=== PATIENT | female | born 1960 | race Caucasian/White ===

== ENCOUNTER → 2020-11-25 12:04 | Outpatient (CLI) | payer MEDICARE, MEDICAID, SELFPAY ==
[2020-11-25 13:19] LABS: Coronavirus 19 IgG Antibody Negative (Negative); Coronavirus 19 IgM Antibody Negative (Negative)
== END ==
PROVIDERS: Visit Provider Urology
DX: R32 Unspecified urinary incontinence (principal); Z01.812 Encounter for preprocedural laboratory examination; Z20.822 Contact with and (suspected) exposure to COVID-19
CPT/HCPCS: 36415; 86328

== ENCOUNTER 2020-11-28 07:50 | Day surgery (SDC) | payer MEDICARE, MEDICAID, SELFPAY ==
[2020-11-28] VITALS (13 sets, daily range): BP systolic 87–131; BP diastolic 50–82; PULSE 60–73; RESP 16–20; TEMP 36.3–43; O2SAT 91–100; BMI 61.7
[2020-11-28 08:48] LABS: Basophils % 0.4 % (0.1-2.0); Eosinophils # 0.2 K/mm3 (0.0-0.4); Eosinophils % 3.2 % (0.1-12.0); Hematocrit 36.2 % (37.0-47.0); Hemoglobin 11.6 g/dL (12.2-16.2); Lymphocytes # 2.1 K/mm3 (0.7-4.5); Lymphocytes % 30.4 % (10-50); Mean Corpuscular HGB Conc 32.1 g/dL (31.8-35.4); Mean Corpuscular Hemoglobin 30.7 pg (27.0-31.2); Mean Corpuscular Volume 95.4 fl (81-99); Mean Platelet Volume 8.9 fl (7.4-10.4); Monocytes # 0.3 K/mm3 (0.1-1.0); Monocytes % 4.7 % (1.7-9.3); Neutrophils # 4.3 K/mm3 (1.8-7.8); Neutrophils % 61.3 % (37.0-80.0); Platelet Count 200 K/mm3 (142-424); Red Blood Count 3.79 M/mm3 (4.20-5.40); Red Cell Distribution Width 13.9 % (11.5-17.5)
[2020-11-28 08:53] LABS: Anion Gap 11.2 mEq/L (5-15); Blood Urea Nitrogen 36 mg/dl (7-17); Calcium 9.4 mg/dl (8.4-10.2); Carbon Dioxide 27 mmol/L (22.0-30.0); Chloride 106 mmol/L (98-107); Creatinine Clearance Estimated 26 mL/min (50-200); Estimated Glomerular Filt Rate 25 ml/min (>60); GFR (African American) 31 ML/MIN (>60); Glucose 106 mg/dl (74-100); Potassium 4.2 mmoL/L (3.5-5.1); Sodium 140 mmol/L (136-145)
--- NOTE | 2020-11-28 12:00 | P.PN_ITS ---
[facility] Anesthesia Checklist - Patient Identification Patient Identification: Arm Band - Structural Data Admitted From: Home Planned Operative Procedure/s: Transobturator Taping Consent for Planned Operative Procedure(s) Verified: Yes Verified Documents: Surgical Consent, History and Physical - NPO Status Verified Time NPO: 00:00 - Additional verifications Anesthesia Reactions: No Hx Blood Transfusions: No Blood Transfusion Reaction: No - Airway Assessment C-Spine Mobility Assessed: Yes (mp2) TMJ Mobility Assessed: Yes Dentition: Edentulous - Neurological Assessment Level of Consciousness: Awake, Alert - Anesthesia Plan Anesthesia Risk discussed: Yes Anesthesia Plan: Verified ASA Class: III Anesthesia Type: General [facility] History I have reviewed the patient's past medical history: Yes Medical History: Reports:: Gastroesophageal Reflux Disease(GERD), Hypertension, Osteoporosis, Renal Disease Denies:: Cancer, Diabetes Mellitus Type 1, Diabetes Mellitus Type 2, MRSA, Seizures *Have you ever received a pneumonia vaccine?: No *Have you received a flu vaccine this season?: No Other Medical History: Reports: Arthritis, Osteoporosis. Denies: Blood Transfusion Reaction Anesthesia experience/problems:: nac Other Surgeries: Yes: Bariatric Surgery, Cardiac Catheterization, Colonoscopy, , Dilation and Curettage Amputation: No Fractures: No - *Social History Last grade of school completed: High school graduate Smoking Status: Never smoker Alcohol Intake: never Substance Use Type: denies use *Occupational Status:: disabled Housing: apartment Household Members: none *Travel in the last 8 weeks: None Family Hx:: Cancer, Coronary Artery Disease, Hypertension, Stroke, Diabetes
--- NOTE | 2020-11-28 12:01 | HMH.ANESI ---
[facility] Anesthesia Record Part I Intake, IV Amount: 1,000 Estimated blood loss (mL): 10 Urine output (mL): 0 Blood Pressure: 124/51 SaO2: 91 Pulse Rate: 71 Respiratory Rate: 16 Temperature: 98.8 F Patient is:: Drowsy, Stable Stable to PACU at:: 12:00
--- NOTE | 2020-11-28 13:05 | PC.NURSE ---
300ml of sterile water instilled into bladder per MD willis
--- NOTE | 2020-11-28 14:22 | PC.NURSE ---
Pt voided >200ml of urine into bedpan
--- NOTE | 2020-11-28 14:59 | HMH.ANESII ---
[facility] Anesthesia Record Part II Discharge Time: 12:40 Destination: Surgical Day Care (OP Surgery) PACU nurse assessment reviewed?: Yes Patient Condition:: Good Anesthesia Complications:: None Swallowing reflex intact?: Yes Cyanosis?: No Blood Pressure: 95/68 Pulse Rate: 68 Temperature: 97.5 F Mental Status: Alert & Oriented Pain level:: 7 Nausea and/or vomitting:: None Intake, IV Amount: 0
--- NOTE | 2020-11-28 15:26 | HMH.OPNOTE ---
Date of procedure: 11/28/20 Pre-op Diagnosis:: Stress urinary incontinence Post-op Diagnosis:: Stress urinary incontinence Procedure performed:: Transobturator tape placement, cystoscopy Surgeon:: Florin Lim MD MET[employer] RIVETING MACHINE OPERATOR:: Mark Rodriguez Anesthesia: GETA Estimated blood loss (mL): 10 Clinical Note:: 60-year-old white female with stress urinary incontinence presents for urologic management. Operative findings:: Patient is morbidly obese and the procedure was more difficult due to her size but we were able to place the sling in its appropriate position without complication. Operative note:: Patient taken to the operating room after informed consent was obtained. She was placed on the operating room table in the supine position and general anesthesia administered. Sequential compression devices placed and preoperative antibiotics administered. She was then placed into the dorsal lithotomy position and her extremities padded appropriately. She was prepped and draped in the standard surgical fashion. Tape was used to retract the excessive fatty tissue on her thighs and over the mons pubis. Sterile prep and drape was then performed. A 16 English Delaney catheter passed into the bladder and the bladder drained. Delaney was clamped and placed onto the abdomen. The thigh incisions were marked and there appropriate position the inferior edge of the insertion of the adductor longus and on a plane equal to the clitoris. Weighted vaginal speculum was placed in a towel clip had to be used to keep it into its position. Lidocaine placed into each planned thigh incision as well as into the anterior vaginal wall. Stab incision was made in each inner thigh and the midline of the anterior vaginal wall was incised with the scalpel. The periurethral space was sharply and bluntly dissected laterally. Index finger was placed through the lateral periurethral space and the tissue was bluntly dissected from underneath the ischio pubic ramus bilaterally. Trocar was then placed into the right sided thigh incision and with some difficulty around the ischio pubic rami and guided through the vaginal incision by my finger which was underneath the ischio pubic ramus medially. There is no evidence of any fornix injury and one end of the sling was placed onto the trocar and it was pulled back out through the thigh. The identical procedure was performed on the patient's left side and the other end of the sling was placed on to that trocar and it was pulled out through the left thigh. Cystoscopy was then performed and it showed no evidence of any bladder or urethral injury. Visual inspection of the lateral fornices also detected no extrusion. The Delaney catheter was then replaced into the bladder and the bladder drained and the Delaney again clamped and placed onto the abdomen. A curved hemostat was placed just under the urethra and the sling was adjusted up to the hemostat to where the hemostat just barely tilted. The sleeves were then cut from the sling and removed. The inner tab was removed as well. There was no excess sling material at the thigh level as the patient thighs were so large that they just retracted inside the skin. A 2-0 chromic was used to close the vaginal incision. Dermabond was used on the thigh incisions. Premarin soaked gauze ribbon was then placed into the vagina and Delaney placed to drainage. There was 10 cc blood loss. Patient tolerated procedure well without complications. Condition: stable Disposition: PACU Specimens:: None Complications:: None
[2020-11-28 17:08] LABS: Microscopic,Cath URINE MICROSCOPIC (MICROSCOPIC)
[2020-11-28 17:17] LABS: Appearance,Urine/Cath CLEAR (Clear); Bilirubin,Cath Negative (Negative); Blood, Urine/Cath 3+ (Negative); Color,Urine/Cath YELLOW (Yellow); Glucose,Urine/Cath (UA) Negative (Negative); Ketones,Urine/Cath Negative (Negative); Leukocyte Esterase,Cath 1+ (Negative); Nitrate,Cath Negative (Negative); PH,Urine/Cath 5.5 (5.0-8.5); Protein,Urine/Cath TRACE (Negative); Specific Gravity, Urine/Cath 1.025 (1.005-1.030)
[2020-11-28 17:47] LABS: WBC,Urine/Cath 20-50 #/hpf (0-3)
[2020-11-28 17:48] LABS: Bacteria,Urine/Cath 4+ /lpf
== END 2020-11-28 14:23 | disposition home or self-care (01) ==
LOC: OR 07:52
PROVIDERS: PCP Family Medicine; Visit Provider Urology
DX: N39.3 Stress incontinence (female) (male) (principal); K21.9 Gastro-esophageal reflux disease without esophagitis; I10 Essential (primary) hypertension; M81.0 Age-related osteoporosis without current pathological fracture; N28.9 Disorder of kidney and ureter, unspecified; M19.90 Unspecified osteoarthritis, unspecified site; Z80.9 Family history of malignant neoplasm, unspecified; Z82.3 Family history of stroke; Z83.3 Family history of diabetes mellitus; Z82.49 Family history of ischemic heart disease and other diseases of the circulatory system
CPT/HCPCS: 57288; 80048; 81001; 85025; 87086; 87088; 87186; 96374; C1771; J2405

== ENCOUNTER → 2020-12-27 15:27 | Outpatient (CLI) | payer MEDICARE, MEDICAID, SELFPAY ==
[2020-12-27 16:12] LABS: Basophils # 0.1 K/mm3 (0-0.2); Basophils % 0.5 % (0.1-2.0); Eosinophils # 0.2 K/mm3 (0.0-0.4); Eosinophils % 1.8 % (0.1-12.0); Hematocrit 34.6 % (37.0-47.0); Hemoglobin 11.3 g/dL (12.2-16.2); Lymphocytes # 2.9 K/mm3 (0.7-4.5); Lymphocytes % 29.8 % (10-50); Mean Corpuscular HGB Conc 32.6 g/dL (31.8-35.4); Mean Corpuscular Hemoglobin 30.7 pg (27.0-31.2); Mean Corpuscular Volume 94.1 fl (81-99); Mean Platelet Volume 7.8 fl (7.4-10.4); Monocytes # 0.5 K/mm3 (0.1-1.0); Monocytes % 5.4 % (1.7-9.3); Neutrophils % 62.6 % (37.0-80.0); Platelet Count 366 K/mm3 (142-424); Red Blood Count 3.67 M/mm3 (4.20-5.40); Red Cell Distribution Width 14.1 % (11.5-17.5); White Blood Count 9.6 K/mm3 (4.8-10.8)
[2020-12-27 16:30] LABS: Chloride 107 mmol/L (98-107); Sodium 139 mmol/L (136-145)
[2020-12-27 16:33] LABS: Alanine Aminotransferase 15 U/L (12-78); Albumin Level 4.1 g/dl (3.5-5.0); Albumin/Globulin Ratio 1.5 (1.1-1.8); Alkaline Phosphatase 131 U/L (38-126); Aspartate Amino Transferase 22 U/L (14-36); Bilirubin,Total 0.5 mg/dl (0.2-1.3); Blood Urea Nitrogen 23 mg/dl (7-17); Calcium 9.4 mg/dl (8.4-10.2); Carbon Dioxide 23 mmol/L (22.0-30.0); Estimated Glomerular Filt Rate 50 ml/min (>60); GFR (African American) 61 ML/MIN (>60); Globulin 2.8 g/dL (1.3-3.2); Glucose 107 mg/dl (74-100); Total Protein,Serum 6.9 g/dl (6.3-8.2)
[2020-12-27 17:11] LABS: C-Reactive Protein 10.7 mg/L (0-4)
[2020-12-27 19:35] LABS: Erythrocyte Sedimentation Rate 50 mm/hr (0-30)
== END ==
PROVIDERS: Visit Provider Nurse Practitioner
DX: M79.673 Pain in unspecified foot (principal)
CPT/HCPCS: 36415; 80053; 84550; 85025; 85651; 86140

== ENCOUNTER → 2021-04-12 11:52 | Outpatient (CLI) | payer MEDICARE, MEDICAID, SELFPAY ==
--- NOTE | 2021-04-12 11:59 | XR_ITS ---
PROCEDURE: XR KNEE RT 4V CLINICAL INDICATION: BL knee pain COMPARISON: No exams were available for comparison FINDINGS: There is severe osteoarthritic changes at the medial compartment patellofemoral joint and lateral compartment. There are prominent osteophytes at the knee joint. There are small calcifications in the suprapatellar and infrapatellar region which could be due to small loose bodies within suprapatellar bursa. IMPRESSION: Severe osteoarthritic changes as described Dictated by: Asher Martinez MD 04/12/2021 17:30 Asher Martinez MD in [place] 04/12/2021 17:30
--- NOTE | 2021-04-12 11:59 | XR_ITS ---
PROCEDURE: XR HIP RT 2-3V W/PELVIS CLINICAL INDICATION: RT hip pain COMPARISON: No exams were available for comparison FINDINGS: The exam is limited secondary to patient's body habitus. There are severe osteoarthritic changes of the right hip with mild cortical irregularity of the femoral head. A subchondral lucency involves the superior aspect of the femoral head and could be due to a crescent sign from avascular necrosis versus an overlying osteophyte. Consider CT for further evaluation. No obvious acute fracture or dislocation. There are mild osteoarthritic changes of the left hip. IMPRESSION: Severe osteoarthritis of the right hip with possible crescent sign of the femoral head which may be seen with avascular necrosis versus prominent osteophyte. Consider CT for further evaluation. Dictated by: Asher Martinez MD 04/12/2021 12:58 Asher Martinez MD in [place] 04/12/2021 12:58
--- NOTE | 2021-04-12 14:12 | MM_ITS ---
PROCEDURE: MM DIG SCREENING MAMM BI W/CAD Digital Breast Tomosynthesis Included CLINICAL INDICATION: Breast Cancer Screening COMPARISON: DOC,MG MAMMO ADDITIONAL VIEWS RT from 01/31/2017 MG Screening-Bilateral Mammography from 01/22/2018 DOC,MG MAMMO ADDITIONAL VIEWS RT from 03/20/2018 TECHNIQUE: Standard CC and MLO images and 3D Tomosynthesis was obtained. R2 CAD reviewed. FINDINGS: The breasts are heterogeneously dense which may obscure small masses. No suspicious appearing mass, malignant-appearing microcalcification, architectural distortion, or skin thickening. There are numerous bilateral benign-appearing nodules overall not significantly changed. Bilateral benign-appearing calcifications are also noted. IMPRESSION: Benign findings. BI-RAD Category: 2 Benign Finding FOLLOW-UP: 1 YR 1 Year Follow-up (A letter has been sent to the patient regarding results of the study.) Dictated by: Asher Martinez MD 05/01/2021 08:52 Asher Martinez MD in [place] 05/01/2021 08:52
--- NOTE | 2021-04-12 14:13 | US_ITS ---
PROCEDURE: US KIDNEY CLINICAL INDICATION: CKD STAGE 3 COMPARISON: No exams were available for comparison FINDINGS: The right kidney is [id number]. No hydronephrosis. There is cortical thinning present. There is a benign-appearing 2 cm cyst along the lower pole of the right kidney. The left kidney is [id number]. Cortical thinning noted. No renal mass or hydronephrosis. Multiple gallstones are noted. IMPRESSION: Bilateral renal cortical thinning with small benign-appearing right renal cyst Cholelithiasis Dictated by: Asher Martinez MD 04/12/2021 17:40 Asher Martinez MD in [place] 04/12/2021 17:40
== END ==
PROVIDERS: PCP Emergency Medicine; Visit Provider Emergency Medicine
DX: M25.561 Pain in right knee (principal); M25.562 Pain in left knee; M25.551 Pain in right hip; Z12.31 Encounter for screening mammogram for malignant neoplasm of breast; N18.30 Chronic kidney disease, stage 3 unspecified
CPT/HCPCS: 73502; 73564; 76770; 77063; 77067

== ENCOUNTER → 2021-09-04 13:31 | Outpatient (POV) | payer MEDICARE, MEDICAID, SELFPAY | PROVIDERS: Visit Provider Internal Medicine Nephrology | DX: Z00.00 Encounter for general adult medical examination without abnormal findings (principal) ==

== ENCOUNTER → 2022-09-15 08:25 | Outpatient (CLI) | payer MEDICARE, MEDICAID, SELFPAY ==
[2022-09-15 08:32] LABS: Microscopic, Urine URINE MICROSCOPIC (MICROSCOPIC)
[2022-09-15 08:52] LABS: Appearance,Urine CLOUDY (Clear); Bilirubin,Urine Negative (Negative); Blood, Urine Negative (Negative); Color,Urine YELLOW (Yellow); Glucose,Urine (UA) Negative (Negative); Ketones,Urine Negative (Negative); Leukocyte Esterase,Urine TRACE (Negative); Nitrate,Urine POSITIVE (Negative); PH,Urine 6.5 (5.0-8.5); Protein,Urine TRACE (Negative)
[2022-09-15 08:54] LABS: Basophils # 0.1 K/mm3 (0-0.2); Basophils % 0.8 % (0.1-2.0); Eosinophils # 0.2 K/mm3 (0.0-0.4); Eosinophils % 2.2 % (0.1-12.0); Hemoglobin 13.5 g/dL (12.2-16.2); Lymphocytes # 2.6 K/mm3 (0.7-4.5); Mean Corpuscular HGB Conc 32.1 g/dL (31.8-35.4); Mean Corpuscular Hemoglobin 30.7 pg (27.0-31.2); Mean Corpuscular Volume 95.7 fl (81-99); Mean Platelet Volume 8.5 fl (7.4-10.4); Monocytes # 0.6 K/mm3 (0.1-1.0); Monocytes % 5.5 % (1.7-9.3); Neutrophils # 7.4 K/mm3 (1.8-7.8); Neutrophils % 67.5 % (37.0-80.0); Platelet Count 295 K/mm3 (142-424); Red Blood Count 4.39 M/mm3 (4.20-5.40); Red Cell Distribution Width 14.2 % (11.5-17.5); White Blood Count 10.9 K/mm3 (4.8-10.8)
[2022-09-15 08:57] LABS: Creatinine,Urine Random 109 mg/dL (Not Estab.)
[2022-09-15 09:04] LABS: RBC,Urine Occasional #/hpf (0-3)
[2022-09-15 09:26] LABS: Albumin Level 4.5 g/dl (3.5-5.0); Anion Gap 10.8 mEq/L (5-15); Blood Urea Nitrogen 18 mg/dl (7-17); Calcium 8.9 mg/dl (8.4-10.2); Carbon Dioxide 28 mmol/L (22.0-30.0); Chloride 105 mmol/L (98-107); Estimated Glomerular Filt Rate 63 ml/min (>60); GFR (African American) 77 ML/MIN (>60); Glucose 106 mg/dl (74-100); Phosphorous 3.7 mg/dl (2.5-4.5); Potassium 3.8 mmoL/L (3.5-5.1); Sodium 140 mmol/L (136-145)
[2022-09-15 09:38] LABS: Intact Parathyroid Hormone 204.7 pg/mL (7.5-53.5)
[2022-09-15 09:42] LABS: 25-OH Vitamin D, Total 70.9 ng/mL (30-100)
== END ==
PROVIDERS: PCP Emergency Medicine; Visit Provider Internal Medicine Nephrology
DX: N18.32 Chronic kidney disease, stage 3b (principal); E55.9 Vitamin D deficiency, unspecified
CPT/HCPCS: 36415; 80069; 81001; 82306; 82570; 83970; 84155; 85025

== ENCOUNTER → 2022-09-17 11:40 | Outpatient (POV) | payer MEDICARE, MEDICAID, SELFPAY | PROVIDERS: Visit Provider Internal Medicine Nephrology | DX: Z00.00 Encounter for general adult medical examination without abnormal findings (principal) ==

== ENCOUNTER → 2022-10-25 13:41 | Outpatient (CLI) | payer MEDICARE, MEDICAID, SELFPAY ==
--- NOTE | 2022-10-25 13:41 | CA_ITS ---
APPROVED REPORT EXAM: Comprehensive 2D, Doppler, and color-flow Echocardiogram Fare Collector: Shellie Bear RVT Ht: 5 ft 4 in Wt: 355lbs BSA: 2.50 BP: 139/91 mmHg Indications: ABN EKG,HX SVT,HTN,OBESITY,GERD,HX SVT TDS-PT BODY HABITUS AND PT SCANNED IN W/C 2D Dimensions LVOT 2.01 cm (M/F) 1.5-2.5 M-Mode Dimensions RVDd 3.37 cm (0.9-2.6) LA Diam 3.35 cm (1.9-4.0) LVDd 5.06 cm (3.5-5.7) Ao Diam 3.41 cm (2.0-3.7) LVDs 3.77 cm (3.5-5.7) IVSd 0.96 cm (0.6-1.1) PWd 0.84 cm (0.6-1.1) EF (Teich) 50.00% FS 25.50% EDV (Teich) 121.60 mL ESV (Teich) 60.80 mL LV Diastology E Decel Time 223.00 (160-240 msec) E/A Ratio 1.1 MED E' 6.20 (< 7 cm/sec) E'/MED E' Ratio 7.58 (>14) LAT E' 4.30 (<10 cm/sec) E/LAT E' Ratio 10.93 (>14) Aortic Valve AO Peak GR. 2.60 mmHg Mitral Valve MV E Max Giovanni. 47.00 (40-130 cm/s) MV A Velocity 44.00 (40-130 cm/s) E/A Ratio 1.07 MV Decel. Time 223.00 (160-240 ms) MV PHT 65.00 ms Pulmonary Valve PV Peak Velocity 89.00 (50-150 cm/s) Tricuspid Valve TR P. Velocity 301.00 cm/s RAP Estimate 10.00 mmHg RVSP 46.20 mmHg Left Ventricle Clinically difficult study because of the patient factors and poor acoustic windows. Left atrium is mildly enlarged, left ventricle is normal size mild concentric left ventricular hypertrophy, estimated ejection fraction 55% with no regional wall motion abnormality, diastolic parameters are inconclusive. Right Ventricle Right atrium and right ventricular mildly enlarged with normal contractility. Aortic Valve Aortic valve is minimally thickened and fibrosed there is no aortic stenosis or aortic insufficiency. Mitral Valve Mitral valve is grossly normal, there is trace mitral regurgitation. Tricuspid Valve Tricuspid valve is grossly normal, there is trace tricuspid regurgitation, tricuspid regurgitation jet velocity is inadequate for calculation of the right ventricular systolic pressure. Pulmonic Valve Pulmonic valve is poorly visualized. Great Vessels Aortic root normal size. Inferior vena cava is poorly visualized. Pericardium No significant pericardial effusion noted. Conclusion 1. Biatrial enlargement, normal left ventricular size, mild concentric left ventricular hypertrophy, estimated ejection fraction 55% with no regional wall motion abnormality. Diastolic parameters are inconclusive. 2. Mildly enlarged right ventricle with normal contractility. 3. Trace mitral and tricuspid regurgitation. 4. No significant pericardial effusion noted. 5. Inferior vena cava is poorly visualized. Electronically signed by : Juvenal Hanson MD 10/25/2022 17:12:52
== END ==
PROVIDERS: PCP Emergency Medicine; Visit Provider Physician Assistant
DX: E21.5 Disorder of parathyroid gland, unspecified (principal); E66.01 Morbid (severe) obesity due to excess calories; I10 Essential (primary) hypertension; R94.31 Abnormal electrocardiogram [ECG] [EKG]; Z68.44 Body mass index [BMI] 60.0-69.9, adult; Z82.49 Family history of ischemic heart disease and other diseases of the circulatory system; Z86.79 Personal history of other diseases of the circulatory system
CPT/HCPCS: 93306

== ENCOUNTER → 2022-11-15 11:12 | Outpatient (CLI) | payer MEDICARE, MEDICAID, SELFPAY | PROVIDERS: PCP Emergency Medicine; Visit Provider Nurse Practitioner Family | DX: E21.5 Disorder of parathyroid gland, unspecified (principal); E66.01 Morbid (severe) obesity due to excess calories; I10 Essential (primary) hypertension; R00.2 Palpitations; R94.31 Abnormal electrocardiogram [ECG] [EKG]; Z68.44 Body mass index [BMI] 60.0-69.9, adult; Z82.49 Family history of ischemic heart disease and other diseases of the circulatory system; Z86.79 Personal history of other diseases of the circulatory system | CPT/HCPCS: 93270 ==

== ENCOUNTER → 2022-11-19 23:09 | Outpatient (CLI) | payer MEDICARE, MEDICAID, SELFPAY ==
[2022-11-19 19:20] LABS: Alanine Aminotransferase 20 U/L (12-78); Albumin/Globulin Ratio 1.7 (1.1-1.8); Alkaline Phosphatase 112 U/L (38-126); Anion Gap 11.1 mEq/L (5-15); Aspartate Amino Transferase 27 U/L (14-36); Bilirubin,Total 0.4 mg/dl (0.2-1.3); Blood Urea Nitrogen 18 mg/dl (7-17); Calcium 8.6 mg/dl (8.4-10.2); Carbon Dioxide 29 mmol/L (22.0-30.0); Chloride 102 mmol/L (98-107); Estimated Glomerular Filt Rate 63 ml/min (>60); GFR (African American) 77 ML/MIN (>60); Globulin 2.4 g/dL (1.3-3.2); Glucose 89 mg/dl (74-100); Potassium 4.1 mmoL/L (3.5-5.1); Sodium 138 mmol/L (136-145); Total Protein,Serum 6.4 g/dl (6.3-8.2)
[2022-11-19 19:38] LABS: Free T4 (Free Thyroxine) 1.47 ng/dl (0.78-2.19)
[2022-11-19 19:42] LABS: 25-OH Vitamin D, Total 80.1 ng/mL (30-100)
[2022-11-19 19:53] LABS: Thyroid Stimulating Hormone 1.46 uIU/mL (0.465-4.68)
[2022-12-02 20:57] LABS: PTH Related Peptide < 2.0
== END ==
PROVIDERS: PCP Emergency Medicine; Visit Provider Emergency Medicine
DX: G47.33 Obstructive sleep apnea (adult) (pediatric) (principal); I10 Essential (primary) hypertension; E66.01 Morbid (severe) obesity due to excess calories; Z68.44 Body mass index [BMI] 60.0-69.9, adult; Z79.899 Other long term (current) drug therapy
CPT/HCPCS: 80053; 82306; 82397; 84439; 84443

== ENCOUNTER → 2022-11-26 12:19 | Outpatient (CLI) | payer MEDICARE, MEDICAID, SELFPAY ==
--- NOTE | 2022-11-26 12:23 | US_ITS ---
FINAL REPORT CLINICAL HISTORY: parathyroid abnormality FINDINGS: THYROID ULTRASOUND The right lobe of the thyroid measures 4.7 cm. The left lobe of the thyroid measures 4.9 cm. The parenchyma shows normal echogenicity. There are multiple bilateral subcentimeter anechoic and hypoechoic TI-RADS 3 and TI-RADS 4 nodules. IMPRESSION: Several subcentimeter TI-RADS 4 nodules. No further follow-up recommended for subcentimeter TI-RADS 4 nodules. Reviewed, Interpreted and Dictated by Tai Muniz MD Transcribed by aBr Boyd Authenticated and [facility]
== END ==
PROVIDERS: PCP Emergency Medicine; Visit Provider Emergency Medicine
DX: E21.5 Disorder of parathyroid gland, unspecified (principal)
CPT/HCPCS: 76536

== ENCOUNTER → 2022-12-17 10:09 | Outpatient (POV) | payer MEDICARE, MEDICAID, SELFPAY ==
[2022-12-17 10:52] VITALS: BP 128/85; PULSE 68; RESP 18; O2SAT 97; BMI 69.7
--- NOTE | 2022-12-17 11:13 | EXP.PAIN.OV ---
HPI Data of Consult Patient: new to practice Consult date: 12/17/22 Requesting Physician: Darcy Carrero APRN Consult Narrative Reason for consult: Right hip pain, bilateral knee pain History of present illness: Ms. Sebastian is a 62 year old female who presents today as a new patient. She is a referral from Dr. Vee's office. Today she rates her pain a 6 out of 10. She states her pain is all along her right hip and bilateral knees. She does state this is a aching sensation that is constant with occasional sharp shooting pains. She states this has been going on for years and progressively worsened over time. She does state that she has severe degenerative disease and that she needs these joints replaced however she has not had any luck finding an orthopedic doctor who is willing to take on the revisions due to her weight. Patient does use a motorized wheelchair and states she pretty much stays in this device except to go to the bathroom at home. She states she does have a walker at home however due to her significant pain with ambulation she does not use it that frequently. Patient states she has had gastric bypass surgery in the past and then was told not to put any extra weight on her joints. She does state that she is very frustrated because she cannot lose weight due to not being able to ambulate. She states she was seeing a pain clinic in [place] however they were wanting to charge her for every trip. She states that she cannot afford the continued cost. Patient has tried [id number]-hyjkeyu medications such as Tylenol and ibuprofen along with heat and ice and topicals with minimal relief. Patient has been to physical therapy however this made her pain symptoms worse. Patient is also had knee injections in the past that did provide significant relief however only lasted 3 days. She does believe this is related to it being a severe fypz-mi-bopd condition. She is currently managed with [place] 7.5 mg 4 times a day and tramadol 50 mg 4 times a day from this office along with Flexeril 10 mg 3 times daily. Patient denies any side effects however she states that she does not feel like she gets significant relief with this medication. Patient states that she has been on it for years and feels like her body has adjusted to them. Patient does also state that she has severe degenerative disc disease in her lumbar spine. Her Maxwell is [phone]. Its been reviewed and appropriate. CC: Darcy Carrero APRN [facility] Disclaimer: The information contained in this section may have been updated after the patient was seen, as this information can be updated by other users. Medical History (Updated 12/17/22 @ 11:26 by Darcy Carrero APRN) CAD (coronary artery disease) GERD (gastroesophageal reflux disease) Gout HTN (hypertension), benign Osteoporosis Social History (Updated 12/17/22 @ 10:24 by Latosha Montanez RN) Smoking Status: Never smoker alcohol intake: never substance use type: denies use current occupational status: disabled Travel in the last 8 weeks: None household members: none housing: apartment caffeine: Yes Review of Systems Review of Systems Review of systems:: pertinent systems reviewed and negative unless documented below Review of systems (narrative): Review of Systems: General: No recent weight changes, no fever, no sleep disturbances Respiratory: No cough, no shortness of air, no recurring pulmonary infections Cardiovascular/peripheral vascular: No chest pain, no palpitations, no edema, no shortness of breath Gastrointestinal: No new onset incontinence, normal bowel movements reported Genitourinary: No new onset incontinence Musculoskeletal: Right hip pain, bilateral knee pain Psychiatric: [Normal mood/affect] Neurological: [Denies weakness in extremities], [denies balance issues] Meds Home Medications and Allergies Home Medications Medication Instructions Recorded Confirmed Type thiamine HCl (vitami
== END | disposition home or self-care (01) ==
PROVIDERS: Visit Provider Nurse Practitioner Family
DX: M19.90 Unspecified osteoarthritis, unspecified site (principal); M25.561 Pain in right knee; M25.551 Pain in right hip; G89.4 Chronic pain syndrome; E66.01 Morbid (severe) obesity due to excess calories; Z68.44 Body mass index [BMI] 60.0-69.9, adult
CPT/HCPCS: 99202; G0463

== ENCOUNTER → 2023-01-31 14:55 | Outpatient (POV) | payer MEDICARE, MEDICAID, SELFPAY ==
--- NOTE | 2023-01-31 15:06 | EXP.PAIN.SOA ---
[facility] Pain Management SOAP Note Subjective:: Patient is a pleasant 62-year-old female who presents today for follow-up and medication refill. We are currently treating the patient for degenerative joint disease with bilateral knee pain and right hip pain. Today she rates her pain a 5 out of 10. Patient denies any new trauma or injury. Patient denies any change location or type of pain she experiences. She continues to have pain in her right hip and bilateral knees. It is a aching sensation that is constant with occasional sharp shooting pains. At our last visit we did send her for an orthopedic referral. She states she does have an appointment with his office next week. She is currently managed with [place] 10 mg 4 times a day from our office and Flexeril 10 mg at bedtime from an outside provider. Patient denies any side effects from this medication. Patient presents today in motorized wheelchair. She does have a history of gastric bypass. She does also mention that if the orthopedic doctor is not interested in proceeding forward with hip or knee replacement she is interested in looking into possible breast reduction or lipo suction to help lose weight. Her Maxwell is [phone]. Its been reviewed and appropriate. Review of Systems: General: No recent weight changes, no fever, no sleep disturbances Respiratory: No cough, no shortness of air, no recurring pulmonary infections Cardiovascular/peripheral vascular: No chest pain, no palpitations, no edema, no shortness of breath Gastrointestinal: No new onset incontinence, normal bowel movements reported Genitourinary: No new onset incontinence Musculoskeletal: Right hip, bilateral knee pain Psychiatric: [Normal mood/affect] Neurological: [Denies weakness in extremities], [denies balance issues] Objective:: Physical Exam: General: Alert and oriented x3, no acute distress, pleasant and cooperative Lungs: Respirations even and unlabored, symmetrical chest expansion Eyes: PERRL Musculoskeletal: Flexion and extension of bilateral knees somewhat guarded secondary to pain, [antalgic gait noted] Neurological: Speech clear, no gross sensory deficit Assessment:: Degenerative joint disease with bilateral knee pain and right hip pain Plan:: Patient continues to experience significant pain at multiple joints. We will refill her [place] 10 mg 4 times a day and provide a 1 month supply of this medication. Patient will return to clinic in 1 month for reevaluation of symptoms and medication refill. Patient has been advised of risks of oversedation with the prescribed medication. Narcan has been offered to the patient in the event of oversedation. Patient has been advised that a family member should also be educated regarding administration of Narcan. Patient has been instructed to contact the clinic with any concerns before the next appointment. Dr. Newton has reviewed this note and agrees with this plan of care. This note was dictated using voice recognition software and make contain errors or omissions. [facility] Disclaimer: The information contained in this section may have been updated after the patient was seen, as this information can be updated by other users. Medical History (Updated 12/17/22 @ 11:26 by Darcy Carrero APRN) CAD (coronary artery disease) GERD (gastroesophageal reflux disease) Gout HTN (hypertension), benign Osteoporosis Social History (Updated 12/17/22 @ 10:24 by Latosha Montanez, NAILA) Smoking Status: Never smoker alcohol intake: never substance use type: denies use current occupational status: disabled Travel in the last 8 weeks: None household members: none housing: apartment caffeine: Yes
[2023-01-31 16:04] VITALS: BP 111/71; PULSE 74; RESP 19; O2SAT 97; BMI 69.2
== END | disposition home or self-care (01) ==
PROVIDERS: PCP Emergency Medicine; Visit Provider Nurse Practitioner Family
DX: M19.90 Unspecified osteoarthritis, unspecified site (principal); M25.561 Pain in right knee; M25.562 Pain in left knee; M25.551 Pain in right hip
CPT/HCPCS: 99212; G0463

== ENCOUNTER → 2023-02-28 14:09 | Outpatient (POV) | payer MEDICARE, MEDICAID, SELFPAY ==
--- NOTE | 2023-02-28 14:51 | EXP.PAIN.SOA ---
[facility] Pain Management SOAP Note Subjective:: Patient is a pleasant 62-year-old female who presents today for follow-up and medication refill. We are currently treating the patient for degenerative joint disease with bilateral knee pain and right hip pain. Today she rates her pain an 8 out of 10. She states she continues to have worsening pain in her right hip and knees. From her last visit she does state that she went to her orthopedic appointment however she saw the PA who stated they could not do anything for her based off of her BMI and that they were sending her to Dr. Delaney at . Patient states she was then contacted by this office and given an appointment which turned out to be for [facility] for physical therapy. Patient states she did contact their office and discussed with them that she cannot tolerate physical therapy due to her BMI however they explained that Dr. Delaney would not consider her a surgical patient until she is lost some weight. Patient states she is beside herself because she cannot lose any weight due to not being able to move around. Patient has thought about looking into possible breast reduction or lipo suction to have additional help with weight loss. She does state that she is scheduled for an appointment with her primary care doctor coming up and is going to discuss with him additional possibilities. Patient is currently managed with Doyline 10 mg 4 times a day from our office and Flexeril 10 mg at bedtime from an outside provider. She denies any side effects from this medication. Her Maxwell is [id number]. Its been reviewed and appropriate. Review of Systems: General: No recent weight changes, no fever, no sleep disturbances Respiratory: No cough, no shortness of air, no recurring pulmonary infections Cardiovascular/peripheral vascular: No chest pain, no palpitations, no edema, no shortness of breath Gastrointestinal: No new onset incontinence, normal bowel movements reported Genitourinary: No new onset incontinence Musculoskeletal: Low back pain, bilateral knee pain Psychiatric: [Normal mood/affect] Neurological: [Denies weakness in extremities], [denies balance issues] Objective:: Physical Exam: General: Alert and oriented x3, no acute distress, pleasant and cooperative Lungs: Respirations even and unlabored, symmetrical chest expansion Eyes: PERRL Musculoskeletal: Flexion and extension of lumbar [spine] somewhat guarded secondary to pain, [antalgic gait noted] Neurological: Speech clear, no gross sensory deficit Assessment:: Degenerative joint disease with bilateral knee pain and right hip pain, chronic pain syndrome Plan:: I will refill the patient's Doyline 10 mg 4 times a day and provide a 1 month supply of this medication. I will also send a referral to for possible breast reduction evaluation. Patient will return to clinic in 1 month for reevaluation of symptoms, medication refill and follow-up. Patient has been advised of risks of oversedation with the prescribed medication. Narcan has been offered to the patient in the event of oversedation. Patient has been advised that a family member should also be educated regarding administration of Narcan. Patient has been instructed to contact the clinic with any concerns before the next appointment. Dr. Newton has reviewed this note and agrees with this plan of care. This note was dictated using voice recognition software and make contain errors or omissions. [facility] Disclaimer: The information contained in this section may have been updated after the patient was seen, as this information can be updated by other users. Medical History (Updated 12/17/22 @ 11:26 by Darcy Carrero APRN) CAD (coronary artery disease) GERD (gastroesophageal reflux disease) Gout HTN (hypertension), benign Osteoporosis Social History (Updated 12/17/22 @ 10:24 by Latosha Montanez RN) Smoking Status: Never smoker alcohol intake: never substance use type: denies use c
[2023-02-28 15:26] VITALS: BP 125/72; PULSE 62; RESP 18; O2SAT 98; BMI 69.7
== END | disposition home or self-care (01) ==
PROVIDERS: Visit Provider Nurse Practitioner Family
DX: M19.90 Unspecified osteoarthritis, unspecified site (principal); M25.561 Pain in right knee; M25.562 Pain in left knee; M25.551 Pain in right hip; G89.4 Chronic pain syndrome
CPT/HCPCS: 99212; G0463

== ENCOUNTER → 2023-03-28 13:19 | Outpatient (POV) | payer MEDICARE, MEDICAID, SELFPAY ==
--- NOTE | 2023-03-28 13:56 | EXP.PAIN.SOA ---
[facility] Pain Management SOAP Note Subjective:: Patient is a pleasant 62-year-old female who presents today for medication refill and follow-up. We are currently treating the patient for degenerative joint disease with bilateral knee pain and right hip pain. Today she rates her pain a 5 out of 10. Patient denies any new trauma or injury. Patient does state that she continues to have difficulty with ambulation due to her worsening pain in her hip and bilateral knees. At our last visit we had discussed possibly that she would benefit from a spinal cord stimulator trial. Patient does state today that she is interested in proceeding forward with this plan of care. At our last visit we did also try and send her for for possible breast reduction however we did not have any luck finding a provider who would accept her. Patient is currently managed with [place] 10 mg 4 times a day from our office and Flexeril 10 mg at bedtime from an outside provider. Patient denies any side effects from this medication. Her Maxwell is [id number]. Its been reviewed and appropriate. Review of Systems: General: No recent weight changes, no fever, no sleep disturbances Respiratory: No cough, no shortness of air, no recurring pulmonary infections Cardiovascular/peripheral vascular: No chest pain, no palpitations, no edema, no shortness of breath Gastrointestinal: No new onset incontinence, normal bowel movements reported Genitourinary: No new onset incontinence Musculoskeletal: Right hip pain, bilateral knee pain Psychiatric: [Normal mood/affect] Neurological: [Denies weakness in extremities], [denies balance issues] Objective:: Physical Exam: General: Alert and oriented x3, no acute distress, pleasant and cooperative Lungs: Respirations even and unlabored, symmetrical chest expansion Eyes: PERRL Musculoskeletal: Flexion and extension of lumbar [spine] somewhat guarded secondary to pain, [antalgic gait noted] Neurological: Speech clear, no gross sensory deficit Assessment:: Degenerative joint disease with bilateral knee pain and right knee pain Plan:: Patient continues to experience significant pain in her right hip and bilateral knees with limited range of motion. Patient has tried and failed conservative therapy such as oral medication, heat and ice, topicals, physical therapy, at home stretching and exercise. Patient has also tried orthopedic doctors for possible arthroplasty however has been denied by multiple providers due to her BMI. I have discussed with the patient that I will order a psychological evaluation if she is deemed an appropriate patient we will proceed forward with the spinal cord stimulator trial in the future. I will refill the patient's Fargo 10 mg 4 times a day and provide a 1 month supply of this medication. I have counseled the patient to talk to her primary care doctor regarding if they know of any surgeons for possible breast reduction. Patient will return to clinic in 1 month for reevaluation of symptoms and plan of care. Patient has been advised of risks of oversedation with the prescribed medication. Narcan has been offered to the patient in the event of oversedation. Patient has been advised that a family member should also be educated regarding administration of Narcan. Patient has been instructed to contact the clinic with any concerns before the next appointment. Dr. Newton has reviewed this note and agrees with this plan of care. This note was dictated using voice recognition software and make contain errors or omissions. [facility] Disclaimer: The information contained in this section may have been updated after the patient was seen, as this information can be updated by other users. Medical History (Updated 03/26/23 @ 17:09 by Melivn Martinez MD) CAD (coronary artery disease) GERD (gastroesophageal reflux disease) Gout HTN (hypertension), benign Osteoporosis Surgical History (Updated 03/26/23 @ 16:59 by LALO Mix) Hist
[2023-03-28 16:01] VITALS: BP 147/90; PULSE 63; RESP 18; O2SAT 97; BMI 69.7
== END | disposition home or self-care (01) ==
PROVIDERS: Visit Provider Nurse Practitioner Family
DX: M25.561 Pain in right knee (principal); M25.562 Pain in left knee; M25.551 Pain in right hip; M19.90 Unspecified osteoarthritis, unspecified site
CPT/HCPCS: 99212; G0463

== ENCOUNTER → 2023-04-25 12:48 | Outpatient (POV) | payer MEDICARE, MEDICAID, SELFPAY ==
--- NOTE | 2023-04-25 13:05 | EXP.PAIN.SOA ---
[facility] Pain Management SOAP Note Subjective:: Patient is a pleasant 62-year-old female who presents today for 1 month follow-up. We are currently treating the patient for degenerative joint disease with bilateral knee pain and right hip pain. Today she rates her pain a 6 out of 10. Patient denies any new trauma or injury. She does state that she has gotten a official appointment for [facility] for her psychological evaluation on May 10. She does also state that she has found a provider who could possibly do a breast reduction surgery. Patient is currently managed with Early 10 mg 4 times a day from our office and Flexeril 10 mg at bedtime from an outside provider. Patient denies any side effects from this medication. She states it does at least help take the edge off of her pain symptoms. Patient does have chronic back pain that affects her daily ability perform activities of daily living or even simple ambulation. Patient does use a motorized wheelchair including her Maxwell is [phone]. Its been reviewed and appropriate. Review of Systems: General: No recent weight changes, no fever, no sleep disturbances Respiratory: No cough, no shortness of air, no recurring pulmonary infections Cardiovascular/peripheral vascular: No chest pain, no palpitations, no edema, no shortness of breath Gastrointestinal: No new onset incontinence, normal bowel movements reported Genitourinary: No new onset incontinence Musculoskeletal: Back pain, knee pain, hip pain Psychiatric: [Normal mood/affect] Neurological: [Denies weakness in extremities], [denies balance issues] Objective:: Physical Exam: General: Alert and oriented x3, no acute distress, pleasant and cooperative Lungs: Respirations even and unlabored, symmetrical chest expansion Eyes: PERRL Musculoskeletal: Flexion and extension of lumbar [spine] somewhat guarded secondary to pain, [antalgic gait noted] Neurological: Speech clear, no gross sensory deficit Assessment:: Chronic back pain, bilateral knee pain, right hip pain, degenerative joint disease Plan:: Patient continues to experience significant pain at multiple joints on a daily basis. We have discussed in the past that due to her weight putting more pressure on her spine that weight reduction as well as possible breast reduction surgery may provide more beneficial relief for her overall back pain and joint pain. Patient is very limited in her ability to ambulate and exercise and has been trying to find any options possible to help her increase functionality and decrease her overall pain. We will continue to monitor her progress at upcoming visits. I will refill the patient's Early 10 mg 4 times a day and provide a 1 month supply of this medication. Patient will return to clinic in 1 month for reevaluation of symptoms and medication refill. Patient has been advised of risks of oversedation with the prescribed medication. Narcan has been offered to the patient in the event of oversedation. Patient has been advised that a family member should also be educated regarding administration of Narcan. Patient has been instructed to contact the clinic with any concerns before the next appointment. Dr. Newton has reviewed this note and agrees with this plan of care. This note was dictated using voice recognition software and make contain errors or omissions. [facility] Disclaimer: The information contained in this section may have been updated after the patient was seen, as this information can be updated by other users. Medical History CAD (coronary artery disease) GERD (gastroesophageal reflux disease) Gout HTN (hypertension), benign Osteoporosis Surgical History History of hysterectomy Social History Smoking Status: Never smoker alcohol intake: never substance use type: den
[2023-04-25 14:00] VITALS: BP 145/89; PULSE 79; RESP 18; O2SAT 99; BMI 69.2
== END | disposition home or self-care (01) ==
PROVIDERS: PCP Emergency Medicine; Visit Provider Nurse Practitioner Family
DX: M54.50 Low back pain, unspecified (principal); G89.29 Other chronic pain; M25.561 Pain in right knee; M25.562 Pain in left knee; M25.551 Pain in right hip; M19.90 Unspecified osteoarthritis, unspecified site
CPT/HCPCS: 99212; G0463

== ENCOUNTER → 2023-04-30 12:44 | Outpatient (CLI) | payer MEDICARE, MEDICAID, SELFPAY ==
--- NOTE | 2023-04-30 12:45 | MM_ITS ---
PROCEDURE INFORMATION: Exam: MG Bilateral Screening 3D Mammography Exam date and time: 04/30/2023 1:17 PM Age: 62 years old Clinical indication: Screening examination; No personal or family history of breast cancer TECHNIQUE: Imaging protocol: Bilateral Screening tomosynthesis and 2D mammography including computer-aided detection (CAD) when performed. COMPARISON: 1. MG MM DIG SCREENING MAMM BI W/CAD 04/12/2021 2:34 PM 2. MG MAMMO ADDITIONAL VIEWS RT 03/20/2018 8:46 AM FINDINGS: MAMMOGRAPHY: Breast composition: There are scattered areas of fibroglandular density. Mass: No new or suspicious masses Architectural distortion: None. Calcifications: No suspicious calcifications. Asymmetric density: None. Skin thickening: None. Axillary adenopathy: None. IMPRESSION: No mammographic evidence of malignancy. Annual screening is recommended unless otherwise clinically indicated. ASSESSMENT: BI-RADS Category 1: Negative
== END ==
PROVIDERS: PCP Emergency Medicine; Visit Provider Emergency Medicine
DX: Z12.31 Encounter for screening mammogram for malignant neoplasm of breast (principal)
CPT/HCPCS: 77063; 77067

== ENCOUNTER → 2023-05-10 12:57 | Outpatient (CLI) | payer MEDICARE, MEDICAID, SELFPAY ==
--- NOTE | 2023-05-10 12:57 | CT_ITS ---
FINAL REPORT TECHNIQUE: Thin section axial CT images with coronal and sagittal reformats were performed through the neck. This study was performed with techniques to keep radiation doses as low as reasonably achievable (ALARA). Individualized dose reduction techniques using automated exposure control or adjustment of mA and/or kV according to the patient's size were employed. CLINICAL HISTORY: 3+ tonsils cryptic bilaterally COMPARISON: None FINDINGS: No adenopathy or mass lesion is present . Salivary glands are normal. Larynx is unremarkable. Thyroid gland is unremarkable. There is mild prominence of the tonsillar pillars without evidence of any fluid collections or mass. IMPRESSION: Mild prominence of the tonsillar pillars without evidence of a fluid collection or mass. Reviewed, Interpreted and Dictated by Alban Whittaker III, MD Transcribed by Beatrice Morris Authenticated and [facility]
== END ==
PROVIDERS: PCP Emergency Medicine; Visit Provider Nurse Practitioner
DX: J35.1 Hypertrophy of tonsils (principal)
CPT/HCPCS: 70490

== ENCOUNTER → 2023-05-23 14:14 | Outpatient (POV) | payer MEDICARE, MEDICAID, SELFPAY ==
--- NOTE | 2023-05-23 14:47 | EXP.PAIN.SOA ---
[facility] Pain Management SOAP Note Subjective:: Patient is a pleasant 62-year-old female who presents today for medication refill and 1 month follow-up. We are currently treating the patient for degenerative joint disease with bilateral knee pain and right hip pain. Today she rates her pain a 5 out of 10. Patient denies any new trauma or injury. She does states she continues to have constant pain in her right hip and bilateral knees and is worse with increased activity. Patient does state since our last visit that she does have an upcoming appointment on May 31 for possible breast reduction surgery evaluation. She also has had her psychological evaluation done for possible spinal cord stimulator trial. Patient is currently managed with Arthur 10 mg 4 times a day and Flexeril 10 mg at bedtime from an outside provider. She denies any side effects from these medications. Her Maxwell has been reviewed and is appropriate. Review of Systems: General: No recent weight changes, no fever, no sleep disturbances Respiratory: No cough, no shortness of air, no recurring pulmonary infections Cardiovascular/peripheral vascular: No chest pain, no palpitations, no edema, no shortness of breath Gastrointestinal: No new onset incontinence, normal bowel movements reported Genitourinary: No new onset incontinence Musculoskeletal: Right hip pain, bilateral knee pain Psychiatric: [Normal mood/affect] Neurological: [Denies weakness in extremities], [denies balance issues] Objective:: Physical Exam: General: Alert and oriented x3, no acute distress, pleasant and cooperative Lungs: Respirations even and unlabored, symmetrical chest expansion Eyes: PERRL Musculoskeletal: Flexion and extension of lumbar [spine] somewhat guarded secondary to pain, [antalgic gait noted] Neurological: Speech clear, no gross sensory deficit Assessment:: Degenerative joint disease with right hip pain and bilateral knee pain Plan:: Patient did have an appropriate psychological evaluation and was deemed a good candidate for the spinal cord stimulator trial. I have reviewed over the risk and benefits of this procedure with the patient and she would like to proceed forward with this plan of care. Patient has tried and failed conservative therapy such as oral medications, heat and ice, topicals, at home exercising and stretching for longer than 12 weeks. Patient is unable to tolerate physical therapy due to her significant comorbidities and BMI. I will refill the patient's Arthur 10 mg 4 times a day and provide a 1 month supply of this medication. Patient will be scheduled for a spinal cord stimulator trial. We will contact the patient once we have official approval with specific time and date for this procedure. Patient has been advised of risks of oversedation with the prescribed medication. Narcan has been offered to the patient in the event of oversedation. Patient has been advised that a family member should also be educated regarding administration of Narcan. Patient has been instructed to contact the clinic with any concerns before the next appointment. Dr. Newton has reviewed this note and agrees with this plan of care. This note was dictated using voice recognition software and make contain errors or omissions. Addendum: Clinic pharmacy contacted our office stating that the hydrocodone 10 mg is on backorder. We have canceled the previous prescription and sent in a new prescription for Arthur 5 mg 2 tablets 4 times a day and provided a 1 month supply of this medication. [facility] Disclaimer: The information contained in this section may have been updated after the patient was seen, as this information can be updated by other users. Medical History Bilateral hearing loss CAD (coronary artery disease) Cryptic tonsil Enlarged tonsils GERD (gastroesophageal reflux disease) Gout HTN (hypertension), benign Osteoporosis Tinnitus
[2023-05-23 15:10] VITALS: BP 139/82; PULSE 64; RESP 18; O2SAT 97; BMI 69.6
== END | disposition home or self-care (01) ==
PROVIDERS: PCP Emergency Medicine; Visit Provider Nurse Practitioner Family
DX: M16.11 Unilateral primary osteoarthritis, right hip (principal); M17.0 Bilateral primary osteoarthritis of knee; M25.551 Pain in right hip; M25.561 Pain in right knee; M25.562 Pain in left knee
CPT/HCPCS: 99212; G0463

== ENCOUNTER → 2023-05-23 15:08 | Outpatient (CLI) | payer MEDICARE, MEDICAID, SELFPAY ==
[2023-05-29 11:04] LABS: Acetone <0.010 g/dL (0.000-0.010); Butalbital <1 ug/mL (1-10); Chlordiazepoxide <0.1 ug/mL (0.1-0.9); Diazepam <0.1 ug/mL (0.1-0.9); Ethanol <0.010 g/dL (0.000-0.010); Isopropanol <0.010 g/dL (0.000-0.010); Pentobarbital <1 ug/mL (1-5)
[2023-06-06 10:55] LABS: Opiate Cofirmation WB POSITIVE
[2023-06-06 11:12] LABS: Oxycodone Cofirmation WB Negative (.); Oxymorphone GS/MS Negative (.)
== END ==
LOC: LAB 15:10
PROVIDERS: PCP Emergency Medicine; Visit Provider Nurse Practitioner Family
DX: Z79.891 Long term (current) use of opiate analgesic (principal)
CPT/HCPCS: 80306; 80307; 99212; G0463

== ENCOUNTER → 2023-06-19 13:57 | Outpatient (POV) | payer MEDICARE, MEDICAID, SELFPAY ==
--- NOTE | 2023-06-19 14:20 | EXP.PAIN.SOA ---
[facility] Pain Management SOAP Note Subjective:: Patient is a pleasant 62-year-old female who presents today for medication refill. We are currently treating the patient for degenerative joint disease with bilateral knee pain and right hip pain, chronic pain syndrome. Today she rates her pain a 6 out of 10. Patient denies any new trauma or injury from her last visit. Patient does state that she did go see the breast reduction DrConstantine Who stated that she needed to lose 100 pounds before he would do surgery on her. Patient was very pleased with his overall behavior. At her last visit we did discuss about scheduling the patient for a spinal cord stimulator trial. Patient did have an appropriate psychological evaluation. Patient is severely limited in mobility due to her current weight. Patient would like to increase activity to help lose weight however due to her significant pain in her knee and hip she has had a lot of difficulty in achieving this goal. Patient has seen orthopedic physicians however has been told she is not a surgical candidate due to her bmi. Patient is currently managed with [place] 10 mg 4 times a day and Flexeril 10 mg at bedtime from an outside provider. Patient denies any side effects from this medication. Her Maxwell has been reviewed and is appropriate. Review of Systems: General: No recent weight changes, no fever, no sleep disturbances Respiratory: No cough, no shortness of air, no recurring pulmonary infections Cardiovascular/peripheral vascular: No chest pain, no palpitations, no edema, no shortness of breath Gastrointestinal: No new onset incontinence, normal bowel movements reported Genitourinary: No new onset incontinence Musculoskeletal: Hip pain, bilateral knee pain Psychiatric: [Normal mood/affect] Neurological: [Denies weakness in extremities], [denies balance issues] Objective:: Physical Exam: General: Alert and oriented x3, no acute distress, pleasant and cooperative Lungs: Respirations even and unlabored, symmetrical chest expansion Eyes: PERRL Musculoskeletal: Flexion and extension of lumbar [spine] somewhat guarded secondary to pain, [antalgic gait noted] Neurological: Speech clear, no gross sensory deficit Assessment:: Chronic pain syndrome, degenerative joint disease with bilateral knee pain, right hip pain Plan:: Patient continues to experience significant pain in her right hip and bilateral knees that limit her ability to ambulate. I have discussed with the patient that unfortunately we may have to do additional testing to evaluate blood flow to her lower extremities in order to see if she would qualify for the spinal cord stimulator. I will discuss this with Dr. Newton regarding the Plan of care. I will refill the [place] 10 mg 4 times a day provide 1 month supply of this medication. Patient will return to clinic in 1 month for reevaluation of symptoms and plan of care. Patient has been advised of risks of oversedation with the prescribed medication. Narcan has been offered to the patient in the event of oversedation. Patient has been advised that a family member should also be educated regarding administration of Narcan. Patient has been instructed to contact the clinic with any concerns before the next appointment. Dr. Newton has reviewed this note and agrees with this plan of care. This note was dictated using voice recognition software and make contain errors or omissions. [facility] Disclaimer: The information contained in this section may have been updated after the patient was seen, as this information can be updated by other users. Medical History Bilateral hearing loss CAD (coronary artery disease) Cryptic tonsil Enlarged tonsils GERD (gastroesophageal reflux disease) Gout HTN (hypertension), benign Osteoporosis Tinnitus Surgical History History of hysterectomy Social History ([place]
[2023-06-19 14:49] VITALS: BP 139/85; PULSE 63; RESP 20; O2SAT 99; BMI 69.2
== END | disposition home or self-care (01) ==
PROVIDERS: PCP Emergency Medicine; Visit Provider Nurse Practitioner Family
DX: M17.0 Bilateral primary osteoarthritis of knee (principal); M25.561 Pain in right knee; M25.562 Pain in left knee; M25.551 Pain in right hip; G89.4 Chronic pain syndrome
CPT/HCPCS: 99212; G0463

== ENCOUNTER → 2023-07-17 12:46 | Outpatient (POV) | payer MEDICARE, MEDICAID, SELFPAY ==
--- NOTE | 2023-07-17 13:13 | EXP.PAIN.SOA ---
[facility] Pain Management SOAP Note Subjective:: Patient is a pleasant 62-year-old female who presents today for medication refill and follow-up. We are currently treating the patient for bilateral knee pain, right hip pain, chronic pain syndrome. Today she rates her pain a 7 out of 10. Patient denies any new trauma or injury. She states she continues to have the same aches and pains. She does feel like she has increased weakness in her legs due to immobility. She states she frequently experiences significant popping in her joints in her knees. Patient is currently managed with [place] 10 mg 4 times a day and Flexeril 10 mg at bedtime from an outside provider. She denies any side effects from this medication. Her Maxwell has been reviewed and is appropriate. Review of Systems: General: No recent weight changes, no fever, no sleep disturbances Respiratory: No cough, no shortness of air, no recurring pulmonary infections Cardiovascular/peripheral vascular: No chest pain, no palpitations, no edema, no shortness of breath Gastrointestinal: No new onset incontinence, normal bowel movements reported Genitourinary: No new onset incontinence Musculoskeletal: Hip pain, knee pain, bilateral lower extremity weakness Psychiatric: [Normal mood/affect] Neurological: [Denies weakness in extremities], [denies balance issues] Objective:: Physical Exam: General: Alert and oriented x3, no acute distress, pleasant and cooperative Lungs: Respirations even and unlabored, symmetrical chest expansion Eyes: PERRL Musculoskeletal: Flexion and extension of lumbar [spine] somewhat guarded secondary to pain, [antalgic gait noted] Neurological: Speech clear, no gross sensory deficit Assessment:: Bilateral knee pain, right hip pain, chronic pain syndrome, bilateral lower extremity weakness Plan:: Patient continues to experience daily aches and pains. I will refill her [place] 10 mg 4 times a day and provide a 1 month supply of this medication. Patient was previously sent for a psychological evaluation and was deemed an appropriate candidate for the spinal cord stimulator however patient does not have insurance requirements for this device. We will continue to evaluate for the possibility of proceeding forward with a trial at a later date. I will send the patient for physical therapy evaluation and treatment for her lower extremity weakness. Patient will return to clinic in 1 month for reevaluation of symptoms and plan of care. Patient has been advised of risks of oversedation with the prescribed medication. Narcan has been offered to the patient in the event of oversedation. Patient has been advised that a family member should also be educated regarding administration of Narcan. Patient has been instructed to contact the clinic with any concerns before the next appointment. Dr. Newton has reviewed this note and agrees with this plan of care. This note was dictated using voice recognition software and make contain errors or omissions. [facility] Disclaimer: The information contained in this section may have been updated after the patient was seen, as this information can be updated by other users. Medical History Bilateral hearing loss CAD (coronary artery disease) Cryptic tonsil Enlarged tonsils GERD (gastroesophageal reflux disease) Gout HTN (hypertension), benign Osteoporosis Tinnitus Surgical History History of hysterectomy Social History Smoking Status: Never smoker alcohol intake: never substance use type: denies use current occupational status: disabled Travel in the last 8 weeks: None household members: none housing: apartment caffeine: Yes
[2023-07-17 13:42] VITALS: BP 152/86; PULSE 67; RESP 18; O2SAT 98; BMI 69.2
== END ==
PROVIDERS: PCP Emergency Medicine; Visit Provider Nurse Practitioner Family
DX: M25.561 Pain in right knee (principal); M25.562 Pain in left knee; M25.551 Pain in right hip; G89.4 Chronic pain syndrome; R53.1 Weakness
CPT/HCPCS: 99212; G0463

== ENCOUNTER → 2023-07-17 15:19 | Outpatient (POV) | payer MEDICARE, MEDICAID, SELFPAY | PROVIDERS: Visit Provider Specialist/Technologist | DX: Z00.00 Encounter for general adult medical examination without abnormal findings (principal) ==

== ENCOUNTER → 2023-08-23 11:17 | Outpatient (POV) | payer MEDICARE, MEDICAID, SELFPAY ==
--- NOTE | 2023-08-23 11:36 | EXP.PAIN.SOA ---
[facility] Pain Management SOAP Note Subjective:: Patient is a pleasant 62-year-old female who presents today for 1 month follow-up and medication refill. We are currently treating the patient for bilateral knee pain, right hip pain, chronic pain syndrome. Today she rates her pain a 6 out of 10. Patient denies any new trauma or injury. She denies any change to location or type of pain she experiences. Patient does state that she has not yet started physical therapy due to the recent weather however she is planning on starting soon. Patient did previously have an appropriate psychological evaluation for possible spinal cord stimulator trial however this was not approved. Patient is currently managed with [place] 10 mg 4 times a day and Flexeril 10 mg at bedtime from an outside provider. She denies any side effects from this medication. She does also state that she has been using some herbal medications that are saline to help with some of the pain. her Maxwell has been reviewed and is appropriate. Review of Systems: General: No recent weight changes, no fever, no sleep disturbances Respiratory: No cough, no shortness of air, no recurring pulmonary infections Cardiovascular/peripheral vascular: No chest pain, no palpitations, no edema, no shortness of breath Gastrointestinal: No new onset incontinence, normal bowel movements reported Genitourinary: No new onset incontinence Musculoskeletal: Hip pain, knee pain, bilateral lower extremity weakness Psychiatric: [Normal mood/affect] Neurological: [Denies weakness in extremities], [denies balance issues] Objective:: Physical Exam: General: Alert and oriented x3, no acute distress, pleasant and cooperative Lungs: Respirations even and unlabored, symmetrical chest expansion Eyes: PERRL Musculoskeletal: Flexion and extension of lumbar [spine] somewhat guarded secondary to pain, [antalgic gait noted] Neurological: Speech clear, no gross sensory deficit Assessment:: bilateral knee pain, right hip pain, chronic pain syndrome Plan:: I will refill the patient's [place] 10 mg 4 times a day and provide a 1 month supply of this medication. I have discussed with the patient due to her not having the right medical diagnosis for qualifying for the spinal cord stimulator trial that she may be a candidate for the intrathecal pain pump trial. I have discussed with her that I will speak to Dr. Newton regarding this and follow-up with her at her next visit for the possibility of proceeding forward with this option. Patient will return to clinic in 1 month for reevaluation of symptoms and plan of care. Risks and benefits of the medication have been explained in detail to the patient. The patient does understand the risk of dependence on the medication when given over a prolonged period. Patient has been advised of risks of oversedation with the prescribed medication. Narcan has been offered to the paitent in the event of oversedation. Patient has been advised that a family member should also be educated regarding administration of Narcan. The patient has been advised to consult with his/her primary care provider and pharmacist regarding drug-drug interaction of medications currently prescribed. Patient has been prescribed a controlled substance after being counseled on the medication, medication safety, and possible side effects. Opioid contract was reviewed and signed by the patient, and that they have agreed to all of the terms set forth by our compliance program. Patient has been instructed to contact the clinic with any concerns before the next appointment. Dr. Newton has reviewed this note and agrees with this plan of care. This note was dictated using voice recognition software and make contain errors or omissions. [facility] Disclaimer: The information contained in this section may have been updated after the patient was seen, as this information can be updated by other users. Medical History Bilateral hearing loss CAD (coronary artery disease) Cryptic tonsil Enlarged tonsils GERD (gastroesophageal reflux disease) Gout HTN (hypertension), benign Osteoporosis Tinnitus Surgical History History of hysterectomy Social History Smoking Status: Never smoker alcohol intake: never substance use type: denies use current occupational status: disabled Travel in the last 8 weeks: None household members: none housing: apartment caffeine: Yes
[2023-08-23 13:04] VITALS: BP 143/91; PULSE 66; RESP 18; O2SAT 98; BMI 69.2
== END | disposition home or self-care (01) ==
PROVIDERS: PCP Family Medicine; Visit Provider Nurse Practitioner Family
DX: M25.561 Pain in right knee (principal); M25.562 Pain in left knee; M25.551 Pain in right hip; G89.4 Chronic pain syndrome
CPT/HCPCS: 99212; G0463

== ENCOUNTER 2023-08-23 11:46 | Outpatient (CLI) | payer MEDICARE, MEDICAID, SELFPAY ==
[2023-08-23 12:31] LABS: Basophils % 0.5 % (0.1-2.0); Eosinophils # 0.2 K/mm3 (0.0-0.4); Eosinophils % 2.2 % (0.1-12.0); Hematocrit 42.2 % (37.0-47.0); Hemoglobin 13.7 g/dL (12.2-16.2); Lymphocytes # 1.6 K/mm3 (0.7-4.5); Lymphocytes % 19.6 % (10-50); Mean Corpuscular HGB Conc 32.4 g/dL (31.8-35.4); Mean Corpuscular Hemoglobin 30.7 pg (27.0-31.2); Mean Corpuscular Volume 94.9 fl (81-99); Mean Platelet Volume 8.5 fl (7.4-10.4); Monocytes # 0.5 K/mm3 (0.1-1.0); Monocytes % 5.8 % (1.7-9.3); Neutrophils # 5.9 K/mm3 (1.8-7.8); Neutrophils % 71.8 % (37.0-80.0); Platelet Count 202 K/mm3 (142-424); Red Blood Count 4.44 M/mm3 (4.20-5.40); Red Cell Distribution Width 14.4 % (11.5-17.5); White Blood Count 8.2 K/mm3 (4.8-10.8)
[2023-08-23 13:13] LABS: Alanine Aminotransferase 24 U/L (12-78); Albumin Level 4.1 g/dl (3.5-5.0); Albumin/Globulin Ratio 1.6 (1.1-1.8); Alkaline Phosphatase 99 U/L (38-126); Anion Gap 9.8 mEq/L (5-15); Aspartate Amino Transferase 43 U/L (14-36); Bilirubin,Total 0.7 mg/dl (0.2-1.3); Blood Urea Nitrogen 19 mg/dl (7-17); Calcium 9.5 mg/dl (8.4-10.2); Carbon Dioxide 28 mmol/L (22.0-30.0); Chloride 105 mmol/L (98-107); Chol/HDL Ratio 2.8 (1-3.5); Cholesterol 148 mg/dl (140-200); Estimated Glomerular Filt Rate 84 ml/min (>60); GFR (African American) 102 ML/MIN (>60); Globulin 2.5 g/dL (1.3-3.2); Glucose 104 mg/dl (74-100); HDL Cholesterol 52 mg/dl (40-60); Potassium 4.8 mmoL/L (3.5-5.1); Sodium 138 mmol/L (136-145); Total Protein,Serum 6.6 g/dl (6.3-8.2); Triglycerides 150 mg/dl (30-150); VLDL Cholesterol 30 mg/dL (0-40)
[2023-08-23 13:24] LABS: Direct LDL Cholesterol 63.75 mg/dL (100-129)
[2023-08-23 13:50] LABS: 25-OH Vitamin D, Total 67.6 ng/mL (30-100)
[2023-08-23 15:58] LABS: Hemoglobin A1C 5.7 % (4.0-6.0)
[2023-08-23 17:30] LABS: Intact Parathyroid Hormone 89.7 pg/mL (7.5-53.5)
== END 2023-08-23 23:59 ==
LOC: LAB 11:47
PROVIDERS: PCP Family Medicine; Visit Provider Family Medicine
DX: E78.5 Hyperlipidemia, unspecified; R53.83 Other fatigue; E21.5 Disorder of parathyroid gland, unspecified; R73.9 Hyperglycemia, unspecified; R00.2 Palpitations; E55.9 Vitamin D deficiency, unspecified
CPT/HCPCS: 36415; 80053; 80061; 82306; 83036; 83970; 84443; 85025; 99212; G0463

== ENCOUNTER → 2023-09-02 09:00 | Outpatient (CLI) | payer MEDICARE, MEDICAID, SELFPAY | PROVIDERS: PCP Family Medicine; Visit Provider Family Medicine | DX: G47.33 Obstructive sleep apnea (adult) (pediatric) (principal); G47.36 Sleep related hypoventilation in conditions classified elsewhere; R06.83 Snoring | CPT/HCPCS: G0399 ==

== ENCOUNTER → 2023-09-23 13:17 | Outpatient (POV) | payer MEDICARE, MEDICAID, SELFPAY ==
--- NOTE | 2023-09-23 13:41 | A.OFFVIS_ITS ---
[facility] Pain Management SOAP Note Subjective:: Patient is a pleasant 63-year-old female who presents today for medication refill and follow-up. We are currently treating the patient for bilateral knee pain, hip pain, chronic pain syndrome. Today she rates her pain a 6 out of 10. Patient denies any new trauma or injury. She does states from our last visit that she does believe that her bladder has dropped again and that she is scheduled to see Dr. Charles on 06 October. Patient does state that this has happened in the past and she ended up having to have surgery in 2020. Patient does also state she did have updated lab work that have some abnormal thyroid function. Patient states that her primary care provider has made an appointment with an consulting services associate for her and that is on October 14. Patient is currently managed with [place] 10 mg 4 times a day and Flexeril 10 mg at bedtime from an outside provider. She denies any side effects from these medications. Her Maxwell has been reviewed and is appropriate. Review of Systems: General: No recent weight changes, no fever, no sleep disturbances Respiratory: No cough, no shortness of air, no recurring pulmonary infections Cardiovascular/peripheral vascular: No chest pain, no palpitations, no edema, no shortness of breath Gastrointestinal: No new onset incontinence, normal bowel movements reported Genitourinary: No new onset incontinence Musculoskeletal: Bilateral knee pain, hip pain Psychiatric: [Normal mood/affect] Neurological: [Denies weakness in extremities], [denies balance issues] Objective:: Physical Exam: General: Alert and oriented x3, no acute distress, pleasant and cooperative Lungs: Respirations even and unlabored, symmetrical chest expansion Eyes: PERRL Musculoskeletal: Flexion and extension of lumbar [spine] somewhat guarded secondary to pain, [antalgic gait noted] Neurological: Speech clear, no gross sensory deficit Assessment:: Bilateral knee pain, bilateral hip pain, chronic pain syndrome Plan:: Refill the patient's [place] 10 mg 4 times a day and provide a 1 month supply of this medication. Patient will return to clinic in 1 month for reevaluation of symptoms and plan of care. Risks and benefits of the medication have been explained in detail to the patient. The patient does understand the risk of dependence on the medication when given over a prolonged period. Patient has been advised of risks of oversedation with the prescribed medication. Narcan has been offered to the paitent in the event of oversedation. Patient has been advised that a family member should also be educated regarding administration of Narcan. The patient has been advised to consult with his/her primary care provider and pharmacist regarding drug-drug interaction of medications currently prescribed. Patient has been prescribed a controlled substance after being counseled on the medication, medication safety, and possible side effects. Opioid contract was reviewed and signed by the patient, and that they have agreed to all of the terms set forth by our compliance program. Patient has been instructed to contact the clinic with any concerns before the next appointment. Dr. Newton has reviewed this note and agrees with this plan of care. This note was dictated using voice recognition software and make contain errors or omissions. [facility] Disclaimer: The information contained in this section may have been updated after the patient was seen, as this information can be updated by other users. Medical History Bilateral hearing loss CAD (coronary artery disease) Cryptic tonsil Enlarged tonsils GERD (gastroesophageal reflux disease) Gout HTN (hypertension), benign Osteoporosis Tinnitus Surgical History History of hysterectomy Social History Smoking Status: Never smoker alcohol intake: never substance use type: denies use current occupational status: unemployed Travel in the last 8 weeks: None household members: none housing: apartment caffeine: Yes
[2023-09-23 13:54] VITALS: BP 135/79; PULSE 75; RESP 18; O2SAT 99; BMI 68.8
[2023-09-30 15:26] LABS: Acetone <.010 g/dL (0.000-0.010); Butalbital <1 ug/mL (1-10); Chlordiazepoxide <0.1 ug/mL (0.1-0.9); Diazepam <0.1 ug/mL (0.1-0.9); Ethanol <.010 g/dL (0.000-0.010); Isopropanol <.010 g/dL (0.000-0.010); Pentobarbital <1 ug/mL (1-5)
[2023-10-03 14:32] LABS: Oxycodone Cofirmation WB Negative (.); Oxymorphone GS/MS Negative (.)
== END | disposition home or self-care (01) ==
PROVIDERS: PCP Family Medicine; Visit Provider Nurse Practitioner Family
DX: Z79.891 Long term (current) use of opiate analgesic (principal); M25.561 Pain in right knee; M25.562 Pain in left knee; M25.551 Pain in right hip; M25.552 Pain in left hip; G89.4 Chronic pain syndrome
CPT/HCPCS: 36415; 80306; 80307; 99212; G0463

== ENCOUNTER 2023-10-07 15:30 | Outpatient (CLI) | payer MEDICARE, MEDICAID, SELFPAY | END 2023-10-07 23:59 | PROVIDERS: PCP Urology; Visit Provider Urology | DX: N39.0 Urinary tract infection, site not specified (principal); B96.29 Other Escherichia coli [E. coli] as the cause of diseases classified elsewhere | CPT/HCPCS: 87086 ==

== ENCOUNTER 2023-10-21 13:00 | Outpatient (POV) | payer MEDICARE, MEDICAID, SELFPAY ==
--- NOTE | 2023-10-21 13:04 | A.OFFVIS_ITS ---
[facility] Pain Management SOAP Note Subjective:: Patient is a pleasant 63-year-old female who presents today for medication refill and follow-up. We are currently treating the patient for bilateral knee pain, hip pain, chronic pain syndrome. Today she rates her pain a out of 10. Patient denies any new trauma or injury. Patient does state from our last visit she has had her visit with Dr. Charles's office regarding her prolapsed bladder. She states that he is recommending she go to a woman specialist on November 20 that is up at [facility] for possible surgical intervention for her bladder drop.She did also go to the consulting sales manager appointment from her last visit. She states that her thyroid ended up being fine however her parathyroid was acting at. She states that the specialist did have her stop the vitamin D 50,000 units but had her increase the overall daily vitamin D and recommended she start a calcium supplement. She does state that they are planning on continuing to follow-up with her at future visits with additional lab work. Patient is currently managed with [place] 10 mg 4 times a day from our office and Flexeril 10 mg at bedtime from an outside provider. She denies any side effects from these medications. Her Maxwell has been reviewed and is appropriate. Review of Systems: General: No recent weight changes, no fever, no sleep disturbances Respiratory: No cough, no shortness of air, no recurring pulmonary infections Cardiovascular/peripheral vascular: No chest pain, no palpitations, no edema, no shortness of breath Gastrointestinal: No new onset incontinence, normal bowel movements reported Genitourinary: No new onset incontinence Musculoskeletal: Bilateral knee pain, hip pain Psychiatric: [Normal mood/affect] Neurological: [Denies weakness in extremities], [denies balance issues] Objective:: Physical Exam: General: Alert and oriented x3, no acute distress, pleasant and cooperative Lungs: Respirations even and unlabored, symmetrical chest expansion Eyes: PERRL Musculoskeletal: Flexion and extension of lumbar [spine] somewhat guarded secondary to pain, [antalgic gait noted] Neurological: Speech clear, no gross sensory deficit Assessment:: Bilateral knee pain, hip pain, chronic pain syndrome Plan:: Will refill the patient's [place] 10 mg 4 times a day provide 1 month supply of this medication. Patient will return to clinic in 1 month for reevaluation of symptoms and plan of care. Risks and benefits of the medication have been explained in detail to the patient. The patient does understand the risk of dependence on the medication when given over a prolonged period. Patient has been advised of risks of oversedation with the prescribed medication. Narcan has been offered to the paitent in the event of oversedation. Patient has been advised that a family member should also be educated regarding administration of Narcan. The patient has been advised to consult with his/her primary care provider and pharmacist regarding drug-drug interaction of medications currently prescribed. Patient has been prescribed a controlled substance after being counseled on the medication, medication safety, and possible side effects. Opioid contract was reviewed and signed by the patient, and that they have agreed to all of the terms set forth by our compliance program. Patient has been instructed to contact the clinic with any concerns before the next appointment. Dr. Newton has reviewed this note and agrees with this plan of care. This note was dictated using voice recognition software and make contain errors or omissions. [facility] Disclaimer: The information contained in this section may have been updated after the p atient was seen, as this information can be updated by other users. Medical History Cryptic tonsil Enlarged tonsils Tinnitus Bilateral hearing loss Gout CAD (coronary artery disease) Osteoporosis HTN (hypertension), benign GERD (gastroesophageal reflux disease) Surgical History History of hysterectomy Social History Smoking Status: Never smoker alcohol intake: never substance use type: denies use current occupational status: other Travel in the last 8 weeks: None household members: none housing: apartment caffeine: Yes
[2023-10-21 13:10] VITALS: BP 141/77; PULSE 88; RESP 18; O2SAT 99; BMI 69.7
== END 2023-10-21 23:59 | disposition home or self-care (01) ==
PROVIDERS: PCP Family Medicine; Visit Provider Nurse Practitioner Family
DX: M25.561 Pain in right knee (principal); M25.562 Pain in left knee; M25.559 Pain in unspecified hip; G89.4 Chronic pain syndrome
CPT/HCPCS: 99212; G0463

== ENCOUNTER 2023-11-20 13:03 | Outpatient (POV) | payer MEDICARE, MEDICAID, SELFPAY ==
[2023-11-20 13:13] VITALS: BP 135/81; PULSE 79; RESP 18; O2SAT 98; BMI 69.5
--- NOTE | 2023-11-20 13:36 | EXP.PAIN.SOA ---
[facility] Pain Management SOAP Note Subjective:: Patient is a pleasant 63-year-old female who presents today for medication refill and 1 month follow-up. Today she rates her pain a 8 out of 10. Patient denies any new trauma or injury. She does state that she feels like hearing the last week her ankles have been hurting more. Patient states that she has not had any falls. Patient does also state that she feels like that overall pain medication just does not seem to be working as well. Patient is asking if we can increase any of this. Patient is currently managed with [place] 10 mg 4 times a day from our office and Flexeril from an outside provider. Her Maxwell has been reviewed and is appropriate. Review of Systems: General: No recent weight changes, no fever, no sleep disturbances Respiratory: No cough, no shortness of air, no recurring pulmonary infections Cardiovascular/peripheral vascular: No chest pain, no palpitations, no edema, no shortness of breath Gastrointestinal: No new onset incontinence, normal bowel movements reported Genitourinary: No new onset incontinence Musculoskeletal: Bilateral ankle pain, hip pain Psychiatric: [Normal mood/affect] Neurological: [Denies weakness in extremities], [denies balance issues] Objective:: Physical Exam: General: Alert and oriented x3, no acute distress, pleasant and cooperative Lungs: Respirations even and unlabored, symmetrical chest expansion Eyes: PERRL Musculoskeletal: Flexion and extension of lumbar [spine] somewhat guarded secondary to pain, [antalgic gait noted] Neurological: Speech clear, no gross sensory deficit Assessment:: Bilateral ankle pain, bilateral hip pain, bilateral knee pain, chronic pain syndrome Plan:: I discussed with the patient that I will review with Dr. Newton regarding any changes possible to her medication. I have also discussed with her that she may benefit from injection therapy and that we can discuss this in future if her pains continue to bother her on a regular basis and interfere with activity. We will follow-up with this at her next visit. Patient agrees with this plan of care. Patient will return to clinic in 1 month for reevaluation of symptoms and plan of care. We will leave her current prescription of [place] 10 mg 4 times a day and provide a 1 month supply of this medication. Patient has been instructed to contact the clinic with any concerns before the next appointment. Dr. Newton has reviewed this note and agrees with this plan of care. This note was dictated using voice recognition software and make contain errors or omissions. [facility] Disclaimer: The information contained in this section may have been updated after the patient was seen, as this information can be updated by other users. Medical History Cryptic tonsil Enlarged tonsils Tinnitus Bilateral hearing loss Gout CAD (coronary artery disease) Osteoporosis HTN (hypertension), benign GERD (gastroesophageal reflux disease) Surgical History History of gastric bypass History of History of hysterectomy Family History (Updated 11/05/23 @ 12:44 by Wilma Cullen) Other Coronary artery disease Depression Diabetes YUMIKO (obstructive sleep apnea) Obesity (BMI 30.0-34.9) Social History Smoking Status: Never smoker alcohol intake: never substance use type: denies use current occupational status: other Travel in the last 8 weeks: None household members: none housing: apartment caffeine: Yes
== END 2023-11-20 23:59 | disposition home or self-care (01) ==
PROVIDERS: PCP Family Medicine; Visit Provider Nurse Practitioner Family
DX: M25.571 Pain in right ankle and joints of right foot (principal); M25.572 Pain in left ankle and joints of left foot; M25.551 Pain in right hip; M25.552 Pain in left hip; M25.561 Pain in right knee; M25.562 Pain in left knee; G89.4 Chronic pain syndrome
CPT/HCPCS: 99212; G0463

== ENCOUNTER 2023-12-19 12:55 | Outpatient (POV) | payer MEDICARE, MEDICAID, SELFPAY ==
[2023-12-19 13:09] VITALS: BP 136/83; PULSE 67; RESP 16; O2SAT 98; BMI 69.0
--- NOTE | 2023-12-19 13:16 | EXP.PAIN.SOA ---
[facility] Pain Management SOAP Note Subjective:: Patient is a pleasant 63-year-old female who presents today for medication refill and follow-up. Patient denies any new trauma or injury. She does state that her primary care is having her start physical therapy and that she is scheduled for her initial evaluation coming up. She states also that she is planning on sending her to orthopedics there at [facility]. She does state that she has been to them before and they did not want to do surgery on her but she is willing to give it another shot. Patient states that her PCP is trying to get her on Ajovy medication however her insurance keeps denying it. Patient is currently managed with [place] 10 mg 4 times a day from our office and Flexeril from an outside provider. She denies any side effects from this medication. Her Maxwell has been reviewed and is appropriate. Review of Systems: General: No recent weight changes, no fever, no sleep disturbances Respiratory: No cough, no shortness of air, no recurring pulmonary infections Cardiovascular/peripheral vascular: No chest pain, no palpitations, no edema, no shortness of breath Gastrointestinal: No new onset incontinence, normal bowel movements reported Genitourinary: No new onset incontinence Musculoskeletal: Bilateral hip pain, knee pain, ankle pain Psychiatric: [Normal mood/affect] Neurological: [Denies weakness in extremities], [denies balance issues] Objective:: Physical Exam: General: Alert and oriented x3, no acute distress, pleasant and cooperative Lungs: Respirations even and unlabored, symmetrical chest expansion Eyes: PERRL Musculoskeletal: Flexion and extension of lumbar [spine] somewhat guarded secondary to pain, [antalgic gait noted] Neurological: Speech clear, no gross sensory deficit Assessment:: Bilateral hip pain, bilateral ankle pain, bilateral knee pain, chronic pain syndrome Plan:: We will refill the patient's [place] and provide a 1 month supply of this medication. Patient will return to clinic in 1 month for reevaluation of symptoms and plan of care. Risks and benefits of the medication have been explained in detail to the patient. The patient does understand the risk of dependence on the medication when given over a prolonged period. Patient has been advised of risks of oversedation with the prescribed medication. Narcan has been offered to the paitent in the event of oversedation. Patient has been advised that a family member should also be educated regarding administration of Narcan. The patient has been advised to consult with his/her primary care provider and pharmacist regarding drug-drug interaction of medications currently prescribed. Patient has been prescribed a controlled substance after being counseled on the medication, medication safety, and possible side effects. Opioid contract was reviewed and signed by the patient, and that they have agreed to all of the terms set forth by our compliance program. Patient has been instructed to contact the clinic with any concerns before the next appointment. Dr. Newton has reviewed this note and agrees with this plan of care. This note was dictated using voice recognition software and make contain errors or omissions. [facility] Disclaimer: The information contained in this section may have been updated after the patient was seen, as this information can be updated by other users. Medical History Cryptic tonsil Enlarged tonsils Tinnitus Bilateral hearing loss Gout CAD (coronary artery disease) Osteoporosis HTN (hypertension), benign GERD (gastroesophageal reflux disease) Surgical History History of gastric bypass History of History of hysterectomy Family History Other Coronary artery disease Depression Diabetes YUMIKO (obstructive sleep apnea) Obesity (BMI 30.0-34.9) Social History Smoking Status: Never smoker alcohol intake: never substance use type: denies use current occupational status: other Travel in the last 8 weeks: None household members: none housing: apartment caffeine: Yes
== END 2023-12-19 23:59 | disposition home or self-care (01) ==
PROVIDERS: Visit Provider Nurse Practitioner Family
DX: M25.551 Pain in right hip (principal); M25.552 Pain in left hip; M25.561 Pain in right knee; M25.562 Pain in left knee; M25.571 Pain in right ankle and joints of right foot; M25.572 Pain in left ankle and joints of left foot; G89.4 Chronic pain syndrome
CPT/HCPCS: 99212; G0463

== ENCOUNTER 2024-01-07 16:00 | Outpatient (RCR) | payer MEDICARE, MEDICAID, SELFPAY | END 2024-01-07 16:05 | disposition home or self-care (01) | LOC: PT 16:00 | PROVIDERS: Visit Provider Family Medicine | DX: M25.551 Pain in right hip (principal); Y93.14 Activity, water aerobics and water exercise | CPT/HCPCS: 97110; 97163; 97530 ==

== ENCOUNTER 2024-01-20 13:14 | Outpatient (POV) | payer MEDICARE, MEDICAID, SELFPAY ==
[2024-01-20 13:32] VITALS: BP 138/81; PULSE 70; RESP 18; O2SAT 100; BMI 68.5
--- NOTE | 2024-01-20 13:55 | EXP.PAIN.SOA ---
[facility] Pain Management SOAP Note Subjective:: Patient is a pleasant 63-year-old female who presents today for medication refill and follow-up. Today she rates her pain a 5 out of 10. She denies any new trauma or injury. Patient states from her last visit she did end up starting physical therapy however it worsened her hip pain. Patient states that she ended up basically been almost bedbound for 4 days due to the worsening pain. Patient also states that she is still scheduled for an orthopedic appointment [facility] and that they did contact her and state that if the PT was causing worsening pain to put that on hold until they saw her in office for detailed imaging. Patient also states that she was sent for referral to a [facility] physician who is a orthopedic pain consult doctor. Patient states that this is a provider that may be able to offer other interventions alongside with her current medication use. Patient does state that she has lost a little weight since her last visit and is down to 399 pounds. She states that she bought a keto diet pill and feels like she has a little bit more energy with this. She is prescribed [place] 10 mg 4 times a day from our office and Flexeril from an outside provider. She denies any side effects from this medication. Her Maxwell has been reviewed and is appropriate. Review of Systems: General: No recent weight changes, no fever, no sleep disturbances Respiratory: No cough, no shortness of air, no recurring pulmonary infections Cardiovascular/peripheral vascular: No chest pain, no palpitations, no edema, no shortness of breath Gastrointestinal: No new onset incontinence, normal bowel movements reported Genitourinary: No new onset incontinence Musculoskeletal: Bilateral hip pain, bilateral knee pain Psychiatric: [Normal mood/affect] Neurological: [Denies weakness in extremities], [denies balance issues] Objective:: Physical Exam: General: Alert and oriented x3, no acute distress, pleasant and cooperative Lungs: Respirations even and unlabored, symmetrical chest expansion Eyes: PERRL Musculoskeletal: Flexion and extension of lumbar [spine] somewhat guarded secondary to pain, [antalgic gait noted] Neurological: Speech clear, no gross sensory deficit Assessment:: Bilateral hip pain, bilateral knee pain, chronic pain syndrome, bilateral ankle pain Plan:: I will refill the patient's [place] and provide a 1 month supply of this medication. Patient will return to clinic in 1 month for reevaluation of symptoms and plan of care. Risks and benefits of the medication have been explained in detail to the patient. The patient does understand the risk of dependence on the medication when given over a prolonged period. Patient has been advised of risks of oversedation with the prescribed medication. Narcan has been offered to the paitent in the event of oversedation. Patient has been advised that a family member should also be educated regarding administration of Narcan. The patient has been advised to consult with his/her primary care provider and pharmacist regarding drug-drug interaction of medications currently prescribed. Patient has been prescribed a controlled substance after being counseled on the medication, medication safety, and possible side effects. Opioid contract was reviewed and signed by the patient, and that they have agreed to all of the terms set forth by our compliance program. Patient has been instructed to contact the clinic with any concerns before the next appointment. Dr. Newton has reviewed this note and agrees with this plan of care. This note was dictated using voice recognition software and make contain errors or omissions. [facility] Disclaimer: The information contained in this section may have been updated after the patient was seen, as this information can be updated by other users. Medical History Cryptic tonsil Enlarged tonsils Tinnitus Bilateral hearing loss Gout CAD (coronary artery disease) Osteoporosis HTN (hypertension), benign GERD (gastroesophageal reflux disease) Surgical History History of gastric bypass History of History of hysterectomy Family History Other Coronary artery disease Depression Diabetes YUMIKO (obstructive sleep apnea) Obesity (BMI 30.0-34.9) Social History Smoking Status: Never smoker alcohol intake: never substance use type: denies use current occupational status: other Travel in the last 8 weeks: None household members: none housing: apartment caffeine: Yes
[2024-02-04 10:46] LABS: Miscellaneous Test SCANNED IMAGE
== END 2024-01-20 23:59 | disposition home or self-care (01) ==
PROVIDERS: Anesthesiology; Visit Provider Nurse Practitioner Family
DX: G89.4 Chronic pain syndrome (principal); M25.561 Pain in right knee; M25.562 Pain in left knee; M25.551 Pain in right hip; M25.552 Pain in left hip; M25.571 Pain in right ankle and joints of right foot; M25.572 Pain in left ankle and joints of left foot
CPT/HCPCS: 36415; 99212; G0463

== ENCOUNTER 2024-02-20 12:53 | Outpatient (POV) | payer MEDICARE, MEDICAID, SELFPAY ==
[2024-02-20 13:11] VITALS: BP 125/74; PULSE 76; RESP 18; O2SAT 98; BMI 68.5
--- NOTE | 2024-02-20 13:11 | EXP.PAIN.SOA ---
[facility] Disclaimer: The information contained in this section may have been updated after the patient was seen, as this information can be updated by other users. Medical History Cryptic tonsil Enlarged tonsils Tinnitus Bilateral hearing loss Gout CAD (coronary artery disease) Osteoporosis HTN (hypertension), benign GERD (gastroesophageal reflux disease) Surgical History History of gastric bypass History of History of hysterectomy Family History Other Coronary artery disease Depression Diabetes YUMIKO (obstructive sleep apnea) Obesity (BMI 30.0-34.9) Social History Smoking Status: Never smoker alcohol intake: never substance use type: denies use current occupational status: other Travel in the last 8 weeks: None household members: none housing: apartment caffeine: Yes PM Subjective & Objective Subjective Subjective:: Patient is a pleasant 63-year-old female who presents today for medication refill. Today she rates her pain a 5 out of 10. She denies any new trauma or injury. She does state from her last visit her insurance did end up denying the Wegovy however she did crab picker a supplement of berberine and that feels like this is helping. Patient states she has lost 5 pounds. She also states that she did end up seeing the orthopedic doctor at and that they are talking about doing a new procedure for her knee where they freeze the nerves and that she is scheduled to go back to his office on the . Patient does also have an appointment with the audograph operator on the . Patient is currently managed with [place] 10 mg 4 times a day from our office and Flexeril from an outside provider. Her Maxwell has been reviewed and is appropriate. Review of Systems: General: No recent weight changes, no fever, no sleep disturbances Respiratory: No cough, no shortness of air, no recurring pulmonary infections Cardiovascular/peripheral vascular: No chest pain, no palpitations, no edema, no shortness of breath Gastrointestinal: No new onset incontinence, normal bowel movements reported Genitourinary: No new onset incontinence Musculoskeletal: Bilateral hip and knee pain Psychiatric: [Normal mood/affect] Neurological: [Denies weakness in extremities], [denies balance issues] Pain at rest (0-10 scale): 5 Objective Objective:: Physical Exam: General: Alert and oriented x3, no acute distress, pleasant and cooperative Lungs: Respirations even and unlabored, symmetrical chest expansion Eyes: PERRL Musculoskeletal: Flexion and extension of lumbar [spine] somewhat guarded secondary to pain, [antalgic gait noted] Neurological: Speech clear, no gross sensory deficit Has patient had previous pain injection?: No Conservative treatment options previously tried: Prescription medications Length of treatment: Longer than 6 weeks Meds Home Medications and Allergies Home Medications ?Medication ?Instructions ?Recorded ?Confirmed ?Type thiamine HCl (vitamin B1) 250 mg 250 mg PO BID SUPPLEMEMT 01/23/18 02/19/24 History tablet lactulose 10 gram/15 mL oral 10 g PO DAILY PRN Constipation 11/24/20 02/19/24 History solution lidocaine 5 % topical ointment 35 g topical TIDP PRN JOINT PAIN 11/24/20 02/19/24 History mecobalamin (vitamin B12) 1,000 1,000 mcg PO DAILY Supplement 11/24/20 02/19/24 History mcg chewable tablet multivitamin 1 each PO DAILY Supplement 11/24/20 02/19/24 History colchicine 0.6 mg tablet See Rx Instructions .Route 03/28/23 02/19/24 History .COMPLEX GOUT potassium chloride 20 mEq 40 meq (2 x 20 mEq) PO BID 08/08/23 02/19/24 Rx tablet,extended release(part/cryst) SUPPLIMENT #120 tabs spironolactone 25 mg tablet 25 mg PO ONCE Fluid #30 tabs 08/08/23 02/19/24 Rx mirabegron 50 mg tablet,extended 50 mg PO DAILY #30 tabs 10/07/23 02/19/24 Rx release 24 hr metoprolol succinate 100 mg 150 mg (1.5 x 100 mg) PO DAILY 11/22/23 02/19/24 Rx tablet,extended release 24 hr BLOOD PRESSURE 90 days #135 tabs cholecalciferol (vitamin D3) 50 2,000 unit PO DAILY 12/16/23 02/19/24 History mcg (2,000 unit) capsule furosemide 20 mg tablet (Lasix) 20 mg PO DAILY #100 tabs 12/16/23 02/19/24 Rx oxybutynin chloride 15 mg 15 mg PO DAILY 12/16/23 02/19/24 History tablet,extended release 24 hr ropinirole 1 mg tablet See Rx Instructions .Route 12/16/23 02/19/24 Rx .COMPLEX LEGS #90 tabs hydrocodone 10 mg-acetaminophen 1 tab PO QID #120 tabs 01/20/24 02/19/24 Rx 325 mg tablet cyclobenzaprine 10 mg tablet See Rx Instructions .Route 02/12/24 02/19/24 Rx .COMPLEX #60 tabs New Prescriptions to Start Prescriptions: Allergies Allergy/AdvReac Type Severity Reaction Status Date / Time sulfamethoxazole Allergy Intermediate kidney Verified 02/19/24 11:43 [From Bactrim] failure trimethoprim [From Bactrim] Allergy Intermediate kidney Verified 02/19/24 11:43 failure ciprofloxacin [From CIPRO] Allergy Unknown HEART RACES Verified 02/19/24 11:43 Penicillins [PENICILLINS] Allergy Unknown YEAST Verified 02/19/24 11:43 INFECTION Assessment and Plan *Assessment and plan (1) Hip pain: Status: Acute Qualifiers: Laterality: bilateral Qualified Code(s): M25.551 - Pain in right hip; M25.552 - Pain in left hip Category: Medical Code(s): M25.559 - Pain in unspecified hip (2) Bilateral chronic knee pain: Status: Acute Category: Medical Code(s): M25.561 - Pain in right knee; M25.562 - Pain in left knee; G89.29 - Other chronic pain Plan I will refill the patient's [place] supply of this medication. Patient will return to clinic in 1 month for reevaluation of symptoms and plan of care. I have counseled the patient we will continue to monitor her progress as she sees orthopedics and still trying to lose weight. Risks and benefits of the medication have been explained in detail to the patient. The patient does understand the risk of dependence on the medication when given over a prolonged period. Patient has been advised of risks of oversedation with the prescribed medication. Narcan has been offered to the paitent in the event of oversedation. Patient has been advised that a family member should also be educated regarding administration of Narcan. The patient has been advised to consult with his/her primary care provider and pharmacist regarding drug-drug interaction of medications currently prescribed. Patient has been prescribed a controlled substance after being counseled on the medication, medication safety, and possible side effects. Opioid contract was reviewed and signed by the patient, and that they have agreed to all of the terms set forth by our compliance program. Patient has been instructed to contact the clinic with any concerns before the next appointment. Dr. Newton has reviewed this note and agrees with this plan of care. This note was dictated using voice recognition software and make contain errors or omissions.
== END 2024-02-20 23:59 | disposition home or self-care (01) ==
PROVIDERS: PCP Family Medicine; Visit Provider Nurse Practitioner Family
DX: M25.551 Pain in right hip (principal); M25.552 Pain in left hip; M25.561 Pain in right knee; M25.562 Pain in left knee; G89.29 Other chronic pain
CPT/HCPCS: 99212; G0463

== ENCOUNTER 2024-03-19 12:24 | Outpatient (POV) | payer MEDICARE, MEDICAID, SELFPAY ==
[2024-03-19 14:10] VITALS: BP 133/82; PULSE 72; RESP 18; O2SAT 98; BMI 68.5
--- NOTE | 2024-03-19 14:25 | EXP.PAIN.SOA ---
[facility] Disclaimer: The information contained in this section may have been updated after the patient was seen, as this information can be updated by other users. Medical History Cryptic tonsil Enlarged tonsils Tinnitus Bilateral hearing loss Gout CAD (coronary artery disease) Osteoporosis HTN (hypertension), benign GERD (gastroesophageal reflux disease) Surgical History History of gastric bypass History of History of hysterectomy Family History Other Coronary artery disease Depression Diabetes YUMIKO (obstructive sleep apnea) Obesity (BMI 30.0-34.9) Social History Smoking Status: Never smoker alcohol intake: never substance use type: denies use current occupational status: unemployed Travel in the last 8 weeks: None household members: none housing: apartment caffeine: Yes PM Subjective & Objective Subjective Subjective:: Patient is a pleasant 63-year-old female who presents today for 1 month follow-up and medication refill. Today she does rate her pain a 7 out of 10. Patient does state it is a little worse today due to having x-ray imaging on Saturday. She states that they did extensive movement and that the following day she could barely walk. Patient does state from her last visit she did switch primary care providers and they did end up getting the Wegovy approved so she started that last Saturday. Patient is still taking her berberine and is scheduled for her follow-up with the orthopedics office on next . Patient is prescribed [place] 10 mg 4 times a day from our office and Flexeril from her PCP. She does state this medication helps. Her Maxwell has been reviewed and is appropriate. Review of Systems: General: No recent weight changes, no fever, no sleep disturbances Respiratory: No cough, no shortness of air, no recurring pulmonary infections Cardiovascular/peripheral vascular: No chest pain, no palpitations, no edema, no shortness of breath Gastrointestinal: No new onset incontinence, normal bowel movements reported Genitourinary: No new onset incontinence Musculoskeletal: Low back pain Psychiatric: [Normal mood/affect] Neurological: [Denies weakness in extremities], [denies balance issues] Pain at rest (0-10 scale): 7 Objective Objective:: Physical Exam: General: Alert and oriented x3, no acute distress, pleasant and cooperative Lungs: Respirations even and unlabored, symmetrical chest expansion Eyes: PERRL Musculoskeletal: Flexion and extension of lumbar [spine] somewhat guarded secondary to pain, [antalgic gait noted] Neurological: Speech clear, no gross sensory deficit Imaging: Right hip: Severe right hip joint space narrowing, osteophytosis, subchondral cystic change and sclerosis with flattening of the femoral head. Greater trochanteric encephalopathy with heterotopic ossification. No acute fracture or dislocation Right knee: No acute fracture or dislocation. Severe tricompartmental osteophytosis. Severe medial compartment joint space narrowing. Moderate patellofemoral joint space narrowing. Possible large calcified loose bodies of the anterior and medial aspects of the knee joint. No significant suprapatellar effusion. Left knee: Mild varus angulation. No acute fracture or dislocation. Lateral patellar subluxation. Severe tricompartmental osteophytosis. Severe medial patellofemoral compartment joint space narrowing. Large calcified loose bodies in the anterior superior and posterior aspects of the knee joint. No significant suprapatellar effusion Has patient had previous pain injection?: No Conservative treatment options previously tried: Home exercise plan Length of treatment: Longer than 6 weeks Meds Home Medications and Allergies Home Medications ?Medication ?Instructions ?Recorded ?Confirmed ?Type lactulose 10 gram/15 mL oral 10 g PO DAILY PRN Constipation 11/24/20 03/19/24 History solution lidocaine 5 % topical ointment 35 g topical TIDP PRN JOINT PAIN 11/24/20 03/19/24 History mecobalamin (vitamin B12) 1,000 1,000 mcg PO DAILY Supplement 11/24/20 03/19/24 History mcg chewable tablet multivitamin 1 each PO DAILY Supplement 11/24/20 03/19/24 History colchicine 0.6 mg tablet See Rx Instructions .Route 03/28/23 03/19/24 History .COMPLEX GOUT potassium chloride 20 mEq 40 meq (2 x 20 mEq) PO BID 08/08/23 03/19/24 Rx tablet,extended release(part/cryst) SUPPLIMENT #120 tabs spironolactone 25 mg tablet 25 mg PO ONCE Fluid #30 tabs 08/08/23 03/19/24 Rx mirabegron 50 mg tablet,extended 50 mg PO DAILY #30 tabs 10/07/23 03/19/24 Rx release 24 hr cholecalciferol (vitamin D3) 50 2,000 unit PO DAILY 12/16/23 03/19/24 History mcg (2,000 unit) capsule furosemide 20 mg tablet (Lasix) 20 mg PO DAILY #100 tabs 12/16/23 03/19/24 Rx oxybutynin chloride 15 mg 15 mg PO DAILY 12/16/23 03/19/24 History tablet,extended release 24 hr ropinirole 1 mg tablet See Rx Instructions .Route 12/16/23 03/19/24 Rx .COMPLEX LEGS #90 tabs cyclobenzaprine 10 mg tablet See Rx Instructions .Route 02/12/24 03/19/24 Rx .COMPLEX #60 tabs hydrocodone 10 mg-acetaminophen 1 tab PO QID #120 tabs 02/20/24 03/19/24 Rx 325 mg tablet diclofenac sodium 1 % topical gel 1 ea topical DIRECTED 02/27/24 03/19/24 History esomeprazole magnesium 40 mg 40 mg PO DAILY 02/27/24 03/19/24 History capsule,delayed release metoprolol succinate 100 mg 150 mg (1.5 x 100 mg) PO DAILY 02/27/24 03/19/24 Rx tablet,extended release 24 hr BLOOD PRESSURE 90 days #135 tabs semaglutide (weight loss) 0.25 0.25 mg (0.5 mL) SQ WEEKLY #2.5 mL 02/27/24 03/19/24 Rx mg/0.5 mL subcutaneous pen injector thiamine HCl (vitamin B1) 250 mg 250 mg PO DAILY SUPPLEMEMT 02/27/24 03/19/24 History tablet New Prescriptions to Start Prescriptions: Allergies Allergy/AdvReac Type Severity Reaction Status Date / Time sulfamethoxazole Allergy Intermediate kidney Verified 02/27/24 13:19 [From Bactrim] failure trimethoprim [From Bactrim] Allergy Intermediate kidney Verified 02/27/24 13:19 failure ciprofloxacin [From CIPRO] Allergy Unknown HEART RACES Verified 02/27/24 13:19 Penicillins [PENICILLINS] Allergy Unknown YEAST Verified 02/27/24 13:19 INFECTION Assessment and Plan *Assessment and plan (1) Degenerative joint disease of right hip: Status: Acute Category: Medical Code(s): M16.11 - Unilateral primary osteoarthritis, right hip (2) Right knee DJD: Status: Acute Category: Medical Code(s): M17.11 - Unilateral primary osteoarthritis, right knee Plan Patient will be refilled on her [place] with a 1 month supply. Patient has counseled to continue to let us know how things are progressing on her possible joint replacements. Patient will return to clinic in 1 month for reevaluation of symptoms and plan of care. Risks and benefits of the medication have been explained in detail to the patient. The patient does understand the risk of dependence on the medication when given over a prolonged period. Patient has been advised of risks of oversedation with the prescribed medication. Narcan has been offered to the paitent in the event of oversedation. Patient has been advised that a family member should also be educated regarding administration of Narcan. The patient has been advised to consult with his/her primary care provider and pharmacist regarding drug-drug interaction of medications currently prescribed. Patient has been prescribed a controlled substance after being counseled on the medication, medication safety, and possible side effects. Opioid contract was reviewed and signed by the patient, and that they have agreed to all of the terms set forth by our compliance program. Patient has been instructed to contact the clinic with any concerns before the next appointment. Dr. Newton has reviewed this note and agrees with this plan of care. This note was dictated using voice recognition software and make contain errors or omissions.
== END 2024-03-19 23:59 | disposition home or self-care (01) ==
PROVIDERS: PCP Internal Medicine; Visit Provider Nurse Practitioner Family
DX: M16.11 Unilateral primary osteoarthritis, right hip (principal); M17.11 Unilateral primary osteoarthritis, right knee; Z79.899 Other long term (current) drug therapy
CPT/HCPCS: 99212; G0463

== ENCOUNTER 2024-04-16 12:11 | Outpatient (POV) | payer MEDICARE, MEDICAID, SELFPAY ==
--- NOTE | 2024-04-16 13:16 | EXP.PAIN.SOA ---
[facility] Disclaimer: The information contained in this section may have been updated after the patient was seen, as this information can be updated by other users. Medical History History of orthopnea Paroxysmal A-fib Abnormal electrocardiogram [ECG] [EKG] Cryptic tonsil Enlarged tonsils Tinnitus Bilateral hearing loss Gout CAD (coronary artery disease) Osteoporosis HTN (hypertension), benign GERD (gastroesophageal reflux disease) Surgical History History of gastric bypass History of History of hysterectomy Family History Other Coronary artery disease Depression Diabetes YUMIKO (obstructive sleep apnea) Obesity (BMI 30.0-34.9) Social History Smoking Status: Never smoker alcohol intake: never substance use type: denies use current occupational status: other Travel in the last 8 weeks: None household members: none housing: apartment caffeine: Yes PM Subjective & Objective Subjective Subjective:: Patient is a pleasant 63-year-old female who presents today for medication refill. Today she does rate her pain a 6 out of 10. She does state from her last visit she did end up having to knee injections under ultrasound and feels like this has helped somewhat. Patient does also state that she was started on Eliquis by Dr. Paige's office and she is scheduled for a CTA on Saturday. Patient does state that she is officially down 16 pounds with her Wegovy and her dosage is now 0.5 mg/inj. Patient is prescribed [place] 10 mg 4 times a day from our office and Flexeril from her PCP. She denies any side effects from these medications. Her Maxwell has been reviewed and is appropriate. Review of Systems: General: No recent weight changes, no fever, no sleep disturbances Respiratory: No cough, no shortness of air, no recurring pulmonary infections Cardiovascular/peripheral vascular: No chest pain, no palpitations, no edema, no shortness of breath Gastrointestinal: No new onset incontinence, normal bowel movements reported Genitourinary: No new onset incontinence Musculoskeletal: Low back pain Psychiatric: [Normal mood/affect] Neurological: [Denies weakness in extremities], [denies balance issues] Pain at rest (0-10 scale): 6 Objective Objective:: Physical Exam: General: Alert and oriented x3, no acute distress, pleasant and cooperative Lungs: Respirations even and unlabored, symmetrical chest expansion Eyes: PERRL Musculoskeletal: Flexion and extension of lumbar [spine] somewhat guarded secondary to pain, [antalgic gait noted] Neurological: Speech clear, no gross sensory deficit Has patient had previous pain injection?: No Conservative treatment options previously tried: Prescription medications Length of treatment: Longer than 12 weeks Meds Home Medications and Allergies Home Medications ?Medication ?Instructions ?Recorded ?Confirmed ?Type lactulose 10 gram/15 mL oral 10 g PO DAILY PRN Constipation 11/24/20 04/16/24 History solution lidocaine 5 % topical ointment 35 g topical TIDP PRN JOINT PAIN 11/24/20 04/16/24 History mecobalamin (vitamin B12) 1,000 1,000 mcg PO DAILY Supplement 11/24/20 04/16/24 History mcg chewable tablet multivitamin 1 each PO DAILY Supplement 11/24/20 04/16/24 History colchicine 0.6 mg tablet See Rx Instructions .Route 03/28/23 04/16/24 History .COMPLEX GOUT potassium chloride 20 mEq 40 meq (2 x 20 mEq) PO BID 08/08/23 04/16/24 Rx tablet,extended release(part/cryst) SUPPLIMENT #120 tabs mirabegron 50 mg tablet,extended 50 mg PO DAILY #30 tabs 10/07/23 04/16/24 Rx release 24 hr cholecalciferol (vitamin D3) 50 2,000 unit PO DAILY 12/16/23 04/16/24 History mcg (2,000 unit) capsule furosemide 20 mg tablet (Lasix) 20 mg PO DAILY #100 tabs 12/16/23 04/16/24 Rx oxybutynin chloride 15 mg 15 mg PO DAILY 12/16/23 04/16/24 History tablet,extended release 24 hr cyclobenzaprine 10 mg tablet See Rx Instructions .Route 02/12/24 04/16/24 Rx .COMPLEX #60 tabs diclofenac sodium 1 % topical gel 1 ea topical DIRECTED 02/27/24 04/16/24 History metoprolol succinate 100 mg 150 mg (1.5 x 100 mg) PO DAILY 02/27/24 04/16/24 Rx tablet,extended release 24 hr BLOOD PRESSURE 90 days #135 tabs semaglutide (weight loss) 0.25 0.25 mg (0.5 mL) SQ WEEKLY #2.5 mL 02/27/24 04/16/24 Rx mg/0.5 mL subcutaneous pen injector thiamine HCl (vitamin B1) 250 mg 250 mg PO DAILY SUPPLEMEMT 02/27/24 04/16/24 History tablet hydrocodone 10 mg-acetaminophen 1 tab PO QID #120 tabs 03/19/24 04/16/24 Rx 325 mg tablet apixaban 5 mg tablet (Eliquis) 5 mg PO BID #60 tabs 04/01/24 04/16/24 Rx ropinirole 1 mg tablet See Rx Instructions .Route 04/01/24 04/16/24 Rx .COMPLEX #90 tabs spironolactone 25 mg tablet See Rx Instructions .Route 04/01/24 04/16/24 Rx .COMPLEX #90 tabs esomeprazole magnesium 40 mg See Rx Instructions .Route 04/15/24 04/16/24 Rx capsule,delayed release .COMPLEX #90 caps New Prescriptions to Start Prescriptions: Allergies Allergy/AdvReac Type Severity Reaction Status Date / Time sulfamethoxazole Allergy Intermediate kidney Verified 04/16/24 13:32 [From Bactrim] failure trimethoprim [From Bactrim] Allergy Intermediate kidney Verified 04/16/24 13:32 failure ciprofloxacin [From CIPRO] Allergy Unknown HEART RACES Verified 04/16/24 13:32 Penicillins [PENICILLINS] Allergy Unknown YEAST Verified 04/16/24 13:32 INFECTION Assessment and Plan *Assessment and plan (1) Degenerative joint disease of right hip: Status: Acute Category: Medical Code(s): M16.11 - Unilateral primary osteoarthritis, right hip (2) Right knee DJD: Status: Acute Category: Medical Code(s): M17.11 - Unilateral primary osteoarthritis, right knee (3) Left knee DJD: Status: Acute Category: Medical Code(s): M17.12 - Unilateral primary osteoarthritis, left knee Plan We will refill the patient's [place] and provide a 1 month supply of this medication. Patient will return to clinic in 1 month for reevaluation of symptoms and plan of care. Risks and benefits of the medication have been explained in detail to the patient. The patient does understand the risk of dependence on the medication when given over a prolonged period. Patient has been advised of risks of oversedation with the prescribed medication. Narcan has been offered to the paitent in the event of oversedation. Patient has been advised that a family member should also be educated regarding administration of Narcan. The patient has been advised to consult with his/her primary care provider and pharmacist regarding drug-drug interaction of medications currently prescribed. Patient has been prescribed a controlled substance after being counseled on the medication, medication safety, and possible side effects. Opioid contract was reviewed and signed by the patient, and that they have agreed to all of the terms set forth by our compliance program. Patient has been instructed to contact the clinic with any concerns before the next appointment. Dr. Newton has reviewed this note and agrees with this plan of care. This note was dictated using voice recognition software and make contain errors or omissions.
[2024-04-16 13:31] VITALS: BP 113/64; PULSE 78; RESP 16; O2SAT 98; BMI 66.9
== END 2024-04-16 23:59 | disposition home or self-care (01) ==
PROVIDERS: PCP Internal Medicine; Visit Provider Nurse Practitioner Family
DX: M16.11 Unilateral primary osteoarthritis, right hip (principal); M17.0 Bilateral primary osteoarthritis of knee; Z79.899 Other long term (current) drug therapy
CPT/HCPCS: 99212; G0463

== ENCOUNTER 2024-05-14 12:52 | Outpatient (POV) | payer MEDICARE, MEDICAID, SELFPAY ==
--- NOTE | 2024-05-14 13:18 | A.OFFVIS_ITS ---
[facility] Disclaimer: The information contained in this section may have been updated after the patient was seen, as this information can be updated by other users. Medical History History of orthopnea Paroxysmal A-fib Abnormal electrocardiogram [ECG] [EKG] Cryptic tonsil Enlarged tonsils Tinnitus Bilateral hearing loss Gout CAD (coronary artery disease) Osteoporosis HTN (hypertension), benign GERD (gastroesophageal reflux disease) Surgical History History of gastric bypass History of History of hysterectomy Family History Other Coronary artery disease Depression Diabetes YUMIKO (obstructive sleep apnea) Obesity (BMI 30.0-34.9) Social History Smoking Status: Never smoker alcohol intake: never substance use type: denies use current occupational status: other Travel in the last 8 weeks: None household members: none housing: apartment caffeine: Yes PM Subjective & Objective Subjective Subjective:: Patient is a pleasant 53-year-old female who presents today for medication refill and follow-up. She rates her pain today as 6 out of 10. She denies any new trauma or injury. She states overall everything is maintaining from her last visit. She does state that they are getting go up on her Wegovy dosage on May 29. Patient states they are still seeing how everything goes with this related to the orthopedic provider. Patient is currently managed with [place] 10 mg 4 times a day from our office and Flexeril from her PCP. She denies any side effects from this medication. Her Maxwell has been reviewed and is appropriate. Review of Systems: General: No recent weight changes, no fever, no sleep disturbances Respiratory: No cough, no shortness of air, no recurring pulmonary infections Cardiovascular/peripheral vascular: No chest pain, no palpitations, no edema, no shortness of breath Gastrointestinal: No new onset incontinence, normal bowel movements reported Genitourinary: No new onset incontinence Musculoskeletal: Bilateral hip pain, knee pain Psychiatric: [Normal mood/affect] Neurological: [Denies weakness in extremities], [denies balance issues] Pain at rest (0-10 scale): 6 Objective Objective:: Physical Exam: General: Alert and oriented x3, no acute distress, pleasant and cooperative Lungs: Respirations even and unlabored, symmetrical chest expansion Eyes: PERRL Musculoskeletal: Flexion and extension of lumbar [spine] somewhat guarded secondary to pain, [antalgic gait noted] Neurological: Speech clear, no gross sensory deficit Has patient had previous pain injection?: No Conservative treatment options previously tried: Prescription medications Length of treatment: Longer than 12 weeks Meds Home Medications and Allergies Home Medications ?Medication ?Instructions ?Recorded ?Confirmed ?Type lactulose 10 gram/15 mL oral 10 g PO DAILY PRN Constipation 11/24/20 04/16/24 History solution lidocaine 5 % topical ointment 35 g topical TIDP PRN JOINT PAIN 11/24/20 04/16/24 History mecobalamin (vitamin B12) 1,000 1,000 mcg PO DAILY Supplement 11/24/20 04/16/24 History mcg chewable tablet multivitamin 1 each PO DAILY Supplement 11/24/20 04/16/24 History colchicine 0.6 mg tablet See Rx Instructions .Route 03/28/23 04/16/24 History .COMPLEX GOUT mirabegron 50 mg tablet,extended 50 mg PO DAILY #30 tabs 10/07/23 04/16/24 Rx release 24 hr cholecalciferol (vitamin D3) 50 2,000 unit PO DAILY 12/16/23 04/16/24 History mcg (2,000 unit) capsule furosemide 20 mg tablet (Lasix) 20 mg PO DAILY #100 tabs 12/16/23 04/16/24 Rx oxybutynin chloride 15 mg 15 mg PO DAILY 12/16/23 04/16/24 History tablet,extended release 24 hr cyclobenzaprine 10 mg tablet See Rx Instructions .Route 02/12/24 04/16/24 Rx .COMPLEX #60 tabs diclofenac sodium 1 % topical gel 1 ea topical DIRECTED 02/27/24 04/16/24 History metoprolol succinate 100 mg 150 mg (1.5 x 100 mg) PO DAILY 02/27/24 04/16/24 Rx tablet,extended release 24 hr BLOOD PRESSURE 90 days #135 tabs semaglutide (weight loss) 0.25 0.25 mg (0.5 mL) SQ WEEKLY #2.5 mL 02/27/24 04/16/24 Rx mg/0.5 mL subcutaneous pen injector thiamine HCl (vitamin B1) 250 mg 250 mg PO DAILY SUPPLEMEMT 02/27/24 04/16/24 History tablet apixaban 5 mg tablet (Eliquis) 5 mg PO BID #60 tabs 04/01/24 04/16/24 Rx ropinirole 1 mg tablet See Rx Instructions .Route 04/01/24 04/16/24 Rx .COMPLEX #90 tabs spironolactone 25 mg tablet See Rx Instructions .Route 04/01/24 04/16/24 Rx .COMPLEX #90 tabs esomeprazole magnesium 40 mg See Rx Instructions .Route 04/15/24 04/16/24 Rx capsule,delayed release .COMPLEX #90 caps hydrocodone 10 mg-acetaminophen 1 tab PO QID #120 tabs 04/16/24 Rx 325 mg tablet potassium chloride 20 mEq See Rx Instructions .Route 05/14/24 Rx tablet,extended release(part/cryst) .COMPLEX #120 tabs New Prescriptions to Start Prescriptions: Allergies Allergy/AdvReac Type Severity Reaction Status Date / Time sulfamethoxazole Allergy Intermediate kidney Verified 04/16/24 13:32 [From Bactrim] failure trimethoprim [From Bactrim] Allergy Intermediate kidney Verified 04/16/24 13:32 failure ciprofloxacin [From CIPRO] Allergy Unknown HEART RACES Verified 04/16/24 13:32 Penicillins [PENICILLINS] Allergy Unknown YEAST Verified 04/16/24 13:32 INFECTION Assessment and Plan *Assessment and plan (1) Right knee DJD: Status: Acute Category: Medical Code(s): M17.11 - Unilateral primary osteoarthritis, right knee (2) Left knee DJD: Status: Acute Category: Medical Code(s): M17.12 - Unilateral primary osteoarthritis, left knee (3) Degenerative joint disease of right hip: Status: Acute Category: Medical Code(s): M16.11 - Unilateral primary osteoarthritis, right hip Plan I will refill the patient's [place] and provide a 1 month supply of this medication. Patient will return to clinic in 1 month for reevaluation of symptoms and plan of care. Risks and benefits of the medication have been explained in detail to the patient. The patient does understand the risk of dependence on the medication when given over a prolonged period. Patient has been advised of risks of oversedation with the prescribed medication. Narcan has been offered to the paitent in the event of oversedation. Patient has been advised that a family member should also be educated regarding administration of Narcan. The patient has been advised to consult with his/her primary care provider and pharmacist regarding drug-drug interaction of medications currently prescribed. Patient has been prescribed a controlled substance after being counseled on the medication, medication safety, and possible side effects. Opioid contract was reviewed and signed by the patient, and that they have agreed to all of the terms set forth by our compliance program. Patient has been instructed to contact the clinic with any concerns before the next appointment. Dr. Newton has reviewed this note and agrees with this plan of care. This note was dictated using voice recognition software and make contain errors or omissions.
[2024-05-14 13:45] VITALS: BP 124/76; PULSE 68; RESP 16; O2SAT 98; BMI 31.4
== END 2024-05-14 23:59 | disposition home or self-care (01) ==
PROVIDERS: PCP Internal Medicine; Visit Provider Nurse Practitioner Family
DX: M16.11 Unilateral primary osteoarthritis, right hip; M17.0 Bilateral primary osteoarthritis of knee; Z79.899 Other long term (current) drug therapy; Z79.01 Long term (current) use of anticoagulants
CPT/HCPCS: 99212; G0463

== ENCOUNTER 2024-06-22 12:31 | Outpatient (POV) | payer MEDICARE, MEDICAID, SELFPAY ==
--- OUTSIDE RECORDS SUMMARY | 2024-06-22 12:33 | XMS_ITS | Encounter Summary ---
Author Organization [facility] Address [address] [place] [address] Care Team Providers Care Project Development Leader Name Role Phone Camille Mcdaniel MD Unavailable [phone] Vadim Gee MD Primary Care Provider [phone] Encounter Details Date Type Department Care Team (Latest Contact Info) Description 05/10/2024 Travel Social History Tobacco Use Types Packs/Day Years Used Date Smoking Tobacco: Never Passive Smoke Exposure: Never Smokeless Tobacco: Never Alcohol Use Standard Drinks/Week Comments Never 0 (1 standard drink = 0.6 oz pur e alcohol) PHQ-2 Answer Date Recorded Patient Health Questionnaire-2 Score 0 03/26/2024 Comments Unknown Sex and Gender Information Value Date Recorded Sex Assigned at Not on file Legal Sex Female 7:51 PM EDT Gender Identity Not on file Sexual Orientation Not on file documented as of this encounter Plan of Treatment Upcoming Encounters Date Type Department Care Team (Late st Contact Info) Description 07/10/2024 2:20 PM EST Office Visit [facility] [address] [place] [address] Lesley Salazar PA [address] [place] [address] 09/03/2024 9:00 AM EST Office Visit [facility] [address], [address] [place] [address] 10/09/2024 10:40 AM EDT Office Visit [facility] [address] [place] [address] Allegra Bryant, [employer] [address] [place] [address] 11/23/2024 1:40 PM EDT Office Visit [facility] [address] [place] [address] Paula Rosa, [employer], DNP [address] [place] [address] documented as of this encounter Visit Diagnoses Not on filedocumented in this encounter Additional Health Concerns Assessment Noted Time A fall risk assessment has been complete d for the patient 03/26/2024 9:57 AM EDT A Body Mass Index follow-up plan has been documented for the patient 05/01/2024 2:25 PM EDT documented as of this encounter Care Teams Project Development Leader Relationship Specialty Start Date End Date Vadim Gee MD [address] [place] [address] PCP - General 03/17/24 Camille Mcdaniel MD [address] [place] [address] [place] [address] Referring Physician 11/15/21 documented as of this encounter
--- OUTSIDE RECORDS SUMMARY | 2024-06-22 12:33 | XMS_ITS | Encounter Summary ---
Author Organization [facility] Address [address] [place] [address] Care Team Providers Care Thermospray Operator Name Role Phone Camille Mcdaniel MD Unavailable [phone] Vadim Gee MD Primary Care Provider [phone] Reason for Visit * Reason Comments Follow-up Encounter Details Date Type Department Care Team (Late st Contact Info) Description 05/25/2024 3:00 PM EDT Office Visit [facility] [address], [address] [place] [address] Paula Rosa, LATA, DNP [address] [place] [address] Urge incontinence of urine (Primary Dx); Urgency incontinence Social History Tobacco Use Types Packs/Day Years Used Date Smoking Tobacco: Never Passive Smoke Exposure: Never Smokeless Tobacco: Never Tobacco Cessation:Counseling Given: Not Answered Alcohol Use Standard Drinks/Week Comments Never 0 (1 standard drink = 0.6 oz pur e alcohol) PHQ-2 Answer Date Recorded Patient Health Questionnaire-2 Score 0 03/26/2024 Comments Unknown Sex and Gender Information Value Date Recorded Sex Assigned at Not on file Legal Sex Female 7:51 PM EDT Gender Identity Not on file Sexual Orientation Not on file documented as of this encounter Last Filed Vital Signs Vital Sign Reading Time Taken Comments Blood Pressure 124/83 05/25/2024 2:56 PM EDT Pulse 84 05/25/2024 2:56 PM EDT Temperature - - Respiratory Rate - - Oxygen Saturation - - Inhaled Oxygen Concentration - - Weight - - Height - - Body Mass Index - - documented in this encounter Miscellaneous Notes * Progress Notes - RosaPaula kline, SMOKING PIPE LINER, DNP - 05/25/2024 3:00 PM EDT [facility] Clinic Note Consulting provider: No ref. provider found CC: Follow-up HPI: Eloisa Sebastian is a 63 y.o. F initially seen October 2023 for UI. Continued oxybutynin ER 10 mg and Myrbetriq [address] Charles with 40-50% improvement in her LUTS. Voiding frequency of 3-4x/day, post-voiding dribbling, urgency had significantly improved with combination therapy. No nocturia. Rare enuresis. Some double voiding, denied feelings of incomplete bladder emptying. Rare KELVIN with coughing, laughing, sneezing which was manageable. Denied vaginal bulge sensation. Most botheredby her post-void dribbling and some urgency. Denied history of frequent UTIs or kidney stones. She returns today for follow-up. She reports UI is improved but not resolved. Continues oxybutynin and Myrbetriq. Reports urgency and UUI worse in AM upon awakening and it is 50/50 if she will make it in time. Since last seen, she started semaglutide with 18-20 lb weight loss, some improvement in post-void dribbling. UTI free since stopping daily Macrobid. Overall, reports 50% improve improvement. PMHx: Patient Active Problem List Diagnosis CKD (chronic kidney disease) stage 3, GFR 30-59 ml/min ([facility]) Anxiety Depression GERD (gastroesophageal reflux disease) SVT (supraventricular tachycardia) (CMS/HCC) Hyperlipidemia YUMIKO (obstructive sleep apnea) Restless leg Arthritis Morbid obesity with BMI of 60.0-69.9, adult (CMS/HCC) Urgency incontinence Post-void dribbling Primary osteoarthritis of right hip Primary osteoarthritis of both knees Morbid (severe) obesity due to excess calories (CMS/HCC) Class 3 severe obesity due to excess calories with serious comorbidity and body mass index (BMI) of60.0 to 69.9 in adult ([facility]) Past Medical History: Diagnosis Date Chronic kidney disease Gout December 2020 Hypertension Obesity Personal history of other diseases of the musculoskeletal system and connective tissue History of osteoarthritis Urinary incontinence Urinary tract infection PSHx: Past Surgical History: Procedure Laterality Date BLADDER SURGERY November 28, 2020 CARDIAC CATHETERIZATION N/A 10/2007 patient reports normal SECTION, CLASSIC SECTION, LOW TRANSVERSE N/A COLONOSCOPY N/A DILATION AND CURETTAGE OF UTERUS N/A GASTRIC BYPASS N/A 2010 HYSTERECTOMY N/A OTHER SURGICAL HISTORY REPAIR PELVIC FLOOR DEFECT VAGINAL APPROACH W/ MESH FHx: Family History Problem Relation Name Age of Onset Asthma Father Nani Posada Sr. Coronary artery disease Father Nani Posada Sr. Diabetes Father Nani Posada Sr. Hypertension Father Nani Posada Sr. Sleep apnea Father Nani Posada Sr. Heart disease Father Nani Posada Sr. Obesity Father Nani Posada Sr. Coronary artery disease Mother Geni Posada Diabetes Mother Geni Posada Hypertension Mother Geni Posada Obesity Mother Geni Posada Cancer Maternal Grandmother Priscilla Pablo Cancer Paternal Grandmother Eloisa Posada Cancer Brother Nani Posada Jr. Denies family history of kidney cancer or bladder cancer SHx: Social History Tobacco Use Smoking status: Never Passive exposure: Never Smokeless tobacco: Never Substance Use Topics Alcohol use: Never Drug use: Never Denies history of high risk exposures OBHx: OB History No obstetric history on file. G 3 P 3, 2 vaginal 1 Ovaries: absent bilateral Uterus: absent Vaginal estrogen: No Systemic estrogen: No Review of Systems: See HPI Physical Exam: Vitals: 05/25/24 1456 BP: 124/83 Pulse: 84 General: Pleasant, alert, in no acute distress, well appearing Pulmonary: no increased work of breathing or signs of respiratory distress. Musculoskeletal: ambulates in motorized wheelchair Psychiatric: oriented to person, place, and time. Mood and affect appeared normal. Results/Data: Recent Results (from the past 168 hour(s)) POC US Bladder Volume Collection Time: 05/25/24 2:58 PM Result Value Ref Range Urine, Volume 4 mL POCT URINALYSIS DIPSTICK Collection Time: 05/25/24 3:00 PM Result Value Ref Range POCT Urine Color Dark Yellow POCT Urine Clarity Clear POCT Urine Glucose Negative Negative mg/dL POCT Urine Bilirubin Negative Negative mg/dL POCT Urine Ketones Negative Negative mg/dL POCT Urine Specific Mccarley 1.015 1.005 - 1.030 POCT Urine Blood Negative Negative POCT pH, Urine 5.5 4.5 to 8.0 POCT Protein, Urine Negative Negative mg/dL POCT Urobilinogen, Urine 1.0 0.2, 1.0 EU/dL POCT Nitrite, Urine Positive (A) Negative POCT Urine Leukocyte Esterase Negative Negative Urine, Volume Date Value Ref Range Status 05/25/2024 4 mL Final Labs: No results found for: HGBA1C Lab Results Component Value Date GLUCOSE 96 10/15/2023 CALCIUM 9.4 10/15/2023 NA 143 10/15/2023 K 4.1 10/15/2023 CO2 27 10/15/2023 CL 105 10/15/2023 BUN 24 (H) 10/15/2023 CREATININE 0.92 10/15/2023 EGFR 69.7 10/15/2023 Cultures: No results found for: URINECX Imaging: Procedure: Assessment: Eloisa Sebastian is a 63 y.o. F with Follow-up for frequency, urgency, and UUI. We discussed continued behavioral modifications for post-void dribbling including blotting inside the vagina after voiding and weight loss. For urgency, will continue Myrbetriq 50 mg 1 tablet daily. Will stop oxybutynin and begin trospium ER 60 mg 1 tablet daily. Denies bothersome KELVIN. Previously deniedfrequent UTIs, UTI free since stopping daily Macrobid. Should she have frequent UTIs in the future,will consider alternative prophylactic strategies including Hiprex 1 gram BID, vaginal estrogen cream, and/or D-mannose 2 grams daily. Ms. Sebastian is to return in 6 months or sooner as needed. Ms. Sebastian stated understanding and was amenable to this plan. Plan: Behavioral modifications for post-void dribbling Continue Myrbetriq 50 mg 1 tablet daily, refills provided Stop oxybutynin ER 15 mg 1 tablet daily, begin trospium ER 60 mg 1 tablet daily Return in 6 months or sooner as needed Paula Rosa, SMOKING PIPE LINER, DNP Note to patient: The Century Cures Act makes medical notes like these available to patients inthe interest of transparency. However, be advised this is a medical document. It is intended as peer to peer communication. It is written in medical language and may contain abbreviations or verbiagethat are unfamiliar. It may appear blunt or direct. Medical documents are intended to carry relevant information, facts as evident, and the clinical opinion of the practitioner. documented in this encounter Plan of Treatment Upcoming Encounters Date Type Department Care Team (Late st Contact Info) Description 07/10/2024 2:20 PM EST Office Visit [facility] Endocrinology [address] [facility] [facility], [address] [place] [address] Lesley Salazar PA [address] [address] [place] [address] 09/03/2024 9:00 AM EST Office Visit [facility] Endocrinology [address], [address] [place] [address] 10/09/2024 10:40 AM EDT Office Visit [facility] [address] [place] [address] Allegra Bryant APRN [address] [place] [address] 11/23/2024 1:40 PM EDT Office Visit [facility] Urology [address] [place] [address] Paula Rosa APRN, DNP [address] [place] [address] documented as of this encounter Procedures Procedure Name Priority Date/Time Associated Diagnosis Comments POCT URINALYSIS DIPSTICK Routine 05/25/2024 3:00 PM EDT POC US BLADDER SCAN FOR VOLUME Routine 05/25/2024 2:58 PM EDT Urge incontinence of urine documented in this encounter Results * (ABNORMAL) POCT URINALYSIS DIPSTICK (05/25/2024 3:00 PM EDT) POCT Urine Color Dark Yellow 05/25/2024 3:[address] [facility] POCT Urine Clarity Clear 05/25/2024 3:[address] [facility] POCT Urine Glucose Negative Negative mg/dL 05/25/2024 3:[address] [facility] POCT Urine Bilirubin Negative Negative mg/dL 05/25/2024 3:[address] [facility] POCT Urine Ketones Negative Negative mg/dL 05/25/2024 3:[address] [facility] POCT Urine Specific Mccarley 1.015 1.005 - 1.030 05/25/2024 3:[address] [facility] POCT Urine Blood Negative Negative 05/25/2024 3:[address] [facility] POCT pH, Urine 5.5 4.5 to 8.0 05/25/2024 3:[address] [facility] POCT Protein, Urine Negative Negative mg/dL 05/25/2024 3:[address] [facility] POCT Urobilinogen, Urine 1.0 0.2, 1.0 EU/dL 05/25/2024 3:[address] [facility] POCT Nitrite, Urine Positive(A) Negative 05/25/2024 3:[address] [facility] POCT Urine Leukocyte Esterase Negative Negative 05/25/2024 3:[address] [facility] Urine 05/25/2024 3:00 PM EDT 05/25/2024 3:02 PM EDT us Paula Rosa SMOKING PIPE LINER, DNP LAB POINT OF C ARE TEST DOCKED DEVICE UNSOLICITED RESULTS Final Result [facility] [address] [place], [place] * POC US Bladder Volume (05/25/2024 2:58 PM EDT) Urine, Volume 4 mL IMAGING Anatomical Region Laterality Modality Other Paula Rosa SMOKING PIPE LINER, DNP IMG POINT OF CARE ULTR ASOUND Final Result documented in this encounter Visit Diagnoses Diagnosis Urge incontinence of urine- Primary Urge incontinence Urgency incontinence Urge incontinence documented in this encounter Additional Health Concerns Assessment Noted Time A fall risk assessment has been complete d for the patient 03/26/2024 9:57 AM EDT A Body Mass Index follow-up plan has been documented for the patient 05/25/2024 3:27 PM EDT documented as of this encounter Care Teams Thermospray Operator Relationship Specialty Start Date End Date Vadim Gee MD [address] [place] [address] PCP - General 03/17/24 Camille Mcdaniel MD [address] [place] [address] [place] [address] [place] [address] Referring Physician 11/15/21 documented as of this encounter
--- OUTSIDE RECORDS SUMMARY | 2024-06-22 12:33 | XMS_ITS ---
Laboratory report Created on: June 08, 2024 KRYSTYNA RUEDA : 1960 Sex: Female Author Organization Unknown PROBLEMS Problems List Code Description RESULTS Laboratory Orders Date Order Code Test 2023-09-23 [id number] OPIATE/OXY, SCR W/CONF, WB 2023-09-23 [id number] OPIATES,MS,WB/SP RFX 2023-09-23 [id number] OXYCODONES,MS,WB /SP RFX Laboratory Results Date LOINC Test Value Unit Reference Range Interpre tation 2023-09-23 [id number] OPIATES, IA MX++PA NG/ML CUTOFF:5 A 2023-09-23 [id number] OXYCODONES, IA N NG/ML CUTOFF:5 2023-09-23 57700-8 OPIATE CONFIRMATION +P 2023-09-23 36569-2 CODEINE N NG/ML 2023-09-23 53185-7 MORPHINE N NG/ML 2023-09-23 37007-4 6-ACETYLMORPHINE N 2023-09-23 52459-6 HYDROCODONE 25.3 NG/ML 2023-09-23 29953-5 HYDROMORPHONE N NG/ML 2023-09-23 24688-3 DIHYDROCODEINE 3.4 NG/ML 2023-09-23 68411-3 OXYCODONES CONFIRMATION N 2023-09-23 [id number] OXYCODONE N NG/ML 2023-09-23 18978-9 OXYMORPHONE N NG/ML
--- OUTSIDE RECORDS SUMMARY | 2024-06-22 12:33 | XMS_ITS | Encounter Summary ---
Author Organization [facility] Address [address] [place] [address] Care Team Providers Care Director Of Safety And Security Name Role Phone Camille Mcdaniel MD Unavailable [phone] Vadim Gee MD Primary Care Provider [phone] Encounter Details Date Type Department Care Team (Latest Contact Info) Description 05/25/2024 Travel Social History Tobacco Use Types Packs/Day [...] [facility] [address] [place] [address] Lesley Salazar PA [address] [place] [address] 09/03/2024 9:00 AM EST Office Visit [facility] Endocrinology [address] [place] [address] 10/09/2024 10:40 AM EDT Office Visit [facility] [address] [place] [address] Allegra Bryant, HYDROELECTRIC MECHANIC [address] [place] [address] 11/23/2024 1:40 PM EDT [facility] [address], [address] [place] [address] Paula Rosa, HYDROELECTRIC MECHANIC, DNP [address] [place] [address] documented as of this encounter Visit Diagnoses Not on filedocumented in this encounter Additional Health Concerns Assessment Noted Time A fall risk assessment has been complete d for the patient 03/26/2024 9:57 AM EDT A Body Mass Index follow-up plan has been documented for the patient 05/25/2024 3:27 PM EDT documented as of this encounter Care Teams Director Of Safety And Security Relationship Specialty Start Date End Date Vadim Gee MD [address] [place] [address] PCP - General 03/17/24 Camille Mcdaniel MD [address] [place] [address] Referring Physician 11/15/21 documented as of this encounter
--- OUTSIDE RECORDS SUMMARY | 2024-06-22 12:33 | XMS_ITS ---
Author Organization Unknown ALLERGIES AND ADVERSE REACTIONS No information ASSESSMENT No information CHIEF COMPLAINT No information MEDICATIONS No information OBJECTIVE DATA No information PHYSICAL EXAMINATION No information TREATMENT PLAN Planned Care Start Date Provider Encounter for Check-up [id number] [facility] PROBLEMS No information RESULTS No information REVIEW OF SYSTEMS No information SUBJECTIVE DATA No information VITAL SIGNS No information
--- OUTSIDE RECORDS SUMMARY | 2024-06-22 12:33 | XMS_ITS | Encounter Summary ---
Author Organization [facility] Address [address] [place] [address] Care Team Providers Care Bible Teacher Name Role Phone Camille Mcdaniel MD Unavailable [phone] Vadim Gee MD Primary Care Provider [phone] Reason for Visit * Reason Onset Date Comments PA authorization 05/29/2024 Encounter Details Date Type Department Care Team (Late st Contact Info) Description 05/29/2024 Telephone [facility] [address] [place] [address] Yolanda Parkinson, RN [facility] PA authorization Social History Tobacco Use Types Packs/Day Years [...] on file documented as of this encounter Miscellaneous Notes * Telephone Encounter - Yolanda Parkinson LPN - 05/29/2024 3:59 PM EDT I called and spoke with the patient and relayed the message. She will call her pharmacy to see whenit is ready and if it to expensive she will call the clinic back. * Telephone Encounter - Yolanda Parkinson LPN - 05/29/2024 2:19 PM EDT Needing PA for Trospium 60 mg Take 1 capsule by mouth 1 time a day Urge incontinence. Tried and failed Oxybutynin Mybetriq 25 mg documented in this encounter Plan of Treatment Upcoming Encounters Date Type Department Care Team (Late st Contact Info) Description 07/10/2024 2:20 PM EST Office Visit [facility] Endocrinology [address] [facility] [facility] [place] [address] Lesley Salazar, PA [address] [facility] [facility] [address] [place] [address] 09/03/2024 9:00 AM EST Office [facility] Endocrinology [address] [facility] [place] [address] 10/09/2024 10:40 AM EDT Office Visit [facility] [address] [place] [address] Allegra Bryant, VAMP STRAP IRONER [address] [facility] [address] [place] [address] 11/23/2024 1:40 PM EDT [facility] [address] [place] [address] Paula Rosa, LATA, DNP [address] [place] [address] documented as of this encounter Visit Diagnoses Not on filedocumented in this encounter Additional Health Concerns Assessment Noted Time A fall risk assessment has been complete d for the patient 03/26/2024 9:57 AM EDT A Body Mass Index follow-up plan has been documented for the patient 05/25/2024 3:27 PM EDT documented as of this encounter Care Teams Bible Teacher Relationship Specialty Start Date End Date Vadim Gee MD [address] [place] [address] PCP - General 03/17/24 Camille Mcdaniel MD [address] [facility] [place] [address] Referring Physician 11/15/21 documented as of this encounter
--- OUTSIDE RECORDS SUMMARY | 2024-06-22 12:33 | XMS_ITS | Encounter Summary ---
Author Organization [facility] Address [address] [place] [address] Care Team Providers Care Dancing Master Name Role Phone Camille Mcdaniel MD Unavailable [phone] Vadim Gee MD Primary Care Provider Encounter Details Date Type Department Care Team (Late st Contact Info) Description 05/28/2024 Telephone [facility] [address] [place] [address] Paula Rosa APRN, DNP [address] [place] [address] Social History Tobacco Use Types Packs/Day Years [...] Description 07/10/2024 2:20 PM EST Office Visit [facility] Endocrinology [address] [facility] [place] [address] Lesley Salazar PA [address] [facility] [address] [place] [address] 09/03/2024 9:00 AM EST Office Visit [facility] Endocrinology [address] [facility] [place] [address] 10/09/2024 10:40 AM EDT Office Visit [facility] [address] [place] [address] Allegra Bryant, AIR EXPORT OPERATIONS AGENT [address] [facility] [address] [place] [address] 11/23/2024 1:40 PM EDT Office Visit [facility] Urology [address] [place] [address] Paula Rosa, AIR EXPORT OPERATIONS AGENT, DNP [address] [place] [address] documented as of this encounter Visit Diagnoses Not on filedocumented in this encounter Additional Health Concerns Assessment Noted Time A fall risk assessment has been complete d for the patient 03/26/2024 9:57 AM EDT A Body Mass Index follow-up plan has been documented for the patient 05/25/2024 3:27 PM EDT documented as of this encounter Care Teams Dancing Master Relationship Specialty Start Date End Date Vadim Gee MD [address] [place] [address] PCP - General 03/17/24 Camille Mcdaniel MD [address] [place] [address] [place] [address] Referring Physician 11/15/21 documented as of this encounter
--- OUTSIDE RECORDS SUMMARY | 2024-06-22 12:33 | XMS_ITS ---
Laboratory report Created on: June 08, 2024 KRYSTYNA RUEDA : 1960 Sex: Female Author Organization Unknown PROBLEMS Problems List Code Description RESULTS Laboratory Orders Date Order Code Test 2023-09-23 [id number] DRUG SCREEN (BLO OD AND SERUM) Laboratory Results Date LOINC Test Value Unit Reference Range Interpre tation 2023-09-23 5568-1 ACETONE <.010 G/DL 0.000-0.010 2023-09-23 80954-3 ETHANOL <.010 G/DL 0.000-0.010 2023-09-23 5669-7 ISOPROPANOL <.010 G/DL 0.000-0.010 2023-09-23 5693-7 METHANOL <.010 G/DL 0.000-0.010 2023-09-23 3924-8 PENTOBARBITAL <1 UG/ML 1-5 L 2023-09-23 3948-7 PHENOBARBITAL <1 UG/ML 15-40 L 2023-09-23 [id number] BUTALBITAL <1 UG/ML 1-10 L 2023-09-23 3457-9 CHLORDIAZEPOXIDE <0.1 UG/ML 0.1-0.9 L 2023-09-23 [id number] NORCHLORDIAZEPOXIDE <0.1 UG/ML 0.1-0.6 L 2023-09-23 3537-8 NORDIAZEPAM <0.1 UG/ML 0.1-1.4 L 2023-09-23 3548-5 DIAZEPAM <0.1 UG/ML 0.1-0.9 L 2023-09-23 4024-6 SALICYLATES BD UG/ML 30-250
--- OUTSIDE RECORDS SUMMARY | 2024-06-22 12:33 | XMS_ITS ---
Laboratory report Created on: June 02, 2024 MARYBETH KRYSTYNA : 1960 Sex: Female Author Organization Unknown PROBLEMS Problems List Code Description RESULTS Laboratory Orders Date Order Code Test 2022-11-19 [id number] PTHRP (PTH-RELAT ED PEPTIDE) Laboratory Results Date LOINC Test Value Unit Reference Range Interpre tation 2022-11-19 33318-7 PTHRP (PTH-RELAT ED PEPTIDE) <2.0 PMOL/L
--- OUTSIDE RECORDS SUMMARY | 2024-06-22 12:33 | XMS_ITS | Clinical Summary ---
Author Organization [facility] Address [address] [place] [address] Care Team Providers Care Parking Technician Name Role Phone Camille Mcdaniel MD Unavailable [phone] Vadim Gee MD Primary Care Provider [phone] Allergies Active Allergy Reactions Criticality Noted Date Comments Ciprofloxacin Palpitations Low 11/29/2020 Penicillins Unknown - Patient st ates they do not know rxn details Low 11/29/2020 Prednisone Other - please docum ent in the comment field Low 11/06/2021 Steroids Sulfamethoxazole Other - please docum ent in the comment field High 06/04/2023 Trimethoprim Other - please docum ent in the comment field High 06/04/2023 Medications Multiple Vitamin (MULTI-VITAMIN DAILY PO) Active cyanocobalamin (Vitamin B-12) 1000 MCG tablet Active esomeprazole (NexIUM) [address] capsule TAKE 1 CAPSULE ONCE DAILY. Active furosemide (Lasix) 40 MG tablet TAKE 1-2 TABLETS DAILY DIRECTED. Active HYDROcodone-aceta minophen ([place]) 7.5-325 MG tablet Take 10 mg of hydrocodone by mouth. Active lactulose (Chronulac) 10 GM/15ML solution Active Lidocaine (Anorectal) 5 % cream cream Active potassium chloride CR (Klor-Con M20) 20 MEQ ER tablet TAKE 2 TABLETS TWICE DAILY Active rOPINIRole (Requip) 1 MG tablet Active spironolactone (Aldactone) 25 MG tablet TAKE 1 TABLET DAILY. Active thiamine (Vitamin B-1) 500 MG tablet TAKE 1 TABLET DAILY. Active cyclobenzaprine (Flexeril) 10 MG tablet Active colchicine 0.6 MG tablet TAKE 1 TABLET TWICE DAILY DIRECTED. Active metoprolol succinate XL (Toprol-XL) 100 MG 24 hr tablet Take 1.5 tablets (150 mg) by mouth 1 (one) time each day. Active ergocalciferol (Vitamin D-2) 50 MCG (2000 UT) capsule Take 1 capsule (2,000 Units) by mouth 1 (one) time each day. 90 capsule 3 024 2024 Active mirabegron ER (Myrbetriq) 50 MG tabletIndications :Incontinence,Urg ency incontinence Take 1 tablet (50 mg) by mouth 1 (one) time each day. 90 tablet 3 024 2024 Active diclofenac (Voltaren) 1 % topical gelIndications:Pr imary osteoarthritis of both knees Place on the skin 4 (four) times a day if needed (knee pain). Apply as directed to anterior knee 150 g 3 Active Eliquis 5 MG tablet Active cholecalciferol (Vitamin D-3) 50 MCG (2000 UT) capsule Take 1 capsule (2,000 Units) by mouth 1 (one) time each day. Active Semaglutide-Weigh t Management 1 MG/0.5ML solution auto-injector Inject 1 mg under the skin 1 (one) time per week. 2 mL 2 Active Trospium Chloride ER 60 MG capsule sustained-release 24 hrIndications:Urg e incontinence of urine Take 1 capsule (60 mg) by mouth 1 (one) time each day. 30 capsule 11 024 2024 Active oxybutynin XL (Ditropan-XL) 15 MG 24 hr tabletIndications :Incontinence,Urg ency incontinence Take 1 tablet (15 mg) by mouth 1 (one) time each day. Do not crush, chew, or split. 90 tablet 3 024 2023 Discontinued Hospital, Clinic, or Other Facility Administered Medication Ordered Dose Route Frequency Start Date End Date Status triamcinolone acetonide (Kenalog-40) injection 80 mgIndications:Primary osteoarthritis of both knees 80 mg IX Once 03/26/2024 Active lidocaine (Xylocaine) 1 % injection 4 mLIndications:Primary osteoarthritis of both knees 4 mL IJ Once 03/26/2024 Active bupivacaine PF (Marcaine) 0.25 % injection 10 mgIndications:Primary osteoarthritis of both knees 10 mg IJ Once 03/26/2024 Active Active Problems Problem Noted Date Diagnosed Date Class 3 severe obesity due t o excess calories with serious comorbidity and body mass index (BMI) of 60.0 to 69.9 in adult 05/01/2024 Primary osteoarthritis of right hip 02/06/2024 Primary osteoarthritis of both knees 02/06/2024 Morbid (severe) obesity due to excess calories 0 02/06/2024 Urge incontinence of urine 11/18/2023 Post-void dribbling 11/18/2023 Morbid obesity with BMI of 60.0-69.9, adult 10/28 Restless leg 11/06/2021 Arthritis 11/06/2021 Anxiety 11/01/2021 Depression 11/01/2021 GERD (gastroesophageal reflux disease) Hyperlipidemia 11/01/2021 YUMIKO (obstructive sleep apnea) 11/01/2021 CKD (chronic kidney disease) stage 3, GFR 30-59 ml/min 11/29/2020 SVT (supraventricular tachycardia) 10/31/2014 Resolved Problems Problem Noted Date Diagnosed Date Resolved Date Type 2 diabetes mellitus 11/06/2021 Hypertension 11/29/2020 11/06/2021 Encounters Date Type Department Care Team Description 05/29/2024 Telephone [facility] [address], [address] [place] [address] Yolanda Parkinson, RN PA authorization 05/28/2024 Telephone [facility] Urology [address], [address] [place] [address] Paula Rosa APRN, DNP 05/25/2024 3:00 PM EDT Office Visit [facility]rology [address], [address] [place] [address] Paula Rosa APRN, DNP Urge incontinence of urine (Primary Dx); Urgency incontinence 05/25/2024 Travel 05/10/2024 Travel 05/06/2024 Telephone [facility] Urology [address], [address] [place] [address] Paula Rosa APRN, DNP HCN - Patient Message (Reschedule ) 05/01/2024 1:20 PM EDT Office Visit [facility] Endocrinology [facility] [facility], [address] [place] [address] Lesley Salazar PA Class 3 severe obesity due to excess calories with serious comorbidity and body mass index (BMI) of 60.0 to 69.9 in adult (CMS/HCC) (Primary Dx); Dietary counseling 05/01/2024 Travel 04/30/2024 Travel 04/15/2024 Travel 03/26/2024 10:10 AM EDT Procedure Visit [facility] [address] [place] [address] Melvin Delatorre, DO Primary osteoarthritis of both knees (Primary Dx) 03/26/2024 Orders Only External Location [address] [place] [address] Provider, External 03/26/2024 Travel 03/24/2024 Travel from Last 3 Months Immunizations Name Administration Dates Next Due Influenza, seasonal, injectable 06/13/2010 Family History Medical History Relation Name Comments Cancer Brother Nani Swetha Spears. Asthma Father Nani Posada Sr. Coronary artery disease Father Nani Posada Sr. Diabetes Father Nani Posada Sr. Heart disease Father Nani Posada Sr. Hypertension Father Nani Posada Sr. Obesity Father Nani Posada Sr. Sleep apnea Father Nani Posada Sr. Cancer Maternal Grandmother Priscilla Pablo Coronary artery disease Mother Geni Posada Diabetes Mother Geni Posada Hypertension Mother Geni Posada Obesity Mother Geni Posada Cancer Paternal Grandmother Eloisa Posada Relation Name Status Comments Brother Nani Posada Jr. Father Nani Posada Sr. Maternal Grandmother Priscilla Pablo Mother Geni Posada Paternal Grandmother Eloisa Posada Social History Tobacco Use Types Packs/Day Years [...] on file Sexual Orientation Not on file Last Filed Vital Signs Vital Sign Reading Time Taken Comments Blood Pressure 124/83 05/25/2024 2:56 PM EDT Pulse 84 05/25/2024 2:56 PM EDT Temperature 36.6 ??C (97.9 ??F) 05/31/2023 8:35 AM ED T Respiratory Rate 18 09/30/2023 12:28 PM EST Oxygen Saturation 96% 03/26/2024 9:51 AM EDT Inhaled Oxygen Concentration - - Weight 176 kg (388 lb 0.2 oz) 05/01/2024 1:23 PM EDT Height 162.6 cm (5' 4 ) 05/01/2024 1:23 PM EDT Body Mass Index 66.6 05/01/2024 1:23 PM EDT Plan of Treatment Upcoming Encounters Date Type Department Care Team (Late st Contact Info) Description 07/10/2024 2:20 PM EST Office Visit [facility] [address], [address] [place] [address] Lesley Salazar PA [address] [place] [address] 09/03/2024 9:00 AM EST Office Visit [facility] Endocrinology [address], [address] [place] [address] 10/09/2024 10:40 AM EDT Office Visit [facility] [address] [place] [address] Allegra Bryant, HISTORY TUTOR [address] [place] [address] 11/23/2024 1:40 PM EDT Office Visit [facility] [address], [address] [place] [address] Paual Rosa, HISTORY TUTOR, DNP [address] [place] [address] Health Maintenance Due Date Last Done Comments [facility]-HIV Screening 1959 [facility]-Hepatitis C Screening 1959 [facility]-Medicare Annual Wellness (AWV) 1959 [facility]-/Child/Adol SDOH Screenings 1959 [facility]- SDOH Screenings 1977 [facility]-Adult SDOH Screenings 1977 [facility]-DTaP,Tdap,and Td Vaccines (1 - Tdap) 1978 CT Colonography 2004 Colonoscopy 2004 FIT-DNA 2004 FIT 2004 FOBT 2004 Sigmoidoscopy 2004 [facility]-Colorectal Cancer Screening 2004 [facility]-Breast Cancer Screening 2009 [facility]-Zoster Vaccines (1 of 2) 2009 [facility]-RSV Vaccine: 60+ Years or (1 - Risk 60-74 years 1-dose series) 2019 [id number] Vaccine (1 - 2023- season) 2024 [facility]-Influenza Vaccine (#1) 2024 06/13/2010 [facility]-Depression Screening 03/26/2025 03/26/2024 [facility]-Obesity Intervention Completed 024, 05/01/2024, 03/26/2024, Additional history exists [facility]-HIB Vaccines Aged Out No longer e ligible based on patient's age to complete this topic [facility]-HPV Vaccines Aged Out No longer e ligible based on patient's age to complete this topic [facility]-Hepatitis A Vaccines Aged Out No longer eligible based on patient's age to complete this topic [facility]-IPV Vaccines Aged Out No longer e ligible based on patient's age to complete this topic [facility]-Pneumococcal Vaccine: Pediatrics (0 to 5 Years) and At-Risk Patients (6 to 64 Years) Aged Out No longer eligible based on patient's age to complete this topic [facility]-Rotavirus Vaccines Aged Out No lo nger eligible based on patient's age to complete this topic Procedures Procedure Name Priority Date/Time Associated Diagnosis Comments POCT URINALYSIS DIPSTICK Routine 05/25/2024 3:00 PM EDT POC US BLADDER SCAN FOR VOLUME Routine 05/25/2024 2:58 PM EDT Urge incontinence of urine POC ULTRASOUND 03/26/2024 from Last 3 Months Results * (ABNORMAL) POCT URINALYSIS DIPSTICK (05/25/2024 3:00 PM EDT) POCT Urine Color Dark Yellow 05/25/2024 3:02 PM EDT [facility] POCT Urine Clarity Clear 05/25/2024 3:02 PM EDT [facility] POCT Urine Glucose Negative Negative mg/dL 05/25/2024 3:02 PM EDT [facility] POCT Urine Bilirubin Negative Negative mg/dL 05/25/2024 3:02 PM EDT [facility] POCT Urine Ketones Negative Negative mg/dL 05/25/2024 3:02 PM EDT [facility] POCT Urine Specific [place] 1.015 1.005 - 1.030 05/25/2024 3:02 PM EDT [facility] POCT Urine Blood Negative Negative 05/25/2024 3:02 PM EDT [facility] POCT pH, Urine 5.5 4.5 to 8.0 05/25/2024 3:02 PM EDT [facility] POCT Protein, Urine Negative Negative mg/dL 05/25/2024 3:02 PM EDT [facility] POCT Urobilinogen, Urine 1.0 0.2, 1.0 EU/dL 05/25/2024 3:02 PM EDT [facility] POCT Nitrite, Urine Positive(A) Negative 05/25/2024 3:02 PM EDT [facility] POCT Urine Leukocyte Esterase Negative Negative 05/25/2024 3:02 PM EDT [facility] Urine 05/25/2024 3:00 PM EDT 05/25/2024 3:02 PM EDT Paula Rosa APRN, [facility] POINT OF C ARE TEST DOCKED DEVICE UNSOLICITED RESULTS Final Result Performing Organization Address City/State/[facility] Co de Phone Number [facility] [address], [place] * POC US Bladder Volume (05/25/2024 2:58 PM EDT) Urine, Volume 4 mL IMAGING Anatomical Region Laterality Modality Other Paula Rosa APRN, DNP IMG POINT OF CARE ULTR ASOUND Final Result * POC Imaging (03/26/2024) Anatomical Region Laterality Modality Pelvis Other 03/26/2024 us External Provider IMG POINT OF CARE ULTRASOUND F inal Result from Last 3 Months Insurance MEDICAID [employer] MEDICARE Care Teams Parking Technician Relationship Specialty Start Date End Date Vadim Gee MD [facility] [address] [place] [address] PCP - General 03/17/24 Camille Mcdaniel MD [address] [place] [address] [place] [address] Referring Physician 11/15/21
--- OUTSIDE RECORDS SUMMARY | 2024-06-22 12:34 | XMS_ITS | Encounter Summary ---
Author Organization [facility] Address [address] [place] [address] Care Team Providers Care Hematologist Oncologist Name Role Phone Dejan Vee MD Primary Care Provider + [phone] Camille Mcdaniel MD Unavailable [phone] Encounter Details Date Type Department Care Team (Latest Contact Info) Description 11/17/2023 Travel Social History Tobacco Use Types Packs/Day Years Used Date Smoking Tobacco: Never Passive Smoke Exposure: Never Smokeless Tobacco: Never Alcohol Use Standard Drinks/Week Comments Never 0 (1 standard drink = 0.6 oz pur e alcohol) PHQ-2 Answer Date Recorded Patient Health Questionnaire-2 Score 0 11/18/2023 Comments Unknown Sex and Gender Information Value [...] [facility] [address] , [address] [place] [address] Lesley Salazar PA [address] [place] [address] 09/03/2024 9:00 AM EST Office Visit [facility] Endocrinology [address], [address] [place] [address] 10/09/2024 10:40 AM EDT Office Visit [facility] [address] [place] [address] Allegra Bryant, SENIOR SITE MANAGER [address] [place] [address] 11/23/2024 1:40 PM EDT Office Visit [facility] Urology [address], [address] [place] [address] Paula Rosa, SENIOR SITE MANAGER, DNP [address] [place] [address] documented as of this encounter Visit Diagnoses Not on filedocumented in this encounter Additional Health Concerns Assessment Noted Time A fall risk assessment has been complete d for the patient 09/30/2023 12:39 PM EST A Body Mass Index follow-up plan has been documented for the patient 10/15/2023 9:41 AM EDT documented as of this encounter Care Teams Hematologist Oncologist Relationship Specialty Start Date End Date Dejan Vee MD [address] [place] [address] PCP - General 11/15/21 03/16/24 Camille Mcdaniel MD [address] [place] [address] Referring Physician 11/15/21 documented as of this encounter
--- OUTSIDE RECORDS SUMMARY | 2024-06-22 12:34 | XMS_ITS | Encounter Summary ---
Author Organization [facility] Address [address] [place] [address] Care Team Providers Care Host Hostess Name Role Phone Dejan Vee MD Primary Care Provider + [phone] Camille Mcdaniel MD Unavailable [phone] Encounter Details Date Type Department Care Team (Latest Contact Info) Description 02/06/2024 Travel Social History Tobacco Use Types Packs/Day Years Used Date Smoking Tobacco: Never Passive Smoke Exposure: Never Smokeless Tobacco: Never Alcohol Use Standard Drinks/Week Comments Never 0 (1 standard drink = 0.6 oz pur e alcohol) PHQ-2 Answer Date Recorded Patient Health Questionnaire-2 Score 1 02/06/2024 Comments Unknown Sex and Gender Information Value [...] [facility] [address] , [address] [place] [address] Lesley Salazar PA [address] [place] [address] 09/03/2024 9:00 AM EST Office Visit [facility] Endocrinology [address], [address] [place] [address] 10/09/2024 10:40 AM EDT Office Visit [facility] [address] [place] [address] Allegra Bryant, DIPLOMATIC INTERPRETER/TRANSLATOR [address] [place] [address] 11/23/2024 1:40 PM EDT Office Visit [facility] [address], [address] [place] [address] Paula Rosa, DIPLOMATIC INTERPRETER/TRANSLATOR, DNP [address] [place] [address] documented as of this encounter Visit Diagnoses Not on filedocumented in this encounter Additional Health Concerns Assessment Noted Time A fall risk assessment has been complete d for the patient 02/06/2024 2:12 PM EDT A Body Mass Index follow-up plan has been documented for the patient 02/06/2024 3:15 PM EDT documented as of this encounter Care Teams Host Hostess Relationship Specialty Start Date End Date Dejan Vee MD [address] [place] [address] PCP - General 11/15/21 03/16/24 Camille Mcdaniel MD [address] [place] [address] Referring Physician 11/15/21 documented as of this encounter
--- OUTSIDE RECORDS SUMMARY | 2024-06-22 12:34 | XMS_ITS | Encounter Summary ---
Author Organization [facility] Address [address] [place] [address] Care Team Providers Care Application Integration Specialist Name Role Phone Camille Mcdaniel MD Unavailable [phone] Vadim Gee MD Primary Care Provider [phone] Encounter Details Date Type Department Care Team (Latest Contact Info) Description 03/17/2024 Travel Social History Tobacco Use Types Packs/Day [...] [facility] [address] , [address] [place] [address] Lesley Salazar PA [address] [place] [address] 09/03/2024 9:00 AM EST Office Visit [facility] Endocrinology [address], [address] [place] [address] 10/09/2024 10:40 AM EDT Office Visit [facility] [address] [place] [address] Allegra Bryant, CORE CHECKER [address] [place] [address] 11/23/2024 1:40 PM EDT Office Visit [facility] [address], [address] [place] [address] Paula Rosa, CORE CHECKER, DNP [address] [place] [address] documented as of this encounter Visit Diagnoses Not on filedocumented in this encounter Additional Health Concerns Assessment Noted Time A fall risk assessment has been complete d for the patient 02/06/2024 2:12 PM EDT A Body Mass Index follow-up plan has been documented for the patient 03/17/2024 11:12 AM EDT documented as of this encounter Care Teams Application Integration Specialist Relationship Specialty Start Date End Date Vadim Gee MD [address] [place] [address] PCP - General 03/17/24 Camille Mcdaniel MD [address] [place] [address] Referring Physician 11/15/21 documented as of this encounter
--- OUTSIDE RECORDS SUMMARY | 2024-06-22 12:34 | XMS_ITS | Encounter Summary ---
Author Organization [facility] Address [address] [place] [address] Care Team Providers Care Production Superintendent Hydro Name Role Phone Dejan Vee MD Primary Care Provider + [phone] Camille Mcdaniel MD Unavailable [phone] Encounter Details Date Type Department Care Team (Latest Contact Info) Description 11/18/2023 Travel Social History Tobacco Use Types Packs/Day [...] [facility] [address] , [address] [place] [address] Lesley Salazar PA [address] [place] [address] 09/03/2024 9:00 AM EST Office Visit [facility] Endocrinology [address], [address] [place] [address] 10/09/2024 10:40 AM EDT Office Visit [facility] [address] [place] [address] Allegra Bryant, WALL TAPER HELPER [address] [place] [address] 11/23/2024 1:40 PM EDT Office Visit [facility] [address] [place] [address] Paula Rosa, WALL TAPER HELPER, DNP [address] [place] [address] documented as of this encounter Visit Diagnoses Not on filedocumented in this encounter Additional Health Concerns Assessment Noted Time A fall risk assessment has been complete d for the patient 11/18/2023 8:10 AM EDT A Body Mass Index follow-up plan has been documented for the patient 11/18/2023 8:53 AM EDT documented as of this encounter Care Teams Production Superintendent Hydro Relationship Specialty Start Date End Date Dejan Vee MD [address] [place] [address] PCP - General 11/15/21 03/16/24 Camille Mcdaniel MD [address] [place] [address] Referring Physician 11/15/21 documented as of this encounter
--- OUTSIDE RECORDS SUMMARY | 2024-06-22 12:34 | XMS_ITS | Encounter Summary ---
Author Organization [facility] Address [address] [place] [address] Care Team Providers Care Integration Lead Name Role Phone Dejan Vee MD Primary Care Provider + [phone] Camille Mcdaniel MD Unavailable [phone] Encounter Details Date Type Department Care Team (Late st Contact Info) Description 10/17/2023 Telephone [facility] Endocrinology [address] [facility], [address] [place] [address] Thong Luke, DO [address] [place], [place] [id number] Social History Tobacco Use Types Packs/Day Years Used Date Smoking Tobacco: Never Passive Smoke Exposure: Never Smokeless Tobacco: Never Alcohol Use Standard Drinks/Week Comments Never 0 (1 standard drink = 0.6 oz pur e alcohol) Comments Unknown Sex and Gender Information Value Date Recorded Sex Assigned at Not on file Legal Sex Female 7:51 PM EDT Gender Identity Not on file Sexual Orientation Not on file documented as of this encounter Plan of Treatment Upcoming Encounters Date Type Department Care Team (Late st Contact Info) Description 07/10/2024 2:20 PM EST Office Visit [facility] Endocrinology [address] [facility], [address] [place] [address] Lesley Salazar PA [address] [place] [address] 09/03/2024 9:00 AM EST Office Visit [facility] Endocrinology [address] [facility], [address] [place] [address] 10/09/2024 10:40 AM EDT Office Visit [facility] [address] [place] [address] Allegra Bryant, PROPERTY ACCOUNTANT [address] [facility] [address] [place] [address] 11/23/2024 1:40 PM EDT Office Visit [facility] [address], [address] [place] [address] Paula Rosa, LATA, DNP [address] [place] [address] documented as of this encounter Visit Diagnoses Not on filedocumented in this encounter Additional Health Concerns Assessment Noted Time A fall risk assessment has been complete d for the patient 09/30/2023 12:39 PM EST A Body Mass Index follow-up plan has been documented for the patient 10/15/2023 9:41 AM EDT documented as of this encounter Care Teams Integration Lead Relationship Specialty Start Date End Date Dejan Vee MD [address] [place] [address] PCP - General 11/15/21 03/16/24 Camille Mcdaniel MD [address] [facility] [address] Referring Physician 11/15/21 documented as of this encounter
--- OUTSIDE RECORDS SUMMARY | 2024-06-22 12:34 | XMS_ITS | Encounter Summary ---
Author Organization [facility] Address [address] [place] [address] Care Team Providers Care Bell Spinner Sousaphones Name Role Phone Dejan Vee MD Primary Care Provider + [phone] Camille Mcdaniel MD Unavailable [phone] Encounter Details Date Type Department Care Team (Late st Contact Info) Description 05/31/2023 9:[address] [facility] [address] [place] [address] Leonard Vidal MD [address] [phone] Macromastia (Primary Dx) Social History Tobacco Use Types Packs/Day Years Used Date Smoking Tobacco: Never Passive Smoke Exposure: Never Smokeless Tobacco: Never Tobacco Cessation:Counseling Given: Not Answered Comments Unknown Sex and Gender Information Value Date Recorded Sex Assigned at Not on file Legal Sex Female 7:51 PM EDT Gender Identity Not on file Sexual Orientation Not on file documented as of this encounter Last Filed Vital Signs Vital Sign Reading Time Taken Comments Blood Pressure 113/79 05/31/2023 8:35 AM EDT Pulse 64 05/31/2023 8:35 AM EDT Temperature 36.6 ??C (97.9 ??F) 05/31/2023 8:35 AM ED T Respiratory Rate - - Oxygen Saturation 97% 05/31/2023 8:35 AM EDT Inhaled Oxygen Concentration - - Weight 181 kg (400 lb) 05/31/2023 8:35 AM EDT Height 162.6 cm (5' 4 ) 05/31/2023 8:35 AM EDT Body Mass Index 68.66 05/31/2023 8:35 AM EDT documented in this encounter Miscellaneous Notes * Progress Notes - Mikaela King MD - 05/31/2023 9:15 AM EDT Plastic Surgery Clinic Note CC: breast hypertrophy HISTORY OF PRESENT ILLNESS: Eloisa Sebastian is a 62 y.o. female presenting for consultation regarding bilateral breast hypertrophy. Patient states that she has had discomfort and difficulties associated with her breasts for approximately 25 years. Currently, she wears a size 52 G cup. She wouldprefer to be a small as possible as she does not care about having breast in the future.. The patient's weight has been stable for several years however she states she is trying to lose weight but has not been successful. She previously had gastric bypass surgery in 2010 however she states she initially lost weight but has not been able to since that time. She is in need of bilateral knee replacements and a hip replacement however due to her weight the orthopedic surgeon will not perform this until she loses 50-75 lb. She states she is been trying to see her prior gastric bypass surgeon to see if any further interventions can be done. She endorses neck pain, shoulder pain, shoulder indentations and back pain. She has had associated headaches with her pain. The patient has had multiple rashes in the past, requiring OTC antifungal creams and powders she is previously used wash rags in herinframammary folds to prevent excess moisture. She has not been seen by a physical therapist she has been seen by a chiropractor several years ago with no specific breasts intervention. Patient does not have a family history of breast cancer. She has undergone a mammogram, per the patient several months ago with benign findings. She does not have a history of bleeding or clotting disorders and has not had a miscarriage. Patient does have children and does. She has never breast fed. She does not have diabetes and does not have any nicotine history use. She denies illicit drug use or alcohol use. PAST MEDICAL HISTORY: Past Medical History: Diagnosis Date Personal history of other diseases of the musculoskeletal system and connective tissue History of osteoarthritis PAST SURGICAL HISTORY: Past Surgical History: Procedure Laterality Date CARDIAC CATHETERIZATION N/A 10/2007 patient reports normal SECTION, LOW TRANSVERSE N/A COLONOSCOPY N/A DILATION AND CURETTAGE OF UTERUS N/A GASTRIC BYPASS N/A 2010 HYSTERECTOMY N/A REPAIR PELVIC FLOOR DEFECT VAGINAL APPROACH W/ MESH MEDICATIONS: Current Outpatient Medications on File Prior to Visit Medication Sig Dispense Refill aspirin 81 MG chewable tablet Chew 81 mg 1 (one) time each day. (Patient not taking: Reported on 09/17/2022) cholecalciferol (Vitamin D-3) 125 MCG (5000 UT) capsule TAKE 1 CAPSULE Daily colchicine 0.6 MG tablet TAKE 1 TABLET TWICE DAILY DIRECTED. cyanocobalamin (Vitamin B-12) 1000 MCG tablet cyclobenzaprine (Flexeril) 10 MG tablet esomeprazole (NexIUM) [address] capsule TAKE 1 CAPSULE ONCE DAILY. furosemide (Lasix) 40 MG tablet TAKE 1-2 TABLETS DAILY DIRECTED. hydroCHLOROthiazide (Microzide) 12.5 MG capsule TAKE 1 CAPSULE ONCE DAILY. HYDROcodone-acetaminophen (Adams) 7.5-325 MG tablet lactulose (Chronulac) 10 GM/15ML solution Lidocaine (Anorectal) 5 % cream cream metoprolol tartrate (Lopressor) 100 MG tablet TAKE 1 TABLET TWICE DAILY. Multiple Vitamin (MULTI-VITAMIN DAILY PO) oxybutynin (Ditropan) 5 MG tablet Take 1 tablet twice daily potassium chloride CR (Klor-Con M20) 20 MEQ ER tablet TAKE 2 TABLETS TWICE DAILY rOPINIRole (Requip) 1 MG tablet spironolactone (Aldactone) 25 MG tablet TAKE 1 TABLET DAILY. thiamine (Vitamin B-1) 500 MG tablet TAKE 1 TABLET DAILY. traMADol (Ultram) 50 MG tablet TAKE 1 TABLET 3 TIMES DAILY NEEDED. No current facility-administered medications on file prior to visit. ALLERGIES: Allergy to Cipro Floxin, penicillins, prednisone SOCIAL HISTORY: Social Connections: Not on file Denies alcohol, nicotine, illicit substance use. REVIEW OF SYSTEMS Fourteen point review of systems conducted and negative except for above findings. PHYSICAL EXAM: Gen: Obese, no acute distress. Head: Normocephalic, atraumatic. Eyes: PERRL, EOMI, no conjuctival injection. Nose: No edema, no rhinorrhea. Cardiac: Well perfused extremities. RRR Pulmonary: Unlabored respirations. Abdomen: Soft, nontender to palpation. Obese Neurologic: Aox3, moving all extremities spontaneously. Extremities: Significant edema bilateral lower extremities, no gross deformities. Skin: No rashes or lesions. Breast: bilateral grade III ptosis, evidence of former rashes, bilateral shoulder indentations Left Right SN-N 49 46 IMF-N 21 21 Base Width 33 33 IMAGING: No images are attached to the encounter. ASSESSMENT/PLAN: Eloisa Sebastian is a 62 y.o. female presenting for consultation regarding macromastia. The patient states that she has been symptomatic for approximately 25 years and notes that her most bothersome symptoms are pain in her back. The patient desires a breast reduction to address her symptoms. Weestimate taking 3061 from each side in an amputation style reduction. Patient states she wants the largest volume off possible. Treatment options including non-operative intervention were discussed. Risks, benefits and alternatives to proceeding with bilateral reduction mammaplasty were discussed with the patient and/or family. Risks include but are not limited to: infection, bleeding, hematoma, wound breakdown, delayed healing, asymmetry, the need for reoperation, total loss of nipple sensation, nipple necrosis, skin contour irregularities, scarring, the potential for blood transfusion, lymphedema, blood clots, postoperative drainage, revision surgery and the patient may not be able to nurse a child as well as general surgical risks such as blood clot, heart attack, stroke and among others. Preoperative photog raphs were obtained. A letter of medical necessity will be sent to her insurance company. Once authorization is obtained, a date for surgery will be scheduled. The patient had ample opportunity to ask questions and verbalized understanding of the surgical treatment plan Expected postoperative recovery and restrictions were also discussed. No guarantees or warranties were offered or implied. Preoperative photos taken today and the patient has met with our plastic surgery manager. We will plan tosee the patient back in our clinic once insurance approval has been obtained. Additionally we counseled the patient that she should seek further medical care with her bariatric surgeon as we do believe that she may benefit from further evaluation. She states her primary care physician has began the referral process and she will follow up on this. Mikaela King [id number] Cosigned by Leonard Vidal MD at 05/31/2023 4:26 PM EDT Associated attestation - Leonard Vidal MD - 05/31/2023 4:26 PM EDT I saw and evaluated the patient with the resident/fellow. I discussed the case with the resident/fellow and agree with the findings and plan as documented. documented in this encounter Plan of Treatment Upcoming Encounters Date Type Department Care Team (Late st Contact Info) Description 07/10/2024 2:20 PM EST Office Visit [facility] Endocrinology [address] [facility], [address] [place] [address] Lesley Salazar, PA [address] [facility] [address] [place] [phone] 09/03/2024 9:00 AM EST Office Visit [facility] End[facility]ology [address] [facility] [address] [facility], [address] [place] [address] 10/09/2024 10:40 AM EDT Office Visit [facility] [address] [place] [address] Allegra Bryant, EDUCATION MANAGER [address] [facility] [address] [place] [address] 11/23/2024 1:40 PM EDT Office Visit [facility] [address] [place] [address] Paula Rosa, LATA, DNP [address] [place] [address] documented as of this encounter Visit Diagnoses Diagnosis Macromastia- Primary Hypertrophy of breast documented in this encounter Additional Health Concerns Assessment Noted Time A Body Mass Index follow-up plan has been documented for the patient 05/31/2023 4:29 PM EDT documented as of this encounter Care Teams Bell Spinner Sousaphones Relationship Specialty Start Date End Date Dejan Vee MD [address] [place] [address] PCP - General 11/15/21 03/16/24 Camille Mcdaniel MD [address] [place] [address] Referring Physician 11/15/21 documented as of this encounter
--- OUTSIDE RECORDS SUMMARY | 2024-06-22 12:34 | XMS_ITS | Encounter Summary ---
Author Organization [facility] Address [address] [place] [address] Care Team Providers Care Truck Repair Service Estimator Name Role Phone Dejan Vee MD Primary Care Provider + [phone] Camille Mcdaniel MD Unavailable [phone] Encounter Details Date Type Department Care Team (Latest Contact Info) Description 05/31/2023 Travel Social History Tobacco Use Types Packs/Day Years Used Date Smoking Tobacco: Never Passive Smoke Exposure: Never Smokeless Tobacco: Never Comments Unknown Sex and Gender Information Value Date Recorded Sex Assigned at Not on file Legal Sex Female 7:51 PM EDT Gender Identity Not on file Sexual Orientation Not on file documented as of this encounter Plan of Treatment Upcoming Encounters Date Type Department Care Team (Late st Contact Info) Description 07/10/2024 2:20 PM EST Office Visit [facility] Endocr[facility] [address], [address] [place] [address] Lesley Salazar PA [address] [place] [address] 09/03/2024 9:00 AM EST Office Visit [facility] Endocrinology [address] [place] [address] 10/09/2024 10:40 AM EDT Office Visit [facility] [address] [place] [address] Allegra Bryant, SOCIAL WORKER CLINICAL [address] [facility] [address] [place] [address] 11/23/2024 1:40 PM EDT Office Visit [facility] [address] [place] [address] Paula Rosa, SOCIAL WORKER CLINICAL, DNP [address] [place] [address] documented as of this encounter Visit Diagnoses Not on filedocumented in this encounter Additional Health Concerns Assessment Noted Time A Body Mass Index follow-up plan has been documented for the patient 05/31/2023 4:29 PM EDT documented as of this encounter Care Teams Truck Repair Service Estimator Relationship Specialty Start Date End Date Dejan eVe MD [address] [place] [address] PCP - General 11/15/21 03/16/24 Camille Mcdaniel MD [address] [facility] [place] [address] [place] [address] Referring Physician 11/15/21 documented as of this encounter
--- OUTSIDE RECORDS SUMMARY | 2024-06-22 12:34 | XMS_ITS | Encounter Summary ---
Author Organization [facility] Address [address] [id number] Care Team Providers Care Cream Beater Name Role Phone Dejan Vee MD Primary Care Provider + [phone] Camille Mcdaniel MD Unavailable [phone] Reason for Visit * Reason Comments Female Incontinence * Consultation (Routine) - Closed Specialty Diagnoses / Procedures Referred By Contdg ballesteros Referred To Contact Urology Diagnoses Incontinence Fabien Charles MD [address] [facility] [address] [place] [address] Phone: tel: fax: [facility] [address] [place] [address] Phone: tel: fax: Referral ID Status Reason Start Date Expiration Date V isits Requested Visits Authorized [id number] Closed Specialty Services Required 10/08/2023 04/08/2025 1 1 Encounter Details Date Type Department Care Team (Late st Contact Info) Description 11/18/2023 8:40 AM EDT Consult [facility] [address] [place] [address] Paula Rosa, SOLDERING MACHINE SETTER, DNP [address] [place] [address] Urgency incontinence (Primary Dx); Incontinence; Post-void dribbling Social History Tobacco Use Types Packs/Day Years [...] Sign Reading Time Taken Comments Blood Pressure 113/80 11/18/2023 8:02 AM EDT Pulse 69 11/18/2023 8:02 AM EDT Temperature - - Respiratory Rate - - Oxygen Saturation - - Inhaled Oxygen Concentration - - Weight 184 kg (405 lb 10.3 oz) 11/18/2023 8:02 A M EDT Height 162.6 cm (5' 4 ) 11/18/2023 8:02 AM EDT Body Mass Index 69.63 11/18/2023 8:02 AM EDT documented in this encounter Miscellaneous Notes * Progress Notes - Paula Rosa APRN, DNP - 11/18/2023 8:40 AM EDT [facility] Note Consulting provider: Fabien Charles MD CC: Female Incontinence HPI: Eloisa Sebastian is a 63 y.o. F who presents in consultation of urinary incontinence. She continues oxybutynin ER 10 mg and Myrbetriq [address] Charles with 40-50% improvement in her LUTS.Today, reports voiding frequency of 3-4x/day, post-voiding dribbling, urgency has significantly improved with combination therapy. No nocturia. Rare enuresis. Some double voiding, denies feelings of incomplete bladder emptying. Rare KELVIN with coughing, laughing, sneezing which is manageable. Denies vaginal bulge sensation. Most bothered by her post-void dribbling and some urgency. Denies history of frequent UTIs or kidney stones. I personally reviewed outside records from Dr. Charles today which indicate: 10/07/2023: Presented for mixed UI. Has severe leakage with cough, lifting, and moving around. Has short warning time to get to the bathroom. Underwent sling procedure in 2020, helped for a while but them seemed to break down. H/o gastric bypass in 2000, at first lost 100 lbs then gained most of it back. Previously placed on ditropan and Myrbetriq, will trial combination therapy. Wore 8-10 adult diapers/day. Not a local surgical candidate and opposed to partial work- up, referred to ruology. PMHx: Patient Active Problem List Diagnosis CKD (chronic kidney disease) stage 3, GFR 30-59 ml/min ([facility]) Anxiety Depression GERD (gastroesophageal reflux disease) SVT (supraventricular tachycardia) ([facility]) Hyperlipidemia YUMIKO (obstructive sleep apnea) Restless leg Arthritis Morbid obesity with BMI of 60.0-69.9, adult ([facility]) Past Medical History: Diagnosis Date Chronic kidney disease Gout December 2020 Hypertension Personal history of other diseases of the [...] Sr. Heart disease Father Nani Posada Sr. Coronary artery disease Mother Geni Posada Diabetes Mother Geni Posada Hypertension Mother Geni Posada Cancer Maternal Grandmother rPiscilla Pablo Cancer Paternal Grandmother Eloisa Posada Denies family history of kidney cancer or [...] of Systems: See HPI Physical Exam: Vitals: 11/18/23 0802 BP: 113/80 Pulse: 69 General: Pleasant, alert, in no acute distress, well appearing Pulmonary: no increased work of breathing or signs of respiratory distress. Abdomen: obese Musculoskeletal: ambulates in motorized wheelchair Skin: Warm, dry, and intact Neurologic: perineal sensation to light touch intact and symmetric Psychiatric: oriented to person, place, and time. Mood and affect appeared normal. : Deferred Results/Data: Recent Results (from the past 168 hour(s)) UA Dipstick Collection Time: 11/18/23 8:19 AM Result Value Ref Range POCT Urine Color Dark Yellow POCT Urine Clarity Clear POCT Glucose Urine Negative Negative mg/dL POCT Bilirubin, Urine Negative Negative POCT Ketones, Urine Negative Negative mg/dL POCT Specific Rumsey, Urine 1.025 POCT Blood, Urine Negative Negative POCT pH, Urine 6.5 5.0 to 8.0 POCT Protein, Urine Negative Negative mg/dL POCT Urobilinogen, Urine 4.0 (A) 0.2, 1 E.U./dL POCT Nitrite, Urine Positive (A) Negative POCT Leukocyte Esterase, Urine Negative Negative Test Strip Lot Number [id number] Test Strip Lot Expiration 05/2024 No results found for: URVOL Labs: No results found for: HGBA1C Lab Results Component Value Date GLUCOSE 96 10/15/2023 CALCIUM 9.4 10/15/2023 NA 143 10/15/2023 K 4.1 10/15/2023 CO2 27 10/15/2023 CL 105 10/15/2023 BUN 24 (H) 10/15/2023 CREATININE 0.92 10/15/2023 EGFR 69.7 10/15/2023 Cultures: No results found for: URINECX Imaging: Procedure: Assessment: Eloisa Sebastian is a 63 y.o. F with Female Incontinence. We discussed behavioral modifications for post-void dribbling including blotting inside the vagina after voiding and weight loss. For urgency, refills Myrbetriq 50 mg 1 tablet daily provided and will trial increased dose of oxybutynin ER 15 mg 1 tablet daily. Denies bothersome KELVIN. Denies frequent UTIs, discussed stopping daily Macrobid. Should she have frequent UTIs in the future, will consider alternative prophylactic strategies including Hiprex 1 gram BID, vaginal estrogen cream, and/or D-mannose 2 grams daily. Ms. Sebastian is to return in 3 months or sooner as needed. Ms. Sebastian stated understanding and was amenable to this plan. Plan: Behavioral modifications for post-void dribbling Continue Myrbetriq 50 mg 1 tablet daily, refills provided Increase oxybutynin ER 15 mg 1 tablet daily Stop daily Macrobid Return in 3 months or sooner as needed Paula Rosa APRN, LUCRECIA Note to patient: The Century Cures Act [...] 07/10/2024 2:20 PM EST Office Visit [facility] Endocrinology [address] [facility], [address] [place] [address] Lesley Salazar, RUBY [address] [facility] [address] [place] [address] 09/03/2024 9:00 AM EST Office Visit [facility] Endocrinology [address] [facility], [address] [place] [address] 10/09/2024 10:40 AM EDT Office Visit [facility] [address] [place] [address] Allegra Bryant APRN [address] [facility] [address] [place] [address] 11/23/2024 1:40 PM EDT Office Visit [facility] Urology [address] [place] [address] Paula Rosa, LATA, DNP [address] [place] [address] documented as of this encounter Procedures Procedure Name Priority Date/Time Associated Diagnosis Comments POCT URINALYSIS DIPSTICK Routine 11/18/2023 8:19 AM EDT Incontinence documented in this encounter Results * (ABNORMAL) UA Dipstick (11/18/2023 8:19 AM EDT) POCT Urine Color Dark Yellow POCT Urine Clarity Clear POCT Glucose Urine Negative Negative mg/dL POCT Bilirubin, Urine Negative Negative POCT Ketones, Urine Negative Negative mg/dL POCT Specific Rumsey, Urine 1.025 POCT Blood, Urine Negative Negative POCT pH, Urine 6.5 5.0 to 8.0 POCT Protein, Urine Negative Negative mg/dL POCT Urobilinogen, Urine 4.0(A) 0.2, 1 E.U./dL POCT Nitrite, Urine Positive(A) Negative POCT Leukocyte Esterase, Urine Negative Negative Test Strip Lot Number [id number] Test Strip Lot Expiration 05/2024 Urine Urine specimen obtained by clean catch procedure / Unknown 11/18/2023 8:19 AM EDT us Paula Rosa SOLDERING MACHINE SETTER, DNP POINT OF CARE TEST ENT ER/EDIT ORDERABLES Final Result documented in this encounter Visit Diagnoses Diagnosis Urgency incontinence- Primary Urge incontinence Incontinence Unspecified urinary incontinence Post-void dribbling documented in this encounter Additional Health Concerns Assessment Noted Time A fall risk assessment has been complete d for the patient 11/18/2023 8:10 AM EDT A Body Mass Index follow-up plan has been documented for the patient 11/18/2023 8:53 AM EDT documented as of this encounter Care Teams Cream Beater Relationship Specialty Start Date End Date Dejan Vee MD [address] [place] [address] PCP - General 11/15/21 03/16/24 Camille Mcdaniel MD [address] [place] [address] Referring Physician 11/15/21 documented as of this encounter
--- OUTSIDE RECORDS SUMMARY | 2024-06-22 12:34 | XMS_ITS | Encounter Summary ---
Author Organization [facility] Address [address] [id number] Care Team Providers Care Director Of Software Development Name Role Phone Camille Mcdaniel MD Unavailable [phone] Vadim Gee MD Primary Care Provider [phone] Encounter Details Date Type Department Care Team (Latest Contact Info) Description 03/17/2024 11:17 AM EDT - 03/17/2024 11:59 PM EDT Hospital Encounter [facility] [address], [address] [place] [address] Morbid (severe) obesity due to excess calories (CMS/HCC); Primary osteoarthritis of both knees; Primary osteoarthritis of right hip Discharge Disposition: Home or Self Care Social History Tobacco Use Types Packs/Day Years [...] on file documented as of this encounter Medications at Time of Discharge colchicine 0.6 MG tablet TAKE 1 TABLET TWICE DAILY DIRECTED. 11/29/2020 cyanocobalamin (Vitamin B-12) 1000 MCG tablet 11/29/2020 cyclobenzaprine (Flexeril) 10 MG tablet 11/29/2020 diclofenac (Voltaren) 1 % topical gelIndications:Prim ravi osteoarthritis of both knees Place on the skin 4 (four) times a day if needed (knee pain). Apply as directed to anterior knee 150 g 3 02/06/2024 ergocalciferol (Vitamin D-2) 50 MCG (2000 UT) capsule Take 1 capsule (2,000 Units) by mouth 1 (one) time each day. 90 capsule 3 10/15/2023 10/15/19 25 esomeprazole (NexIUM) [address] capsule TAKE 1 CAPSULE ONCE DAILY. 11/29/2020 furosemide (Lasix) 40 MG tablet TAKE 1-2 TABLETS DAILY DIRECTED. 11/29/2020 HYDROcodone-acetami nophen ([place]) 7.5-325 MG tablet Take 10 mg of hydrocodone by mouth. 11/29/2020 lactulose (Chronulac) 10 GM/15ML solution 11/29/2020 Lidocaine (Anorectal) 5 % cream cream 11/29/2020 metoprolol succinate XL (Toprol-XL) 100 MG 24 hr tablet Take 1.5 tablets (150 mg) by mouth 1 (one) time each day. 08/26/2023 mirabegron ER (Myrbetriq) 50 MG tabletIndications:I ncontinence,Urgency incontinence Take 1 tablet (50 mg) by mouth 1 (one) time each day. 90 tablet 3 11/18/2023 11/18/19 25 Multiple Vitamin (MULTI-VITAMIN DAILY PO) 11/29/2020 potassium chloride CR (Klor-Con M20) 20 MEQ ER tablet TAKE 2 TABLETS TWICE DAILY 11/29/2020 rOPINIRole (Requip) 1 MG tablet 11/29/2020 spironolactone (Aldactone) 25 MG tablet TAKE 1 TABLET DAILY. 11/29/2020 thiamine (Vitamin B-1) 500 MG tablet TAKE 1 TABLET DAILY. 11/29/2020 nitrofurantoin (Macrodantin) 100 MG capsule TAKE ONE CAPSULE BY MOUTH EVERY DAY --TAKE WITH FOOD-- 10/21/2023 03/27/20 24 oxybutynin XL (Ditropan-XL) 15 MG 24 hr tabletIndications:I ncontinence,Urgency incontinence Take 1 tablet (15 mg) by mouth 1 (one) time each day. Do not crush, chew, or split. 90 tablet 3 11/18/2023 05/25/20 Semaglutide-Weight Management (Wegovy) 0.25 MG/0.5ML solution auto-injector Inject under the skin. 05/01/20 Semaglutide-Weight Management (Wegovy) 0.5 MG/0.5ML solution auto-injectorIndica tions:Class 3 severe obesity with serious comorbidity and body mass index (BMI) greater than or equal to 70 in adult, unspecified obesity type (CMS/HCC) Inject 0.5 mg under the skin 1 (one) time per week. 2 mL 1 03/17/2024 05/01/20 documented as of this encounter Plan of Treatment Upcoming Encounters Date Type Department Care Team (Late st Contact Info) Description 07/10/2024 2:20 PM EST Office Visit [facility] [address], [address] [place] [address] Lesley Salazar, PA [address] [facility] [address] [place] [address] 09/03/2024 9:00 AM EST Office Visit [facility] [address], [address] [place] [address] 10/09/2024 10:40 AM EDT Office Visit [facility] [address] [place] [address] Allegra Bryant, ACETYLENE BURNER [address] [place] [address] 11/23/2024 1:40 PM EDT Office Visit [facility] [address] [place] [address] Paula Rosa ACETYLENE BURNER, DNP [address] [place] [id number] documented as of this encounter Procedures Procedure Name Priority Date/Time Associated Diagnosis Comments XR KNEE RIGHT 4+ VIEWS Routine 03/17/2024 11:49 AM EDT Morbid (severe) obesity due to excess calories (CMS/HCC) Primary osteoarthritis of both knees XR KNEE LEFT 4+ VIEWS Routine 03/17/2024 11:49 AM EDT Morbid (severe) obesity due to excess calories (CMS/HCC) Primary osteoarthritis of both knees XR HIP RIGHT 2 OR 3 VIEWS Routine 03/17/2024 11:49 AM EDT Morbid (severe) obesity due to excess calories (CMS/HCC) Primary osteoarthritis of right hip documented in this encounter Results * XR Hip Right 2 or 3 Views (03/17/2024 11:49 AM EDT) Anatomical Region Laterality Modality Lower Extremities, Hip Right Digital R adiography Impressions 03/17/2024 12:47 PM EDT No acute osseous finding of the right hip, right knee or left knee. Severe degenerative changes of the right hip and bilateral knees as described above. CRITICAL RESULT: ?? No. COMMUNICATION: Per this written report. Drafted by Luaren Blount MD on 03/17/2024 12:44 PM Final report signed by Lauren Blount MD on 03/17/2024 12:47 PM Narrative 03/17/2024 12:47 PM EDT CLINICAL INDICATION: hip OA evaluation TECHNIQUE: XR HIP RIGHT 2 OR 3 VIEWS, XR KNEE RIGHT 4+ VIEWS, XR KNEE LEFT 4+ VIEWS COMPARISON: None. FINDINGS: Right hip: Severe right hip joint space narrowing, osteophytosis, subchondral cystic change and sclerosis with flattening of the femoral head. Greater trochanter enthesopathy with heterotopic ossification. No acute fracture or dislocation. Right knee: No acute fracture or dislocation. Severe tricompartmental osteophytosis. Severe medial compartment joint space narrowing. Moderate patellofemoral joint space narrowing. Possible large calcified loose bodies in the anterior and posterior aspects of the knee joint. No significant suprapatellar effusion. Left knee: Mild varus angulation. No acute fracture or dislocation. Lateral patellar subluxation. Severe tricompartmental osteophytosis. Severe medial patellofemoral compartment joint space narrowing. Large calcified loose bodies in the anterior superior and posterior aspects of the knee joint. No significant suprapatellar effusion. Procedure Note Lauren Blount MD - 03/17/2024 CLINICAL INDICATION: hip OA evaluation TECHNIQUE: XR HIP RIGHT 2 OR 3 VIEWS, XR KNEE RIGHT 4+ VIEWS, XR KNEE LEFT 4+ VIEWS COMPARISON: None. FINDINGS: Right hip: Severe right hip joint space narrowing, osteophytosis,subchondral cystic change and sclerosis with flattening of the femoralhead. Greater trochanter enthesopathy with heterotopic ossification. Noacute fracture or dislocation. Right knee: No acute fracture or dislocation. Severe tricompartmentalosteophytosis. Severe medial compartment joint space narrowing. Moderatepatellofemoral joint space narrowing. Possible large calcified loosebodies in the anterior and posterior aspects of the knee joint. Nosignificant suprapatellar effusion. Left knee: Mild varus angulation. No acute fracture or dislocation.Lateral patellar subluxation. Severe tricompartmental osteophytosis.Severe medial patellofemoral compartment joint space narrowing. Largecalcified loose bodies in the anterior superior and posterior aspects ofthe knee joint. No significant suprapatellar effusion. IMPRESSION: No acute osseous finding of the right hip, right knee or left knee. Severe degenerative changes of the right hip and bilateral knees asdescribed above. CRITICAL RESULT: No. COMMUNICATION: Per this written report. Drafted by Lauren Blount MD on 03/17/2024 12:44 PM Final report signed by Lauren Blount MD on 03/17/2024 12:47 PM Melvin Delatorre DO IMG XR PROCEDURES Final Result * XR Knee Left 4+ Views (03/17/2024 11:49 AM EDT) Anatomical Region Laterality Modality Lower Extremities, Knee Left Digital Radiography Impressions 03/17/2024 12:47 PM EDT No acute osseous finding of the right hip, right knee or left knee. Severe degenerative changes of the right hip and bilateral knees as described above. CRITICAL RESULT: ?? No. COMMUNICATION: Per this written report. Drafted by Lauren Blount MD on 03/17/2024 12:44 PM Final report signed by Lauren Blount MD on 03/17/2024 12:47 PM Narrative 03/17/2024 12:47 PM EDT CLINICAL INDICATION: hip OA evaluation TECHNIQUE: XR HIP RIGHT 2 OR 3 VIEWS, XR KNEE RIGHT 4+ VIEWS, XR KNEE LEFT 4+ VIEWS COMPARISON: None. FINDINGS: Right hip: Severe right hip joint space narrowing, osteophytosis, subchondral cystic change and sclerosis with flattening of the femoral head. Greater trochanter enthesopathy with heterotopic ossification. No acute fracture or dislocation. Right knee: No acute fracture or dislocation. Severe tricompartmental osteophytosis. Severe medial compartment joint space narrowing. Moderate patellofemoral joint space narrowing. Possible large calcified loose bodies in the anterior and posterior aspects of the knee joint. No significant suprapatellar effusion. Left knee: Mild varus angulation. No acute fracture or dislocation. Lateral patellar subluxation. Severe tricompartmental osteophytosis. Severe medial patellofemoral compartment joint space narrowing. Large calcified loose bodies in the anterior superior and posterior aspects of the knee joint. No significant suprapatellar effusion. Procedure Note Lauren Blount MD - 03/17/2024 CLINICAL INDICATION: hip OA evaluation TECHNIQUE: XR HIP RIGHT 2 OR 3 VIEWS, XR KNEE RIGHT 4+ VIEWS, XR KNEE LEFT 4+ VIEWS COMPARISON: None. FINDINGS: Right hip: Severe right hip joint space narrowing, osteophytosis,subchondral cystic change and sclerosis with flattening of the femoralhead. Greater trochanter enthesopathy with heterotopic ossification. Noacute fracture or dislocation. Right knee: No acute fracture or dislocation. Severe tricompartmentalosteophytosis. Severe medial compartment joint space narrowing. Moderatepatellofemoral joint space narrowing. Possible large calcified loosebodies in the anterior and posterior aspects of the knee joint. Nosignificant suprapatellar effusion. Left knee: Mild varus angulation. No acute fracture or dislocation.Lateral patellar subluxation. Severe tricompartmental osteophytosis.Severe medial patellofemoral compartment joint space narrowing. Largecalcified loose bodies in the anterior superior and posterior aspects ofthe knee joint. No significant suprapatellar effusion. IMPRESSION: No acute osseous finding of the right hip, right knee or left knee. Severe degenerative changes of the right hip and bilateral knees asdescribed above. CRITICAL RESULT: No. COMMUNICATION: Per this written report. Drafted by Lauren Blount MD on 03/17/2024 12:44 PM Final report signed by Lauren Blount MD on 03/17/2024 12:47 PM us Melvindeana Delatorre DO IMG XR PROCEDURES Final Result * XR Knee Right 4+ Views (03/17/2024 11:49 AM EDT) Anatomical Region Laterality Modality Lower Extremities, Knee Right Digital Radiography Impressions 03/17/2024 12:47 PM EDT No acute osseous finding of the right hip, right knee or left knee. Severe degenerative changes of the right hip and bilateral knees as described above. CRITICAL RESULT: ?? No. COMMUNICATION: Per this written report. Drafted by Lauren Blount MD on 03/17/2024 12:44 PM Final report signed by Lauren Blount MD on 03/17/2024 12:47 PM Narrative 03/17/2024 12:47 PM EDT CLINICAL INDICATION: hip OA evaluation TECHNIQUE: XR HIP RIGHT 2 OR 3 VIEWS, XR KNEE RIGHT 4+ VIEWS, XR KNEE LEFT 4+ VIEWS COMPARISON: None. FINDINGS: Right hip: Severe right hip joint space narrowing, osteophytosis, subchondral cystic change and sclerosis with flattening of the femoral head. Greater trochanter enthesopathy with heterotopic ossification. No acute fracture or dislocation. Right knee: No acute fracture or dislocation. Severe tricompartmental osteophytosis. Severe medial compartment joint space narrowing. Moderate patellofemoral joint space narrowing. Possible large calcified loose bodies in the anterior and posterior aspects of the knee joint. No significant suprapatellar effusion. Left knee: Mild varus angulation. No acute fracture or dislocation. Lateral patellar subluxation. Severe tricompartmental osteophytosis. Severe medial patellofemoral compartment joint space narrowing. Large calcified loose bodies in the anterior superior and posterior aspects of the knee joint. No significant suprapatellar effusion. Procedure Note Lauren Blount MD - 03/17/2024 CLINICAL INDICATION: hip OA evaluation TECHNIQUE: XR HIP RIGHT 2 OR 3 VIEWS, XR KNEE RIGHT 4+ VIEWS, XR KNEE LEFT 4+ VIEWS COMPARISON: None. FINDINGS: Right hip: Severe right hip joint space narrowing, osteophytosis,subchondral cystic change and sclerosis with flattening of the femoralhead. Greater trochanter enthesopathy with heterotopic ossification. Noacute fracture or dislocation. Right knee: No acute fracture or dislocation. Severe tricompartmentalosteophytosis. Severe medial compartment joint space narrowing. Moderatepatellofemoral joint space narrowing. Possible large calcified loosebodies in the anterior and posterior aspects of the knee joint. Nosignificant suprapatellar effusion. Left knee: Mild varus angulation. No acute fracture or dislocation.Lateral patellar subluxation. Severe tricompartmental osteophytosis.Severe medial patellofemoral compartment joint space narrowing. Largecalcified loose bodies in the anterior superior and posterior aspects ofthe knee joint. No significant suprapatellar effusion. IMPRESSION: No acute osseous finding of the right hip, right knee or left knee. Severe degenerative changes of the right hip and bilateral knees asdescribed above. CRITICAL RESULT: No. COMMUNICATION: Per this written report. Drafted by Lauren Blount MD on 03/17/2024 12:44 PM Final report signed by Lauren Blount MD on 03/17/2024 12:47 PM us Melvin Delatorre DO IMG XR PROCEDURES Final Result documented in this encounter Visit Diagnoses Diagnosis Morbid (severe) obesity due to excess calories (CMS/HCC) Primary osteoarthritis of both knees Primary osteoarthritis of right hip documented in this encounter Additional Health Concerns Assessment Noted Time A fall risk assessment has been complete d for the patient 02/06/2024 2:12 PM EDT A Body Mass Index follow-up plan has been documented for the patient 03/17/2024 11:12 AM EDT documented as of this encounter Care Teams Director Of Software Development Relationship Specialty Start Date End Date Vadim Gee MD [address] [place] [address] PCP - General 03/17/24 Camille Mcdaniel MD [address] [place] [address] [place] [address] Referring Physician 11/15/21 documented as of this encounter
--- OUTSIDE RECORDS SUMMARY | 2024-06-22 12:34 | XMS_ITS | Encounter Summary ---
Author Organization [facility] Address [address] [place] [address] Care Team Providers Care Marketing Trainee Name Role Phone Camille Mcdaniel MD Unavailable [phone] Vadim Gee MD Primary Care Provider [phone] Encounter Details Date Type Department Care Team (Latest Contact Info) Description 05/01/2024 Travel Social History Tobacco Use Types Packs/Day [...] [facility] [address] [place] [address] Lesley Salazar PA [address] [place] [address] 09/03/2024 9:00 AM EST Office Visit [facility] [address], [address] [place] [address] 10/09/2024 10:40 AM EDT Office Visit [facility] [address] [place] [address] Allegra Bryant, DELIVERER MERCHANDISE [address] [place] [address] 11/23/2024 1:40 PM EDT Office Visit [facility] [address] [place] [address] Paula Rosa, DELIVERER MERCHANDISE, DNP [address] [place] [address] documented as of this encounter Visit Diagnoses Not on filedocumented in this encounter Additional Health Concerns Assessment Noted Time A fall risk assessment has been complete d for the patient 03/26/2024 9:57 AM EDT A Body Mass Index follow-up plan has been documented for the patient 05/01/2024 2:25 PM EDT documented as of this encounter Care Teams Marketing Trainee Relationship Specialty Start Date End Date Vadim Gee MD [address] [place] [address] PCP - General 03/17/24 Camille Mcdaniel MD [address] [place] [address] [place] [address] Referring Physician 11/15/21 documented as of this encounter
--- OUTSIDE RECORDS SUMMARY | 2024-06-22 12:34 | XMS_ITS | Encounter Summary ---
Author Organization [facility] Address [address] [place] [address] Care Team Providers Care Black Jack Dealer Name Role Phone Dejan Vee MD Primary Care Provider + [phone] Camille Mcdaniel MD Unavailable [phone] Reason for Referral * Other Medical (Routine) - Closed Specialty Diagnoses / Procedures Referred By Elmer ballesteros Referred To Contact Physical Medicine and Rehabilitation Diagnoses Primary osteoarthritis of both knees Procedures Injection - Large Joint Melvin Delatorre DO [address] [place] [address] Phone: tel: fax: Referral ID Status Reason Start Date Expiration Date Visits Re quested Visits Authorized [id number] Closed 02/06/2024 08/07/2025 1 1 * Consultation (Routine) - Authorized Specialty Diagnoses / Procedures Referred By Elmer ballesteros Referred To Contact Pain Medicine Diagnoses Morbid (severe) obesity due to excess calories (CMS/HCC) Primary osteoarthritis of right hip Melvin Delatorre DO [address] [place] [address] Phone: tel: fax: [facility] Interventional Pain Medicine [address] [place] [address] Phone: tel: fax: Referral ID Status Reason Start Date Expiration Date Visits Requested Visits Authorized [id number] Authorized Specialty Services Required 02/06/2024 08/07/2025 1 1 Scheduling Instructions Severe morbid obesity, w/ R hip OA, consideration of XR guided right hip CSI Reason for Visit * Reason Comments Consult * Consultation (Routine) - Closed Specialty Diagnoses / Procedures Referred By Contac t Referred To Contact Orthopaedic Surgery Diagnoses Morbid (severe) obesity due to excess calories (CMS/HCC) Pain in unspecified hip Hayley Pablo, FOREIGN STUDENT ADVISER TEACHER [address] [place] [address] Phone: tel: fax: [facility] [address], [address] [place] [address] Phone: tel: fax: Referral ID Status Reason Start Date Expiration Date V isits Requested Visits Authorized [id number] Closed Specialty Services Required 01/08/2024 07/09/2025 1 1 Encounter Details Date Type Department Care Team (Late st Contact Info) Description 02/06/2024 2:30 PM EDT Office Visit [facility] [address] [place] [address] Melvin Delatorre DO [address] [place] [address] Primary osteoarthritis of both knees (Primary Dx); Morbid (severe) obesity due to excess calories (CMS/HCC); Pain in unspecified hip; Primary osteoarthritis of right hip Social History Tobacco Use Types Packs/Day Years [...] Sign Reading Time Taken Comments Blood Pressure 117/64 02/06/2024 2:07 PM EDT Pulse 73 02/06/2024 2:07 PM EDT Temperature - - Respiratory Rate - - Oxygen Saturation 98% 02/06/2024 2:07 PM EDT Inhaled Oxygen Concentration - - Weight 182 kg (402 lb) 02/06/2024 2:07 PM EDT Height 162.6 cm (5' 4 ) 02/06/2024 2:07 PM EDT Body Mass Index 69 02/06/2024 2:07 PM EDT documented in this encounter Miscellaneous Notes * Progress Notes - Melvin Delatorre, - 02/06/2024 2:30 PM EDT Dear Hayley Pablo Thank you for you request for consultation. The reason(s) for this visit is/are hip and knee pain Chief Complaint: Bilateral knee and right hip pain Is this visit related to: Worker's Compensation Case No Motor Vehicle Accident No If yes are you currently undergoing litigation? No HPI Eloisa Sebastian is a 63-year-old female w/ PMHx of BLE edema, gout, super morbid obesity (BMI 70) s/p gastric bypass (2010) who presents for evaluation of right hip and bilateral knee pain. She reports that she has been seen by several Orthopedic Surgeons in the past and been told she has severe osteoarthritis and that she needs joint replacement surgery, but she is too high risk at this point for surgery. She notes that she has tried and failed PT in the past as well. She has been [facility] bound for about a year now. She has tried and failed recent weight loss measures. She has been trying to start Mounjaro for weight loss, but has not been able to get insurance approval for this. She notes the worst pain is in the anterior groin of the right hip. Notes this pain has been chronic and does not allow her to stand. She notes the pain here and in the knees will reach a 10/10 at worst. She has limited mobility with internal and external rotation of the right hip. Pain is sharp often but with a constant ache. Similar achy pains in the bilateral knees. She notes the left knee pain is slightly worse. She previously has had CSI for the knees, which was last performed maybe 3 years ago now. She notes getting great relief from the injections but this only lasted for about a week at that time. She has not prev iously undergone injections for the right hip. Her goal is to be able to lose some weight in order to become a surgical candidate for joint replacement. Likely will start with the hip replacement prior to the knees given this is the more severe of the pains she is experiencing. The last imaging of the knees or hips she had has been over a year ago now. Previously treated in [place]. She continues to follow with a Pain Clinic in [place] where she is Rx Orchard. She is unable to NSAIDs given her prior history of gastric bypass surgery. Reviewed approx 24 pages of referral paperwork. Review of Systems 14 point ROS negative other than mentioned above and HPI. Medical Histories Past Medical: Past Medical History: Diagnosis Date Chronic kidney disease Gout December 2020 Hypertension Personal history of other diseases of the musculoskeletal system and connective tissue History of osteoarthritis Urinary incontinence Urinary tract infection Past Surgical: Past Surgical History: Procedure Laterality Date BLADDER SURGERY November 28, 2020 CARDIAC CATHETERIZATION N/A 10/2007 patient reports normal SECTION, CLASSIC SECTION, LOW TRANSVERSE N/A COLONOSCOPY N/A DILATION AND CURETTAGE OF UTERUS N/A GASTRIC BYPASS N/A 2010 HYSTERECTOMY N/A REPAIR PELVIC FLOOR DEFECT VAGINAL APPROACH W/ MESH Allergies: Allergies Allergen Reactions Sulfamethoxazole Other - please document in the comment field Trimethoprim Other - please document in the comment field Ciprofloxacin Palpitations Penicillins Unknown - Patient states they do not know rxn details Prednisone Other - please document in the comment field Steroids Family History: Family History Problem Relation Name Age of Onset Asthma Father Nani Posada Sr. Coronary artery disease Father Nani Posada Sr. Diabetes Father Nani Posada Sr. Hypertension Father Nani Posada Sr. Sleep apnea Father Nani Posada Sr. Heart disease Father Nani Posada Sr. Coronary artery disease Mother Geni Posada Diabetes Mother eGni Posada Hypertension Mother Geni Posada Cancer Maternal Grandmother Priscilla Pablo Cancer Paternal Grandmother Eloisa Posada Social History: Patient lives in [place], [place]. She is [facility] bound. Home is handicapped accessible Current/Past work history: Unemployed Tobacco: Denies use Alcohol: Denies use Recreational drug use: Denies use Home Exercise Program: None, unable to perform currently Medications: Current Outpatient Medications: colchicine 0.6 MG tablet, TAKE 1 TABLET TWICE DAILY DIRECTED., Disp: , Rfl: cyanocobalamin (Vitamin B-12) 1000 MCG tablet, , Disp: , Rfl: cyclobenzaprine (Flexeril) 10 MG tablet, , Disp: , Rfl: ergocalciferol (Vitamin D-2) 50 MCG (2000 UT) capsule, Take 1 capsule (2,000 Units) by mouth 1 (one) time each day., Disp: 90 capsule, Rfl: 3 esomeprazole (NexIUM) [address] capsule, TAKE 1 CAPSULE ONCE DAILY., Disp: , Rfl: furosemide (Lasix) 40 MG tablet, TAKE 1-2 TABLETS DAILY DIRECTED., Disp: , Rfl: HYDROcodone-acetaminophen (Orchard) 7.5-325 MG tablet, Take 10 mg of hydrocodone by mouth., Disp: , Rfl: lactulose (Chronulac) 10 GM/15ML solution, , Disp: , Rfl: Lidocaine (Anorectal) 5 % cream cream, , Disp: , Rfl: metoprolol succinate XL (Toprol-XL) 100 MG 24 hr tablet, Take 1.5 tablets (150 mg) by mouth 1 (one)time each day., Disp: , Rfl: mirabegron ER (Myrbetriq) 50 MG tablet, Take 1 tablet (50 mg) by mouth 1 (one) time each day., Disp: 90 tablet, Rfl: 3 Multiple Vitamin (MULTI-VITAMIN DAILY PO), , Disp: , Rfl: nitrofurantoin (Macrodantin) 100 MG capsule, TAKE ONE CAPSULE BY MOUTH EVERY DAY --TAKE WITH FOOD--, Disp: , Rfl: oxybutynin XL (Ditropan-XL) 15 MG 24 hr tablet, Take 1 tablet (15 mg) by mouth 1 (one) time each day. Do not crush, chew, or split., Disp: 90 tablet, Rfl: 3 potassium chloride CR (Klor-Con M20) 20 MEQ ER tablet, TAKE 2 TABLETS TWICE DAILY, Disp: , Rfl: rOPINIRole (Requip) 1 MG tablet, , Disp: , Rfl: spironolactone (Aldactone) 25 MG tablet, TAKE 1 TABLET DAILY., Disp: , Rfl: thiamine (Vitamin B-1) 500 MG tablet, TAKE 1 TABLET DAILY., Disp: , Rfl: diclofenac (Voltaren) 1 % topical gel, Place on the skin 4 (four) times a day if needed (knee pain). Apply as directed to anterior knee, Disp: 150 g, Rfl: 3 Physical Exam: Visit Vitals BP 117/64 Pulse 73 Ht 1.626 m (5' 4 ) Wt 182 kg (402 lb) SpO2 98% BMI 69.00 kg/m?? General: Morbidly obese, pleasant and in no acute distress. Sitting up in [facility] Psych: Alert and oriented. Mood and affect normal. Respiratory: nonlabored breathing and normal rate Cardiovascular: BLE 1+ edema and no clubbing Skin: warm, dry and intact. No rashes on exposed skin. Neuro: Speech fluent. Follows commands. Normal muscle tone. MSK: Unable to stand or ambulate Motor Exam: Lower Extremity Motor Strength Right Left L2: Hip flexion (Iliopsoas) 4/5 4/5 L3: Knee extension (Quads) 4/5 4/5 L4: Ankle DF (TA) 4/5 4/5 L5: Great Toe DF (EHL) 4/5 4/5 S1: Ankle PF (Gastroc and Soleus) Foot Eversion (Peroneal longus/brevis) 4/5 4/5 S2: Great Toe flexion (FHL) Knee flexion 4/5 4/5 Neuro Exam: Sensation Right Left L2: Proximal anterior thigh Normal Normal L3: Mid anterior thigh Normal Normal L4: Medial leg/foot, great toe (Saphenous n.) Normal Normal L5: Dorsum of mid foot Normal Normal S1: Lateral leg/foot, little toe, Back of leg (Sural n.) Normal Normal Special Tests: Knee Inspection/Palpation Right Left Comments Erythema Negative Negative Edema Positive Positive Rashes Negative Negative Surgical incisions Negative Negative Joint line tenderness Positive Positive Pes Anserine tenderness Positive Positive SPECIAL TESTS RIGHT LEFT EXAM COMMENTS Malachi Unable to perform adequately Anterior Drawer Negative Negative Posterior Drawer Negative Negative Varus test @ 0 & 30 degrees Negative Negative Guarding and likely unreliable testing Valgus test @ 0 & 30 degrees Negative Negative Guarding and likely unreliable testing Fransisco Positive Positive Thessaly Unable to perform Results/Data: No results found for this or any previous visit. Assessment: Eloisa Sebastian is a 63-year-old female w/ PMHx of BLE edema, gout, super-super morbidobesity (BMI 70) s/p gastric bypass (2010) who presents for evaluation of right hip and bilateral knee pain. This is a/an Chronic Progressing problem Diagnoses and all orders for this visit: Primary osteoarthritis of both knees - XR Knee Right 4+ Views; Future - XR Knee Left 4+ Views; Future - diclofenac (Voltaren) 1 % topical gel; Place on the skin 4 (four) times a day if needed (knee pain). Apply as directed to anterior knee - Injection - Large Joint; Future Morbid (severe) obesity due to excess calories (CMS/[facility]) - Ambulatory referral to Orthopaedic Surgery - XR Knee Right 4+ Views; Future - XR Knee Left 4+ Views; Future - XR Hip Right 2 or 3 Views; Future - Ambulatory referral to Interventional Pain; Future Pain in unspecified hip - Ambulatory referral to Orthopaedic Surgery Primary osteoarthritis of right hip - XR Hip Right 2 or 3 Views; Future - Ambulatory referral to Interventional Pain; Future Plan: Agree with the need for weight loss measures. Establishing with [facility] next month on 03/17 Ordered XR films to update bilateral knees and right hip for assess grade of OA Rx for Topical Voltaren gel to use 4x daily PRN over the knees Will plan for an attempt at USG CSI of the bilateral knees Referral to IVP for consideration of XR guided R hip CSI if possible May be a candidate for Cryoneurolysis of the bilateral knees for pain control if failing CSI or unable to complete If able to reach acceptable weight may be a surgical candidate in the future for joint replacement,currently will need to lose close to 150 lbs. Follow up in about 1 month (around 03/08/2024) for B/L Knee USG CSI . Thank you very much for allowing me to participate in the care of this patient. If you have any questions, please do not hesitate to contact me. Time spent caring for the patient on today's visit including review of patient chart prior to entering the patient care room, [id number] time with the patient for complaints, history and examination, discussing care options, discussing discharge planning, preparing medication prescriptions and planning next follow-up was 55 minutes total by me. documented in this encounter Plan of Treatment Upcoming Encounters Date Type Department Care Team (Late st Contact Info) Description 07/10/2024 2:20 PM EST Office Visit [facility] Endocrinology [address], [address] [place] [address] Lesley Salazar, PA [address] [place] [address] 09/03/2024 9:00 AM EST Office Visit [facility] Endocrinology [address], [address] [place] [address] 10/09/2024 10:40 AM EDT Office Visit [facility] [address] [place] [address] Allegra Bryant, LATA [address] [address] [place] [address] 11/23/2024 1:40 PM EDT Office Visit [facility] [address], [address] [place] [address] Paula Rosa, LATA, DNP [address] [place] [address] Scheduled Orders Name Type Priority Associated Diagnoses Orde r Schedule Injection - Large Joint Procedures Routine Primary osteoarthritis of both knees Expected: 03/08/2024 (Approximate), Expires: 02/05/2025 Scheduled Referrals Name Type Priority Associated Diagnoses Orde r Schedule Ambulatory referral to Interventional Pain Outpatient Referral Routine Morbid (severe) obesity due to excess calories (CMS/HCC) Primary osteoarthritis of right hip Expected: 02/06/2024 (Approximate), Expires: 08/08/2025 documented as of this encounter Results * XR Hip Right [...] Blount MD on 03/17/2024 12:47 PM Melvin S Juan Ramon TAO IMG XR PROCEDURES Final Result documented in this encounter Visit Diagnoses Diagnosis Primary osteoarthritis of both knees- Primary Morbid (severe) obesity due to excess calories (CMS/HCC) Pain in unspecified hip Primary osteoarthritis of right hip Morbid (severe) obesity due to excess calories [...] documented as of this encounter Care Teams Black Jack Dealer Relationship Specialty Start Date End Date Dejan Vee MD [address] [place] [address] PCP - General 11/15/21 03/16/24 Camille Mcdaniel MD [address] [place] [address] Referring Physician 11/15/21 documented as of this encounter
--- OUTSIDE RECORDS SUMMARY | 2024-06-22 12:34 | XMS_ITS | Encounter Summary ---
Author Organization [facility] Address [address] [place] [address] Care Team Providers Care Manager Management Name Role Phone Camille Mcdaniel MD Unavailable [phone] Vadim Gee MD Primary Care Provider [phone] Encounter Details Date Type Department Care Team (Late st Contact Info) Description 03/17/2024 Telephone [facility] Endocrinology [address], [address] [place] [address] Lesley Salazar PA [address] [place] [address] Social History Tobacco Use Types Packs/Day Years [...] encounter Miscellaneous Notes * Telephone Encounter - BHUMI HERNÁNDEZ - 03/17/2024 3:39 PM EDT Pt has questions regarding her Wegovy dosage. documented in this encounter Plan of Treatment Upcoming Encounters Date Type Department Care Team (Late st Contact Info) Description 07/10/2024 2:20 PM EST Office Visit [facility] Endocrinology [address], [address] [place] [address] Lesley Salazar PA [address] [place] [address] 09/03/2024 9:00 AM EST Office Visit [facility] Endocrinology [address] [place] [address] 10/09/2024 10:40 AM EDT Office Visit [facility] [address] [place] [address] Allegra Bryant, LATA [address] [address] [place] [address] 11/23/2024 1:40 PM EDT Office Visit [facility] [address], [address] [place] [address] Paula Rosa, LATA, DNP [address] [place] [address] documented as of this encounter Visit Diagnoses Not on filedocumented in this encounter Additional Health Concerns Assessment Noted Time A fall risk assessment has been complete d for the patient 02/06/2024 2:12 PM EDT A Body Mass Index follow-up plan has been documented for the patient 03/17/2024 11:12 AM EDT documented as of this encounter Care Teams Manager Management Relationship Specialty Start Date End Date Vadim Gee MD [address] [place] [id number] PCP - General 03/17/24 Camille Mcdaniel MD [address] [place] [address] [place] [address] Referring Physician 11/15/21 documented as of this encounter
--- OUTSIDE RECORDS SUMMARY | 2024-06-22 12:34 | XMS_ITS | Encounter Summary ---
Author Organization [facility] Address [address] [place] [address] Care Team Providers Care Spray Drier Operator Helper Name Role Phone Dejan eVe MD Primary Care Provider + [phone] Camille Mcdaniel MD Unavailable [phone] Encounter Details Date Type Department Care Team (Latest Contact Info) Description 03/11/2024 Travel Social History Tobacco Use Types Packs/Day [...] [facility] [address] , [address] [place] [address] Lesley Salazar PA [address] [place] [address] 09/03/2024 9:00 AM EST Office Visit [facility] Endocrinology [address] [place] [address] 10/09/2024 10:40 AM EDT Office Visit [facility] [address] [place] [address] Allegra Bryant, MARKET GARDENER [address] [place] [address] 11/23/2024 1:40 PM EDT Office Visit [facility] [address] [place] [address] Paula Rosa, MARKET GARDENER, DNP [address] [place] [address] documented as of this encounter Visit Diagnoses Not on filedocumented in this encounter Additional Health Concerns Assessment Noted Time A fall risk assessment has been complete d for the patient 02/06/2024 2:12 PM EDT A Body Mass Index follow-up plan has been documented for the patient 02/06/2024 3:15 PM EDT documented as of this encounter Care Teams Spray Drier Operator Helper Relationship Specialty Start Date End Date Dejan Vee MD [address] [place] [address] PCP - General 11/15/21 03/16/24 Camille Mcdaniel MD [address] [place] [address] [place] [address] Referring Physician 11/15/21 documented as of this encounter
--- OUTSIDE RECORDS SUMMARY | 2024-06-22 12:34 | XMS_ITS | Encounter Summary ---
Author Organization [facility] Address [address] [place] [address] Care Team Providers Care Laborer/Grade Check Name Role Phone Dejan Vee MD Primary Care Provider + [phone] Camille Mcdanile MD Unavailable [phone] Encounter Details Date Type Department Care Team (Latest Contact Info) Description 09/23/2023 Travel Social History Tobacco Use Types Packs/Day [...] Description 07/10/2024 2:20 PM EST Office Visit [facility] Endocrinology [address] [place] [address] Lesley Salazar PA [address] [place] [address] 09/03/2024 9:00 AM EST Office Visit [facility] Endocrinology [address] [place] [address] 10/09/2024 10:40 AM EDT Office Visit [facility] [address] [place] [address] Allegra Bryant, BISQUE WARE DIPPER [address] [facility] [address] [place] [address] 11/23/2024 1:40 PM EDT Office Visit [facility] [address] [place] [address] Paula Rosa, BISQUE WARE DIPPER, DNP [address] [place] [address] documented as of this encounter Visit Diagnoses Not on filedocumented in this encounter Additional Health Concerns Assessment Noted Time A Body Mass Index follow-up plan has been documented for the patient 05/31/2023 4:29 PM EDT documented as of this encounter Care Teams Laborer/Grade Check Relationship Specialty Start Date End Date Dejan Vee MD [address] [place] [address] PCP - General 11/15/21 03/16/24 Camille Mcdaniel MD [address] [facility] [place] [address] Referring Physician 11/15/21 documented as of this encounter
--- OUTSIDE RECORDS SUMMARY | 2024-06-22 12:34 | XMS_ITS | Encounter Summary ---
Author Organization [facility] Address [address] [place] [address] Care Team Providers Care Flight Control Manager Name Role Phone Camille Mcdaniel MD Unavailable [phone] Vadim Gee MD Primary Care Provider [phone] Encounter Details Date Type Department Care Team (Latest Contact Info) Description 04/15/2024 Travel Social History Tobacco Use Types Packs/Day [...] [facility] [address] [place] [address] Lesley Salazar PA [address] [place] [address] 09/03/2024 9:00 AM EST Office Visit [facility] Endocrinology [address] [place] [address] 10/09/2024 10:40 AM EDT Office Visit [facility] [address] [place] [address] Allegra Bryant, RESEARCH CLERK [address] [place] [address] 11/23/2024 1:40 PM EDT Office Visit [facility] [address], [address] [place] [address] Paula Rosa, RESEARCH CLERK, DNP [address] [place] [address] documented as of this encounter Visit Diagnoses Not on filedocumented in this encounter Additional Health Concerns Assessment Noted Time A fall risk assessment has been complete d for the patient 03/26/2024 9:57 AM EDT A Body Mass Index follow-up plan has been documented for the patient 03/27/2024 8:59 AM EDT documented as of this encounter Care Teams Flight Control Manager Relationship Specialty Start Date End Date Vadim Gee MD [address] [place] [address] PCP - General 03/17/24 Camille Mcdaniel MD [address] [place] [address] [place] [address] Referring Physician 11/15/21 documented as of this encounter
--- OUTSIDE RECORDS SUMMARY | 2024-06-22 12:34 | XMS_ITS | Encounter Summary ---
Author Organization [facility] Address [address] [place] [address] Care Team Providers Care Tin Can Laborer Name Role Phone Camille Mcdaniel MD Unavailable [phone] Vadim Gee MD Primary Care Provider [phone] Encounter Details Date Type Department Care Team (Late st Contact Info) Description 03/26/2024 Orders Only External Location [address] [place] [id number] Provider, External Social History Tobacco Use Types Packs/Day Years [...] Description 07/10/2024 2:20 PM EST [facility] [address], [address] [place] [address] Lesley Salazar PA [address] [place] [address] 09/03/2024 9:00 AM EST Office Visit [facility] End[facility]ology [address], [address] [place] [address] 10/09/2024 10:40 AM EDT Office Visit [facility] [address] [place] [address] Allegra Bryant, DIRECTOR NURSING SERVICE [address] [place] [address] 11/23/2024 1:40 PM EDT Office Visit [facility] [address], [address] [place] [address] Paula Rosa, DIRECTOR NURSING SERVICE, DNP [address] [place] [address] documented as of this encounter Procedures Procedure Name Priority Date/Time Associated Diagnosis Comments POC ULTRASOUND 03/26/2024 documented in this encounter Results * POC Imaging (03/26/2024) Anatomical Region Laterality Modality Pelvis Other 03/26/2024 us External Provider IMG POINT OF CARE ULTRASOUND F inal Result documented in this encounter Visit Diagnoses Not on filedocumented in this encounter Additional Health Concerns Assessment Noted Time A fall risk assessment has been complete d for the patient 03/26/2024 9:57 AM EDT A Body Mass Index follow-up plan has been documented for the patient 03/27/2024 8:59 AM EDT documented as of this encounter Care Teams Tin Can Laborer Relationship Specialty Start Date End Date Vadim Gee MD [address] [place] [address] PCP - General 03/17/24 Camille Mcdaniel MD [address] [place] [address] [place] [address] Referring Physician 11/15/21 documented as of this encounter
--- OUTSIDE RECORDS SUMMARY | 2024-06-22 12:34 | XMS_ITS | Encounter Summary ---
Author Organization [facility] Address [address] [place] [address] Care Team Providers Care Hot Metal Charger Name Role Phone Dejan Vee MD Primary Care Provider + [phone] Camille Mcdaniel MD Unavailable [phone] Encounter Details Date Type Department Care Team (Latest Contact Info) Description 09/30/2023 Travel Social History Tobacco Use Types Packs/Day [...] EST Office Visit [facility] [address], [address] [place] [address] Lesley Salazar, PA [address] [place] [address] 09/03/2024 9:00 AM EST Office Visit [facility] [address] [place] [address] 10/09/2024 10:40 AM EDT Office Visit [facility] [address] [place] [address] Allegra Bryant, OPHTHALMIC TECHNOLOGIST [address] [facility] [address] [place] [address] 11/23/2024 1:40 PM EDT Office Visit [facility] Urology [address], [address] [place] [address] Paula Rosa, OPHTHALMIC TECHNOLOGIST, DNP [address] [place] [address] documented as of this encounter Visit Diagnoses Not on filedocumented in this encounter Additional Health Concerns Assessment Noted Time A fall risk assessment has been complete d for the patient 09/30/2023 12:39 PM EST A Body Mass Index follow-up plan has been documented for the patient 09/30/2023 12:50 PM EST documented as of this encounter Care Teams Hot Metal Charger Relationship Specialty Start Date End Date Dejan Vee MD [address] [place] [address] PCP - General 11/15/21 03/16/24 Camille Mcdaniel MD [address] [place] [address] [place] [address] Referring Physician 11/15/21 documented as of this encounter
--- OUTSIDE RECORDS SUMMARY | 2024-06-22 12:34 | XMS_ITS | Encounter Summary ---
Author Organization [facility] Address [address] [place] [address] Care Team Providers Care Glass Loading Equipment Tender Name Role Phone Dejan Vee MD Primary Care Provider + [phone] Camille Mcdaniel MD Unavailable [phone] Encounter Details Date Type Department Care Team (Latest Contact Info) Description 09/17/2022 Travel Social History Tobacco Use Types Packs/Day Years Used Date Smoking Tobacco: Never Passive Smoke Exposure: Never Smokeless Tobacco: Never Comments Unknown Sex and Gender Information Value Date Recorded Sex Assigned at Not on file Legal Sex Female 7:51 PM EDT Gender Identity Not on file Sexual Orientation Not on file COVID-19 Exposure Response Date Recorded In the last 10 days, have yo u been in contact with someone who was confirmed or suspected to have Coronavirus/COVID-19? No / Unsure 09/17/2022 9:52 AM EST documented as of this encounter Plan of Treatment Upcoming Encounters Date Type Department Care Team (Late st Contact Info) Description 07/10/2024 2:20 PM EST Office Visit [facility] Endocrinology [address], [address] [place] [address] Lesley Salazar PA [address] [place] [address] 09/03/2024 9:00 AM EST Office Visit [facility] Endocrinology [address] [facility], [address] [place] [address] 10/09/2024 10:40 AM EDT Office Visit [facility] [address] [place] [address] Allegra Bryant, LINE INSTALLER TROLLEY [address] [facility] [address] [place] [address] 11/23/2024 1:40 PM EDT Office Visit [facility] Urology [address], [address] [place] [address] Paula Rosa, LINE INSTALLER TROLLEY, DNP [address] [place] [address] documented as of this encounter Visit Diagnoses Not on filedocumented in this encounter Additional Health Concerns Assessment Noted Time A Body Mass Index follow-up plan has been documented for the patient 09/17/2022 12:08 PM EST documented as of this encounter Care Teams Glass Loading Equipment Tender Relationship Specialty Start Date End Date Dejan Vee MD [address] [place] [address] PCP - General 11/15/21 03/16/24 Camille Mcdaniel MD [address] [place] [address] Referring Physician 11/15/21 documented as of this encounter
--- OUTSIDE RECORDS SUMMARY | 2024-06-22 12:34 | XMS_ITS | Encounter Summary ---
Author Organization [facility] Address [address] [place] [address] Care Team Providers Care Milk House Worker Name Role Phone Dejan Vee MD Primary Care Provider + [phone] Camille Mcdaniel MD Unavailable [phone] Encounter Details Date Type Department Care Team (Latest Contact Info) Description 02/05/2024 Travel Social History Tobacco Use Types Packs/Day [...] [facility] [address] [place] [address] Lesley Salazar PA [address] [place] [address] 09/03/2024 9:00 AM EST Office Visit [facility] Endocrinology [address] [place] [address] 10/09/2024 10:40 AM EDT Office Visit [facility] [address] [place] [address] Allegra Bryant, SCOW CAPTAIN [address] [place] [address] 11/23/2024 1:40 PM EDT Office Visit [facility] [address] [place] [address] Paula Rosa, SCOW CAPTAIN, DNP [address] [place] [address] documented as of this encounter Visit Diagnoses Not on filedocumented in this encounter Additional Health Concerns Assessment Noted Time A fall risk assessment has been complete d for the patient 11/18/2023 8:10 AM EDT A Body Mass Index follow-up plan has been documented for the patient 11/18/2023 8:53 AM EDT documented as of this encounter Care Teams Milk House Worker Relationship Specialty Start Date End Date Dejan Vee MD [address] [place] [address] PCP - General 11/15/21 03/16/24 Camille Mcdaniel MD [address] [place] [address] Referring Physician 11/15/21 documented as of this encounter
--- OUTSIDE RECORDS SUMMARY | 2024-06-22 12:34 | XMS_ITS | Encounter Summary ---
Author Organization [facility] Address [address] [place] [address] Care Team Providers Care Yarder Boss Name Role Phone Camille Mcdaniel MD Unavailable [phone] Vadim Gee MD Primary Care Provider [phone] Reason for Visit * Reason Comments Weight Management Encounter Details Date Type Department Care Team (Late st Contact Info) Description 05/01/2024 1:20 PM EDT Office Visit [facility] [address] [facility], [address] [place] [address] Lesley Salazar, PA [address] [facility] [address] [place] [address] Class 3 severe obesity due to excess calories with serious comorbidity and body mass index (BMI) of 60.0 to 69.9 in adult (CMS/HCC) (Primary Dx); Dietary counseling Social History Tobacco Use Types Packs/Day Years [...] Sign Reading Time Taken Comments Blood Pressure 122/80 05/01/2024 1:23 PM EDT Pulse 73 05/01/2024 1:23 PM EDT Temperature - - Respiratory Rate - - Oxygen Saturation - - Inhaled Oxygen Concentration - - Weight 176 kg (388 lb 0.2 oz) 05/01/2024 1:23 PM EDT Height 162.6 cm (5' 4 ) 05/01/2024 1:23 PM EDT Body Mass Index 66.6 05/01/2024 1:23 PM EDT documented in this encounter Miscellaneous Notes * Patient Instructions - Lesley Salazar PA - 05/01/2024 1:20 PM EDT 1754 kcal/day, Protein 146 grams/day, CHO 150-180 grams/day, Fat 40 grams/day, and Other fiber 30g;sugar <45g - Will log foods - Will increase water intake to 80 oz a day - Will aim for 5 cups of fruits and vegetables a day - Will concentrate on increasing protein intake (minimum of 120) * Progress Notes - Lesley Salazar PA - 05/01/2024 1:20 PM EDT Images from the original note were not included. HPI Eloisa Sebastian presents [facility] for follow up for weight loss. At last visit we started semaglutide. She is currently on 0.5mg weekly dose and denies any AE. She believes it is helping with her appetite. She has consistently logged her foods most days. She is averaging < 68g of protein a day. She has attempted to increase her water intake. PMH: SVT, obesity, CKD, RLS, OA, S/P Gastric bypass, YUMIKO WEIGHT HISTORY - lowest weight as an adult- 190 in Heaviest weight- Weight 446 lbs before bypass, lost 146lbs Rate of weight gain/any inciting factors- Started gaining weight after mother with stress eating Tried any Weight loss programs- bariatric surgery, Weight watchers, Maryann Rivero, samina What worked best in your opinion in your prior weight loss journey? Weight watchers- lost 60 or more pounds Any Stressors- Has 17 year old grandson living with her Sleep- 6-9 hours CPAP complaint FAMILY WEIGHT HISTORY Sister Both parents NUTRITIONAL HISTORY Do you record your food-no Do you skip meals- yes- breakfast How often do you eat the following foods- -Whole grains: 2-3 times a week -Fruits: daily -Vegetables: daily -Meat: daily -dairy: daily -Fried food/snacks (chips crackers pop corn): daily -Sweets: 2-3 times a week -sugar sweetened beverages: none -High sodium processed foods (canned soup pasta, frozen/packaged meal, chips) : 2-3 times a week -Alcohol: none -How often do you Eat out- 1-2 times a month How much Water do you drink per day - 32-48oz Do you Prepare own meals - yes or fiance Who does Grocery shopping for home - fiance and grandson 24 hour dietary recall BK- turkey ance cheese roll up Lunch- Broiled chicken, diced potatoes, butternut squash Dinner- [place] and cheese sandwich Snacks- Cheese and crackers Nighttime eating PHYSICAL ACTIVITY Current level of physical activity- minimal- in wheelchair- has been doing some chair exercises 1-2times a day Any medical problems that limit physical activity- OA in hip No of flight of stairs/daily walking steps- unsure Types of physical activities that you enjoy ( walking, running, swimming, hitting the gym, dancing)- walking SURGICAL- Gastric bypass; see history SOCIAL HISTORY - h/o substance/alcohol abuse: none ? Eating disorders -none The following portions of the chart were reviewed this encounter and updated as appropriate: Tobacco Allergies Meds Problems Med Hx Surg Hx Fam Hx Review of Systems Constitutional: negative Respiratory: Negative. Cardiovascular: Negative. Gastrointestinal: Negative. Musculoskeletal: chronic pain Neurological: Negative. Psychiatric/Behavioral: Negative. Objective []Expand by Default Physical Exam Vitals reviewed. Constitutional: Appearance: obese. In motorized wheelchair. Cardiovascular: Rate and Rhythm: Normal rate Pulmonary: Effort: Pulmonary effort is normal. Neurological: Mental Status: She is alert and oriented to person, place, and time. Psychiatric: Mood and Affect: Mood normal. Behavior: Behavior normal. Assessment/Plan #Obesity A reduction of 5%-10% or more of current body weight will improve health parameters. Weight today- 399 BMI- 68.65 Goal- Get down to 199 Weight change since last visit- Down 10lbs ACTION PLAN: Nutrition: 1754 kcal/day, Protein 146 grams/day, CHO 150-180 grams/day, Fat 40 grams/day, and Other fiber 30g;sugar <45g based off of [employer] BMR calculation - Will log foods - Will increase water intake to 80 oz a day - Will aim for 5 cups of fruits and vegetables a day - Will concentrate on increasing protein intake (minimum of 120) Physical Activity: - Will increase activity as tolerated Medical therapy: Currently on Wegovy 0.5mg weekly She will complete current prescription she has then will start new dose: Increase Wegovy 1mg IM weekly 2mL/2 refill Discussed medication use and potential side effects. Patient will reach out if any issues prior to follow up appointment. Patient denies known hx of pancreatitis, MEN 2, or medullary thyroid carcinoma. Follow up- 8 weeks I personally spent a total of 31 minutes on this encounter. This time includes face to face with patient, counseling and discussion and/or coordination of care. Note to patient: The Century Cures Act [...] and the clinical opinion of the practitioner. CORNELIUS Abdi, PAAntonC, [facility] documented in this encounter Plan of Treatment Upcoming Encounters Date Type Department Care Team (Late st Contact Info) Description 07/10/2024 2:20 PM EST Office Visit [facility] Endocrinology [facility] [facility], [address] [place] [address] Lesley Salazar PA [address] [facility] [address] [place] [address] 09/03/2024 9:00 AM EST Office Visit [facility] Endocrinology [address] [facility], [address] [place] [address] 10/09/2024 10:40 AM EDT Office Visit [facility] [address] [place] [address] Allegra Bryant, LEAF TIER [address] [facility] [address] [place] [address] 11/23/2024 1:40 PM EDT Office Visit [facility] [address] [place] [address] Paula Rosa, LEAF TIER, DNP [address] [place] [address] documented as of this encounter Visit Diagnoses Diagnosis Class 3 severe obesity due to excess calories with serious comorbidity and body mass index (BMI) of 60.0 to 69.9 in adult ([facility])- Primary Dietary counseling Dietary surveillance and counseling documented in this encounter Additional Health Concerns Assessment Noted Time A fall risk assessment has been complete d for the patient 03/26/2024 9:57 AM EDT A Body Mass Index follow-up plan has been documented for the patient 05/01/2024 2:25 PM EDT documented as of this encounter Care Teams Yarder Boss Relationship Specialty Start Date End Date Vadim Gee MD [address] [place] [address] PCP - General 03/17/24 Camille Mcdaniel MD [address] [place] [address] Referring Physician 11/15/21 documented as of this encounter
--- OUTSIDE RECORDS SUMMARY | 2024-06-22 12:34 | XMS_ITS | Encounter Summary ---
Author Organization [facility] Address [address] [place] [address] Care Team Providers Care Engineering Vice President Name Role Phone Dejan Vee MD Primary Care Provider + [phone] Camille Mcadniel MD Unavailable [phone] Encounter Details Date Type Department Care Team (Latest Contact Info) Description 10/15/2023 Travel Social History Tobacco Use Types Packs/Day [...] EST Office Visit [facility] [address] [place] [address] Lesley Saalzar, PA [address] [place] [address] 09/03/2024 9:00 AM EST Office Visit [facility] [address] [place] [address] 10/09/2024 10:40 AM EDT Office Visit [facility] [address] [place] [address] Allegra Bryant, PROCESS CONTROL OPERATOR [address] [facility] [address] [place] [address] 11/23/2024 1:40 PM EDT Office Visit [facility] [address], [address] [place] [address] Paula Rosa, PROCESS CONTROL OPERATOR, DNP [address] [place] [address] documented as of this encounter Visit Diagnoses Not on filedocumented in this encounter Additional Health Concerns Assessment Noted Time A fall risk assessment has been complete d for the patient 09/30/2023 12:39 PM EST A Body Mass Index follow-up plan has been documented for the patient 10/15/2023 9:41 AM EDT documented as of this encounter Care Teams Engineering Vice President Relationship Specialty Start Date End Date Dejan Vee MD [address] [place] [address] PCP - General 11/15/21 03/16/24 Camille Mcdaniel MD [address] [place] [address] [place] [address] Referring Physician 11/15/21 documented as of this encounter
--- OUTSIDE RECORDS SUMMARY | 2024-06-22 12:34 | XMS_ITS | Encounter Summary ---
Author Organization [facility] Address [address] [place] [address] Care Team Providers Care Permastone Mechanic Name Role Phone Camille Mcdaniel MD Unavailable Vadim Gee MD Primary Care Provider [phone] Reason for Visit * Reason Onset Date Comments HCN - Patient Message 05/06/2024 Reschedule Encounter Details Date Type Department Care Team (Late st Contact Info) Description 05/06/2024 Telephone [facility] [address], [address] [place] [address] Paula Rosa APRN, DNP [address] [place] [address] HCN - Patient Message (Reschedule ) Social History Tobacco Use Types Packs/Day Years [...] encounter Miscellaneous Notes * Telephone Encounter - Julieth Delaney - 05/06/2024 1:48 PM EDT Patient Phone Message Reason for Call: Pt requesting a return call to reschedule today's missed appt for the afternoon, nothing available until July Best contact number and optimal time of day to reach caller: [phone] Note: Please do not reply to this message. Follow-up communication and further actions as a result of this message need to be communicated with the patient directly, if the patient is not active onMyChart. If the patient is active on MyChart, they will receive notification of the communication/outcome via [employer]. documented in this encounter Plan of Treatment Upcoming Encounters Date Type Department Care Team (Late st Contact Info) Description 07/10/2024 2:20 PM EST Office Visit [facility] Endocrinology [address] [facility], [address] [place] [address] Lesley Salazar, PA [address] [facility] [address] [place] [address] 09/03/2024 9:00 AM EST Office Visit [facility] Endocrinology [address] [facility], [address] [place] [address] 10/09/2024 10:40 AM EDT Office Visit [facility] [address] [place] [address] Allegra Bryant, MODEL TECHNICIAN [address] [facility] [address] [place] [address] 11/23/2024 1:40 PM EDT Office Visit [facility] [address] [place] [address] Paula Rosa, LATA, DNP [address] [place] [address] documented as of this encounter Visit Diagnoses Not on filedocumented in this encounter Additional Health Concerns Assessment Noted Time A fall risk assessment has been complete d for the patient 03/26/2024 9:57 AM EDT A Body Mass Index follow-up plan has been documented for the patient 05/01/2024 2:25 PM EDT documented as of this encounter Care Teams Permastone Mechanic Relationship Specialty Start Date End Date Vadim Gee MD [address] [place] [address] PCP - General 03/17/24 Camille Mcdaniel MD [address] [place] [address] Referring Physician 11/15/21 documented as of this encounter
--- OUTSIDE RECORDS SUMMARY | 2024-06-22 12:34 | XMS_ITS | Encounter Summary ---
Author Organization [facility] Address [address] [place] [address] Care Team Providers Care Market Research Associate Name Role Phone Camille Mcdaniel MD Unavailable [phone] Vadim Gee MD Primary Care Provider [phone] Encounter Details Date Type Department Care Team (Latest Contact Info) Description 03/26/2024 Travel Social History Tobacco Use Types Packs/Day [...] [facility] [address] [place] [address] Lesley Salazar PA [address] [place] [address] 09/03/2024 9:00 AM EST Office [facility] Endocrinology [address] [place] [address] 10/09/2024 10:40 AM EDT Office Visit [facility] [address] [place] [address] Allegra Bryant, BLOCK CUBER [address] [place] [address] 11/23/2024 1:40 PM EDT Office Visit [facility] [address], [address] [place] [address] Paula Rosa, BLOCK CUBER, DNP [address] [place] [address] documented as of this encounter Visit Diagnoses Not on filedocumented in this encounter Additional Health Concerns Assessment Noted Time A fall risk assessment has been complete d for the patient 03/26/2024 9:57 AM EDT A Body Mass Index follow-up plan has been documented for the patient 03/27/2024 8:59 AM EDT documented as of this encounter Care Teams Market Research Associate Relationship Specialty Start Date End Date Vadim Gee MD [address] [place] [address] PCP - General 03/17/24 Camille Mcdaniel MD [address] [place] [address] [place] [address] Referring Physician 11/15/21 documented as of this encounter
--- OUTSIDE RECORDS SUMMARY | 2024-06-22 12:34 | XMS_ITS | Encounter Summary ---
Author Organization [facility] Address [address] [place] [address] Care Team Providers Care Continuous Pickling Line Pickler Name Role Phone Dejan Vee MD Primary Care Provider + [phone] Camille Mcdaniel MD Unavailable [phone] Vadim Gee MD Primary Care Provider [phone] Reason for Referral * Consultation (Routine) - Authorized Specialty Diagnoses / Procedures Referred By Elmer ballesteros Referred To Contact Orthopaedic Surgery Diagnoses Unilateral primary osteoarthritis, right hip Joe Guerra PA [address] [place] [address] Phone: tel: fax: Lazaro Delaney MD [address] [address] Phone: tel: fax: Referral ID Status Reason Start Date Expiration Date Visits Requested Visits Authorized [id number] Authorized Specialty Services Required 02/09/2023 2024 1 1 Encounter Details Date Type Department Care Team (Late st Contact Info) Description 02/09/2023 Community [facility] [address] [place] [address] Joe Guerra PA [address] [place] [address] Unilateral primary osteoarthritis, right hip (Primary Dx) Social History Tobacco Use Types [...] Description 07/10/2024 2:20 PM EST Office Visit [facility] Endocrinology [address] [facility], [address] [place] [address] Lesley Salazar, PA [address] [facility] [address] [place] [address] 09/03/2024 9:00 AM EST Office Visit [facility] Endocrinology [address] [facility], [address] [place] [address] 10/09/2024 10:40 AM EDT Office Visit [facility] [address] [facility] [address] [place] [address] Allegra Braynt, SPAR MACHINE OPERATOR [address] [facility] [address] [place] [address] 11/23/2024 1:40 PM EDT Office [facility] [address] [place] [address] Paula Rosa, LATA, DNP [address] [place] [address] Scheduled Referrals Name Type Priority Associated Diagnoses Order Schedule Ambulatory referral to General Orthopaedics Outpatient Referral Routine Unilateral primary osteoarthritis, right hip Expected: 02/09/2023 (Approximate), Expires: 08/12/2024 documented as of this encounter Visit Diagnoses Diagnosis Unilateral primary osteoarthritis, right hip- Primary documented in this encounter Additional Health Concerns Assessment Noted Time A Body Mass Index follow-up plan has been documented for the patient 09/17/2022 12:08 PM EST documented as of this encounter Care Teams Continuous Pickling Line Pickler Relationship Specialty Start Date End Date Dejan Vee MD [address] [place] [address] [id number] PCP - General 11/15/21 03/16/24 Vadim Gee MD [facility] [address] [place] [address] PCP - General 03/17/24 Camille Mcdaniel MD [address] [place] [address] [place] [address] Referring Physician 11/15/21 documented as of this encounter
--- OUTSIDE RECORDS SUMMARY | 2024-06-22 12:34 | XMS_ITS | Encounter Summary ---
Author Organization [facility] Address [address] [place] [place] [id number] Care Team Providers Care Tissue Inserter Name Role Phone Dejan Vee MD Primary Care Provider + [phone] Camille Mcdaniel MD Unavailable [phone] Encounter Details Date Type Department Care Team (Late st Contact Info) Description 02/17/2024 [facility]phone [facility] [address] [place] [address] Paula Rosa APRN, DNP [address] [place] [address] Social History Tobacco Use Types [...] encounter Miscellaneous Notes * Telephone Encounter - Dejan Zimmer - 02/17/2024 3:43 PM EDT Called and gave pharm verbal orders * Telephone Encounter - Paula Rosa APRN, DNP - 02/17/2024 2:50 PM EDT Please give verbal order to continue both oxybutynin and Myrbetriq at this time. TY. documented in this encounter Plan of Treatment Upcoming Encounters Date Type Department Care Team (Late st Contact Info) Description 07/10/2024 2:20 PM EST Office Visit [facility] Endocrinology [address] [facility], [address] [place] [address] Lesley Salazar PA [address] [facility] [address] [place] [address] 09/03/2024 9:00 AM EST Office Visit [facility] Endocrinology [address] [facility], [address] [place] [address] 10/09/2024 10:40 AM EDT Office Visit [facility] [address] [place] [address] Allegra Bryant APRN [address] [facility] [address] [place] [address] 11/23/2024 1:40 PM EDT [facility] [address] [place] [address] Paula Rosa APRN, DNP [address] [place] [address] documented as of this encounter Visit Diagnoses Not on filedocumented in this encounter Additional Health Concerns Assessment Noted Time A fall risk assessment has been complete d for the patient 02/06/2024 2:12 PM EDT A Body Mass Index follow-up plan has been documented for the patient 02/06/2024 3:15 PM EDT documented as of this encounter Care Teams Tissue Inserter Relationship Specialty Start Date End Date Dejan Vee MD [address] [place] [address] PCP - General 11/15/21 03/16/24 Camille Mcdaniel MD [address] [place] [address] Referring Physician 11/15/21 documented as of this encounter
--- OUTSIDE RECORDS SUMMARY | 2024-06-22 12:34 | XMS_ITS | Encounter Summary ---
Author Organization [facility] Address [address] [place] [address] Care Team Providers Care Dynamics Ax Consultant Name Role Phone Camille Mcdaniel MD Unavailable [phone] Vadim Gee MD Primary Care Provider [phone] Encounter Details Date Type Department Care Team (Latest Contact Info) Description 04/30/2024 Travel Social History Tobacco Use Types Packs/Day [...] [facility] [address] , [address] [place] [address] Lesley Salazar PA [address] [place] [address] 09/03/2024 9:00 AM EST Office Visit [facility] Endocrinology [address] [place] [address] 10/09/2024 10:40 AM EDT Office Visit [facility] [address] [place] [address] Allegra Bryant, VOLUNTEER SERVICES COORDINATOR [address] [place] [address] 11/23/2024 1:40 PM EDT Office [facility] [address] [place] [address] Paula Rosa, VOLUNTEER SERVICES COORDINATOR, DNP [address] [place] [address] documented as of this encounter Visit Diagnoses Not on filedocumented in this encounter Additional Health Concerns Assessment Noted Time A fall risk assessment has been complete d for the patient 03/26/2024 9:57 AM EDT A Body Mass Index follow-up plan has been documented for the patient 03/27/2024 8:59 AM EDT documented as of this encounter Care Teams Dynamics Ax Consultant Relationship Specialty Start Date End Date Vadim Gee MD [address] [place] [address] PCP - General 03/17/24 Camille Mcdaniel MD [address] [place] [address] Referring Physician 11/15/21 documented as of this encounter
--- OUTSIDE RECORDS SUMMARY | 2024-06-22 12:34 | XMS_ITS | Encounter Summary ---
Author Organization [facility] Address [address] [place] [address] Care Team Providers Care Fare Enforcement Officer Name Role Phone Camille Mcdaniel MD Unavailable [phone] Vadim Gee MD Primary Care Provider [phone] Reason for Visit * Reason Comments Weight Management * Consultation (Routine) - Closed Specialty Diagnoses / Procedures Referred By Contac t Referred To Contact Endocrinology Diagnoses Class 3 severe obesity with serious comorbidity and body mass index (BMI) greater than or equal to 70 in adult, unspecified obesity type (CMS/HCC) Kala Richter MD [address] [place] [address] Phone: tel: fax: [facility] [address] [facility], [address] [place] [address] Phone: tel: fax: Referral ID Status Reason Start Date Expiration Date Visits Re quested Visits Authorized [id number] Closed 10/15/2023 04/15/2025 1 1 Encounter Details Date Type Department Care Team (Late st Contact Info) Description 03/17/2024 10:20 AM EDT Consult [facility] [address] [place] [address] Lesley Salazar PA [address] [address] Class 3 severe obesity with serious comorbidity and body mass index (BMI) greater than or equal to 70 in adult, unspecified obesity type (CMS/HCC) (Primary Dx); Dietary counseling; Primary osteoarthritis of both knees Social History Tobacco Use Types Packs/Day Years [...] Sign Reading Time Taken Comments Blood Pressure 124/84 03/17/2024 10:08 AM EDT Pulse 70 03/17/2024 10:08 AM EDT Temperature - - Respiratory Rate - - Oxygen Saturation - - Inhaled Oxygen Concentration - - Weight 181 kg (399 lb 14.6 oz) 03/17/2024 10:08 AM EDT Height 162.6 cm (5' 4 ) 03/17/2024 10:08 AM EDT Body Mass Index 68.65 03/17/2024 10:08 AM EDT documented in this encounter Miscellaneous Notes * Patient Instructions - Lesley Salazar PA - 03/17/2024 10:20 AM EDT 1814 kcal/day, Protein 150 grams/day, Carbs 150 grams/day, Fat 41 grams/day, and Other fiber 30-35g; sugar <48g - Will log foods - Will increase water intake to 100 oz a day - Will aim for 5 cups of fruits and vegetables a day - Will concentrate on increasing protein intake (minimum 120) - Will increase activity as tolerated * Progress Notes - Lesley Salazar PA - 03/17/2024 10:20 AM EDT Images from the original note were not included. HPI Eloisa DentConstantine BrarJaz presents to the [facility] for initial consult for weight loss at the request of Dr. Ludy Richter. Just started Wegovy on Saturday. Denies any side effects PMH: SVT, obesity, CKD, RLS, OA, S/P Gastric bypass, YUMIKO WEIGHT HISTORY - lowest weight as an adult- 190 in Heaviest weight- Weight 446 lbs before bypass, lost 146lbs Rate of weight gain/any inciting factors- Started gaining weight after mother with stress eating Tried any Weight loss programs- bariatric surgery, Weight watchers, Maryann Rivero, keto What worked best in your opinion in [...] -Fruits: daily -Vegetables: daily -Meat: daily -dairy: 2-3 times a week -Fried food/snacks (chips crackers pop corn): daily [...] Who does Grocery shopping for home - fijo ann and grandson 24 hour dietary recall BK- Protein bar and protein shake Lunch- Cheese, 3 slices turkey lunch meat, 3 slices ham, 12 ritz crackers Dinner- 4 chicken nuggets Snacks- 1 bananas, 2 julieta crackers 8:30PM Nighttime eating PHYSICAL ACTIVITY Current level of physical activity- minimal- in wheelchair Any medical problems that limit physical activity- [...] BMI- 68.65 Goal- Get down to 199 ACTION PLAN: Nutrition: 1814 kcal/day, Protein 150 grams/day, CHO 150 grams/day, Fat 41 grams/day, and Other fiber 30-35g; sugar <48g based off of [address]. Jefl BMR calculation - Will log foods - Will increase water intake to 100 oz a day - Will aim for 5 cups of fruits and vegetables a day - Will concentrate on increasing protein intake (minimum of 120) Physical Activity: - Will increase activity as tolerated Medical therapy: Recently started Wegovy per PCP and is on 0.25mg dose. She will complete course of full 4 weeks then will have next dose filled. Wegovy 0.5mg IM weekly 2mL/1 refill Discussed medication use and potential side effects. Patient will reach out if any issues prior to follow up appointment. Patient denies known hx of pancreatitis, MEN 2, or medullary thyroid carcinoma. #Severe Osteoarthritis - Will concentrate on weight loss. - Once she loses weight she will be candidate for replacement as planned,. Follow up- 6 weeks I personally spent a total of 40 minutes on this encounter. This time includes [...] clinical opinion of the practitioner. CORNELIUS Abdi, PA-C, [facility] documented in this encounter Plan of Treatment Upcoming Encounters Date Type Department Care Team (Late st Contact Info) Description 07/10/2024 2:20 PM EST Office Visit [facility] Endocrinology [address] [facility], [address] [place] [address] Lesley Salazar PA [address] [facility] [address] [place] [address] 09/03/2024 9:00 AM EST Office Visit [facility] Endocrinology [address] [facility], [address] [place] [address] 10/09/2024 10:40 AM EDT Office Visit [facility] [address] [facility] [address] [place] [address] Allegra Bryant, GAS COLLECTION SYSTEM OPERATOR [address] [facility] [address] [place] [address] 11/23/2024 1:40 PM EDT Office Visit [facility] Urology [address] [place] [address] Paula Rosa, LATA, DNP [address] [email or web address] [address] [place] [address] documented as of this encounter Visit Diagnoses Diagnosis Class 3 severe obesity with serious comorbidity and body mass index (BMI) greater than or equal to 70 in adult, unspecified obesity type (CMS/HCC)- Primary Dietary counseling Dietary surveillance and counseling Primary osteoarthritis of both knees documented in this encounter Additional Health Concerns Assessment Noted Time A fall risk assessment has been complete d for the patient 02/06/2024 2:12 PM EDT A Body Mass Index follow-up plan has been documented for the patient 03/17/2024 11:12 AM EDT documented as of this encounter Care Teams Fare Enforcement Officer Relationship Specialty Start Date End Date Vadim Gee MD [address] [place] [address] PCP - General 03/17/24 Camille Mcdaniel MD [address] [place] [address] [place] [address] [place] [address] Referring Physician 11/15/21 documented as of this encounter
--- OUTSIDE RECORDS SUMMARY | 2024-06-22 12:34 | XMS_ITS | Encounter Summary ---
Author Organization [facility] Address [address] [place] [address] Care Team Providers Care Squad Boss Name Role Phone Camille Mcdaniel MD Unavailable Vadim Gee MD Primary Care Provider [phone] Encounter Details Date Type Department Care Team (Latest Contact Info) Description 03/24/2024 Travel Social History Tobacco Use Types Packs/Day [...] [facility] [address] [place] [address] Lesley Salazar PA [address] [place] [address] 09/03/2024 9:00 AM EST Office Visit [facility] Endocrinology [address] [place] [address] 10/09/2024 10:40 AM EDT Office Visit [facility] [address] [place] [address] Allegra Bryant, ENVELOPE FOLD OPERATOR [address] [place] [address] 11/23/2024 1:40 PM EDT [facility] [address] [place] [address] Paula Rosa, ENVELOPE FOLD OPERATOR, DNP [address] [place] [address] documented as of this encounter Visit Diagnoses Not on filedocumented in this encounter Additional Health Concerns Assessment Noted Time A fall risk assessment has been complete d for the patient 02/06/2024 2:12 PM EDT A Body Mass Index follow-up plan has been documented for the patient 03/17/2024 11:12 AM EDT documented as of this encounter Care Teams Squad Boss Relationship Specialty Start Date End Date Vadim Gee MD [address] [place] [address] PCP - General 03/17/24 Camille Mcdaniel MD [address] [place] [address] [place] [address] Referring Physician 11/15/21 documented as of this encounter
--- OUTSIDE RECORDS SUMMARY | 2024-06-22 12:34 | XMS_ITS | Encounter Summary ---
Author Organization [facility] Address [address] [place] [address] Care Team Providers Care Judge Clerk Name Role Phone Camille Mcdaniel MD Unavailable [phone] Vadim Gee MD Primary Care Provider [phone] Reason for Visit * Reason Comments Procedure * Other Medical (Routine) - Closed Specialty Diagnoses / Procedures Referred By Contac t Referred To Contact Physical Medicine and Rehabilitation Diagnoses Primary osteoarthritis of both knees Procedures Injection - Large Joint Melvin Delatorre DO [address] [place] [address] Phone: tel: fax: Referral ID Status Reason Start Date Expiration Date Visits Re quested Visits Authorized [id number] Closed 02/06/2024 08/07/2025 1 1 Encounter Details Date Type Department Care Team (Late st Contact Info) Description 03/26/2024 10:10 AM EDT Procedure Visit Physical Medicine & Rehabilitation [facility] at [facility] [address] [facility] [place] [address] Melvin Delatorre DO [address] [place] [address] Primary osteoarthritis of both knees (Primary Dx) Social History Tobacco Use Types [...] Sign Reading Time Taken Comments Blood Pressure 126/69 03/26/2024 9:51 AM EDT Pulse 71 03/26/2024 9:51 AM EDT Temperature - - Respiratory Rate - - Oxygen Saturation 96% 03/26/2024 9:51 AM EDT Inhaled Oxygen Concentration - - Weight 181 kg (399 lb) 03/26/2024 9:51 AM EDT Height 162.6 cm (5' 4 ) 03/26/2024 9:51 AM EDT Body Mass Index 68.49 03/26/2024 9:51 AM EDT documented in this encounter Miscellaneous Notes * Progress Notes - Leonard Mckeon, - 03/26/2024 10:10 AM EDT Physical Medicine and Rehabilitation Outpatient Follow Up Visit Chief Complaint: Bilateral knee and right hip pain Background History: Eloisa Sebastian is a 63-year-old female w/ PMHx of BLE edema, gout, super morbid obesity (BMI 70) s/p gastric bypass (2010) who presented for right hip and bilateral knee pain. She has been seen by several Orthopedic Surgeons in the past and been told she has severe osteoarthritis and that she needs joint replacement surgery, but she is too high risk at this point for surgery. She notes that shehas tried and failed PT in the past as well. She has been [facility] since Summer 2022. She has tried and failed recent weight loss measures. Pain is most severe in the anterior groin of the right hip. Notes this pain has been chronic and does not allow her to stand. She notes the pain here and in the knees will reach a 10/10 at worst. Shehas limited mobility with internal and external rotation [...] severe of the pains she is experiencing. Previously treated in [place]. She continues to follow with a Pain Clinic in [place] where she is Rx [place]. She is unable to NSAIDs given her prior history of gastric bypass surgery. Last seen in [facility] 02/06/24. Interval History: Today, she presents for b/l US guided CSI of knees. She states that pain has persisted as above, desires to proceed with attempting b/l knee CSI. Details of past medical history, surgical history, family history, and social history reviewed in the medical record. Allergies: Allergies Allergen Reactions Sulfamethoxazole Other - please document in the comment field Trimethoprim Other - please document in the comment field Ciprofloxacin Palpitations Penicillins Unknown - Patient states they do not know rxn details Prednisone Other - please document in the comment field Steroids Medications: Current Outpatient Medications: colchicine 0.6 MG tablet, TAKE 1 TABLET TWICE DAILY DIRECTED., Disp: , Rfl: cyanocobalamin (Vitamin B-12) 1000 MCG tablet, , Disp: , Rfl: cyclobenzaprine (Flexeril) 10 MG tablet, , Disp: , Rfl: diclofenac (Voltaren) 1 % topical gel, Place on the skin 4 (four) times a day if needed (knee pain). Apply as directed to anterior knee, Disp: 150 g, Rfl: 3 ergocalciferol (Vitamin D-2) 50 MCG (2000 UT) capsule, Take 1 capsule (2,000 Units) by mouth 1 (one) time each day., Disp: 90 capsule, Rfl: 3 esomeprazole (NexIUM) [address] capsule, TAKE 1 CAPSULE ONCE DAILY., Disp: , Rfl: furosemide (Lasix) 40 MG tablet, TAKE 1-2 TABLETS DAILY DIRECTED., Disp: , Rfl: HYDROcodone-acetaminophen ([place]) 7.5-325 MG tablet, Take 10 mg of [...] (MULTI-VITAMIN DAILY PO), , Disp: , Rfl: oxybutynin XL (Ditropan-XL) 15 MG 24 hr tablet, Take 1 tablet (15 mg) by mouth 1 (one) time each day. Do not crush, chew, or split., Disp: 90 tablet, Rfl: 3 potassium chloride CR (Klor-Con M20) 20 MEQ ER tablet, TAKE 2 TABLETS TWICE DAILY, Disp: , Rfl: rOPINIRole (Requip) 1 MG tablet, , Disp: , Rfl: Semaglutide-Weight Management (Wegovy) 0.25 MG/0.5ML solution auto-injector, Inject under the skin., Disp: , Rfl: Semaglutide-Weight Management (Wegovy) 0.5 MG/0.5ML solution auto-injector, Inject 0.5 mg under theskin 1 (one) time per week., Disp: 2 mL, Rfl: 1 spironolactone (Aldactone) 25 MG tablet, TAKE 1 TABLET DAILY., Disp: , Rfl: thiamine (Vitamin B-1) 500 MG tablet, TAKE 1 TABLET DAILY., Disp: , Rfl: nitrofurantoin (Macrodantin) 100 MG capsule, TAKE ONE CAPSULE BY MOUTH EVERY DAY --TAKE WITH FOOD--, Disp: , Rfl: The following portions of the chart were reviewed this encounter and updated as appropriate: Tobacco Allergies Meds Problems Med Hx Surg Hx Fam Hx ROS: 14 point ROS negative except for above. Physical Examination: Visit Vitals BP 126/69 Pulse 71 Ht 1.626 m (5' 4 ) Wt 181 kg (399 lb) SpO2 96% BMI 68.49 kg/m?? General: Morbidly obese, pleasant and in no acute distress. [facility]itting up in [facility] Psych: Alert and oriented. Mood and affect normal. Respiratory: nonlabored breathing and normal rate Cardiovascular: BLE 1+ edema and no clubbing Skin: warm, dry and intact. No rashes on exposed skin. Neuro: Speech fluent. Follows commands. Normal muscle tone. MSK: Unable to stand or ambulate Motor Exam: Lower Extremity Motor Strength Right Left L2: Hip flexion (Iliopsoas) 10/31 10/31 L3: Knee extension (Quads) 10/31 10/31 L4: Ankle DF (TA) 10/31 10/31 L5: Great Toe DF (EHL) 10/31 10/31 S1: Ankle PF (Gastroc and Soleus) Foot Eversion (Peroneal longus/brevis) 10/31 10/31 S2: Great Toe flexion (FHL) Knee flexion 10/31 10/31 Neuro Exam: Sensation Right Left L2: Proximal [...] Fransisco Positive Positive Thessaly Unable to perform DATA: XRAY === 03/17/24 === XR HIP RIGHT 2 OR 3 VIEWS - Narrative - CLINICAL INDICATION: hip OA evaluation TECHNIQUE: XR [...] aspects of the knee joint. No significant suprapate llar effusion. Left knee: Mild varus angulation. No acute fracture or dislocation. Lateral patellar subluxation. Severe tricompartmental osteophytosis. Severe medial patellofemoral compartment joint space narrowing. Large calcified loose bodies in the anterior superior and posterior aspects of the knee joint. No significant suprapatellar effusion. - Impression - No acute osseous finding of the right hip, right knee or left knee. Severe degenerative changes of the right hip and bilateral knees as described above. CRITICAL RESULT: No. COMMUNICATION: Per this written report. Drafted by Lauren Blount MD on 03/17/2024 12:44 PM Final report signed by Lauren Blount MD on 03/17/2024 12:47 PM Procedure(s) performed today: Name of Procedure: Bilateral Knee joint CSI Pre-Procedure Diagnosis: No primary diagnosis found. Post-Procedure Diagnosis: same as pre-procedure diagnosis Procedure Performed by: Leonard Mckeon DO (right), Melvin Delatorre DO (left) Supervised by: Melvin Delatorre DO The patient was examined and informed of the risks, benefits, and alternative options. The patient signed the informed consent form. A time out was performed to verify the correct patient identity, site, and procedure. In seated position, the bilateral Knee was exposed, the patella and knee joint space was palpated, marked, and prepped with chloraprep. Under aseptic conditions, a 22 gauge 3.5 inch needle was advanced into the knee joint with ultrasound guidance, followed by an injection of 40mg Triamcinolone, 2mL0.25% Bupivicaine, and 2mL 1% Lidocaine after negative aspiration. The needle removed from the injection site thereafter. A bandage was applied. The patient tolerated the procedure well with no complications. Pre-procedure pain level: 6/10 on Visual Analog Scale Post-procedure pain level: 1/10 on Visual Analog Scale Patient recommended to: 1. Keep the injection site clean and dry. 2. Continue medications as currently prescribed. 3. Avoid submerging injection site, eg. Hot tub, pool, baths, for at least 24 hours Assessment: Eloisa Sebastian is a 63 y.o. female with severe R hip and b/l knee OA. This is a/an Chronic Worsening problem Diagnoses and all orders for this visit: Primary osteoarthritis of both knees - Injection - Large Joint Plan: Agree with the need for continued weight loss measures. [facility] Rx for Topical Voltaren gel to use 4x daily PRN over the knees Referred to IVP for consideration of XR guided R hip CSI if possible May be a candidate for Cryoneurolysis of the bilateral knees for pain control if failing CSI If able to reach acceptable weight may be a surgical candidate in the future for joint replacement,currently will need to lose close to 150 lbs. Recently started Wegovy. Follow up in about 6 weeks (around 05/07/2024) for f/u after b/l knee CSI. Leonard Mckeon D.O. Resident Physician, PGY-2 Physical Medicine and Rehabilitation Cosigned by Melvin Delatorre DO at 03/27/2024 8:59 AM EDT Associated attestation - Melvin Delatorre DO - 03/27/2024 8:59 AM EDT I saw and evaluated the patient with the resident/fellow. I discussed the case with the resident/fellow and agree with the findings and plan as documented. I was present for the entirety of the procedure. documented in this encounter Plan of Treatment Upcoming Encounters Date Type Department Care Team (Late st Contact Info) Description 07/10/2024 2:20 PM EST Office Visit [facility] [address] [place] [address], [address] [place] [address] Lesley Salazar, PA [address] [place] [address] 09/03/2024 9:00 AM EST [facility] [address] [facility], [address] [place] [address] 10/09/2024 10:40 AM EDT Office Visit [facility] [address] [place] [address] Allegra Bryant, [employer] [address] [facility] [address] [place] [address] 11/23/2024 1:40 PM EDT Office Visit [facility] [address] [place] [address] Paula Rosa, [employer] SU[employer], DNP [address] [place] [address] documented as of this encounter Visit Diagnoses Diagnosis Primary osteoarthritis of both knees- Primary documented in this encounter Additional Health Concerns Assessment Noted Time A fall risk assessment has been complete d for the patient 03/26/2024 9:57 AM EDT A Body Mass Index follow-up plan has been documented for the patient 03/27/2024 8:59 AM EDT documented as of this encounter Care Teams Judge Clerk Relationship Specialty Start Date End Date Vadim Gee MD [address] [place] [address] PCP - General 03/17/24 Camille Mcdaniel MD [address] [place] [address] [place] [address] Referring Physician 11/15/21 documented as of this encounter
--- OUTSIDE RECORDS SUMMARY | 2024-06-22 12:34 | XMS_ITS | Encounter Summary ---
Author Organization [facility] Address [address] [place] [address] Care Team Providers Care Roll Reclaimer Name Role Phone Dejan Vee MD Primary Care Provider + [phone] Camille Mcdaniel MD Unavailable [phone] Reason for Referral * Consultation (Routine) - Closed Specialty Diagnoses / Procedures Referred By Contac t Referred To Contact Endocrinology Diagnoses Class 3 severe obesity with serious comorbidity and body mass index (BMI) greater than or equal to 70 in adult, unspecified obesity type (CMS/HCC) [place] [address] [place] [address] [address] [place] [address] Phone: tel: fax: [facility] Endocrinology [address] [place] [address], [address] [place] [address] Phone: tel: fax: Referral ID Status Reason Start Date Expiration Date Visits Re quested Visits Authorized [id number] Closed 10/15/2023 04/15/2025 1 1 Reason for Visit * Consultation (Routine) - Closed Specialty Diagnoses / Procedures Referred By Contac t Referred To Contact Endocrinology Diagnoses Other fatigue Elevated parathyroid hormone Hayley Pablo, CMM PROGRAMMER [address] [place] [address] Phone: tel: fax: Referral ID Status Reason Start Date Expiration Date V isits Requested Visits Authorized [id number] Closed Specialty Services Required 09/05/2023 03/06/2025 1 1 Encounter Details Date Type Department Care Team (Late st Contact Info) Description 10/15/2023 9:00 AM EDT Consult [facility] Endocrinology [address], [address] [place] [address] Kala Richter MD [address] [place] [address] Vitamin D insufficiency (Primary Dx); Other fatigue; Elevated parathyroid hormone; Class 3 severe obesity with serious comorbidity and body mass index (BMI) greater than or equal to 70 in adult, unspecified obesity type (CMS/HCC) Social History Tobacco Use Types Packs/Day Years [...] Sign Reading Time Taken Comments Blood Pressure 115/77 10/15/2023 8:58 AM EDT Pulse 64 10/15/2023 8:58 AM EDT Temperature - - Respiratory Rate - - Oxygen Saturation - - Inhaled Oxygen Concentration - - Weight - - Height - - Body Mass Index - - documented in this encounter Miscellaneous Notes * Progress Notes - Thong Luke DO - 10/15/2023 9:00 AM EDT Images from the original note were not included. Subjective: Chief Complaint: Abnormal PTH HPI Eloisa Sebastian 63 y.o. presents for Consultation. Consult ordered by Hayley Pablo Fatigue - She noticed development of fatigue 9-12 months ago, progressive worsening. - Other symptoms: she is concerned for weight gain, reduced appetite, weakness - Denies history of diabetes or thyroid disease. - History of sleep apnea, previously used machine. Has been off CPAP therapy for 4-5 years because her device got recalled. Recently had home sleep study, awaiting results - PMH: SVT, GERD, HTN, obesity (s/p gastric bypass), OA of hip and knee Elevated PTH -Discovered on routine lab work by PCP 1 year ago -No history of hypercalcemia -07/2023: Vitamin D level 67, PTH 89, calcium 9.5 -Denies kidney stones or GI symptoms -Medications: vitamin D 52475UY once weekly plus once daily 1000IU Obesity - History of gastric bypass in 2010 ([facility]) - Weight 456 lbs before bypass, lost 146lbs (lowest weight 310lbs, ~[phone]). Has gradually been gaining weight since then, with dramatic weight gain since needing wheelchair for ambulation a year ago (due to hip and knee OA) - Not currently a surgical candidate, per osteoarthritis Allergies Allergies Allergen Reactions Ciprofloxacin Palpitations Penicillins Unknown - Patient states they do not know rxn details Prednisone Other - please document in the comment field Steroids Current Medications Current Outpatient Medications Medication Instructions colchicine 0.6 MG tablet TAKE 1 TABLET TWICE DAILY DIRECTED. cyanocobalamin (Vitamin B-12) 1000 MCG tablet No dose, route, or frequency recorded. cyclobenzaprine (Flexeril) 10 MG tablet No dose, route, or frequency recorded. esomeprazole (NexIUM) [address] capsule TAKE 1 CAPSULE ONCE DAILY. furosemide (Lasix) 40 MG tablet TAKE 1-2 TABLETS DAILY DIRECTED. GNP D 1000 1,000 Units, Oral, Daily HYDROcodone-acetaminophen (Spooner) 7.5-325 MG tablet No dose, route, or frequency recorded. lactulose (Chronulac) 10 GM/15ML solution No dose, route, or frequency recorded. Lidocaine (Anorectal) 5 % cream cream No dose, route, or frequency recorded. metoprolol succinate XL (TOPROL-XL) 150 mg, Oral, Daily metoprolol tartrate (Lopressor) 100 MG tablet TAKE 1 TABLET TWICE DAILY. Multiple Vitamin (MULTI-VITAMIN DAILY PO) No dose, route, or frequency recorded. Myrbetriq 25 MG tablet TAKE ONE TABLET BY MOUTH EVERY DAY FOR BLADDER leakage potassium chloride CR (Klor-Con M20) 20 MEQ ER tablet TAKE 2 TABLETS TWICE DAILY rOPINIRole (Requip) 1 MG tablet No dose, route, or frequency recorded. spironolactone (Aldactone) 25 MG tablet TAKE 1 TABLET DAILY. thiamine (Vitamin B-1) 500 MG tablet TAKE 1 TABLET DAILY. Vitamin D3 1.25 MG (73735 UT) capsule TAKE ONE CAPSULE BY MOUTH ONCE A WEEK FOR SUPPLEMENT Immunizations: Immunization History Administered Date(s) Administered Influenza, seasonal, injectable 06/13/2010 Medical/Surgical History Past Medical History: Diagnosis Date Gout December 2020 Hypertension Personal history of other diseases of the musculoskeletal system and connective tissue History of osteoarthritis Past Surgical History: Procedure Laterality Date BLADDER SURGERY November 28, 2020 CARDIAC CATHETERIZATION N/A 10/2007 patient reports normal SECTION, LOW TRANSVERSE N/A COLONOSCOPY N/A DILATION AND CURETTAGE OF UTERUS N/A GASTRIC BYPASS N/A 2010 HYSTERECTOMY N/A REPAIR PELVIC FLOOR DEFECT VAGINAL APPROACH W/ MESH Family History Family History Problem Relation Name Age of Onset Asthma Father Nani Posada Sr. Coronary artery disease Father Nani Posada Sr. Diabetes Father Nani Posada Sr. Hypertension Father Nani Posada Sr. Sleep apnea Father Nani Posada Sr. Coronary artery disease Mother Geni Posada Diabetes Mother Geni Posada Hypertension Mother Geni Posada Cancer Maternal Grandmother Priscilla Pablo Cancer Paternal Grandmother Eloisa Posada Social history Social History Tobacco Use Smoking status: Never Passive exposure: Never Smokeless tobacco: Never Substance Use Topics Alcohol use: Never Drug use: Never ROS Review of Systems Constitutional: Positive for activity change, appetite change, fatigue and unexpected weight change. Eyes: Negative. Respiratory: Negative. Cardiovascular: Negative. Gastrointestinal: Negative for constipation and diarrhea. Endocrine: Negative. Musculoskeletal: Positive for arthralgias (hip and knee OA) and gait problem (uses wheelchair). Neurological: Positive for weakness. Negative for speech difficulty. Psychiatric/Behavioral: Negative for agitation and behavioral problems. Objective: Vitals Visit Vitals BP 115/77 Pulse 64 Physical Exam Constitutional: Appearance: Normal appearance. She is obese. HENT: Head: Normocephalic and atraumatic. Right Ear: External ear normal. Left Ear: External ear normal. Cardiovascular: Rate and Rhythm: Normal rate. Pulmonary: Effort: Pulmonary effort is normal. No respiratory distress. Musculoskeletal: Cervical back: Normal range of motion. Comments: Uses wheelchair for ambulation Skin: General: Skin is warm. Findings: No bruising. Neurological: Mental Status: She is alert. Motor: Weakness present. Gait: Gait abnormal. Psychiatric: Mood and Affect: Mood normal. Behavior: Behavior normal. Most Recent Labs -07/2023: Vitamin D level 67, PTH 89, calcium 9.5 Assessment and Plan Fatigue - She noticed development of fatigue 9-12 months ago, progressive worsening. - Other symptoms: she is concerned for weight gain, reduced appetite, weakness - Denies history of diabetes or thyroid disease. - TSH normal 07/2023 - History of sleep apnea, previously used machine. Has been off CPAP therapy for 4-5 years because her device got recalled. Recently had home sleep study, awaiting results - PMH: SVT, GERD, HTN, obesity (s/p gastric bypass), OA of hip and knee Plan: - Recommend follow-up on YUMIKO evaluation and treatment based on history. Elevated PTH -Discovered on routine lab work by PCP 1 year ago. Follows with nephrology -No history of hypercalcemia -07/2023: Vitamin D level 67, PTH 89, calcium 9.5 -Denies kidney stones or GI symptoms -Medications: vitamin D 25105MP once weekly plus once daily 1000IU Plan: - Likely secondary hyperparathyroidism in setting of CKD and history of gastric bypass - Will repeat RFP, vitamin D, and PTH today - Recommend daily calcium supplementation. Will reduce vitamin D supplement to 2000IU daily - Continue follow-up with nephrology Obesity - History of gastric bypass in 2010 ([facility]) - Weight 456 lbs before bypass, lost 146lbs (lowest weight 310lbs, ~[phone]). Has gradually been gaining weight since then, with dramatic weight gain since needing wheelchair for ambulation a year ago (due to hip and knee OA) - Not currently a surgical candidate, per osteoarthritis Plan: - Likely exacerbated by immobility from significant OA - Consider evaluation for GLP-1 RA therapy to assist with weight management in setting of multiple co-morbidities - Referral placed for [facility] weight loss clinic Addendum Latest Reference Range & Units 10/15/23 10:12 Glucose 74 - 99 mg/dL 96 Sodium 136 - 145 mmol/L 143 Potassium 3.7 - 4.8 mmol/L 4.1 Chloride 97 - 107 mmol/L 105 CO2 22 - 29 mmol/L 27 Creatinine 0.60 - 1.10 mg/dL 0.92 Anion Gap 6 - 16 mmol/L 11 BUN 8 - 23 mg/dL 24 (H) BUN/Creatinine Ratio 26 EGFR mL/min/1.73m*2 69.7 Calcium 8.9 - 10.2 mg/dL 9.4 Albumin 3.5 - 5.2 g/dL 4.3 Phosphorus 2.5 - 4.5 mg/dL 3.4 Vit D, 25-Hydroxy 20.0 - 80.0 ng/mL 69.9 PTH Intact Total 9 - 77 pg/mL 108 (H) Thong Luke DO Endocrinology Fellow PGY-5 [facility] [address] [facility], [address] [facility] [address] Cosigned by Kala Richter MD at 10/17/2023 3:17 PM EDT Associated attestation - Kala Richter MD - 10/17/2023 3:17 PM EDT Pt previously accessed as having secondary hyperparathyroidism due to her CKD and prior gastric bypass however kidney function is normal on testing now. She may have early/mild primary hyperparathyroidism and warrants snf follow up. I saw and evaluated the patient with the resident/fellow. I discussed the case with the resident/fellow and agree with the findings and plan as documented. documented in this encounter Plan of Treatment Upcoming Encounters Date Type Department Care Team (Late st Contact Info) Description 07/10/2024 2:20 PM EST Office Visit [facility] Endocrinology [address] [facility], [address] [place] [address] Lesley Salazar PA [address] [facility] [address] [place] [address] 09/03/2024 9:00 AM EST Office Visit [facility] Endocrinology [address], [address] [place] [address] 10/09/2024 10:40 AM EDT [facility] [address] [place] [address] Allegra Bryant, CMM PROGRAMMER [address] [place] [address] 11/23/2024 1:40 PM EDT Office Visit [facility] [address] [place] [address] Paula Rosa, CMM PROGRAMMER, DNP [address] [place] [address] Scheduled Referrals Name Type Priority Associated Diagnoses Order Schedule Ambulatory referral to [facility] Weight Management Outpatient Referral Routine Class 3 severe obesity with serious comorbidity and body mass index (BMI) greater than or equal to 70 in adult, unspecified obesity type (CMS/HCC) 1 Occurrences starting 10/15/2023 until 04/16/2025 documented as of this encounter Results * Vitamin D 25 Hydroxy (10/15/2023 10:12 AM EDT) Vitamin D 25 Hydroxy 69.9 20.0 - 80.0 ng/mL 10/15/2023 1:10 PM EDT [facility] Blood Venous blood specimen / Unknown Venipuncture / Unknown 10/15/2023 10:12 AM EDT 10/15/2023 10:12 AM EDT Narrative [facility] - 10/15/2023 1:10 PM EDT Testing performed on [employer], standardized against NIST SRM 2972. When testing samples from patients whose predominant form of vitamin D is vitamin D2, such as patients receiving vitamin D2 supplementation, results that are subtherapeutic should be confirmed with another method, such as LC-MS/MS, before being used for patient management. Vitamin D, 25-Hydroxy reference range, age 18 years and up: Deficiency: ? <12 ng/mL Insufficiency: ? 12 to 19 ng/mL Sufficiency: ?20 to 80 ng/mL Possible toxicity: ?? >100 ng/mL us Kala Richter MD LAB BLOOD ORDERABLES Final Re sult [facility] [address] [place] [address] * (ABNORMAL) Renal function panel (10/15/2023 10:12 AM EDT) Glucose, Plasma 96 74 - 99 mg/dL 10/15/2023 12:50 PM EDT [facility] BUN, Plasma 24(H) 8 - 23 mg/dL 10/15/2023 12:50 PM EDT [facility] Creatinine, Plasma 0.92 0.60 - 1.10 mg/dL 10/15/2023 12:50 PM EDT [facility] BUN/Creatinine Ratio 26 10/15/2023 12:50 PM EDT [facility] Sodium, Plasma 143 136 - 145 mmol/L 10/15/2023 12:50 PM EDT [facility] Potassium, Plasma 4.1 3.7 - 4.8 mmol/L 10/15/2023 12:50 PM EDT [facility] Chloride, Plasma 105 97 - 107 mmol/L 10/15/2023 12:50 PM EDT [facility] CO2, Plasma 27 22 - 29 mmol/L 10/15/2023 12:50 PM EDT [facility] Anion Gap 11 6 - 16 mmol/L 10/15/2023 12:50 PM EDT [facility] Total Calcium, Plasma 9.4 8.9 - 10.2 mg/dL 10/15/2023 12:50 PM EDT [facility] Phosphorus, Plasma 3.4 2.5 - 4.5 mg/dL 10/15/2023 12:50 PM EDT [facility] Albumin, Plasma 4.3 3.5 - 5.2 g/dL 10/15/2023 12:50 PM EDT [facility] eGFRcr 69.7 mL/min/1.7 3m*2 10/15/2023 12:50 PM EDT [facility] Comment:Reported eGFRcr in m L/min/1.73m2 is based the CKD-EPI 2020 equation that does not use a race coefficient. Blood Venous blood specimen / Unknown Venipuncture / Unknown 10/15/2023 10:12 AM EDT 10/15/2023 10:12 AM EDT Kala Richter MD LAB BLOOD ORDERABLES Final Re sult Performing Organization Address [facility] de Phone Number [facility] [address] [place] [address] * (ABNORMAL) PTH, intact (10/15/2023 10:12 AM EDT) PTH Intact Total 108(H) 9 - 77 pg/mL 10/15/2023 2:15 PM EDT [facility] Blood Venous blood specimen / Unknown Venipuncture / Unknown 10/15/2023 10:12 AM EDT 10/15/2023 10:12 AM EDT Narrative [facility] - 10/15/2023 2:15 PM EDT Assay performed by immunoassay at the [facility]. Performed on [employer] Agent chemiluminescent immunoassay, tractable to the World Health Organization's first international standard for PTH from the NIBS, Code 79/500. Results obtained from different test methods or kits cannot be used interchangeably. us Kala Richter MD LAB BLOOD ORDERABLES Final Re sult Performing Organization Address City/[facility] Co de Phone Number [facility] [address] [place] [address] documented in this encounter Visit Diagnoses Diagnosis Vitamin D insufficiency- Primary Other fatigue Elevated parathyroid hormone Class 3 severe obesity with serious comorbidity and body mass index (BMI) greater than or equal to 70 in adult, unspecified obesity type (CMS/HCC) documented in this encounter Additional Health Concerns Assessment Noted Time A fall risk assessment has been complete d for the patient 09/30/2023 12:39 PM EST A Body Mass Index follow-up plan has been documented for the patient 10/15/2023 9:41 AM EDT documented as of this encounter Care Teams Roll Reclaimer Relationship Specialty Start Date End Date Dejan Vee MD [address] [place] [address] PCP - General 11/15/21 03/16/24 Camille Mcdaniel MD [address] [place] [address] Referring Physician 11/15/21 documented as of this encounter
--- OUTSIDE RECORDS SUMMARY | 2024-06-22 12:34 | XMS_ITS | Encounter Summary ---
Author Organization [facility] Address [address] [place] [address] Care Team Providers Care Roofing Superintendent Name Role Phone Dejan Vee MD Primary Care Provider [phone] Camille Mcdaniel MD Unavailable [phone] Encounter Details Date Type Department Care Team (Late st Contact Info) Description 09/30/2023 12:20 PM EST Office Visit [facility] [address] [place] [address] Allegra Bryant, ROLLWAY MAN [address] [address] CKD (chronic kidney disease) stage 2, GFR 60-89 ml/min (Primary Dx); Essential hypertension; Proteinuria, unspecified type; Hyperparathyroidism (CMS/HCC) Social History Tobacco Use Types Packs/Day [...] Sign Reading Time Taken Comments Blood Pressure 144/91 09/30/2023 12:28 PM EST Pulse 69 09/30/2023 12:28 PM EST Temperature - - Respiratory Rate 18 09/30/2023 12:28 PM EST Oxygen Saturation 99% 09/30/2023 12:28 PM EST Inhaled Oxygen Concentration - - Weight 186 kg (410 lb 3.2 oz) 09/30/2023 12:28 P M EST Height - - Body Mass Index 70.41 05/31/2023 8:35 AM EDT documented in this encounter Miscellaneous Notes * Progress Notes - Allegra Bryant APRN - 09/30/2023 12:20 PM EST SUBJECTIVE Eloisa Sebastian is a 63 y.o. female who presents for follow-up. h/o HTN and obesity (s/p gastric bypass 2010) evaluated for consultation of chronic kidney disease.H/o elevated blood pressure for several years, well controlled on current regimen, no changes in significant time. BP has been on lower end recently, rarely >140sbp. H/o cardiac stress tests, h/o SVT controlled with metop, no CAD, no CHF, no CVA. No critical illnesses, no MALAIKA. No serious infections. Currently on antibiotics for foot infection (bactrim). No edema or fluid retention, takes lasix2 daily. No hematuria. No family ho kidney disease, no dialysis. No NSAIDS, formerly took ibuprofenuntil a few months ago. No h/o kidney stones. No DM2. No urinary infection concerns (ho urology procedure to elevate bladder after MARY ANNE). Good fluid intake. H/o 3 pregnancies, no complications, no miscarriages. No family autoimmune conditions. 09/04/21 phone visit S/p urology procedure, OR for mesh to support bladder, incontinence is much better Pending MRI 09/2021 of heart to evaluate mass? Will be done at BP reportedly doing better, on metop once daily Lasix daily Swelling at baseline No dyspnea 09/17/22 Doing well, no changes, checking on kidney function No health changes She notes that she stopped calcium suppl a while back Asking about lipid panel, unsure if its abnormal, will ask PCP OBJECTIVE Vitals: 09/30/23 1228 BP: (!) 144/91 Pulse: 69 Resp: 18 SpO2: 99% PHYSICAL EXAMINATION CONSTITUTIONAL: Conversant, well developed, NAD. EYES: No proptosis or lid-lag. EARS: Normal hearing. RESPIRATORY: Normal respiratory effort. CARDIOVASCULAR: No peripheral edema. EXTREMITIES: No edema. No cyanosis. SKIN: No rash. No lesions. No ulcers. MUSCULOSKELETAL: motor chair. No digital cyanosis. NEURO: Cranial nerves II-XII grossly intact. LAB RESULTS Hemoglobin 13.7 sodium 138 potassium 4.8 urea 19 creatinine 0.7 calcium 9.5 phosphorus 3.7 albumin 4.5 parathyroid hormone 89.7 vitamin-D 67.6 urinalysis bland 1. CKD2, reviewed records, h/o htn and obesity as major risks to kidney health; reduced meds since last visit; creat 0.9, mild proteinuria likely from obesity, check UAC next year 2. HTN; home readings <130 SBP, continue current regimen 3. Secondary hyperparathyroidism, vitamin d in range, likely related to hypocalcemia associated with absorption post gastric bypass; resume calcium BID RTC 1 year documented in this encounter Plan of Treatment Upcoming Encounters Date Type Department Care Team (Late st Contact Info) Description 07/10/2024 2:20 PM EST Office Visit [facility] Endocrinology [address], [address] [place] [address] Lesley Salazar PA [address] [facility] [address] [place] [address] 09/03/2024 9:00 AM EST Office Visit [facility] Endocrinology [address], [address] [place] [address] 10/09/2024 10:40 AM EDT Office Visit [facility] [address] [place] [address] Allegra Bryant APRN [address] [facility] [address] [place] [address] 11/23/2024 1:40 PM EDT Office Visit [facility] Urology [address] [place] [address] Paula Rosa APRN, DNP [address] [place] [address] Scheduled Orders Name Type Priority Associated Diagnoses Orde r Schedule Renal Function Panel, Plasma Lab Routine CKD (chronic kidney disease) stage 2, GFR 60-89 ml/min 1 Occurrences starting 09/30/2023 until 03/22/2025 CBC W/O Differential Lab Routine CKD (chronic kidney disease) stage 2, GFR 60-89 ml/min 1 Occurrences starting 09/30/2023 until 03/22/2025 Urinalysis with reflex microscopic (Culture NOT Included) Lab Routine CKD (chronic kidney disease) stage 2, GFR 60-89 ml/min 1 Occurrences starting 09/30/2023 until 03/22/2025 Creatinine, Random, Urine Lab Routine CKD (chronic kidney disease) stage 2, GFR 60-89 ml/min 1 Occurrences starting 09/30/2023 until 03/22/2025 Albumin-creatinine ratio, urine, random Lab Routine CKD (chronic kidney disease) stage 2, GFR 60-89 ml/min 1 Occurrences starting 09/30/2023 until 03/22/2025 Protein, Random, Urine with Creatinine Lab Routine CKD (chronic kidney disease) stage 2, GFR 60-89 ml/min 1 Occurrences starting 09/30/2023 until 03/22/2025 documented as of this encounter Visit Diagnoses Diagnosis CKD (chronic kidney disease) stage 2, GFR 60-89 ml/min- Primary Chronic kidney disease, Stage II (mild) Essential hypertension Unspecified essential hypertension Proteinuria, unspecified type Hyperparathyroidism (CMS/HCC) Hyperparathyroidism, unspecified documented in this encounter Additional Health Concerns Assessment Noted Time A fall risk assessment has been complete d for the patient 09/30/2023 12:39 PM EST A Body Mass Index follow-up plan has been documented for the patient 09/30/2023 12:50 PM EST documented as of this encounter Care Teams Roofing Superintendent Relationship Specialty Start Date End Date Dejan Vee MD [address] [place] [address] PCP - General 11/15/21 03/16/24 Camille Mcdaniel MD [address] [place] [address] Referring Physician 11/15/21 documented as of this encounter
--- OUTSIDE RECORDS SUMMARY | 2024-06-22 12:35 | XMS_ITS | Encounter Summary ---
Author Organization [facility] Address [address] [place] [address] Care Team Providers Care Right Of Way Maintenance Supervisor Name Role Phone Robb Adams MD Primary Care Provider [phone] Encounter Details Date Type Department Care Team (Late st Contact Info) Description 11/01/2021 Orders Only [place] [facility] [address] [place] [address], [address] [place] [address] Enid Dahl, RN [address] [facility] [address] [place] [address] Social History Tobacco Use Types Packs/Day Years Used Date Smoking Tobacco: Never Smokeless Tobacco: Never Comments Unknown Sex and Gender Information Value Date Recorded Sex Assigned at Not on file Legal Sex Female 7:51 PM EDT Gender Identity Not on file Sexual Orientation Not on file COVID-19 Exposure Response Date Recorded In the last month, have you been in contact with someone who was confirmed or suspected to have Coronavirus / COVID-19? No / Unsure 10/31/2021 12:26 PM EDT documented as of this encounter Plan of Treatment Upcoming Encounters Date Type Department Care Team (Late st Contact Info) Description 07/10/2024 2:20 PM EST Office [facility] Endocrinology [address] , [address] [place] [address] Lesley Salazar PA [address] [place] [address] 09/03/2024 9:00 AM EST Office Visit [facility] [address] [facility], [address] [place] [address] 10/09/2024 10:40 AM EDT Office Visit [facility] [address] [place] [address] Allegra Bryant, CREDIT OFFICE MANAGER [address] [facility] [address] [place] [address] 11/23/2024 1:40 PM EDT Office Visit [facility] Urology [address], 2nd [place] [address] Paula Rosa, CREDIT OFFICE MANAGER, DNP [address] [place] [address] documented as of this encounter Visit Diagnoses Not on filedocumented in this encounter Care Teams Right Of Way Maintenance Supervisor Relationship Specialty Start Date End Date Robb Adams MD [address] [place] [address] [place] [address] PCP - General 12/09/20 11/14/21 documented as of this encounter
--- OUTSIDE RECORDS SUMMARY | 2024-06-22 12:35 | XMS_ITS | Encounter Summary ---
Author Organization [facility] Address [address] [place] [address] Care Team Providers Care Staging Technician Name Role Phone Dejan Vee MD Primary Care Provider [phone] Camille Mcdaniel MD Unavailable [phone] Reason for Visit * Reason Comments Follow-up Encounter Details Date Type Department Care Team (Late st Contact Info) Description 09/17/2022 12:20 PM EST Office Visit [facility] [address] [place] [address] Beka Padilla MD [address] [address] CKD (chronic kidney disease) stage [...] AM EST documented as of this encounter Last Filed Vital Signs Vital Sign Reading Time Taken Comments Blood Pressure 110/50 09/17/2022 11:58 AM EST Pulse 105 09/17/2022 11:58 AM EST Temperature - - Respiratory Rate - - Oxygen Saturation - - Inhaled Oxygen Concentration - - Weight 181 kg (398 lb) 09/17/2022 11:58 AM EST Height - - Body Mass Index 68.32 11/15/2021 12:23 PM EDT documented in this encounter Miscellaneous Notes * Addendum Note - Beka Padilla MD - 09/17/2022 12:20 PM ESTAddended by: BEKA PADILLA on: 09/19/2022 09:36 AM Modules accepted: Orders * Progress Notes - Beka Padilla MD - 09/17/2022 12:20 PM EST SUBJECTIVE Eloisa Sebastian is a 62 y.o. female who presents for follow-up. h/o [...] its abnormal, will ask PCP OBJECTIVE Vitals: 09/17/22 1158 BP: 110/50 Pulse: 105 PHYSICAL EXAMINATION CONSTITUTIONAL: Conversant, well developed, NAD. EYES: No proptosis or lid-lag. EARS: Normal hearing. RESPIRATORY: Normal respiratory effort. CARDIOVASCULAR: No peripheral edema. EXTREMITIES: No edema. No cyanosis. SKIN: No rash. No lesions. No ulcers. MUSCULOSKELETAL: motor chair. No digital cyanosis. NEURO: Cranial nerves II-XII grossly intact. LAB RESULTS Hemoglobin 13.5 urine protein 0.2 sodium 140 potassium 3.8 urea 18 creatinine 0.9 calcium 8.9 phosphorus 3.7 albumin 4.5 parathyroid hormone 2005 vitamin-D 71 urinalysis bland 1. CKD2, reviewed records, h/o htn and obesity as major risks to kidney health; reduced meds since last visit; creat 0.9, mild proteinuria likely from obesity, check UAC next year 2. HTN; home readings <120 SBP, continue current regimen 3. Secondary hyperparathyroidism, vitamin d in range, likely related to hypocalcemia associated with absorption post gastric bypass; resume calcium BID RTC 1 year documented in this encounter Plan of Treatment Upcoming Encounters Date Type Department Care Team (Late st Contact Info) Description 07/10/2024 2:20 PM EST Office Visit [facility] Endocrinology [address] [place] [address] Lesley Salazar PA [address] [place] [address] 09/03/2024 9:00 AM EST Office Visit [facility] Endocrinology [address] , [address] [place] [address] 10/09/2024 10:40 AM EDT Office Visit [facility] [address] [place] [address] Allegra Bryant, FLATBED PRESS OPERATOR [address] [facility] [address] [place] [address] 11/23/2024 1:40 PM EDT Office [facility] [address], [address] [place] [address] Paula Rosa, FLATBED PRESS OPERATOR, DNP [address] [place] [address] documented as of this encounter [...] documented as of this encounter Care Teams Staging Technician Relationship Specialty Start Date End Date Dejan Vee MD [address] [place] [address] [place] [address] PCP - General 11/15/21 03/16/24 Camille Mcdaniel MD [address] [place] [address] [place] [address] [place] [address] Referring Physician 11/15/21 documented as of this encounter
--- OUTSIDE RECORDS SUMMARY | 2024-06-22 12:35 | XMS_ITS | Encounter Summary ---
Author Organization [facility] Address [address] [place] [address] Care Team Providers Care Rib Cutter Name Role Phone Robb Adams MD Primary Care Provider [phone] Encounter Details Date Type Department Care Team (Late st Contact Info) Description 09/04/2021 1:40 PM EST Office Visit [facility] [address] [facility] [address] [place] [address] Devin Martin MD [address] [address] Stage 3b chronic kidney disease (CMS/HCC) (Primary Dx) Social History Tobacco Use Types Packs/Day Years Used Date Smoking Tobacco: Never Smokeless Tobacco: Never Comments Unknown Sex and Gender Information Value Date Recorded Sex Assigned at Not on file Legal Sex Female 7:51 PM EDT Gender Identity Not on file Sexual Orientation Not on file documented as of this encounter Miscellaneous Notes * Progress Notes - Devin Martin MD - 09/04/2021 1:40 PM EST SUBJECTIVE Eloisa Sebastian is a 61 y.o. female who presents for follow-up. Ms. Sebastian is a 61 yo female h/o HTN and obesity (s/p gastric bypass 2010) evaluated for consultation of chronic kidney disease. H/o elevated blood pressure for several years, well controlled on current regimen, no changes in significant time. BP has been on lower end recently, rarely >140sbp. H/o cardiac stress tests, h/o SVT controlled with metop, no CAD, no CHF, no CVA. No critical illnesses, no MALAIKA. No serious infections. Currently on antibiotics for foot infection (bactrim). No edema or fluid retention, takes lasix 2 daily. No hematuria. No family ho kidney disease, no dialysis. No NSAIDS, formerly took ibuprofen until a few months ago. No h/o kidney stones. No DM2. No urinary infec tion concerns (ho urology procedure to elevate bladder [...] Lasix daily Swelling at baseline No dyspnea Blood work at [facility] last week coordinated with CT contrast (08/22/21) OBJECTIVE PHYSICAL EXAMINATION limited to phone CONSTITUTIONAL: Conversant, cortical intact LAB RESULTS Labs pending 07/2021 ASSESSMENT/PLAN 1. CKD3a, reviewed records, h/o htn and obesity as major risks to kidney health; reduced meds sincelast visit; labs show creatinine 1.1, egfr 53, much improved, no proteinuria ?? 2. HTN; home readings <120 SBP, continue current regimen ?? 3. Renal bone disease; trend vitamind/pth, assess BMD status RTC 9 mo Patient Verification Patient identity has been confirmed using name and date of ? Yes Authorizations and Agreements/Telemedicine Consent sent and consent confirmed? Yes Patient Location: Patient's Home Patient confirms they are physically located in [place]? Yes If the patient is not physically located in [place], the provider has confirmed with [employer] thatthe provider is authorized to provide services in patient's stated location? N/A Provider Location: HealthCare Facility Audio and video or audio only? Audio Total visit time: 15 minutes documented in this encounter Plan of Treatment Upcoming Encounters Date Type Department Care Team (Late st Contact Info) Description 07/10/2024 2:20 PM EST Office Visit [facility] Endocrinology [address] [facility], [address] [place] [address] Lesley Salazar, PA [address] [facility] [address] [place] [address] 09/03/2024 9:00 AM EST Office Visit [facility] Endocrinology [address] [facility], [address] [place] [address] 10/09/2024 10:40 AM EDT Office Visit [facility] [address] [facility] [address] [place] [address] Allegra Bryant, BLOW TORCH BURNER [address] [facility] [address] [place] [address] 11/23/2024 1:40 PM EDT Office Visit [facility] Urology [address], [address] [place] [address] Paula Rosa, BLOW TORCH BURNER, DNP [address] [place] [address] documented as of this encounter Visit Diagnoses Diagnosis Stage 3b chronic kidney disease (CMS/HCC)- Primary documented in this encounter Care Teams Rib Cutter Relationship Specialty Start Date End Date Robb Aadms MD [address] [facility] [place] [address] PCP - General 12/09/20 11/14/21 documented as of this encounter
--- OUTSIDE RECORDS SUMMARY | 2024-06-22 12:35 | XMS_ITS | Encounter Summary ---
Author Organization [facility] Address [address] [place] [address] Care Team Providers Care Entry Level Installation Technician Name Role Phone Robb Adams MD Primary Care Provider [phone] Encounter Details Date Type Department Care Team (Late st Contact Info) Description 03/28/2021 Orders Only [facility] [address] [place] [address] Edel Ho Stage 3 chronic kidney disease, unspecified whether stage 3a or 3b CKD (CMS/HCC) (Primary Dx) Social History Tobacco Use Types Packs/Day Years Used Date Smoking Tobacco: Never Comments Unknown Sex and Gender Information Value Date Recorded Sex Assigned at Not on file Legal Sex Female 7:51 PM EDT Gender Identity Not on file Sexual Orientation Not on file documented as of this encounter Plan of Treatment Upcoming Encounters Date Type Department Care Team (Late st Contact Info) Description 07/10/2024 2:20 PM EST Office Visit [facility] Endocrinology [address], [address] [place] [address] Lesley Salazar PA [address] [place] [address] 09/03/2024 9:00 AM EST Office Visit [facility] Endocrinology [address] [place] [address] 10/09/2024 10:40 AM EDT Office Visit [facility] [address] [place] [address] Allegra Bryant, STAND UP FORKLIFT OPERATOR [address] [place] [address] 11/23/2024 1:40 PM EDT Office Visit [facility] Urology [address], [address] [place] [address] Paula Rosa, STAND UP FORKLIFT OPERATOR, DNP [address] [place] [address] documented as of this encounter Visit Diagnoses Diagnosis Stage 3 chronic kidney disease, unspecified whether stage 3a or 3b CKD (CMS/HCC)- Primary documented in this encounter Care Teams Entry Level Installation Technician Relationship Specialty Start Date End Date Robb Adams MD [address] [place] [address] PCP - General 12/09/20 11/14/21 documented as of this encounter
--- OUTSIDE RECORDS SUMMARY | 2024-06-22 12:35 | XMS_ITS | Encounter Summary ---
Author Organization [email or web address] Address [address] [place] [address] Care Team Providers Care Radio Technician Name Role Phone Unavailable Primary Care Provider Unavailabl e Encounter Details Date Type Department Care Team (Late st Contact Info) Description 05/01/2019 Historic Encounter [facility] [address] [place] [address] ProviderGermain Historical Social History Tobacco Use Types Packs/Day Years Used Date Smoking Tobacco: Never Assessed Comments Unknown Sex and Gender Information Value Date Recorded Sex Assigned at Female 01/23/2022 5:39 PM CDT Legal Sex Female 5:39 PM CDT Gender Identity Female 01/23/2022 5:39 PM CDT Sexual Orientation Not on file documented as of this encounter Plan of Treatment Not on file documented as of this encounter Procedures Procedure Name Priority Date/Time Associated Diagnosis Comments PAIN MANAGEMENT TRAMADOL, SENDOUT ([facility] DATA CONV) Routine 05/01/2019 11:18 AM EDT PAIN MANAGEMENT OPIATES, SENDOUT ([facility] DATA [facility]V) Routine 05/01/2019 11:18 AM EDT PAIN MANAGEMENT URINE DRUG SCREEN Routine 05/01/2019 11:18 AM EDT documented in this encounter Results * (ABNORMAL) Pain Management Urine Drug Screen (05/01/2019 11:18 AM EDT) [facility] Opiates, Urine PM Conf to Follow(A) Negative 05/01/2019 5:43 PM EDT Comment: Cutoff 300 ng/ml Test is for screening purposes only. Clinical consideration and professional judgement should be applied to any vfje-if-esdcd test result, particularly when preliminary positive results are used. Positive results should be confirmed if used for clinical or legal purposes. Dilution of urine through excessive fluid intake or diuretics can decrease the urine drug concentration. A urine with a creatinine concentration of <20 mg/dl and/or a specific gravity of <1.002 is considered a dilute specimen. The specimen may not accurately reflect recent prescribed medication or drug use. Heroin Metabolites, Urine PM Negative Negative 05/01/2019 5:43 PM EDT Comment: Cutoff 10 ng/ml Test is for screening purposes only. Clinical consideration and professional judgement should be applied to any drug of abuse test result, particularly when preliminary positive results are used. Positive results should be confirmed if used for clinical or legal purposes. Dilution of urine through excessive fluid intake or diuretics can decrease the urine drug concentration. A urine with a creatinine concentration of <20 mg/dl and/or a specific gravityof <1.002 is considered a dilute specimen. The specimen may not accurately reflect recent prescribed medication or drug use. Amphetamines, Urine PM Negative Negative 05/01/2019 5:43 PM EDT Comment:Cutoff 500 ng/ml Cannabinoids, Urine PM Negative Negative 05/01/2019 5:43 PM EDT Comment:Cutoff 20 ng/ml Cocaine, Urine PM Negative Negative 019 5:43 PM EDT Comment:Cutoff 150 ng/ml Phencyclidine, Urine PM Negative Negative 05/01/2019 5:43 PM EDT Comment:Cutoff 25 ng/ml Propoxyphene, Urine PM Negative Negative 05/01/2019 5:43 PM EDT Comment:Cutoff 25 ng/ml Barbiturates, Urine PM Negative Negative 05/01/2019 5:43 PM EDT Comment:Cutoff 200 ng/ml Benzodiazepines, Urine PM Negative Negative 05/01/2019 5:43 PM EDT Comment:Cutoff 150 ng/ml Methadone, Urine PM Negative Negative 05/01/2019 5:43 PM EDT Comment:Cutoff 300 ng/ml Meperidine, Urine PM Negative Negative 05/01/2019 5:43 PM EDT Comment:Cutoff 200 ng/ml Tramadol, Urine PM Negative Negative 05/01/2019 5:43 PM EDT Comment:Cutoff 20 ng/ml Fentanyl, Urine PM Negative Negative 05/01/2019 5:43 PM EDT Comment:Cutoff 2 ng/ml Carisoprodol, Urine PM Negative Negative 05/01/2019 5:43 PM EDT Comment:Cutoff 2.5 ug/ml Buprenorphine, Urine PM Negative Negative 05/01/2019 5:43 PM EDT Comment:Cutoff 5 ng/ml Oxycodone, Urine PM Negative Negative 05/01/2019 5:43 PM EDT Comment:Cutoff 100 ng/ml Tricyclic Antidepressants, Urine PM Negative Negative 05/01/2019 5:43 PM EDT Comment:Cutoff 1000 ng/ml pH, Urine PM 5.2 05/01/2019 5:43 PM EDT Specific Drum[place], Urine PM 1.009 05/01/2019 5:43 PM EDT Creatinine, Toxicology PM 39.2 mg/dL 05/01/2019 5:43 PM EDT Prescribed Drug1, Urine norco 05/01/2019 3:17 PM EDT Prescribed Drug2, Urine tramadol 05/01/2019 3:17 PM EDT Urine 05/01/2019 11:1 8 AM EDT 05/01/2019 4:26 PM EDT [facility] Provider URINE ORDERABLES Final Result Performing Organization Address City/[facility] Co de Phone Number [facility] [address] [place] [address] * PAIN MANAGEMENT TRAMADOL, SENDOUT ([facility] DATA CONV) (05/01/2019 11:18 AM EDT) Tramadol Screen, Urine Negative Rwzgyh=[id number] 05/07/2019 12:12 PM EDT Comment: Drug brands, if listed herein, are trademarks of their respective owners. Performed At: [facility] [address] [facility] [address] [address] [place], [place] [id number] Abbarrett Ntei PhD Ph:[phone] Urine 05/01/2019 11:1 8 AM EDT 05/01/2019 4:26 PM EDT [facility] Provider LAB BLOOD ORDERABLES Fi nal Result Performing Organization Address [facility] Co de Phone Number [facility] [address] [phone] * (ABNORMAL) PAIN MANAGEMENT OPIATES, SENDOUT ([facility] BKR DATA CONV) (05/01/2019 11:18 AM EDT) Hydromorphone by LC-MS/MS, Urine Negative Cutoff=1 00 05/07/2019 12:12 PM EDT OpiateScreen, Urine Positive(A) ng/mL 04/28 12:12 PM EDT Comment:Opiate test includes Codeine, Morphine, Hydromorphone, Hydrocodone. Codeine by LC-MS/MS, Urine Negative Cutoff=1 00 05/07/2019 12:12 PM EDT Morphine by LC-MS/MS, Urine Negative Cutoff=1 00 05/07/2019 12:12 PM EDT Hydrocodone by LC-MS/MS, Urine Positive(A) 05/07/2019 12:12 PM EDT Hydrocodone, Urine 527 Cutoff=1 00 ng/mL 05/07/2019 12:12 PM EDT Comment: Hydrocodone detected; this finding is consistent with use of medications that include Lortab, Lorcet, Vicodin, Vicoprofen, Tussionex, Lottie, or generic formulations. Drugs listed are claims representative of common sources of the compound detected and are not intended to include all possible sources. Tox Note Ur Comment 05/07/2019 12:12 PM EDT Comment: Drug-test results should be interpreted in the context of clinical information. Patient metabolic variables, specific drug chemistry, and specimen characteristics can affect test outcome. Technical consultation is available if a test result is inconsistent with an expected outcome. (email-[email or web address] or call toll-free [phone]) Drug brands, if listed herein, are trademarks of their respective owners. Performed At: [facility] [place] [address] [facility] [address] [place], [place] [id number] Renetta Padilla PhD Ph:[phone] Urine 05/01/2019 11:1 8 AM EDT 05/01/2019 4:26 PM EDT Narrative [facility] - 05/07/2019 12:12 PM EDT Ordered by Discern Expert us Sleh Historical Provider LAB BLOOD ORDERABLES Fi nal Result [facility] [address] [phone] documented in this encounter Visit Diagnoses Not on filedocumented in this encounter
--- OUTSIDE RECORDS SUMMARY | 2024-06-22 12:35 | XMS_ITS | Encounter Summary ---
Author Organization [employer] Address [address] [place] [address] Care Team Providers Care Fabrication Specialist Name Role Phone Unavailable Primary Care Provider Unavailabl e Encounter Details Date Type Department Care Team (Late st Contact Info) Description 09/10/2018 Historic Encounter [facility] [address] [place] [address] Germain Macias Historical Social History Tobacco Use Types Packs/Day [...] Priority Date/Time Associated Diagnosis Comments PAIN MANAGEMENT PANEL 4, SENDOUT ([facility] DATA CONV) Routine 09/10/2018 1:54 PM EST documented in this encounter Results * PAIN MANAGEMENT PANEL 4, SENDOUT ([facility] DATA CONV) (09/10/2018 1:54 PM EST) PM Compliance PDF FINAL 019 4:05 AM EST Comment: [facility] COMP DRUG ANALYSIS,UR Test ? Result ? Flag ? Units Drug Present ??Tramadol ? 26800 ? ng/mg creat ??O-Desmethyltramadol ?5346 ?ng/mg creat ??N-Desmethyltramadol ?8363 ?ng/mg creat ?? Source of tramadol is a prescription medication. ?? O-desmethyltramadol and N-desmethyltramadol are expected ?? metabolites of tramadol. ??Trazodone ?PRESENT ??1,3 chlorophenyl piperazine ?PRESENT ?? 1,3-chlorophenyl piperazine is an expected metabolite of ?? trazodone. ??Ibuprofen ?PRESENT ??Metoprolol ? PRESENT Test ?Result ?Flag ?? Units ?Ref Range ??Creatinine ?24 ? mg/dL ?>=20 Declared Medications: Medication list was not provided. For clinical consultation, please call . Performed At: [employer] [facility] [address] [place] [id number] Rm Vigil [facility] Ph:[phone] Urine 09/10/2018 1:54 PM EST 09/10/2018 11:01 PM EST [facility] Historical Provider LAB BLOOD ORDERABLES Fi nal Result Performing Organization Address City/State/[facility] Co de Phone Number [facility] [address] [phone] documented in this encounter Visit Diagnoses Not on filedocumented in this encounter
--- OUTSIDE RECORDS SUMMARY | 2024-06-22 12:35 | XMS_ITS | Encounter Summary ---
Author Organization [facility] Address [address] [place] [address] Care Team Providers Care Shoe Turner Name Role Phone Robb Adams MD Primary Care Provider [phone] Encounter Details Date Type Department Care Team (Late st Contact Info) Description 10/31/2021 Telephone [facility] [address] [place] [address] Nohelia Benjamin RN [facility] Social History Tobacco Use Types Packs/Day Years [...] suspected to have Coronavirus/COVID-19? No / Unsure 11/08/2021 8:38 AM EDT documented as of this encounter Plan of Treatment Upcoming Encounters Date Type Department Care Team (Late st Contact Info) Description 07/10/2024 2:20 PM EST Office Visit [facility] [address] [place] [address] Lesley Salazar, PA [address] [place] [address] 09/03/2024 9:00 AM EST [facility] [address] [place] [address] 10/09/2024 10:40 AM EDT Office Visit [facility] [address] [place] [address] Allegra Bryant, ADVANCED PRACTICE PSYCHIATRIC NURSE [address] [facility] [address] [place] [address] 11/23/2024 1:40 PM EDT Office Visit [facility] Urology [address] [place] [address] Paula Rosa, ADVANCED PRACTICE PSYCHIATRIC NURSE, DNP [address] [place] [address] documented as of this encounter Visit Diagnoses Not on filedocumented in this encounter Care Teams Shoe Turner Relationship Specialty Start Date End Date Robb Adams MD [address] [place] [address] [place] [address] PCP - General 12/09/20 11/14/21 documented as of this encounter
--- OUTSIDE RECORDS SUMMARY | 2024-06-22 12:35 | XMS_ITS | Encounter Summary ---
Author Organization [facility] Address [address] [place] [address] Care Team Providers Care Auto Accessories Installer Name Role Phone Robb Adams MD Primary Care Provider [phone] Reason for Referral * Imaging (Routine) - Closed Specialty Diagnoses / Procedures Referred By Contac t Referred To Contact Radiology Diagnoses Benign neoplasm of heart Procedures MR Cardiac Stress w and wo IV Contrast Camille Meng MD [address] [place] [address] Phone: tel: fax: Referral ID Status Reason Start Date Expiration Date Visits Re quested Visits Authorized [id number] Closed 09/19/2021 03/21/2023 1 1 * Imaging (Routine) - Closed Specialty Diagnoses / Procedures Referred By Contac t Referred To Contact Radiology Diagnoses Benign neoplasm of heart Procedures MR Cardiac Morphology and Function w and wo IV Contrast Suzie [facility] [address] [place] [address] Phone: tel: fax: Referral ID Status Reason Start Date Expiration Date Visits Re quested Visits Authorized [id number] Closed 08/15/2021 02/14/2023 1 1 Reason for Visit * Imaging (Routine) - Closed Specialty Diagnoses / Procedures Referred By Elmer ballesteros Referred To Contact Radiology Diagnoses Benign neoplasm of heart Procedures MR Cardiac Morphology and Function w and wo IV Contrast Suzie [facility] [address] [facility] [place] [address] Phone: tel: fax: Referral ID Status Reason Start Date Expiration Date Visits Re quested Visits Authorized [id number] Closed 08/15/2021 02/14/2023 1 1 Encounter Details Date Type Department Care Team (Late st Contact Info) Description 11/08/2021 8:48 AM EDT - 11/08/2021 11:59 PM EDT Hospital Encounter [facility] [address] [place] [address] Sondra Alonzo RN [facility] Benign neoplasm of heart Discharge Disposition: Home or Self Care Social [...] AM EDT documented as of this encounter Last Filed Vital Signs Vital Sign Reading Time Taken Comments Blood Pressure 125/58 11/08/2021 11:57 AM EDT Pulse 76 11/08/2021 12:02 PM EDT Temperature - - Respiratory Rate 20 11/08/2021 10:51 AM EDT Oxygen Saturation 93% 11/08/2021 12:02 PM EDT Inhaled Oxygen Concentration - - Weight 158 kg (348 lb) 11/08/2021 9:28 AM EDT Height 162.6 cm (5' 4 ) 11/08/2021 9:28 AM EDT Body Mass Index 59.73 11/08/2021 9:28 AM EDT documented in this encounter Medications at Time of Discharge colchicine 0.6 MG tablet TAKE 1 TABLET TWICE DAILY DIRECTED. 11/29/2020 cyanocobalamin (Vitamin B-12) 1000 MCG tablet 11/29/2020 cyclobenzaprine (Flexeril) 10 MG tablet 11/29/2020 esomeprazole (NexIUM) [address] capsule TAKE 1 CAPSULE ONCE DAILY. 11/29/2020 furosemide (Lasix) 40 MG tablet TAKE 1-2 TABLETS DAILY DIRECTED. 11/29/2020 HYDROcodone-acet aminophen (Newton) 7.5-325 MG tablet Take 10 mg of hydrocodone by mouth. 11/29/2020 lactulose (Chronulac) 10 GM/15ML solution 11/29/2020 Lidocaine (Anorectal) 5 % cream cream 11/29/2020 Multiple Vitamin (MULTI-VITAMIN DAILY PO) 11/29/2020 potassium chloride CR (Klor-Con M20) 20 MEQ ER tablet TAKE 2 TABLETS TWICE DAILY 11/29/2020 rOPINIRole (Requip) 1 MG tablet 11/29/2020 spironolactone (Aldactone) 25 MG tablet TAKE 1 TABLET DAILY. 11/29/2020 thiamine (Vitamin B-1) 500 MG tablet TAKE 1 TABLET DAILY. 11/29/2020 cholecalciferol (Vitamin D-3) 125 MCG (5000 UT) capsule TAKE 1 CAPSULE Daily 11/29/2020 4 hydroCHLOROthiaz alexander (Microzide) 12.5 MG capsule TAKE 1 CAPSULE ONCE DAILY. 11/29/2020 4 metoprolol tartrate (Lopressor) 100 MG tablet 11/29/2020 4 oxybutynin (Ditropan) 5 MG tablet Take 1 tablet twice daily 11/29/2020 4 traMADol (Ultram) 50 MG tablet TAKE 1 TABLET 3 TIMES DAILY NEEDED. 11/29/2020 4 documented as of this encounter Miscellaneous Notes * Procedures - Janette Thompson RN - 11/08/2021 10:15 AM EDTAssociated Order(s): Insert peripheral IV Post-Procedure Diagnose(s): Benign neoplasm of heart Insert peripheral IV Date/Time: 11/08/2021 10:15 AM Performed by: Janette Thompson RN Authorized by: Suzie Wing MD Hand hygiene: Hand hygiene performed prior to insertion Inserted using aseptic techniques: Yes Preparation: Skin prepped with chg Orientation: Right Location: Antecubital Catheter placed: Peripheral IV Catheter size: 20g/1.88in Number of attempts: 1 IV flushes: Without difficulty and positive blood return noted and IV luer locked Patient tolerance: Patient tolerated the procedure well and there were no complications IV site covered with: Transparent semipermeable dressing Education provided to: Patient documented in this encounter Plan of Treatment Upcoming Encounters Date Type Department Care Team (Late st Contact Info) Description 07/10/2024 2:20 PM EST Office Visit [facility] Endocrinology [address] [facility], [address] [place] [address] Lesley Salazar, PA [address] [facility] [address] [place] [address] 09/03/2024 9:00 AM EST Office Visit [facility] Endocrinology [address] [facility], [address] [place] [address] 10/09/2024 10:40 AM EDT Office Visit [facility] [address] [facility] [address] [place] [address] Allegra Bryant, SHEET METAL FABRICATOR [address] [facility] [address] [place] [address] 11/23/2024 1:40 PM EDT Office Visit [facility] [address] [place] [address] Paula Rosa, SHEET METAL FABRICATOR, DNP [address] [place] [address] Scheduled Orders Name Type Priority Associated Diagnoses Orde r Schedule MR Cardiac Morphology and Function w and wo IV Contrast Imaging Routine Benign neoplasm of heart Once for 1 Occurrences starting 11/08/2021 until 11/08/2021 documented as of this encounter Procedures Procedure Name Priority Date/Time Associated Diagnosis Comments MR CARDIAC STRESS W AND WO IV CONTRAST Routine 11/08/2021 12:14 PM EDT Benign neoplasm of heart INSERT PERIPHERAL IV Routine 11/08/2021 10:15 AM EDT Benign neoplasm of heart ECG ADULT Routine 11/08/2021 9:30 AM EDT POCT CREATININE ISTAT UNSOLICITED RESULTS Routine 11/08/2021 8:21 AM EDT documented in this encounter Results * MR Cardiac Stress w and wo IV Contrast (11/08/2021 12:14 PM EDT) Anatomical Region Laterality Modality Heart Magnetic Resonan ce Impressions 11/08/2021 4:12 PM EDT 1. No vasodilator (regadenoson) induced CMR perfusion defect. 2. No atrial mass was identified 3. Normal resting global and regional LV function. 4. Normal sized left ventricle with normal post-vasodilator global systolic function (EF 69%). 5. No CMR evidence for LV scar. 6. Normal sized right ventricle with normal post-vasodilator global systolic function (EF 61%). CRITICAL RESULT: No. COMMUNICATION: Per this written report. Approved by Ximena Velez on 11/08/2021 1:58 PM By electronically signing this report, I, the attending physician, attest that I have personally reviewed the images/data for the above examination(s) and agree with the final edited report. Dictated by Ximena Velez on 11/08/2021 1:58 PM Signed by Jevon Sparrow on 11/08/2021 4:12 PM Narrative 11/08/2021 4:12 PM EDT Exam/Procedure: MR CARDIAC STRESS W AND WO IV CONTRAST ordered by CAMILLE MENG, [id number] CLINICAL INFORMATION Indication: Evaluation for LA mass and chest pain Age: 61 years old Body Surface Area (BSA): 2.67 m2 COMPARISON: None. TECHNIQUE: Cardiac MRI with and without contrast was performed on 1.5T Siemens Aera MRI scanner. Imaging sequences included black blood axial stack with HASTE, cine with SSFP, complex flow evaluation with phase contrast,, first pass perfusion at stress only, and late gadolinium enhancement. Gadobutrol 0.2mmol/kg was administered intravenously via a peripheral IV without any adverse effects at a rate of 5.0 ml/sec. Study Quality: Excellent Artifacts: Non-limiting mild breathing motion artifacts. Rhythm: Sinus Rhythm Stress Methods: After informed verbal and written consent, review of appropriateness of study indication and exclusion of contraindications (including active bronchospasm, heart block), this patient received 5ml (0.4mg) IV push of regadenoson over 10-12 seconds followed by a saline bolus 5 ml over 10 seconds. The patient's HR, BP, ECG rhythm and clinical symptoms were serially monitored under the direct supervision of the interpreting physician. Hemodynamic monitoring continued throughout this procedure. 1st Pass Contrast Perfusion: A total 0.1mmol/kg gadolinium contrast was injected at 5 ml/sec 30-60 seconds after administration of the regadenoson bolus and images were obtained during breath holding timed to the arrival of LV contrast. The remaining gadolinium contrast (0.2mmol/kg total dose) was slowly injected after completion of the stress perfusion images. FINDINGS: Clinical and Hemodynamic Data: Heart Rate: The HR changed from 63 to 85 bpm. Blood Pressure: BP changed from 134/59 mmHg to 122/58 mmHg. ECG at Baseline: Normal sinus rhythm without significant ST-T changes. The rhythm, monitored continuously, did not reveal heart block or significant arrhythmia, but ST segments could not be assessed during scanning. ?? Symptoms: The patient described slight dyspnea immediately after the regadenoson injection, which lasted for few seconds and resolved in 1-2 minutes. Patient did not require the injection of aminophylline. ?? Complications: None. Measurements (normal values): (reference: Wild Espinoza et al. J Cardiovasc Magn Reson. 2015;17:29.) LVEF: 69 % (57 - 77) LVEDV: 152 ml (86 - 178) ? LVEDVI: 57 ml/m2 (56 - 96) LVESV: 47 ml (22 - 66) LVESVI: 18 ml/m2 (14 - 34) LV Mass(measured at end-diastole excluding papillary muscles): 69 gm (51 - 127) LV Mass Index: 26 gm/m2 (37 - 74) LV End-Diastolic Dimension: 56 mm (35 - 57) LV End-Systolic Dimension: 35 mm (22 - 40) Anteroseptal Wall Thickness: 9 mm (8 - 10) Inferolateral Wall Thickness: 6 mm (8 - 10) RVEF: 61 % (51 - 71) RVEDV: 167 ml (77 - 201) RVEDVI: 62 ml/m2 (48 - 112) RVESV: 65 ml (24 - 84) RVESVI: 24 ml/m2 (12 - 52) Left Atrial Volume Index: 28 mL/m2 ?? Aortic Root at the Sinuses of Valsalva: 30 mm (25 - 35) Mid-Ascending Aorta: 34 x 36 mm (27 - 35) Descending Aorta: 25 x 27 mm (20 - 28) Complex Flow Analysis: Systemic flow (Qs): 105 mL per beat Qualitative Measures: ?? LV Cavity Size: Normal LV Hypertrophy: None LV Global Function: Normal RV Cavity Size: Normal RV Hypertrophy: None RV Function: Normal Left Atrial Size: Normal Right Atrial Size: Normal Valves: Aortic Valve: Normal appearing with no significant stenosis or regurgitation Mitral Valve: Normal appearing with no prolapse or cleft, and no significant stenosis or regurgitation Tricuspid Valve: Normal appearing with no significant stenosis or regurgitation Pulmonary Valve: Not well visualized Aorta: Left-sided arch, normal in size without aneurysmal changes or coarctation Pericardium: Normal, no pericardial effusion. Other: No significant extracardiac abnormalities. FUNCTION Rest LV Regional Function (16 Segment Model): Basal: Normal. Mid: Normal. Distal: Normal. Regional Wall Motion Score Index (Score/segments) = 1.0 (1.0 = normal; 1.0-1.5 = mild; 1.6-2.0 = moderate; >2.0 = severe) Stress LV Regional Function (16 Segment Model): Basal: Normal. Mid: Normal. Distal: Normal. Regional Wall Motion Score Index (Score/segments) = 1.0 (1.0 = normal; 1.0-1.5 = mild; 1.6-2.0 = moderate; >2.0 = severe) Perfusion: LV Stress Regional Perfusion (17 Segment Model): Basal: No regional perfusion defect. Mid: No regional perfusion defect. Distal: No regional perfusion defect. Apical cap: No regional perfusion defect. Late Gadolinium Enhancement (viability imaging,17 segment model): Basal LV: No late gadolinium enhancement. Mid LV: No late gadolinium enhancement. Distal LV: No late gadolinium enhancement. Apical Cap: No late gadolinium enhancement. (Note: Transmural extent of infarct is a marker of viable myocardium: <25% is viable, 25-50% is mixed; likely viable, 50-75% is mixed; likely non-viable, >75% is non-viable) Procedure Note Jevon Sparrow MD - 11/08/2021 Exam/Procedure: MR CARDIAC STRESS W AND WO IV CONTRAST ordered by CAMILLE LUTHER, [id number] CLINICAL INFORMATION Indication: Evaluation for LA mass and chest pain Age: 61 years old Body Surface Area (BSA): 2.67 m2 COMPARISON: None. TECHNIQUE: Cardiac MRI with and without contrast was performed on 1.5T Siemens AeraMRI scanner. Imaging sequences included black blood axial stack withHASTE, cine with SSFP, complex flow evaluation with phase contrast,, firstpass perfusion at stress only, and late gadolinium enhancement. Gadobutrol0.2mmol/kg was administered intravenously via a peripheral IV without anyadverse effects at a rate of 5.0 ml/sec. Study Quality: Excellent Artifacts: Non-limiting mild breathing motion artifacts. Rhythm: Sinus Rhythm Stress Methods: After informed verbal and written consent, review of appropriateness ofstudy indication and exclusion of contraindications (including activebronchospasm, heart block), this patient received 5ml (0.4mg) IV push ofregadenoson over 10-12 seconds followed by a saline bolus 5 ml over 10seconds. The patient's HR, BP, ECG rhythm and clinical symptoms wereserially monitored under the direct supervision of the interpretingphysician. Hemodynamic monitoring continued throughout this procedure. 1st Pass Contrast Perfusion: A total 0.1mmol/kg gadolinium contrast was injected at 5 ml/sec 30-60seconds after administration of the regadenoson bolus and images wereobtained during breath holding timed to the arrival of LV contrast. Theremaining gadolinium contrast (0.2mmol/kg total dose) was slowly injectedafter completion of the stress perfusion images. FINDINGS: Clinical and Hemodynamic Data: Heart Rate: The HR changed from 63 to 85 bpm. Blood Pressure: BP changed from 134/59 mmHg to 122/58 mmHg. ECG at Baseline: Normal sinus rhythm without significant ST-T changes. The rhythm, monitored continuously, did not reveal heart block orsignificant arrhythmia, but ST segments could not be assessed duringscanning. Symptoms: The patient described slight dyspnea immediately after theregadenoson injection, which lasted for few seconds and resolved in 1-2minutes. Patient did not require the injection of aminophylline. Complications: None. Measurements (normal values): (reference: Wild Espinoza et al. J Cardiovasc Magn Reson. 2015;17:29.) LVEF: 69 % (57 - 77) LVEDV: 152 ml (86 - 178) LVEDVI: 57 ml/m2 (56 - 96) LVESV: 47 ml (22 - 66) LVESVI: 18 ml/m2 (14 - 34) LV Mass(measured at end-diastole excluding papillary muscles): 69 gm (51 -127) LV Mass Index: 26 gm/m2 (37 - 74) LV End-Diastolic Dimension: 56 mm (35 - 57) LV End-Systolic Dimension: 35 mm (22 - 40) Anteroseptal Wall Thickness: 9 mm (8 - 10) Inferolateral Wall Thickness: 6 mm (8 - 10) RVEF: 61 % (51 - 71) RVEDV: 167 ml (77 - 201) RVEDVI: 62 ml/m2 (48 - 112) RVESV: 65 ml (24 - 84) RVESVI: 24 ml/m2 (12 - 52) Left Atrial Volume Index: 28 mL/m2 Aortic Root at the Sinuses of Valsalva: 30 mm (25 - 35) Mid-Ascending Aorta: 34 x 36 mm (27 - 35) Descending Aorta: 25 x 27 mm (20 - 28) Complex Flow Analysis: Systemic flow (Qs): 105 mL per beat Qualitative Measures: LV Cavity Size: Normal LV Hypertrophy: None LV Global Function: Normal RV Cavity Size: Normal RV Hypertrophy: None RV Function: Normal Left Atrial Size: Normal Right Atrial Size: Normal Valves: Aortic Valve: Normal appearing with no significant stenosis orregurgitation Mitral Valve: Normal appearing with no prolapse or cleft, and nosignificant stenosis or regurgitation Tricuspid Valve: Normal appearing with no significant stenosis orregurgitation Pulmonary Valve: Not well visualized Aorta: Left-sided arch, normal in size without aneurysmal changes orcoarctation Pericardium: Normal, no pericardial effusion. Other: No significant extracardiac abnormalities. FUNCTION Rest LV Regional Function (16 Segment Model): Basal: Normal. Mid: Normal. Distal: Normal. Regional Wall Motion Score Index (Score/segments) = 1.0 (1.0 = normal; 1.0-1.5 = mild; 1.6-2.0 = moderate; >2.0 = severe) Stress LV Regional Function (16 Segment Model): Basal: Normal. Mid: Normal. Distal: Normal. Regional Wall Motion Score Index (Score/segments) = 1.0 (1.0 = normal; 1.0-1.5 = mild; 1.6-2.0 = moderate; >2.0 = severe) Perfusion: LV Stress Regional Perfusion (17 Segment Model): Basal: No regional perfusion defect. Mid: No regional perfusion defect. Distal: No regional perfusion defect. Apical cap: No regional perfusion defect. Late Gadolinium Enhancement (viability imaging,17 segment model): Basal LV: No late gadolinium enhancement. Mid LV: No late gadolinium enhancement. Distal LV: No late gadolinium enhancement. Apical Cap: No late gadolinium enhancement. (Note: Transmural extent of infarct is a marker of viable myocardium: <25%is viable, 25-50% is mixed; likely viable, 50-75% is mixed; likelynon-viable, >75% is non-viable) IMPRESSION: 1. No vasodilator (regadenoson) induced CMR perfusion defect. 2. No atrial mass was identified 3. Normal resting global and regional LV function. 4. Normal sized left ventricle with normal post-vasodilator globalsystolic function (EF 69%). 5. No CMR evidence for LV scar. 6. Normal sized right ventricle with normal post-vasodilator globalsystolic function (EF 61%). CRITICAL RESULT: No. COMMUNICATION: Per this written report. Approved by Ximena Velez on 11/08/2021 1:58 PM By electronically signing this report, I, the attending physician, attestthat I have personally reviewed the images/data for the aboveexamination(s) and agree with the final edited report. Dictated by Ximena Velez on 11/08/2021 1:58 PM Signed by Jevon Sparrow on 11/08/2021 4:12 PM us Camille Meng MD IMG MRI PROCEDURES Final Resul t * PERIPHERAL IV (SMARTFORM LINK) (11/08/2021 10:15 AM EDT) Janette Landin RN - 11/08/2021 10:15 AM EDT Janette Thompson RN ? 11/08/2021 10:38 AM Insert peripheral IV Date/Time: 11/08/2021 10:15 AM Performed by: Janette Thompson RN Authorized by: Suzie Wing MD Hand hygiene: Hand hygiene performed prior to insertion ?? Inserted using aseptic techniques: Yes ?? Preparation: ??Skin prepped with chg Orientation: ??Right Location: ??Antecubital Catheter placed: ??Peripheral IV Catheter size: ??20g/1.88in Number of attempts: ??1 IV flushes: ??Without difficulty and positive blood return noted and IV luer locked Patient tolerance: ??Patient tolerated the procedure well and there were no complications IV site covered with: ??Transparent semipermeable dressing Education provided to: ??Patient us Suzie Wing IV THERAPY ORDERABLES Final Res ult * ECG Adult - Post Stress Test (11/08/2021 9:30 AM EDT) EKG DIAGNOSIS CLASS Abnormal MUSE ECG Ventricular Rate 62 BPM MUSE ECG Atrial Rate 62 BPM MUSE ECG HI Interval 172 ms MUSE ECG QRSD Interval 96 ms MUSE ECG QT Interval 428 ms MUSE ECG QTC Interval 434 ms MUSE ECG P Nebo 60 degrees MUSE ECG R Nebo -31 degrees MUSE ECG T Wave Nebo -1 degrees MUSE ECG Diagnosis Normal sinus rhythm MUSE ECG Diagnosis Left axis deviation MUSE ECG Diagnosis Cannot rule out MUSE ECG Diagnosis Anterior infarct MUSE ECG Diagnosis , age undetermined MUSE ECG Diagnosis Abnormal ECG MUSE ECG Diagnosis Confirmed by Humberto Rdz ([id number]) on 11/08/2021 1:34:38 PM MUSE ECG 11/08/2021 9:30 AM EDT 11/08/2021 1:34 PM EDT Chilango Caldwell DO ECG ORDERABLES Final Result MUSE ECG * POCT creatinine (11/08/2021 8:21 AM EDT) [facility] Creatinine, Point of Care 1.1 0.6 - 1.1 mg/dL 11/08/2021 9:25 AM EDT [facility] POCT eGFR 50 mL/min/1. 73m*2 11/08/2021 9:25 AM EDT [facility] POCT eGFR >60 mL/min/1. 73m*2 11/08/2021 9:25 AM EDT [facility] Sweater Designer ID Sondra Alonzo 11/08/2021 9:25 AM EDT [facility] Device ID [id number] 11/08/2021 9:25 AM EDT [facility] Comment 11/08/2021 9:25 AM EDT [facility] Comment: Testing performed on i-STAT at the point of care. The eGFR is calculated from the creatinine concentration determined by the iSTAT Point of Care (POC) device using an isotope dilution mass spectrometry (IDMS)-traceable Modification of Diet in Renal Disease (MDRD) equation. Blood Venous blood specimen / Unknown 11/08/2021 8:21 AM EDT 11/08/2021 9:25 AM EDT us Generic Provider Poct LAB POINT OF CARE TEST DOCKED DEVICE UNSOLICITED RESULTS Final Result [facility] [address] [place] [address] documented in this encounter Visit Diagnoses Diagnosis Benign neoplasm of heart documented in this encounter Administered Medications Inactive Administered Medications - up to 3 most recent administrations Medication Order MAR Action Action Date Dose Rate Site gadobutrol (Gadavist) injection 23.5 mmol 23.5 mmol (rounded from 23.7 mmol = 0.15 mmol/kg ? 158 kg), Intravenous, Once in imaging, 1 dose, Starting on Sat11/08/21 at 1102, Until Sat11/08/21 at 1133, Routine, Imaging Protocol Orders Given 11/08/2021 11:33 AM EDT 24 mL documented in this encounter Care Teams Auto Accessories Installer Relationship Specialty Start Date End Date Robb Adams MD [address] [address] PCP - General 12/09/20 11/14/21 documented as of this encounter
--- OUTSIDE RECORDS SUMMARY | 2024-06-22 12:35 | XMS_ITS | Encounter Summary ---
Author Organization [facility] Address [address] [place] [address] Care Team Providers Care Database Admin Name Role Phone Dejan Vee MD Primary Care Provider [phone] Camille Mcdaniel MD Unavailable [phone] Encounter Details Date Type Department Care Team (Late st Contact Info) Description 06/15/2022 Orders Only [facility] [address] [place] [address] Edel Ho Stage 3b chronic kidney disease (CMS/HCC) (Primary Dx); Vitamin D deficiency Social History Tobacco Use Types Packs/Day Years [...] Description 07/10/2024 2:20 PM EST Office Visit [facility] [address] [place] [address] Lesley Salazar PA [address] [place] [address] 09/03/2024 9:00 AM EST Office Visit [facility] [address] [place] [address] 10/09/2024 10:40 AM EDT Office Visit [facility] [address] [place] [address] Allegra Bryant, COUNTER SERVER [address] [place] [address] 11/23/2024 1:40 PM EDT Office Visit [facility] [address] [place] [address] Paula Rosa, LATA, DNP [address] [place] [address] Scheduled Orders Name Type Priority Associated Diagnoses Orde r Schedule Renal Function Panel, Plasma Lab Routine Stage 3b chronic kidney disease (CMS/HCC) 1 Occurrences starting 06/15/2022 until 06/15/2023 CBC and Differential Lab Routine Stage 3b chronic kidney disease (CMS/HCC) 1 Occurrences starting 06/15/2022 until 06/15/2023 PTH Intact Total Lab Routine Stage 3b chronic kidney disease (CMS/HCC) 1 Occurrences starting 06/15/2022 until 06/15/2023 Vitamin D 25 Hydroxy Lab Routine Vitamin D deficiency 1 Occurrences starting 06/15/2022 until 06/15/2023 Urinalysis with reflex microscopic Lab Routine Stage 3b chronic kidney disease (CMS/HCC) 1 Occurrences starting 06/15/2022 until 06/15/2023 Protein, Random, Urine with Creatinine Lab Routine Stage 3b chronic kidney disease (CMS/HCC) 1 Occurrences starting 06/15/2022 until 06/15/2023 documented as of this encounter Visit Diagnoses Diagnosis Stage 3b chronic kidney disease (CMS/HCC)- Primary Vitamin D deficiency documented in this encounter Care Teams Database Admin Relationship Specialty Start Date End Date Dejan Vee MD [address] [facility] [place] [address] PCP - General 11/15/21 03/16/24 Camille Mcdaniel MD [address] [place] [address] Referring Physician 11/15/21 documented as of this encounter
--- OUTSIDE RECORDS SUMMARY | 2024-06-22 12:35 | XMS_ITS | Encounter Summary ---
Author Organization [facility] Address [address] [place] [address] Care Team Providers Care Printing Agent Name Role Phone Robb Adams MD Primary Care Provider [phone] Encounter Details Date Type Department Care Team (Latest Contact Info) Description 10/31/2021 Travel Social History Tobacco Use Types Packs/Day [...] [facility] [address], [address] [place] [address] Lesley Salazar PA [address] [place] [address] 09/03/2024 9:00 AM EST Office Visit [facility] [address], [address] [place] [address] 10/09/2024 10:40 AM EDT Office Visit [facility] [address] [place] [address] Allegra Bryant, FUNERAL HOME ASSISTANT [address] [facility] [address] [place] [address] 11/23/2024 1:40 PM EDT Office Visit [facility] Urology [address], [address] [place] [address] Paula Rosa, FUNERAL HOME ASSISTANT, DNP [address] [place] [address] documented as of this encounter Visit Diagnoses Not on filedocumented in this encounter Care Teams Printing Agent Relationship Specialty Start Date End Date Robb Adams MD [address] [place] [address] PCP - General 12/09/20 11/14/21 documented as of this encounter
--- OUTSIDE RECORDS SUMMARY | 2024-06-22 12:35 | XMS_ITS | Encounter Summary ---
Author Organization [facility] Address [address] [place] [address] Care Team Providers Care Painter And Body Work Name Role Phone Dejan Vee MD Primary Care Provider [phone] Camille Meng MD Unavailable [phone] Reason for Visit * Reason Comments Consult R Atrtial Mass Encounter Details Date Type Department Care Team (Late st Contact Info) Description 11/15/2021 12:30 PM EDT Consult [facility] [address], [address] [place] [address] Starr Mims MD [address] [facility] [address] [place] [address] Right atrial mass (Primary Dx) Social History Tobacco Use Types [...] suspected to have Coronavirus/COVID-19? No / Unsure 11/15/2021 11:11 AM EDT documented as of this encounter Last Filed Vital Signs Vital Sign Reading Time Taken Comments Blood Pressure 148/86 11/15/2021 12:23 PM EDT Pulse 68 11/15/2021 12:23 PM EDT Temperature - - Respiratory Rate - - Oxygen Saturation 96% 11/15/2021 12:23 PM EDT Inhaled Oxygen Concentration - - Weight 166 kg (366 lb) 11/15/2021 12:23 PM EDT Height 162.6 cm (5' 4 ) 11/15/2021 12:23 PM EDT Body Mass Index 62.82 11/15/2021 12:23 PM EDT documented in this encounter Miscellaneous Notes * Progress Notes - Leonard Dahl PA - 11/15/2021 12:30 PM EDT Reason for visit Eloisa Sebastian is a 61 y.o. female from [facility] sent to us in consultation from Camille Meng MD in regards to reported R atrial mass.. History of present illness: Ms. Sebastian is a 61 y/o Class III morbidly obese w/f sent to us as in consultation for a R atrial mass that was documented in a [facility] report. She has also undergone Cardiac MR stress here at . She ishere for evaluation and review of imaging. She is motorized wheel chair bound due to her extreme morbid obesity. Medical History Past Medical History: Diagnosis Date ??? Personal history of other diseases of the musculoskeletal system and connective tissue History of osteoarthritis Surgical History Past Surgical History: Procedure Laterality Date ??? CARDIAC CATHETERIZATION N/A 10/2007 patient reports normal ??? SECTION, LOW TRANSVERSE N/A ??? COLONOSCOPY N/A ??? DILATION AND CURETTAGE OF UTERUS N/A ??? GASTRIC BYPASS N/A 2010 ??? HYSTERECTOMY N/A ??? REPAIR PELVIC FLOOR DEFECT VAGINAL APPROACH W/ MESH Social History: Tobacco: Tobacco Use: Low Risk ??? Smoking Tobacco Use: Never Smoker ??? Smokeless Tobacco Use: Never Used Alcohol: Alcohol Use: Not on file Illicit drug use: Social History Substance and Sexual Activity Drug Use Not on file Family History: family history includes Asthma in her father; Coronary artery disease in her father and mother; Diabetes in her father and mother; Hypertension in her father and mother; Sleep apnea in her father. Allergies: Allergies Allergen Reactions ??? Ciprofloxacin Palpitations ??? Penicillins Unknown ??? Prednisone Other Steroids Medications: Prior to Admission medications Medication Sig Start Date End Date Taking? Authorizing Provider aspirin 81 MG chewable tablet Chew 81 mg 1 (one) time each day. Yes Historical Provider, cholecalciferol (Vitamin D-3) 125 MCG (5000 UT) capsule TAKE 1 CAPSULE Daily 11/29/20 Yes Historical Provider, colchicine 0.6 MG tablet TAKE 1 TABLET TWICE DAILY DIRECTED. 11/29/20 Yes Historical Provider, cyanocobalamin (Vitamin B-12) 1000 MCG tablet 11/29/20 Yes Historical Provider, cyclobenzaprine (Flexeril) 10 MG tablet 11/29/20 Yes Historical Provider, esomeprazole (NexIUM) [address] capsule TAKE 1 CAPSULE ONCE DAILY. 11/29/20 Yes Historical Provider, furosemide (Lasix) 40 MG tablet TAKE 1-2 TABLETS DAILY DIRECTED. 11/29/20 Yes Historical Provider, hydroCHLOROthiazide (Microzide) 12.5 MG capsule TAKE 1 CAPSULE ONCE DAILY. 11/29/20 Yes Historical Provider, HYDROcodone-acetaminophen ([place]) 7.5-325 MG tablet 11/29/20 Yes Historical Provider, lactulose (Chronulac) 10 GM/15ML solution 11/29/20 Yes Historical Provider, Lidocaine (Anorectal) 5 % cream cream 11/29/20 Yes Historical Provider, metoprolol tartrate (Lopressor) 100 MG tablet TAKE 1 TABLET TWICE DAILY. 11/29/20 Yes Historical Provider, Multiple Vitamin (MULTI-VITAMIN DAILY PO) 11/29/20 Yes Historical Provider, oxybutynin (Ditropan) 5 MG tablet Take 1 tablet twice daily 11/29/20 Yes Historical Provider, potassium chloride CR (Klor-Con M20) 20 MEQ ER tablet TAKE 2 TABLETS TWICE DAILY 11/29/20 Yes Historical Provider, rOPINIRole (Requip) 1 MG tablet 11/29/20 Yes Historical Provider, spironolactone (Aldactone) 25 MG tablet TAKE 1 TABLET DAILY. 11/29/20 Yes Historical Provider, thiamine (Vitamin B-1) 500 MG tablet TAKE 1 TABLET DAILY. 11/29/20 Yes Historical Provider, traMADol (Ultram) 50 MG tablet TAKE 1 TABLET 3 TIMES DAILY NEEDED. 11/29/20 Yes Historical Provider, Review of systems: Review of Systems Constitutional: Positive for weight gain. HENT: Negative. Eyes: Negative. Cardiovascular: Negative for chest pain, cyanosis and palpitations. Respiratory: Positive for shortness of breath. Endocrine: Negative. Hematologic/Lymphatic: Negative. Skin: Negative. Gastrointestinal: Negative. Genitourinary: Negative. Psychiatric/Behavioral: Negative. All other systems reviewed and are negative. Imaging: MR Cardiac Stress w and wo IV Contrast PACS Images ??Show images for MR Cardiac Stress w and wo IV Contrast Study Result Narrative & Impression Exam/Procedure: MR CARDIAC STRESS W AND WO IV CONTRAST ordered by CAMILLE MENG, [id number] ?? CLINICAL INFORMATION ?? Indication: Evaluation for LA mass and chest pain ?? Age: 61 years old ?? Body Surface Area (BSA): 2.67 m2 ?? COMPARISON: None. ?? TECHNIQUE: Cardiac MRI with and without contrast was performed on 1.5T Siemens Aera MRI scanner. Imaging sequences included black blood axial stack with HASTE, cine with SSFP, complex flow evaluation with phasecontrast,, first pass perfusion at stress only, and late gadolinium enhancement. Gadobutrol 0.2mmol/kg was administered intravenously via a peripheral IV without any adverse effects at a rate of 5.0 ml/sec. ?? Study Quality: Excellent ?? Artifacts: Non-limiting mild breathing motion artifacts. ?? Rhythm: Sinus Rhythm ?? Stress Methods: After informed verbal and written consent, review of appropriateness of study indication and exclusion of contraindications (including active bronchospasm, heart block), this patient received 5ml (0.4mg) IV push of regadenoson over 10- 12 seconds followed by a saline bolus 5 ml over 10 seconds. The patient's HR, BP, ECG rhythm and clinical symptoms were serially monitored under the direct supervision of the interpreting physician. Hemodynamic monitoring continued throughout this procedure. ?? 1st Pass Contrast Perfusion: ?? A total 0.1mmol/kg gadolinium contrast was injected at 5 ml/sec 30-60 seconds after administration of the regadenoson bolus and images were obtained during breath holding timed to the arrival of LV contrast. The remaining gadolinium contrast (0.2mmol/kg total dose) was slowly injected after completion of the stress perfusion images. ?? FINDINGS: Clinical and Hemodynamic Data: ?? Heart Rate: The HR changed from 63 to 85 bpm. Blood Pressure: BP changed from 134/59 mmHg to 122/58 mmHg. ?? ECG at Baseline: Normal sinus rhythm without [...] the injection of aminophylline. ?? Complications: None. ?? Measurements (normal values): (reference: Wild Espinoza et al. J Cardiovasc Magn Reson. 2015;17:29.) ?? LVEF: 69 % (57 - 77) LVEDV: 152 ml (86 - 178) LVEDVI: 57 ml/m2 (56 - 96) LVESV: 47 ml (22 - 66) LVESVI: 18 ml/m2 (14 - 34) LV Mass(measured at end-diastole excluding papillary muscles): 69 gm (51 - 127) LV Mass Index: 26 gm/m2 (37 - 74) ?? LV End-Diastolic Dimension: 56 mm (35 - 57) LV End-Systolic Dimension: 35 mm (22 - 40) ?? Anteroseptal Wall Thickness: 9 mm (8 - 10) Inferolateral Wall Thickness: 6 mm (8 - 10) ?? RVEF: 61 % (51 - 71) RVEDV: 167 ml (77 - 201) RVEDVI: 62 ml/m2 (48 - 112) RVESV: 65 ml (24 - 84) RVESVI: 24 ml/m2 (12 - 52) ?? Left Atrial Volume Index: 28 mL/m2 ?? Aortic Root at the Sinuses of Valsalva: 30 mm (25 - 35) Mid-Ascending Aorta: 34 x 36 mm (27 - 35) Descending Aorta: 25 x 27 mm (20 - 28) ?? Complex Flow Analysis: Systemic flow (Qs): 105 mL per beat ?? Qualitative Measures: LV Cavity Size: Normal LV Hypertrophy: None LV Global Function: Normal RV Cavity Size: Normal RV Hypertrophy: None RV Function: Normal ?? Left Atrial Size: Normal Right Atrial Size: Normal ?? Valves: Aortic Valve: Normal appearing with no significant stenosis or regurgitation Mitral Valve: Normal appearing with no prolapse or cleft, and no significant stenosis or regurgitation Tricuspid Valve: Normal appearing with no significant stenosis or regurgitation Pulmonary Valve: Not well visualized ?? Aorta: Left-sided arch, normal in size without aneurysmal changes or coarctation ?? Pericardium: Normal, no pericardial effusion. ?? Other: No significant extracardiac abnormalities. ?? FUNCTION Rest LV Regional Function (16 Segment Model): Basal: Normal. Mid: Normal. Distal: Normal. ?? Regional Wall Motion Score Index (Score/segments) = 1.0 (1.0 = normal; 1.0-1.5 = mild; 1.6-2.0 = moderate; >2.0 = severe) ?? Stress LV Regional Function (16 Segment Model): Basal: Normal. Mid: Normal. Distal: Normal. ?? Regional Wall Motion Score Index (Score/segments) = 1.0 (1.0 = normal; 1.0-1.5 = mild; 1.6-2.0 = moderate; >2.0 = severe) ?? Perfusion: LV Stress Regional Perfusion (17 Segment Model): Basal: No regional perfusion defect. Mid: No regional perfusion defect. Distal: No regional perfusion defect. Apical cap: No regional perfusion defect. ?? Late Gadolinium Enhancement (viability imaging,17 segment model): Basal LV: No late gadolinium enhancement. Mid LV: No late gadolinium enhancement. Distal LV: No late gadolinium enhancement. Apical Cap: No late gadolinium enhancement. ?? (Note: Transmural extent of infarct is a marker of viable myocardium: <25% is viable, 25-50% is mixed; likely viable, 50-75% is mixed; likely non-viable, >75% is non-viable) ?? IMPRESSION: 1. No vasodilator (regadenoson) induced CMR perfusion defect. ?? 2. No atrial mass was identified ?? 3. Normal resting global and regional LV function. ?? 4. Normal sized left ventricle with normal post-vasodilator global systolic function (EF 69%). ?? 5. No CMR evidence for LV scar. ?? 6. Normal sized right ventricle with normal post-vasodilator global systolic function (EF 61%). ?? CRITICAL RESULT: No. ?? COMMUNICATION: Per this written report. ?? Approved by Ximena Velez on 11/08/2021 1:58 PM ?? By electronically signing this report, I, the attending physician, attest that I have personally reviewed the images/data for the above examination(s) and agree with the final edited report. ?? Dictated by Ximena Velez on 11/08/2021 1:58 PM Signed by Jevon Sparrow on 11/08/2021 4:12 PM Physical exam: Physical Exam Vitals reviewed. Constitutional: Appearance: She is obese. Comments: BMI 62.82 kg/m2 Class III morbid obesity HENT: Head: Normocephalic and atraumatic. Mouth/Throat: Mouth: Mucous membranes are moist. Pharynx: Oropharynx is clear. Eyes: Extraocular Movements: Extraocular movements intact. Pupils: Pupils are equal, round, and reactive to light. Neck: Vascular: No carotid bruit. Cardiovascular: Rate and Rhythm: Normal rate and regular rhythm. Pulses: Normal pulses. Heart sounds: Normal heart sounds. No murmur heard. No friction rub. Pulmonary: Effort: Pulmonary effort is normal. Breath sounds: Normal breath sounds. No wheezing, rhonchi or rales. Abdominal: General: Bowel sounds are normal. Musculoskeletal: Cervical back: Normal range of motion and neck supple. No rigidity or tenderness. Comments: Decreased ROM 2/2 extreme morbid obesity class III Lymphadenopathy: Cervical: No cervical adenopathy. Skin: General: Skin is warm. Capillary Refill: Capillary refill takes less than 2 seconds. Neurological: General: No focal deficit present. Mental Status: She is alert and oriented to person, place, and time. Mental status is at baseline. Motor: No weakness. Coordination: Coordination abnormal (2/2 class III extreme morbid obesity). Gait: Gait abnormal (2/2 to extreme morbid obesity class III). Psychiatric: Mood and Affect: Mood normal. Behavior: Behavior normal. Impression/Plan: Ms. Sebastian is a 61 y/o Class III morbidly obese w/f sent to us as in consultation for a R atrial mass that was documented in a [facility] report. She has also undergone Cardiac MR stress here at . She ishere for evaluation and review of imaging. She is motorized wheel chair bound due to her extreme morbid obesity. After personally viewing both her [facility] images as well as cardiac MR, she has no evidence of an atrial mass. This was also reported in the official reading of her cardiac MR (see above)and there is no indication for surgical intervention. We have discussed this at length with Ms. Sebastian and she understands. Cosigned by Starr Mims MD at 11/15/2021 6:43 PM EDT Associated attestation - Starr Mims MD - 11/15/2021 6:43 PM EDT Seen and examined and records reviewed and discussed with Mr Dahl, I agree with his note and plan. documented in this encounter Plan of Treatment Upcoming Encounters Date Type Department Care Team (Late st Contact Info) Description 07/10/2024 2:20 PM EST Office Visit [facility] Endocrinology [address], [address] [place] [address] Lesley Salazar PA [address] [facility] [address] [facility] [place] [address] 09/03/2024 9:00 AM EST Office Visit [facility] Endocrinology [address], [address] [place] [address] 10/09/2024 10:40 AM EDT Office Visit [facility] [address] [place] [address] Allegra Bryant, IMCU NURSE [address] [facility] [address] [place] [address] 11/23/2024 1:40 PM EDT Office Visit [facility] [address] [place] [address] Paula Rosa, LATA, DNP [address] [place] [address] documented as of this encounter Visit Diagnoses Diagnosis Right atrial mass- Primary documented in this encounter Care Teams Painter And Body Work Relationship Specialty Start Date End Date Dejan Vee MD [address] [place] [address] PCP - General 11/15/21 03/16/24 Camille Meng MD [address] [place] [address] Referring Physician 11/15/21 documented as of this encounter
--- OUTSIDE RECORDS SUMMARY | 2024-06-22 12:35 | XMS_ITS | Referral Summary ---
Author Organization [facility] [employer] Address [address] [place] [address] Care Team Providers Care Safety Grooving Machine Operator Name Role Phone Unavailable Primary Care Provider Unavailabl e Social History Tobacco Use Types Packs/Day Years Used Date Smoking Tobacco: Never Assessed Comments Unknown Sex and Gender Information Value Date Recorded Sex Assigned at Female 01/23/2022 5:39 PM CDT Legal Sex Female 5:39 PM CDT Gender Identity Female 01/23/2022 5:39 PM CDT Sexual Orientation Not on file Plan of Treatment Not on file
--- OUTSIDE RECORDS SUMMARY | 2024-06-22 12:35 | XMS_ITS | Encounter Summary ---
Author Organization [facility] Address [address] [place] [address] Care Team Providers Care Tuberculosis Specialist Name Role Phone Dejan Vee MD Primary Care Provider [phone] Camille Mcdaniel MD Unavailable [phone] Encounter Details Date Type Department Care Team (Latest Contact Info) Description 11/15/2021 Travel Social History Tobacco Use Types Packs/Day [...] Description 07/10/2024 2:20 PM EST Office Visit [facility] [address] [place] [address] Lesley Salazar PA [address] [place] [address] 09/03/2024 9:00 AM EST Office Visit [facility] [address] [place] [address] 10/09/2024 10:40 AM EDT Office Visit [facility] [address] [place] [address] Allegra Bryant, HVAC MECHANICAL ENGINEER [address] [facility] [address] [place] [address] 11/23/2024 1:40 PM EDT Office Visit [facility] Urology [address] [place] [address] Paula Rosa, HVAC MECHANICAL ENGINEER, DNP [address] [place] [address] documented as of this encounter Visit Diagnoses Not on filedocumented in this encounter Care Teams Tuberculosis Specialist Relationship Specialty Start Date End Date Dejan Vee MD [address] [place] [address] PCP - General 11/15/21 03/16/24 Camille Mcdaniel MD [address] [place] [address] [place] [address] Referring Physician 11/15/21 documented as of this encounter
--- OUTSIDE RECORDS SUMMARY | 2024-06-22 12:35 | XMS_ITS | Encounter Summary ---
Author Organization [facility] Address [address] [place] [address] Care Team Providers Care [employer] Director Name Role Phone Robb Adams MD Primary Care Provider [phone] Encounter Details Date Type Department Care Team (Latest Contact Info) Description 11/08/2021 Travel Social History Tobacco Use Types Packs/Day [...] Description 07/10/2024 2:20 PM EST Office Visit [facility] [address] [place] [address] Lesley Salazar PA [address] [place] [address] 09/03/2024 9:00 AM EST Office Visit [facility] Endocrinology [address] [place] [address] 10/09/2024 10:40 AM EDT Office Visit [facility] [address] [place] [address] Allegra Bryant, HOSTEL PARENT [address] [facility] [address] [place] [address] 11/23/2024 1:40 PM EDT Office Visit [facility] Urology [address] [place] [address] Paula Rosa, HOSTEL PARENT, DNP [address] [place] [address] documented as of this encounter Visit Diagnoses Not on filedocumented in this encounter Care Teams [employer] Director Relationship Specialty Start Date End Date Robb Adams MD [address] [place] [address] PCP - General 12/09/20 11/14/21 documented as of this encounter
--- OUTSIDE RECORDS SUMMARY | 2024-06-22 12:35 | XMS_ITS | Encounter Summary ---
Author Organization [employer] Address [address] [place] [address] Care Team Providers Care Residence Leasing Agent Name Role Phone Unavailable Primary Care Provider Unavailabl e Encounter Details Date Type Department Care Team (Late st Contact Info) Description 12/16/2019 Historic Encounter [facility] [address] [place] [address] ProviderGermain Historical Social History Tobacco [...] Associated Diagnosis Comments PAIN MANAGEMENT TRAMADOL, SENDOUT ([facility] DATA CONV) Routine 12/16/2019 4:17 PM EDT PAIN MANAGEMENT OPIATES, SENDOUT ([facility] DATA CONV) Routine 12/16/2019 4:17 PM EDT PAIN MANAGEMENT URINE DRUG SCREEN Routine 12/16/2019 4:17 PM EDT documented in this encounter Results * (ABNORMAL) Pain Management Urine Drug Screen (12/16/2019 4:17 PM EDT) [facility] Opiates, Urine PM Conf to Follow(A) Negative 12/16/2019 9:59 PM EDT Comment: Cutoff 300 ng/ml Test is for screening purposes only. Clinical consideration and professional judgement should be applied to any [id number] test result, particularly when preliminary positive results [...] use. Heroin Metabolites, Urine PM Negative Negative 12/16/2019 9:59 PM EDT Comment: Cutoff 10 ng/ml Test [...] drug use. Amphetamines, Urine PM Negative Negative 12/16/2019 9:59 PM EDT Comment:Cutoff 500 ng/ml Cannabinoids, Urine PM Negative Negative 12/16/2019 9:59 PM EDT Comment:Cutoff 20 ng/ml Cocaine, Urine PM Negative Negative 020 9:59 PM EDT Comment:Cutoff 150 ng/ml Phencyclidine, Urine PM Negative Negative 12/16/2019 9:59 PM EDT Comment:Cutoff 25 ng/ml Propoxyphene, Urine PM Negative Negative 12/16/2019 9:59 PM EDT Comment:Cutoff 25 ng/ml Barbiturates, Urine PM Negative Negative 12/16/2019 9:59 PM EDT Comment:Cutoff 200 ng/ml Benzodiazepines, Urine PM Negative Negative 12/16/2019 9:59 PM EDT Comment:Cutoff 150 ng/ml Methadone, Urine PM Negative Negative 12/16/2019 9:59 PM EDT Comment:Cutoff 300 ng/ml Meperidine, Urine PM Negative Negative 12/16/2019 9:59 PM EDT Comment:Cutoff 200 ng/ml Tramadol, Urine PM Conf to Follow(A) Negative 12/16/2019 9:59 PM EDT Comment:Cutoff 20 ng/ml Fentanyl, Urine PM Negative Negative 12/16/2019 9:59 PM EDT Comment:Cutoff 2 ng/ml Carisoprodol, Urine PM Negative Negative 12/16/2019 9:59 PM EDT Comment:Cutoff 2.5 ug/ml Buprenorphine, Urine PM Negative Negative 12/16/2019 9:59 PM EDT Comment:Cutoff 5 ng/ml Oxycodone, Urine PM Negative Negative 12/16/2019 9:59 PM EDT Comment:Cutoff 100 ng/ml Tricyclic Antidepressants, Urine PM Negative Negative 12/16/2019 9:59 PM EDT Comment:Cutoff 1000 ng/ml pH, Urine PM 5.7 12/16/2019 9:59 PM EDT Specific [place], Urine PM 1.009 12/16/2019 9:59 PM EDT Creatinine, Toxicology PM 29.2 mg/dL 12/16/2019 9:59 PM EDT Prescribed Drug1, Urine tramadol 12/16/2019 8:16 PM EDT Prescribed Drug2, Urine norco 12/16/2019 8:16 PM EDT Urine 12/16/2019 4:17 PM EDT 12/16/2019 9:17 PM EDT [facility] Historical Provider URINE ORDERABLES Final Result Performing Organization Address City/State/[facility] Co de Phone Number [facility] [address] [place] [address] * (ABNORMAL) PAIN MANAGEMENT OPIATES, SENDOUT ([facility] DATA CONV) (12/16/2019 4:17 PM EDT) [facility] OpiateScreen, Urine Positive(A) ng/mL 09/2019 6:17 PM EDT Comment:Opiate test includes Codeine, Morphine, Hydromorphone, Hydrocodone. Codeine by LC-MS/MS, Urine Negative Cutoff=1 00 12/30/2019 6:17 PM EDT Morphine by LC-MS/MS, Urine Negative Cutoff=1 00 12/30/2019 6:17 PM EDT Hydromorphone by LC-MS/MS, Urine Negative Cutoff=1 00 12/30/2019 6:17 PM EDT Hydrocodone by LC-MS/MS, Urine Positive(A) 12/30/2019 6:17 PM EDT Hydrocodone, Urine 257 Cutoff=1 00 ng/mL 12/30/2019 6:17 PM EDT Comment: Hydrocodone detected; this finding is consistent with use of medications that include Lortab, Lorcet, Vicodin, Vicoprofen, Tussionex, [place], or generic formulations. Drugs listed are wholesale representative of common sources of the compound detected and are not intended to include all possible sources. Tox Note Ur Comment 12/30/2019 6:17 PM EDT Comment: Drug-test results should be interpreted in the context of clinical information. Patient metabolic variables, specific drug chemistry, and specimen characteristics can affect test outcome. Technical consultation is available if a test result is inconsistent with an expected outcome. ([email or web address] or call toll-free [phone]) Drug brands, if listed herein, are trademarks of their respective owners. Performed At: [facility] [address] [place], [place] [id number] Renetta Padilla PhD Ph:[phone] Urine 12/16/2019 4:17 PM EDT 12/16/2019 9:17 PM EDT Narrative [facility] - 12/30/2019 6:17 PM EDT Ordered by Discern Expert [facility] Historical Provider LAB BLOOD ORDERABLES Fi nal Result [facility] [address] [phone] * (ABNORMAL) PAIN MANAGEMENT TRAMADOL, SENDOUT ([facility] DATA CONV) (12/16/2019 4:17 PM EDT) Tramadol Screen, Urine Positive( A) 12/30/2019 6:17 PM EDT Tramadol by GC-MS, Urine 286 Cutoff=10 0 ng/mL 12/30/2019 6:17 PM EDT Comment: Tramadol detected; this finding can be consistent with use of medications that include Ultram, Topalgic, Tradol, Zydol, or generic formulations. Drugs listed are wholesale representative of common sources of the compound detected and are not intended to include all possible sources. Drug brands, if listed herein, are trademarks of their respective owners. Performed At: [facility] [address] [facility], [place] [id number] Renetta Padilla PhD Ph:[phone] Urine 12/16/2019 4:17 PM EDT 12/16/2019 9:17 PM EDT Narrative [facility] - 12/30/2019 6:17 PM EDT Ordered by Discern Expert [facility] Historical Provider LAB BLOOD ORDERABLES Fi nal Result [facility] [address] [phone] documented in this encounter Visit Diagnoses Not on filedocumented in this encounter
--- OUTSIDE RECORDS SUMMARY | 2024-06-22 12:35 | XMS_ITS | Encounter Summary ---
Author Organization [employer] Address [address] [place] [address] Care Team Providers Care Milling Machine Tender Name Role Phone Unavailable Primary Care Provider Unavailabl e Encounter Details Date Type Department Care Team (Late st Contact Info) Description 08/03/2020 Historic Encounter [facility] [address] [place] [address] ProviderGermain Historical Social History Tobacco [...] Associated Diagnosis Comments PAIN MANAGEMENT TRAMADOL, SENDOUT ([facility] DATA CONV) Routine 08/03/2020 3:23 PM EST PAIN MANAGEMENT OPIATES, SENDOUT ([facility]K DATA CONV) Routine 08/03/2020 3:23 PM EST PAIN MANAGEMENT URINE DRUG SCREEN Routine 08/03/2020 3:23 PM EST documented in this encounter Results * (ABNORMAL) Pain Management Urine Drug Screen (08/03/2020 3:23 PM EST) [facility] Opiates, Urine PM Negative Negative 021 12:24 AM EST Comment: Cutoff 300 ng/ml Test is for screening purposes only. Clinical consideration and professional judgement should be applied to any [id number] test result, particularly when preliminary positive results [...] use. Heroin Metabolites, Urine PM Negative Negative 08/04/2020 12:24 AM EST Comment: Cutoff 10 ng/ml Test is for [...] drug use. Amphetamines, Urine PM Negative Negative 08/04/2020 12:24 AM EST Comment:Cutoff 500 ng/ml Cannabinoids, Urine PM Negative Negative 08/04/2020 12:24 AM EST Comment:Cutoff 20 ng/ml Cocaine, Urine PM Negative Negative 021 12:24 AM EST Comment:Cutoff 150 ng/ml Phencyclidine, Urine PM Negative Negative 08/04/2020 12:24 AM EST Comment:Cutoff 25 ng/ml Propoxyphene, Urine PM Negative Negative 08/04/2020 12:24 AM EST Comment:Cutoff 25 ng/ml Barbiturates, Urine PM Negative Negative 08/04/2020 12:24 AM EST Comment:Cutoff 200 ng/ml Benzodiazepines, Urine PM Negative Negative 08/04/2020 12:24 AM EST Comment:Cutoff 150 ng/ml Methadone, Urine PM Negative Negative 08/04/2020 12:24 AM EST Comment:Cutoff 300 ng/ml Meperidine, Urine PM Negative Negative 08/04/2020 12:24 AM EST Comment:Cutoff 200 ng/ml Tramadol, Urine PM Conf to Follow(A) Negative 08/04/2020 12:24 AM EST Comment:Cutoff 20 ng/ml Fentanyl, Urine PM Negative Negative 08/04/2020 12:24 AM EST Comment:Cutoff 2 ng/ml Carisoprodol, Urine PM Negative Negative 08/04/2020 12:24 AM EST Comment:Cutoff 2.5 ug/ml Buprenorphine, Urine PM Negative Negative 08/04/2020 12:24 AM EST Comment:Cutoff 5 ng/ml Oxycodone, Urine PM Negative Negative 08/04/2020 12:24 AM EST Comment:Cutoff 100 ng/ml Tricyclic Antidepressants, Urine PM Negative Negative 08/04/2020 12:24 AM EST Comment:Cutoff 1000 ng/ml pH, Urine PM 5.1 08/04/2020 12:24 AM EST Specific [place], Urine PM 1.010 08/04/2020 12:24 AM EST Creatinine, Toxicology PM 63.0 mg/dL 08/04/2020 12:24 AM EST Prescribed Drug1, Urine Tramadol 08/03/2020 8:23 PM EST Prescribed Drug2, Urine [place] 08/03/2020 8:23 PM EST Urine 08/03/2020 3:23 PM EST 08/03/2020 10:43 PM EST [facility] Historical Provider URINE ORDERABLES Final Result [facility] [address] [phone] * (ABNORMAL) PAIN MANAGEMENT TRAMADOL, SENDOUT ([facility] BKR DATA CONV) (08/03/2020 3:23 PM EST) Tramadol Screen, Urine Positive( A) 08/09/2020 6:14 PM EST Tramadol by GC-MS, Urine 3715 Cutoff=10 0 ng/mL 08/09/2020 6:14 PM EST Comment: Tramadol detected; this finding can be consistent with use of medications that include Ultram, Topalgic, Tradol, Zydol, or generic formulations. Drugs listed are registered representative of common sources of the compound detected and are not intended to include all possible sources. Drug brands, if listed herein, are trademarks of their respective owners. Performed At: [facility] [address] [facility], [place] [id number] Renetta Padilla PhD Ph:[phone] Urine 08/03/2020 3:23 PM EST 08/03/2020 10:43 PM EST Narrative [facility] - 08/09/2020 6:14 PM EST Ordered by Discern Expert [facility] Historical Provider LAB BLOOD ORDERABLES Fi nal Result Performing Organization Address [facility] de Phone Number [facility] [address] [phone] * PAIN MANAGEMENT OPIATES, SENDOUT ([facility] BKR DATA CONV) (08/03/2020 3:23 PM EST) OpiateScreen, Urine Negative Cutoff=10 0 ng/mL 08/09/2020 6:14 PM EST Comment:Opiate test includes Codeine, Morphine, Hydromorphone, Hydrocodone. Tox Note Ur Comment 08/09/2020 6:14 PM EST Comment: Drug-test results should be interpreted in the context of clinical information. Patient metabolic variables, specific drug chemistry, and specimen characteristics can affect test outcome. Technical consultation is available if a test result is inconsistent with an expected outcome. ([email or web address] or call toll-free [phone]) Drug brands, if listed herein, are trademarks of their respective owners. Performed At: [facility] [address] [place], [place] [id number] Renetta Padilla PhD Ph:[phone] Urine 08/03/2020 3:23 PM EST 08/03/2020 10:43 PM EST Result [facility] Historical Provider LAB BLOOD ORDERABLES Fi nal Result Performing Organization Address [facility] Co de Phone Number [facility] [address] [place] [address], [facility] [phone] documented in this encounter Visit Diagnoses Not on filedocumented in this encounter
--- OUTSIDE RECORDS SUMMARY | 2024-06-22 12:35 | XMS_ITS | Clinical Summary ---
Author Organization [employer] Address [address] [place] [address] Care Team Providers Care Territory Sales Consultant Name Role Phone Unavailable Primary Care Provider [...]
--- NOTE | 2024-06-22 13:16 | A.OFFVIS_ITS ---
[facility] Disclaimer: The information contained in this section may have been updated after the patient was seen, as this information can be updated by other users. Medical History History of orthopnea Paroxysmal A-fib Abnormal electrocardiogram [ECG] [EKG] Cryptic tonsil Enlarged tonsils Tinnitus Bilateral hearing loss Gout CAD (coronary artery disease) Osteoporosis HTN (hypertension), benign GERD (gastroesophageal reflux disease) Surgical History History of gastric bypass History of History of hysterectomy Family History Other Coronary artery disease Depression Diabetes YUMIKO (obstructive sleep apnea) Obesity (BMI 30.0-34.9) Social History Smoking Status: Never smoker alcohol intake: never substance use type: denies use current occupational status: other Travel in the last 8 weeks: None household members: none housing: apartment caffeine: Yes PM Subjective & Objective Subjective Subjective:: Patient is a pleasant 53-year-old female who presents today for medication refill and 1 month follow-up. Her pain today is a 5 out of 10. She denies any new trauma or injury. She is still continuing to take her Wegovy and hoping to lose additional weight so she can have joint replacement. Patient does have chronic pain throughout her bilateral knees and hips. Patient is currently managed with [place] 10 mg 4 times a day from our office and Flexeril from her PCP. She denies any side effects from this medication. Her Maxwell has been reviewed and is appropriate. Review of Systems: General: No recent weight changes, no fever, no sleep disturbances Respiratory: No cough, no shortness of air, no recurring pulmonary infections Cardiovascular/peripheral vascular: No chest pain, no palpitations, no edema, no shortness of breath Gastrointestinal: No new onset incontinence, normal bowel movements reported Genitourinary: No new onset incontinence Musculoskeletal: Bilateral hip pain, knee pain Psychiatric: [Normal mood/affect] Neurological: [Denies weakness in extremities], [denies balance issues] Pain at rest (0-10 scale): 5 Objective Objective:: Physical Exam: General: Alert and oriented x3, no acute distress, pleasant and cooperative Lungs: Respirations even and unlabored, symmetrical chest expansion Eyes: PERRL Musculoskeletal: Flexion and extension of lumbar [spine] somewhat guarded secondary to pain, [antalgic gait noted] Neurological: Speech clear, no gross sensory deficit Has patient had previous pain injection?: No Conservative treatment options previously tried: Home exercise plan Length of treatment: Longer than 12 weeks and Prescription medications Length of treatment: Longer than 12 weeks Meds Home Medications and Allergies Home Medications ?Medication ?Instructions ?Recorded ?Confirmed ?Type lactulose 10 gram/15 mL oral 10 g PO DAILY PRN Constipation 11/24/20 05/28/24 History solution lidocaine 5 % topical ointment 35 g topical TIDP PRN JOINT PAIN 11/24/20 05/28/24 History mecobalamin (vitamin B12) 1,000 1,000 mcg PO DAILY Supplement 11/24/20 05/28/24 History mcg chewable tablet multivitamin 1 each PO DAILY Supplement 11/24/20 05/28/24 History colchicine 0.6 mg tablet See Rx Instructions .Route 03/28/23 05/28/24 History .COMPLEX GOUT mirabegron 50 mg tablet,extended 50 mg PO DAILY #30 tabs 10/07/23 05/28/24 Rx release 24 hr cholecalciferol (vitamin D3) 50 2,000 unit PO DAILY 12/16/23 05/28/24 History mcg (2,000 unit) capsule furosemide 20 mg tablet (Lasix) 20 mg PO DAILY #100 tabs 12/16/23 05/28/24 Rx oxybutynin chloride 15 mg 15 mg PO DAILY 12/16/23 05/28/24 History tablet,extended release 24 hr diclofenac sodium 1 % topical gel 1 ea topical DIRECTED 02/27/24 05/28/24 History semaglutide (weight loss) 0.25 0.25 mg (0.5 mL) SQ WEEKLY #2.5 mL 02/27/24 05/28/24 Rx mg/0.5 mL subcutaneous pen injector thiamine HCl (vitamin B1) 250 mg 250 mg PO DAILY SUPPLEMEMT 02/27/24 05/28/24 History tablet apixaban 5 mg tablet (Eliquis) 5 mg PO BID #60 tabs 04/01/24 05/28/24 Rx ropinirole 1 mg tablet See Rx Instructions .Route 04/01/24 05/28/24 Rx .COMPLEX #90 tabs spironolactone 25 mg tablet See Rx Instructions .Route 04/01/24 05/28/24 Rx .COMPLEX #90 tabs esomeprazole magnesium 40 mg See Rx Instructions .Route 04/15/24 05/28/24 Rx capsule,delayed release .COMPLEX #90 caps hydrocodone 10 mg-acetaminophen 1 tab PO QID #120 tabs 05/14/24 05/28/24 Rx 325 mg tablet potassium chloride 20 mEq See Rx Instructions .Route 05/15/24 05/28/24 Rx tablet,extended release(part/cryst) .COMPLEX #180 tabs modafinil 100 mg tablet 100 mg PO DAILY #30 tabs 05/28/24 05/28/24 Rx cyclobenzaprine 10 mg tablet See Rx Instructions .Route 06/10/24 Rx .COMPLEX #60 tabs metoprolol succinate 100 mg 150 mg (1.5 x 100 mg) PO DAILY 06/10/24 Rx tablet,extended release 24 hr BLOOD PRESSURE 90 days #135 tabs New Prescriptions to Start Prescriptions: Allergies Allergy/AdvReac Type Severity Reaction Status Date / Time sulfamethoxazole (From Allergy Intermediate kidney Verified 05/28/24 13:14 Bactrim) failure trimethoprim (From Bactrim) Allergy Intermediate kidney Verified 05/28/24 13:14 failure ciprofloxacin (From CIPRO) Allergy Unknown HEART RACES Verified 05/28/24 13:14 Penicillins (PENICILLINS) Allergy Unknown YEAST Verified 05/28/24 13:14 INFECTION Assessment and Plan *Assessment and plan (1) Right hip pain: Status: Acute Category: Medical Code(s): M25.551 - Pain in right hip (2) Bilateral knee pain: Status: Acute Category: Medical Code(s): M25.561 - Pain in right knee; M25.562 - Pain in left knee (3) Chronic pain disorder: Status: Acute Category: Medical Code(s): G89.4 - Chronic pain syndrome Plan I will refill the patient's [place] and provide a 1 month supply of this medication. Patient will return to clinic in 1 month for reevaluation of symptoms and plan of care. Risks and benefits of the medication have been explained in detail to the patient. The patient does understand the risk of dependence on the medication when given over a prolonged period. Patient has been advised of risks of oversedation with the prescribed medication. Narcan has been offered to the paitent in the event of oversedation. Patient has been advised that a family member should also be educated regarding administration of Narcan. The patient has been advised to consult with his/her primary care provider and pharmacist regarding drug-drug interaction of medications currently prescribed. Patient has been prescribed a controlled substance after being counseled on the medication, medication safety, and possible side effects. Opioid contract was reviewed and signed by the patient, and that they have agreed to all of the terms set forth by our compliance program. Patient has been instructed to contact the clinic with any concerns before the next appointment. Dr. Newton has reviewed this note and agrees with this plan of care. This note was dictated using voice recognition software and make contain errors or omissions.
[2024-06-22 14:09] VITALS: BP 132/90; PULSE 96; RESP 16; O2SAT 92; BMI 61.4
== END 2024-06-22 23:59 | disposition home or self-care (01) ==
PROVIDERS: PCP Internal Medicine; Visit Provider Nurse Practitioner Family
DX: M25.551 Pain in right hip (principal); M25.561 Pain in right knee; M25.562 Pain in left knee; G89.4 Chronic pain syndrome; Z79.899 Other long term (current) drug therapy; Z79.01 Long term (current) use of anticoagulants
CPT/HCPCS: 99212; G0463

== ENCOUNTER 2024-07-20 08:56 | Outpatient (POV) | payer MEDICARE, MEDICAID, SELFPAY ==
--- NOTE | 2024-07-20 09:58 | A.OFFVIS_ITS ---
[facility] Disclaimer: The information contained in this section may have been updated after the patient was seen, as this information can be updated by other users. Medical History History of orthopnea Paroxysmal A-fib Abnormal electrocardiogram [ECG] [EKG] Cryptic tonsil Enlarged tonsils Tinnitus Bilateral hearing loss Gout CAD (coronary artery disease) Osteoporosis HTN (hypertension), benign GERD (gastroesophageal reflux disease) Surgical History History of gastric bypass History of History of hysterectomy Family History Other Coronary artery disease Depression Diabetes YUMIKO (obstructive sleep apnea) Obesity (BMI 30.0-34.9) Social History Smoking Status: Never smoker alcohol intake: never substance use type: denies use current occupational status: other Travel in the last 8 weeks: None household members: none housing: apartment caffeine: Yes PM Subjective & Objective Subjective Subjective:: Patient is a pleasant 63-year-old female who presents today for medication refill via Telehealth appointment. Patient is at her home and has given consent for this audio appointment. She rates her pain today is a 6 out of 10. She denies any new trauma or injury. She does state that she is still on the Wegovy and that they are having a shortage of this medication. Patient also makes mention that she does have a cousin in [place] that had a relative who is over 500 pounds and went to a provider that did proceed forward with a total joint replacement and he is doing excellent. She does state that she is planning on calling this orthopedic office after the holidays and that she may need a referral. Patient is currently managed with Fulton 10 mg 4 times a day from our office and Flexeril from her PCP. She denies any side effects from this medication however she feels like the Fulton is not working as well as it had been.. Her Maxwell has been reviewed and is appropriate. Review of Systems: General: No recent weight changes, no fever, no sleep disturbances Respiratory: No cough, no shortness of air, no recurring pulmonary infections Cardiovascular/peripheral vascular: No chest pain, no palpitations, no edema, n o shortness of breath Gastrointestinal: No new onset incontinence, normal bowel movements reported Genitourinary: No new onset incontinence Musculoskeletal: Bilateral hip pain, knee pain Psychiatric: [Normal mood/affect] Neurological: [Denies weakness in extremities], [denies balance issues] Pain at rest (0-10 scale): 6 Objective Objective:: General: Alert and oriented x3, pleasant and cooperative Lungs: Patient is able to say complete sentences without dyspnea Neurological: Speech clear Has patient had previous pain injection?: No Conservative treatment options previously tried: Prescription medications Length of treatment: Longer than 12 weeks Meds Home Medications and Allergies Home Medications ?Medication ?Instructions ?Recorded ?Confirmed ?Type lactulose 10 gram/15 mL oral 10 g PO DAILY PRN Constipation 11/24/20 06/22/24 History solution lidocaine 5 % topical ointment 35 g topical TIDP PRN JOINT PAIN 11/24/20 06/22/24 History mecobalamin (vitamin B12) 1,000 1,000 mcg PO DAILY Supplement 11/24/20 06/22/24 History mcg chewable tablet multivitamin 1 each PO DAILY Supplement 11/24/20 06/22/24 History colchicine 0.6 mg tablet See Rx Instructions .Route 03/28/23 06/22/24 History .COMPLEX GOUT mirabegron 50 mg tablet,extended 50 mg PO DAILY #30 tabs 10/07/23 06/22/24 Rx release 24 hr cholecalciferol (vitamin D3) 50 2,000 unit PO DAILY 12/16/23 06/22/24 History mcg (2,000 unit) capsule furosemide 20 mg tablet (Lasix) 20 mg PO DAILY #100 tabs 12/16/23 06/22/24 Rx diclofenac sodium 1 % topical gel 1 ea topical DIRECTED 02/27/24 06/22/24 History semaglutide (weight loss) 0.25 0.25 mg (0.5 mL) SQ WEEKLY #2.5 mL 02/27/24 06/22/24 Rx mg/0.5 mL subcutaneous pen injector thiamine HCl (vitamin B1) 250 mg 250 mg PO DAILY SUPPLEMEMT 02/27/24 06/22/24 History tablet apixaban 5 mg tablet (Eliquis) 5 mg PO BID #60 tabs 04/01/24 06/22/24 Rx ropinirole 1 mg tablet See Rx Instructions .Route 04/01/24 06/22/24 Rx .COMPLEX #90 tabs spironolactone 25 mg tablet See Rx Instructions .Route 04/01/24 06/22/24 Rx .COMPLEX #90 tabs esomeprazole magnesium 40 mg See Rx Instructions .Route 04/15/24 06/22/24 Rx capsule,delayed release .COMPLEX #90 caps potassium chloride 20 mEq See Rx Instructions .Route 05/15/24 06/22/24 Rx tablet,extended release(part/cryst) .COMPLEX #180 tabs modafinil 100 mg tablet 100 mg PO DAILY #30 tabs 05/28/24 06/22/24 Rx cyclobenzaprine 10 mg tablet See Rx Instructions .Route 06/10/24 06/22/24 Rx .COMPLEX #60 tabs metoprolol succinate 100 mg 150 mg (1.5 x 100 mg) PO DAILY 06/10/24 06/22/24 Rx tablet,extended release 24 hr BLOOD PRESSURE 90 days #135 tabs hydrocodone 10 mg-acetaminophen 1 tab PO QID #120 tabs 06/22/24 Rx 325 mg tablet trospium 60 mg capsule,extended 60 mg PO DAILY . 06/22/24 06/22/24 History release 24 hr New Prescriptions to Start Prescriptions: Allergies Allergy/AdvReac Type Severity Reaction Status Date / Time sulfamethoxazole (From Allergy Intermediate kidney Verified 05/28/24 13:14 Bactrim) failure trimethoprim (From Bactrim) Allergy Intermediate kidney Verified 05/28/24 13:14 failure ciprofloxacin (From CIPRO) Allergy Unknown HEART RACES Verified 05/28/24 13:14 Penicillins (PENICILLINS) Allergy Unknown YEAST Verified 05/28/24 13:14 INFECTION Assessment and Plan *Assessment and plan (1) Bilateral chronic knee pain: Status: Acute Category: Medical Code(s): M25.561 - Pain in right knee; M25.562 - Pain in left knee; G89.29 - Other chronic pain (2) Hip pain: Status: Acute Qualifiers: Laterality: bilateral Qualified Code(s): M25.551 - Pain in right hip; M25.552 - Pain in left hip Category: Medical Code(s): M25.559 - Pain in unspecified hip Plan At this time we will continue her Fulton at the same dosage. We will refill the patient's Fulton and provide a 1 month supply of this medication. I did also review over with the patient that this we can send a referral in future and just let us know. Patient will return to clinic in 1 month for reevaluation of symptoms and plan of care. Risks and benefits of the medication have been explained in detail to the patient. The patient does understand the risk of dependence on the medication when given over a prolonged period. Patient has been advised of risks of oversedation with the prescribed medication. Narcan has been offered to the paitent in the event of oversedation. Patient has been advised that a family member should also be educated regarding administration of Narcan. The patient has been advised to consult with his/her primary care provider and pharmacist regarding drug-drug interaction of medications currently prescribed. Patient has been prescribed a controlled substance after being counseled on the medication, medication safety, and possible side effects. Opioid contract was reviewed and signed by the patient, and that they have agreed to all of the terms set forth by our compliance program. A UDS is needed to verify patient's compliance with our office pain contract. This is ordered based off specific treatments related to chronic pain with the potential to abuse certain medications. Patient has been instructed to contact the clinic with any concerns before the next appointment. Dr. Newton has reviewed this note and agrees with this plan of care. This note was dictated using voice recognition software and make contain errors or omissions.
== END 2024-07-20 23:59 | disposition home or self-care (01) ==
PROVIDERS: Visit Provider Nurse Practitioner Family
DX: M25.561 Pain in right knee (principal); M25.562 Pain in left knee; G89.29 Other chronic pain; M25.551 Pain in right hip; M25.552 Pain in left hip; Z79.899 Other long term (current) drug therapy
CPT/HCPCS: 99212; G0463

== ENCOUNTER 2024-08-27 14:21 | Outpatient (POV) | payer MEDICARE, MEDICAID, SELFPAY ==
--- NOTE | 2024-08-27 15:10 | A.OFFVIS_ITS ---
[facility] Disclaimer: The information contained in this section may have been updated after the patient was seen, as this information can be updated by other users. Medical History History of orthopnea Paroxysmal A-fib Abnormal electrocardiogram [ECG] [EKG] Cryptic tonsil Enlarged tonsils Tinnitus Bilateral hearing loss Gout CAD (coronary artery disease) Osteoporosis HTN (hypertension), benign GERD (gastroesophageal reflux disease) Surgical History History of gastric bypass History of History of hysterectomy Family History Other Coronary artery disease Depression Diabetes YUMIKO (obstructive sleep apnea) Obesity (BMI 30.0-34.9) Social History Smoking Status: Never smoker alcohol intake: never substance use type: denies use current occupational status: other Travel in the last 8 weeks: None household members: none housing: apartment caffeine: Yes PM Subjective & Objective Subjective Subjective:: Patient is a pleasant 64-year-old female who presents today for medication refill and follow-up. Today she rates her pain a 6 out of 10. She denies any new injury or trauma. She does state that from her last appointment she is still trying to continue to lose weight. She states that they did just increase her Wegovy to 1.7. She also states she had some blood work done today at her PCP. Patient does state from her last visit that she has been having a little bit more energy. She states that she bought the check Luan morning kick powder that you add to a drink as well as trying some sciatic ease twice a day. She feels like this combination has seemed to help a little bit. Patient is currently managed with Manteo 10 mg 4 times a day from our office and Flexeril from her PCP. Her Maxwell has been reviewed and is appropriate. Review of Systems: General: No recent weight changes, no fever, no sleep disturbances Respiratory: No cough, no shortness of air, no recurring pulmonary infections Cardiovascular/peripheral vascular: No chest pain, no palpitations, no edema, no shortness of breath Gastrointestinal: No new onset incontinence, normal bowel movements reported Genitourinary: No new onset incontinence Musculoskeletal: Hip and knee pain Psychiatric: [Normal mood/affect] Neurological: [Denies weakness in extremities], [denies balance issues] Pain at rest (0-10 scale): 6 Objective Objective:: Physical Exam: General: Alert and oriented x3, no acute distress, pleasant and cooperative Lungs: Respirations even and unlabored, symmetrical chest expansion Eyes: PERRL Musculoskeletal: Flexion and extension of lumbar [spine] somewhat guarded secondary to pain, [antalgic gait noted] Neurological: Speech clear, no gross sensory deficit Has patient had previous pain injection?: No Conservative treatment options previously tried: Prescription medications Length of treatment: Longer than 12 weeks Meds Home Medications and Allergies Home Medications ?Medication ?Instructions ?Recorded ?Confirmed ?Type lactulose 10 gram/15 mL oral 10 g PO DAILY PRN Constipation 11/24/20 08/27/24 History solution lidocaine 5 % topical ointment 35 g topical TIDP PRN JOINT PAIN 11/24/20 08/27/24 History mecobalamin (vitamin B12) 1,000 1,000 mcg PO DAILY Supplement 11/24/20 08/27/24 History mcg chewable tablet multivitamin 1 each PO DAILY Supplement 11/24/20 08/27/24 History colchicine 0.6 mg tablet See Rx Instructions .Route 03/28/23 08/27/24 History .COMPLEX GOUT mirabegron 50 mg tablet,extended 50 mg PO DAILY #30 tabs 10/07/23 08/27/24 Rx release 24 hr cholecalciferol (vitamin D3) 50 2,000 unit PO DAILY 12/16/23 08/27/24 History mcg (2,000 unit) capsule furosemide 20 mg tablet (Lasix) 20 mg PO DAILY #100 tabs 12/16/23 08/27/24 Rx diclofenac sodium 1 % topical gel 1 ea topical DIRECTED 02/27/24 08/27/24 History thiamine HCl (vitamin B1) 250 mg 250 mg PO DAILY SUPPLEMEMT 02/27/24 08/27/24 History tablet ropinirole 1 mg tablet See Rx Instructions .Route 04/01/24 08/27/24 Rx .COMPLEX #90 tabs spironolactone 25 mg tablet See Rx Instructions .Route 04/01/24 08/27/24 Rx .COMPLEX #90 tabs esomeprazole magnesium 40 mg See Rx Instructions .Route 04/15/24 08/27/24 Rx capsule,delayed release .COMPLEX #90 caps potassium chloride 20 mEq See Rx Instructions .Route 05/15/24 08/27/24 Rx tablet,extended release(part/cryst) .COMPLEX #180 tabs modafinil 100 mg tablet 100 mg PO DAILY #30 tabs 05/28/24 08/27/24 Rx cyclobenzaprine 10 mg tablet See Rx Instructions .Route 06/10/24 08/27/24 Rx .COMPLEX #60 tabs metoprolol succinate 100 mg 150 mg (1.5 x 100 mg) PO DAILY 06/10/24 08/27/24 Rx tablet,extended release 24 hr BLOOD PRESSURE 90 days #135 tabs trospium 60 mg capsule,extended 60 mg PO DAILY . 06/22/24 08/27/24 History release 24 hr hydrocodone 10 mg-acetaminophen 1 tab PO QID #120 tabs 07/20/24 08/27/24 Rx 325 mg tablet apixaban 5 mg tablet (Eliquis) 5 mg PO BID #60 tabs 07/23/24 08/27/24 Rx semaglutide (weight loss) 1.7 1.7 mg (0.75 mL) SQ WEEKLY #3 mL 08/27/24 08/27/24 Rx mg/0.75 mL subcutaneous pen injector New Prescriptions to Start Prescriptions: Allergies Allergy/AdvReac Type Severity Reaction Status Date / Time sulfamethoxazole (From Allergy Intermediate kidney Verified 08/27/24 13:34 Bactrim) failure trimethoprim (From Bactrim) Allergy Intermediate kidney Verified 08/27/24 13:34 failure ciprofloxacin (From CIPRO) Allergy Unknown HEART RACES Verified 08/27/24 13:34 Penicillins (PENICILLINS) Allergy Unknown YEAST Verified 08/27/24 13:34 INFECTION Assessment and Plan *Assessment and plan (1) Right knee DJD: Status: Chronic Category: Medical Code(s): M17.11 - Unilateral primary osteoarthritis, right knee (2) Left knee DJD: Status: Chronic Category: Medical Code(s): M17.12 - Unilateral primary osteoarthritis, left knee (3) Degenerative joint disease of right hip: Status: Chronic Category: Medical Code(s): M16.11 - Unilateral primary osteoarthritis, right hip Plan I will refill the patient's Manteo and provide a 1 month supply of this medication. Patient will return to clinic in 1 month for reevaluation of symptoms and plan of care. Risks and benefits of the medication have been explained in detail to the patient. The patient does understand the risk of dependence on the medication when given over a prolonged period. Patient has been advised of risks of oversedation with the prescribed medication. Narcan has been offered to the paitent in the event of oversedation. Patient has been advised that a family member should also be educated regarding administration of Narcan. The patient has been advised to consult with his/her primary care provider and pharmacist regarding drug-drug interaction of medications currently prescribed. Patient has been prescribed a controlled substance after being counseled on the medication, medication safety, and possible side effects. Opioid contract was reviewed and signed by the patient, and that they have agreed to all of the terms set forth by our compliance program. A UDS is needed to verify patient's compliance with our office pain contract. This is ordered based off specific treatments related to chronic pain with the potential to abuse certain medications. Patient has been instructed to contact the clinic with any concerns before the next appointment. Dr. Newton has reviewed this note and agrees with this plan of care. This note was dictated using voice recognition software and make contain errors or omissions.
[2024-08-27 15:18] VITALS: BP 120/76; PULSE 95; RESP 14; O2SAT 97; BMI 66.0
== END 2024-08-27 23:59 | disposition home or self-care (01) ==
PROVIDERS: PCP Internal Medicine; Visit Provider Nurse Practitioner Family
DX: M17.0 Bilateral primary osteoarthritis of knee (principal); M16.11 Unilateral primary osteoarthritis, right hip; Z79.899 Other long term (current) drug therapy
CPT/HCPCS: 99212; G0463

== ENCOUNTER 2024-08-27 15:00 | Outpatient (CLI) | payer MEDICARE, MEDICAID, SELFPAY ==
[2024-08-27 17:33] LABS: Basophils % 0.5 % (0.1-2.0); Eosinophils # 0.1 K/mm3 (0.0-0.4); Eosinophils % 0.7 % (0.1-12.0); Hematocrit 43.7 % (37.0-47.0); Hemoglobin 13.8 g/dL (12.2-16.2); Lymphocytes # 1.5 K/mm3 (0.7-4.5); Lymphocytes % 17.6 % (10-50); Mean Corpuscular HGB Conc 31.6 g/dL (31.8-35.4); Mean Corpuscular Hemoglobin 30.5 pg (27.0-31.2); Mean Corpuscular Volume 96.7 fl (81-99); Mean Platelet Volume 10.9 fl (7.4-10.4); Monocytes # 0.7 K/mm3 (0.1-1.0); Monocytes % 8.3 % (1.7-9.3); Neutrophils # 6.2 K/mm3 (1.8-7.8); Neutrophils % 72.4 % (37.0-80.0); Platelet Count 228 K/mm3 (142-424); Red Blood Count 4.52 M/mm3 (4.20-5.40); Red Cell Distribution Width 14.2 % (11.5-17.5); White Blood Count 8.6 K/mm3 (4.8-10.8)
[2024-08-27 17:42] LABS: Albumin Level 4.9 g/dl (3.5-5.0); Chloride 104 mmol/L (98-107); Potassium 4.6 mmoL/L (3.5-5.1); Sodium 142 mmol/L (136-145)
[2024-08-27 17:45] LABS: Alanine Aminotransferase 24 U/L (12-78); Albumin/Globulin Ratio 3.3 (1.1-1.8); Alkaline Phosphatase 79 U/L (38-126); Anion Gap 15.6 mEq/L (5-15); Aspartate Amino Transferase 27 U/L (14-36); Bilirubin,Total 0.5 mg/dl (0.2-1.3); Blood Urea Nitrogen 22 mg/dl (7-17); Carbon Dioxide 27 mmol/L (22.0-30.0); Cholesterol 147 mg/dl (140-200); Estimated Glomerular Filt Rate 56 ml/min (>60); GFR (African American) 67 ML/MIN (>60); Globulin 1.5 g/dL (1.3-3.2); Total Protein,Serum 6.4 g/dl (6.3-8.2); Triglycerides 138 mg/dl (30-150); VLDL Cholesterol 28 mg/dL (0-40)
[2024-08-27 17:46] LABS: Calcium 9.5 mg/dl (8.4-10.2); Chol/HDL Ratio 2.3 (1-3.5); Glucose 92 mg/dl (74-100); HDL Cholesterol 63 mg/dl (40-60)
[2024-08-27 17:56] LABS: Direct LDL Cholesterol 56.23 mg/dL (100-129)
[2024-08-27 18:25] LABS: Uric Acid 6.7 mg/dl (2.5-6.2)
[2024-08-28 13:09] LABS: Estradiol 28.1 pg/mL (0.0-54.7)
== END 2024-08-27 23:59 | disposition home or self-care (01) ==
LOC: LAB.DROPOF 08-28 10:46
PROVIDERS: PCP Internal Medicine; Visit Provider Internal Medicine
DX: M10.9 Gout, unspecified (principal); I10 Essential (primary) hypertension; I25.10 Atherosclerotic heart disease of native coronary artery without angina pectoris; E78.5 Hyperlipidemia, unspecified; N95.1 Menopausal and female climacteric states
CPT/HCPCS: 80053; 80061; 82670; 84550; 85025

== ENCOUNTER 2024-09-24 10:48 | Outpatient (POV) | payer MEDICARE, MEDICAID, SELFPAY ==
[2024-09-24 11:26] LABS: Mean Corpuscular Hemoglobin 30.4 pg (27.0-31.2); Red Cell Distribution Width 13.8 % (11.5-17.5)
--- NOTE | 2024-09-24 11:29 | A.OFFVIS_ITS ---
[facility] Disclaimer: The information contained in this section may have been updated after the patient was seen, as this information can be updated by other users. Medical History History of orthopnea Paroxysmal A-fib Abnormal electrocardiogram [ECG] [EKG] Cryptic tonsil Enlarged tonsils Tinnitus Bilateral hearing loss Gout CAD (coronary artery disease) Osteoporosis HTN (hypertension), benign GERD (gastroesophageal reflux disease) Surgical History History of gastric bypass History of History of hysterectomy Family History Other Coronary artery disease Depression Diabetes YUMIKO (obstructive sleep apnea) Obesity (BMI 30.0-34.9) Social History Smoking Status: Never smoker alcohol intake: never substance use type: denies use current occupational status: other Travel in the last 8 weeks: None household members: none housing: apartment caffeine: Yes Have you lived/traveled outside [place] in past 30 days?: No Contact w/someone who lives/traveled outside [place] past 30 days?: No Exposure to someone with infectious disease in past 14 days?: No Do you have a fever (greater than 100.4 F or 38 C)?: No Have you tested positive for COVID-19: No Exposed to someone with COVID-19 in past 14 days?: No Do you have a sore throat?: No Do you have a cough?: No Do you have any weakness?: No Do you have any diarrhea?: No Are you experiencing any unusual bleeding?: No Do you have any muscle aches/pain?: No Do you have any abdominal pain?: No Are you experiencing loss of taste or smell?: No PM Subjective & Objective Subjective Subjective:: Patient is a pleasant 64-year-old female who presents today for medication refill and follow-up. Today she rates her pain a 5 or 6 out of 10. She denies any new injury or trauma. She does state from her last appointment she has lost 6 additional pounds. She denies any other changes. Patient does make mention today that her primary care did do lab work and stated that her labs were within normal range however did add pravastatin to her meds. She states she was unable to tolerate this medication and is not really sure why she was given this if her labs were great. Patient is currently managed with Norman 10 mg 4 times a day from our office and Flexeril from her PCP. Patient does state that the Flexeril just causes so much fatigue and residual that she cannot function. She is asking whether or not if there is anything that they can do regarding this. her Maxwell has been reviewed and is appropriate. Review of Systems: General: No recent weight changes, no fever, no sleep disturbances Respiratory: No cough, no shortness of air, no recurring pulmonary infections Cardiovascular/peripheral vascular: No chest pain, no palpitations, no edema, no shortness of breath Gastrointestinal: No new onset incontinence, normal bowel movements reported Genitourinary: No new onset incontinence Musculoskeletal: Hip and knee pain Psychiatric: [Normal mood/affect] Neurological: [Denies weakness in extremities], [denies balance issues] Pain at rest (0-10 scale): 5 Objective Objective:: Physical Exam: General: Alert and oriented x3, no acute distress, pleasant and cooperative Lungs: Respirations even and unlabored, symmetrical chest expansion Eyes: PERRL Musculoskeletal: Flexion and extension of lumbar [spine] somewhat guarded secondary to pain, [antalgic gait noted] Neurological: Speech clear, no gross sensory deficit Has patient had previous pain injection?: No Conservative treatment options previously tried: Prescription medications Length of treatment: Longer than 12 weeks Meds Home Medications and Allergies Home Medications ?Medication ?Instructions ?Recorded ?Confirmed ?Type lactulose 10 gram/15 mL oral 10 g PO DAILY PRN Constipation 11/24/20 08/27/24 History solution lidocaine 5 % topical ointment 35 g topical TIDP PRN JOINT PAIN 11/24/20 08/27/24 History mecobalamin (vitamin B12) 1,000 1,000 mcg PO DAILY Supplement 11/24/20 08/27/24 History mcg chewable tablet multivitamin 1 each PO DAILY Supplement 11/24/20 08/27/24 History colchicine 0.6 mg tablet See Rx Instructions .Route 03/28/23 08/27/24 History .COMPLEX GOUT mirabegron 50 mg tablet,extended 50 mg PO DAILY #30 tabs 10/07/23 08/27/24 Rx release 24 hr cholecalciferol (vitamin D3) 50 2,000 unit PO DAILY 12/16/23 08/27/24 History mcg (2,000 unit) capsule furosemide 20 mg tablet (Lasix) 20 mg PO DAILY #100 tabs 12/16/23 08/27/24 Rx diclofenac sodium 1 % topical gel 1 ea topical DIRECTED 02/27/24 08/27/24 History thiamine HCl (vitamin B1) 250 mg 250 mg PO DAILY SUPPLEMEMT 02/27/24 08/27/24 History tablet ropinirole 1 mg tablet See Rx Instructions .Route 04/01/24 08/27/24 Rx .COMPLEX #90 tabs spironolactone 25 mg tablet See Rx Instructions .Route 04/01/24 08/27/24 Rx .COMPLEX #90 tabs esomeprazole magnesium 40 mg See Rx Instructions .Route 04/15/24 08/27/24 Rx capsule,delayed release .COMPLEX #90 caps potassium chloride 20 mEq See Rx Instructions .Route 05/15/24 08/27/24 Rx tablet,extended release(part/cryst) .COMPLEX #180 tabs modafinil 100 mg tablet 100 mg PO DAILY #30 tabs 05/28/24 08/27/24 Rx cyclobenzaprine 10 mg tablet See Rx Instructions .Route 06/10/24 08/27/24 Rx .COMPLEX #60 tabs metoprolol succinate 100 mg 150 mg (1.5 x 100 mg) PO DAILY 06/10/24 08/27/24 Rx tablet,extended release 24 hr BLOOD PRESSURE 90 days #135 tabs trospium 60 mg capsule,extended 60 mg PO DAILY . 06/22/24 08/27/24 History release 24 hr apixaban 5 mg tablet (Eliquis) 5 mg PO BID #60 tabs 07/23/24 08/27/24 Rx hydrocodone 10 mg-acetaminophen 1 tab PO QID #120 tabs 08/27/24 Rx 325 mg tablet semaglutide (weight loss) 1.7 1.7 mg (0.75 mL) SQ WEEKLY #3 mL 08/27/24 08/27/24 Rx mg/0.75 mL subcutaneous pen injector pravastatin 20 mg tablet 20 mg PO DAILY #90 tabs 08/28/24 Rx New Prescriptions to Start Prescriptions: Allergies Allergy/AdvReac Type Severity Reaction Status Date / Time sulfamethoxazole (From Allergy Intermediate kidney Verified 08/27/24 13:34 Bactrim) failure trimethoprim (From Bactrim) Allergy Intermediate kidney Verified 08/27/24 13:34 failure ciprofloxacin (From CIPRO) Allergy Unknown HEART RACES Verified 08/27/24 13:34 Penicillins (PENICILLINS) Allergy Unknown YEAST Verified 08/27/24 13:34 INFECTION Assessment and Plan *Assessment and plan (1) Left knee DJD: Status: Chronic Category: Medical Code(s): M17.12 - Unilateral primary osteoarthritis, left knee (2) Right knee DJD: Status: Chronic Category: Medical Code(s): M17.11 - Unilateral primary osteoarthritis, right knee (3) Degenerative joint disease of right hip: Status: Chronic Category: Medical Code(s): M16.11 - Unilateral primary osteoarthritis, right hip Plan .I will refill her Norman and provide a 1 month supply of this medication. I will also send in a 2-week supply of methocarbamol 500 mg twice daily as needed. Patient was counseled to contact our office if this does help and would like additional refills. I did also discuss with the patient if she has questions regarding the pravastatin with her primary care, then I would make sure to ask additional questions since she was told by the nurse that her labs were within range. She agrees with this plan of care and is planning on following up with him. Patient will return to clinic in 1 month. Risks and benefits of the medication have been explained in detail to the patient. The patient does understand the risk of dependence on the medication when given over a prolonged period. Patient has been advised of risks of oversedation with the prescribed medication. Narcan has been offered to the paitent in the event of ove rsedation. Patient has been advised that a family member should also be educated regarding administration of Narcan. The patient has been advised to consult with his/her primary care provider and pharmacist regarding drug-drug interaction of medications currently prescribed. Patient has been prescribed a controlled substance after being counseled on the medication, medication safety, and possible side effects. Opioid contract was reviewed and signed by the patient, and that they have agreed to all of the terms set forth by our compliance program. A UDS is needed to verify patient's compliance with our office pain contract. This is ordered based off specific treatments related to chronic pain with the potential to abuse certain medications. Patient has been instructed to contact the clinic with any concerns before the next appointment. Dr. Newton has reviewed this note and agrees with this plan of care. This note was dictated using voice recognition software and make contain errors or omissions.
[2024-09-24 11:39] LABS: Hematocrit 42.5 % (37.0-47.0); Hemoglobin 13.5 g/dL (12.2-16.2); Mean Corpuscular HGB Conc 31.8 g/dL (31.8-35.4); Mean Corpuscular Volume 95.7 fl (81-99); Platelet Count 214 K/mm3 (142-424); Red Blood Count 4.44 M/mm3 (4.20-5.40)
[2024-09-24 11:47] LABS: Albumin Level 4.4 g/dl (3.5-5.0); Anion Gap 9.6 mEq/L (5-15); Blood Urea Nitrogen 24 mg/dl (7-17); Calcium 9.1 mg/dl (8.4-10.2); Carbon Dioxide 26 mmol/L (22.0-30.0); Chloride 107 mmol/L (98-107); Estimated Glomerular Filt Rate 63 ml/min (>60); GFR (African American) 76 ML/MIN (>60); Glucose 75 mg/dl (74-100); Phosphorous 2.9 mg/dl (2.5-4.5); Potassium 4.6 mmoL/L (3.5-5.1); Sodium 138 mmol/L (136-145)
[2024-09-24 14:39] VITALS: BP 133/70; PULSE 74; RESP 14; O2SAT 97; BMI 65.0
== END 2024-09-24 23:59 | disposition home or self-care (01) ==
PROVIDERS: Nurse Practitioner; PCP Internal Medicine; Visit Provider Nurse Practitioner Family
DX: M17.0 Bilateral primary osteoarthritis of knee (principal); M16.11 Unilateral primary osteoarthritis, right hip; Z79.899 Other long term (current) drug therapy; Z79.01 Long term (current) use of anticoagulants
CPT/HCPCS: 36415; 80069; 85027; 99212; G0463

== ENCOUNTER 2024-10-21 13:20 | Outpatient (POV) | payer MEDICARE, MEDICAID, SELFPAY ==
--- NOTE | 2024-10-21 13:40 | EXP.PAIN.SOA ---
[facility] Disclaimer: The information contained in this section may have been updated after the patient was seen, as this information can be updated by other users. Medical History History of orthopnea Paroxysmal A-fib Abnormal electrocardiogram [ECG] [EKG] Cryptic tonsil Enlarged tonsils Tinnitus Bilateral hearing loss Gout CAD (coronary artery disease) Osteoporosis HTN (hypertension), benign GERD (gastroesophageal reflux disease) Surgical History History of gastric bypass History of History of hysterectomy Family History Other Coronary artery disease Depression Diabetes YUMIKO (obstructive sleep apnea) Obesity (BMI 30.0-34.9) Social History Smoking Status: Never smoker alcohol intake: never substance use type: denies use current occupational status: other Travel in the last 8 weeks: None household members: none housing: apartment caffeine: Yes PM Subjective & Objective Subjective Subjective:: Patient is a pleasant 64-year-old female who presents today for monthly medication refill. She rates her pain today as 7 out of 10. She denies any new falls or injuries however does feel like her right hip is just progressively worsening. Patient does feel like it is moving in and out of socket. She states that she has to move around and change positions and actually physically push it back into place. Patient states years ago she was told by Dr. Cooley that there was not much of a femoral head to begin with. Patient has been seen by orthopedics there at however denies any recent follow-ups. Patient is trying to still lose weight in order to proceed forward with joint replacement. Patient is currently managed with Hatfield 10 mg 4 times a day and baclofen 10 mg 3 times daily. She denies any side effects. Patient does also make mention today that she has been waking up with a very low blood pressure here in the last few mornings. Patient is not on any blood pressure medications. She denies any recent follow-ups with primary care. Patient states her next appointment is in October. Her Maxwell has been reviewed and is appropriate. Review of Systems: General: No recent weight changes, no fever, no sleep disturbances Respiratory: No cough, no shortness of air, no recurring pulmonary infections Cardiovascular/peripheral vascular: No chest pain, no palpitations, no edema, no shortness of breath Gastrointestinal: No new onset incontinence, normal bowel movements reported Genitourinary: No new onset incontinence Musculoskeletal: Right hip pain Psychiatric: [Normal mood/affect] Neurological: [Denies weakness in extremities], [denies balance issues] Pain at rest (0-10 scale): 7 Objective Objective:: Physical Exam: General: Alert and oriented x3, no acute distress, pleasant and cooperative Lungs: Respirations even and unlabored, symmetrical chest expansion Eyes: PERRL Musculoskeletal: Flexion and extension of right hip somewhat guarded secondary to pain, [antalgic gait noted] Neurological: Speech clear, no gross sensory deficit Has patient had previous pain injection?: No Conservative treatment options previously tried: Prescription medications Length of treatment: Longer than 12 weeks Meds Home Medications and Allergies Home Medications ?Medication ?Instructions ?Recorded ?Confirmed ?Type lactulose 10 gram/15 mL oral 10 g PO DAILY PRN Constipation 11/24/20 09/24/24 History solution lidocaine 5 % topical ointment 35 g topical TIDP PRN JOINT PAIN 11/24/20 09/24/24 History mecobalamin (vitamin B12) 1,000 1,000 mcg PO DAILY Supplement 11/24/20 09/24/24 History mcg chewable tablet multivitamin 1 each PO DAILY Supplement 11/24/20 09/24/24 History mirabegron 50 mg tablet,extended 50 mg PO DAILY #30 tabs 10/07/23 09/24/24 Rx release 24 hr furosemide 20 mg tablet (Lasix) 20 mg PO DAILY #100 tabs 12/16/23 09/24/24 Rx diclofenac sodium 1 % topical gel 1 ea topical DIRECTED 02/27/24 09/24/24 History thiamine HCl (vitamin B1) 250 mg 250 mg PO DAILY SUPPLEMEMT 02/27/24 09/24/24 History tablet ropinirole 1 mg tablet See Rx Instructions .Route 04/01/24 09/24/24 Rx .COMPLEX #90 tabs esomeprazole magnesium 40 mg See Rx Instructions .Route 04/15/24 09/24/24 Rx capsule,delayed release .COMPLEX #90 caps potassium chloride 20 mEq See Rx Instructions .Route 05/15/24 09/24/24 Rx tablet,extended release(part/cryst) .COMPLEX #180 tabs modafinil 100 mg tablet 100 mg PO DAILY #30 tabs 05/28/24 09/24/24 Rx cyclobenzaprine 10 mg tablet See Rx Instructions .Route 06/10/24 09/24/24 Rx .COMPLEX #60 tabs metoprolol succinate 100 mg 150 mg (1.5 x 100 mg) PO DAILY 06/10/24 09/24/24 Rx tablet,extended release 24 hr BLOOD PRESSURE 90 days #135 tabs trospium 60 mg capsule,extended 60 mg PO DAILY . 06/22/24 09/24/24 History release 24 hr apixaban 5 mg tablet (Eliquis) 5 mg PO BID #60 tabs 07/23/24 09/24/24 Rx pravastatin 20 mg tablet 20 mg PO DAILY #90 tabs 08/28/24 09/24/24 Rx hydrocodone 10 mg-acetaminophen 1 tab PO QID #120 tabs 09/24/24 Rx 325 mg tablet baclofen 5 mg tablet 5 mg PO TID #42 tabs 09/28/24 Rx colchicine 0.6 mg tablet 0.6 mg PO DAILY GOUT #90 tabs 09/29/24 Rx baclofen 10 mg tablet 10 mg PO TID #42 tabs 09/30/24 Rx spironolactone 25 mg tablet See Rx Instructions .Route 10/12/24 Rx .COMPLEX #90 tabs semaglutide (weight loss) 1.7 See Rx Instructions .Route 10/16/24 Rx mg/0.75 mL subcutaneous pen .COMPLEX #3 mL injector (Kristin) cholecalciferol (vitamin D3) 50 2,000 unit PO DAILY #90 caps 10/20/24 Rx mcg (2,000 unit) capsule New Prescriptions to Start Prescriptions: Allergies Allergy/AdvReac Type Severity Reaction Status Date / Time sulfamethoxazole (From Allergy Intermediate kidney Verified 08/27/24 13:34 Bactrim) failure trimethoprim (From Bactrim) Allergy Intermediate kidney Verified 08/27/24 13:34 failure ciprofloxacin (From CIPRO) Allergy Unknown HEART RACES Verified 08/27/24 13:34 Penicillins (PENICILLINS) Allergy Unknown YEAST Verified 08/27/24 13:34 INFECTION Assessment and Plan *Assessment and plan (1) Right knee DJD: Status: Chronic Category: Medical Code(s): M17.11 - Unilateral primary osteoarthritis, right knee (2) Degenerative joint disease of right hip: Status: Chronic Category: Medical Code(s): M16.11 - Unilateral primary osteoarthritis, right hip (3) Left knee DJD: Status: Chronic Category: Medical Code(s): M17.12 - Unilateral primary osteoarthritis, left knee (4) Bilateral chronic knee pain: Status: Chronic Category: Medical Code(s): M25.561 - Pain in right knee; M25.562 - Pain in left knee; G89.29 - Other chronic pain Plan I did discuss at length with the patient that I would highly recommend for her to follow back up with orthopedics so that they are aware of the progression. Patient agrees with this plan of care. I did also discuss with the patient regarding her blood pressure that I would highly recommend she make a journal and keep track of her BP on a daily basis. I did elementary school counselor her if the blood pressure continues to be low to go ahead and follow-up with her primary care sooner than the October appointment. I will refill the patient's Hatfield. Patient will return to clinic in 1 month. Risks and benefits of the medication have been explained in detail to the patient. The patient does understand the risk of dependence on the medication when given over a prolonged period. Patient has been advised of risks of oversedation with the prescribed medication. Narcan has been offered to the paitent in the event of oversedation. Patient has been advised that a family member should also be educated regarding administration of Narcan. The patient has been advised to consult with his/her primary care provider and pharmacist regarding drug-drug interaction of medications currently prescribed. Patient has been prescribed a controlled substance after being counseled on the medication, medication safety, and possible side effects. Opioid contract was reviewed and signed by the patient, and that they have agreed to all of the terms set forth by our compliance program. A UDS is needed to verify patient's compliance with our office pain contract. This is ordered based off specific treatments related to chronic pain with the potential to abuse certain medications. Patient has been instructed to contact the clinic with any concerns before the next appointment. Dr. Newton has reviewed this note and agrees with this plan of care. This note was dictated using voice recognition software and make contain errors or omissions.
[2024-10-21 14:30] VITALS: BP 123/86; PULSE 80; RESP 18; O2SAT 98; BMI 64.3
== END 2024-10-21 23:59 | disposition home or self-care (01) ==
PROVIDERS: PCP Internal Medicine; Visit Provider Nurse Practitioner Family
DX: M17.0 Bilateral primary osteoarthritis of knee (principal); M16.11 Unilateral primary osteoarthritis, right hip; M25.561 Pain in right knee; M25.562 Pain in left knee; G89.29 Other chronic pain; Z79.01 Long term (current) use of anticoagulants
CPT/HCPCS: 99212; G0463

== ENCOUNTER 2024-11-18 11:40 | Outpatient (CLI) | payer MEDICARE, MEDICAID, SELFPAY | END 2024-11-18 23:59 | disposition home or self-care (01) | LOC: LAB.DROPOF 11-19 11:17 | PROVIDERS: PCP Internal Medicine; Visit Provider Internal Medicine | DX: N39.0 Urinary tract infection, site not specified (principal); B96.1 Klebsiella pneumoniae [K. pneumoniae] as the cause of diseases classified elsewhere; B96.20 Unspecified Escherichia coli [E. coli] as the cause of diseases classified elsewhere | CPT/HCPCS: 87086; 87088; 87186 ==

== ENCOUNTER 2024-11-18 13:27 | Outpatient (POV) | payer MEDICARE, MEDICAID, SELFPAY ==
--- NOTE | 2024-11-18 14:18 | EXP.PAIN.SOA ---
[facility] Disclaimer: The information contained in this section may have been updated after the patient was seen, as this information can be updated by other users. Medical History History of orthopnea Paroxysmal A-fib Abnormal electrocardiogram [ECG] [EKG] Cryptic tonsil Enlarged tonsils Tinnitus Bilateral hearing loss Gout CAD (coronary artery disease) Osteoporosis HTN (hypertension), benign GERD (gastroesophageal reflux disease) Surgical History History of gastric bypass History of History of hysterectomy Family History Other Coronary artery disease Depression Diabetes YUMIKO (obstructive sleep apnea) Obesity (BMI 30.0-34.9) Social History Smoking Status: Never smoker alcohol intake: never substance use type: denies use current occupational status: other Travel in the last 8 weeks: None household members: none housing: apartment caffeine: Yes PM Subjective & Objective Subjective Subjective:: Patient is a pleasant 64-year-old female who presents today for her 1 month follow-up and medication refill. Today she does rated her pain an 8 out of 10. Patient does state that still from our last appointment that she feels like her right hip has continued to pop in and out of socket. At our last appointment she was given the recommendation to call orthopedics and make up a follow-up appointment to see about any additional interventions they would be able to do. Patient states that she ended up making this appointment and going in and that all they did was coming in and tell her that they still would not be able to do anything until she loses more weight. Patient is very emotional today due to the worsening pain and the lack of help with orthopedics. Patient does state that she is going to try and get into see a physician in [place] who may possibly be able to go ahead and do the hip replacement. Patient does state that she is still on her Wegovy and that they did actually just increase the dosage however she is recently gained 5 pounds. Patient states that she continues to have very minimal appetite and does not really eat much so she is really unsure why she is gaining now. Patient has had updated lab work that we did discuss today however all her labs she states were within normal limits other than her uric acid level per her physician. Patient is currently managed with Amorita 10 mg 4 times a day from our office and baclofen 10 mg 3 times a day. She states that she does not have any side effects to this medication however she feels like it is really not even touching her pain now with the ongoing hip issues. Patient is asking if we can make any additional adjustments. Her Maxwell has been reviewed and is appropriate. Review of Systems: General: No recent weight changes, no fever, no sleep disturbances Respiratory: No cough, no shortness of air, no recurring pulmonary infections Cardiovascular/peripheral vascular: No chest pain, no palpitations, no edema, no shortness of breath Gastrointestinal: No new onset incontinence, normal bowel movements reported Genitourinary: No new onset incontinence Musculoskeletal: Right hip pain Psychiatric: [Normal mood/affect] Neurological: [Denies weakness in extremities], [denies balance issues] Pain at rest (0-10 scale): 8 Objective Objective:: Physical Exam: General: Alert and oriented x3, no acute distress, pleasant and cooperative Lungs: Respirations even and unlabored, symmetrical chest expansion Eyes: PERRL Musculoskeletal: Flexion and extension of lumbar [spine] somewhat guarded secondary to pain, [antalgic gait noted] Neurological: Speech clear, no gross sensory deficit Has patient had previous pain injection?: No Conservative treatment options previously tried: Prescription medications Length of treatment: Longer than 12 weeks Meds Home Medications and Allergies Home Medications ?Medication ?Instructions ?Recorded ?Confirmed ?Type lidocaine 5 % topical ointment 35 g topical TIDP PRN JOINT PAIN 11/24/20 11/18/24 History mecobalamin (vitamin B12) 1,000 1,000 mcg PO DAILY Supplement 11/24/20 11/18/24 History mcg chewable tablet multivitamin 1 each PO DAILY Supplement 11/24/20 11/18/24 History mirabegron 50 mg tablet,extended 50 mg PO DAILY #30 tabs 10/07/23 11/18/24 Rx release 24 hr furosemide 20 mg tablet (Lasix) 20 mg PO DAILY #100 tabs 12/16/23 11/18/24 Rx thiamine HCl (vitamin B1) 250 mg 250 mg PO DAILY SUPPLEMEMT 02/27/24 10/21/24 History tablet ropinirole 1 mg tablet See Rx Instructions .Route 04/01/24 11/18/24 Rx .COMPLEX #90 tabs esomeprazole magnesium 40 mg See Rx Instructions .Route 04/15/24 11/18/24 Rx capsule,delayed release .COMPLEX #90 caps potassium chloride 20 mEq See Rx Instructions .Route 05/15/24 11/18/24 Rx tablet,extended release(part/cryst) .COMPLEX #180 tabs metoprolol succinate 100 mg 150 mg (1.5 x 100 mg) PO DAILY 06/10/24 11/18/24 Rx tablet,extended release 24 hr BLOOD PRESSURE 90 days #135 tabs trospium 60 mg capsule,extended 60 mg PO DAILY . 06/22/24 10/21/24 History release 24 hr apixaban 5 mg tablet (Eliquis) 5 mg PO BID #60 tabs 07/23/24 11/18/24 Rx colchicine 0.6 mg tablet 0.6 mg PO DAILY GOUT #90 tabs 09/29/24 11/18/24 Rx spironolactone 25 mg tablet See Rx Instructions .Route 10/12/24 10/21/24 Rx .COMPLEX #90 tabs cholecalciferol (vitamin D3) 50 2,000 unit PO DAILY #90 caps 10/20/24 11/18/24 Rx mcg (2,000 unit) capsule baclofen 10 mg tablet 10 mg PO TID #90 tabs 10/21/24 11/18/24 Rx hydrocodone 10 mg-acetaminophen 1 tab PO QID #120 tabs 10/21/24 11/18/24 Rx 325 mg tablet nitrofurantoin 100 mg PO BID #14 caps 11/18/24 11/18/24 Rx monohydrate/macrocrystals 100 mg capsule (Macrobid) semaglutide (weight loss) 2.4 2.4 mg (0.75 mL) SQ WEEKLY #3 mL 11/18/24 11/18/24 Rx mg/0.75 mL subcutaneous pen injector (Kristin) New Prescriptions to Start Prescriptions: Allergies Allergy/AdvReac Type Severity Reaction Status Date / Time sulfamethoxazole (From Allergy Intermediate kidney Verified 11/18/24 10:58 Bactrim) failure trimethoprim (From Bactrim) Allergy Intermediate kidney Verified 11/18/24 10:58 failure ciprofloxacin (From CIPRO) Allergy Unknown HEART RACES Verified 11/18/24 10:58 Penicillins (PENICILLINS) Allergy Unknown YEAST Verified 11/18/24 10:58 INFECTION Assessment and Plan *Assessment and plan (1) Right knee DJD: Status: Chronic Category: Medical Code(s): M17.11 - Unilateral primary osteoarthritis, right knee (2) Left knee DJD: Status: Chronic Category: Medical Code(s): M17.12 - Unilateral primary osteoarthritis, left knee (3) Degenerative joint disease of right hip: Status: Chronic Category: Medical Code(s): M16.11 - Unilateral primary osteoarthritis, right hip Plan We did discuss at length regarding her right hip pain and worsening symptoms. I did mental health counselor her if at any point in time she feels that it is popped out of socket and not going back in place to not wait and come in for evaluation at ER or call 911 in order to be transported here. Patient acknowledges understanding. I did mental health counselor the her that unfortunately we would not be able to make adjustments to the Amorita however I will change the baclofen to 4 times a day. Patient was recommended to call us with any updates regarding the orthopedic provider in [place]. Patient will be given a tentative 1 month follow-up appointment. Patient has been instructed to contact the clinic with any concerns before the next appointment. Dr. Newton has reviewed this note and agrees with this plan of care. This note was dictated using voice recognition software and make contain errors or omissions. All injections are used with Lidocaine, Bupivacaine and dexamethasone. Occasionally urine drug screen is needed to verify patient's compliance with our office pain contract. This is ordered based off specific treatments related to chronic pain with the potential to abuse certain medications.
[2024-11-18 14:31] VITALS: BP 133/81; PULSE 84; RESP 14; O2SAT 95; BMI 65.2
== END 2024-11-18 23:59 | disposition home or self-care (01) ==
PROVIDERS: PCP Internal Medicine; Visit Provider Nurse Practitioner Family
DX: M16.11 Unilateral primary osteoarthritis, right hip (principal); M17.0 Bilateral primary osteoarthritis of knee; Z79.899 Other long term (current) drug therapy
CPT/HCPCS: 36415; 99212; G0463

== ENCOUNTER 2024-11-27 10:41 | Outpatient (CLI) | payer MEDICARE, MEDICAID, SELFPAY ==
[2024-11-27 11:00] VITALS: BP 120/78; PULSE 95; RESP 18; TEMP 36.8; O2SAT 96
[2024-11-27] MEDS: cefTRIAXone 1GM VIAL 1 GM IM (11:00)
== END 2024-11-27 11:21 | disposition home or self-care (01) ==
LOC: INF 10:43
PROVIDERS: PCP Internal Medicine; Visit Provider Internal Medicine
DX: N39.0 Urinary tract infection, site not specified (principal)
CPT/HCPCS: 96372; J0696

== ENCOUNTER 2024-11-30 10:49 | Outpatient (CLI) | payer MEDICARE, MEDICAID, SELFPAY ==
--- OUTSIDE RECORDS SUMMARY | 2024-11-30 10:53 | XMS_ITS ---
Laboratory report Created on: November 27, 2024 KRYSTYNA RUEDA : 1960 Sex: Female Author Organization Unknown PROBLEMS Problems List Code Description RESULTS Laboratory Orders Date Order Code Test 2024-11-18 [id number] OXYCODONES,MS,WB /SP RFX 2024-11-18 [id number] DRUG SCREEN 13 W /CONF, SERUM 2024-11-18 [id number] OPIATES,MS,WB/SP RFX Laboratory Results Date LOINC Test Value Unit Reference Range Interpre tation 2024-11-18 48970-8 OXYCODONES CONFIRMATION N 2024-11-18 95050-7 OXYCODONE N NG/ML 2024-11-18 [id number] OXYMORPHONE N NG/ML 2024-11-18 [id number] AMPHETAMINES, IA N NG/ML CUTOFF:50 2024-11-18 97330-0 BARBITURATES, IA N UG/ML CUTOFF:0.1 2024-11-18 12257-8 BENZODIAZEPINES, IA N NG/ML CUTOFF:20 2024-11-18 [id number] COCAINE & METABO LITE, IA N NG/ML CUTOFF:25 2024-11-18 8236-2 PHENCYCLIDINE, IA N NG/ML CUTOFF:8 2024-11-18 8172-9 THC(MARIJUANA) METABOLITE, IA N NG/ML CUTOFF:5 2024-11-18 8219-8 OPIATES, IA MX++PA NG/ML CUTOFF:5 A 2024-11-18 95365-1 OXYCODONES, IA N NG/ML CUTOFF:5 2024-11-18 70106-9 METHADONE, IA N NG/ML CUTOFF:25 2024-11-18 02117-0 FENTANYL, IA N NG/ML CUTOFF:1.0 2024-11-18 79884-5 PROPOXYPHENE, IA N NG/ML CUTOFF:50 2024-11-18 3744-0 MEPERIDINE, IA N NG/ML CUTOFF:100 2024-11-18 61872-0 TRAMADOL, IA N NG/ML CUTOFF:50 2024-11-18 78970-1 OPIATE CONFIRMATION +P 2024-11-18 35058-1 CODEINE N NG/ML 2024-11-18 34150-8 MORPHINE N NG/ML 2024-11-18 93445-1 6-ACETYLMORPHINE N 2024-11-18 15155-4 HYDROCODONE 10.6 NG/ML 2024-11-18 66591-9 HYDROMORPHONE N NG/ML 2024-11-18 23989-2 DIHYDROCODEINE 1.7 NG/ML
[2024-11-30] MEDS: cefTRIAXone 1GM VIAL 1 GM IM (11:27)
[2024-11-30 11:30] VITALS: BP 116/90; PULSE 83; RESP 18; O2SAT 98
== END 2024-11-30 11:30 | disposition home or self-care (01) ==
LOC: INF 10:51
PROVIDERS: PCP Internal Medicine; Visit Provider Internal Medicine
DX: N39.0 Urinary tract infection, site not specified (principal)
CPT/HCPCS: 96372; J0696

== ENCOUNTER 2024-12-01 10:42 | Outpatient (CLI) | payer MEDICARE, MEDICAID, SELFPAY ==
[2024-12-01 11:05] VITALS: BP 131/77; PULSE 74; RESP 20; TEMP 36.7; O2SAT 98
[2024-12-01] MEDS: cefTRIAXone 1GM VIAL 1 GM IM (11:06)
== END 2024-12-01 11:20 | disposition home or self-care (01) ==
LOC: INF 10:44
PROVIDERS: PCP Internal Medicine; Visit Provider Internal Medicine
DX: N39.0 Urinary tract infection, site not specified (principal)
CPT/HCPCS: 96372; J0696

== ENCOUNTER 2024-12-02 11:00 | Outpatient (CLI) | payer MEDICARE, MEDICAID, SELFPAY ==
[2024-12-02] MEDS: cefTRIAXone 1GM VIAL 1 GM IM (11:20)
[2024-12-02 11:24] VITALS: BP 122/81; PULSE 74; RESP 19; TEMP 36.1; O2SAT 98
== END 2024-12-02 11:24 | disposition home or self-care (01) ==
LOC: INF 11:01
PROVIDERS: PCP Internal Medicine; Visit Provider Internal Medicine
DX: N39.0 Urinary tract infection, site not specified (principal)
CPT/HCPCS: 96372; J0696

== ENCOUNTER 2024-12-03 10:09 | Outpatient (CLI) | payer MEDICARE, MEDICAID, SELFPAY ==
[2024-12-03] MEDS: cefTRIAXone 1GM VIAL 1 GM IM (10:29)
[2024-12-03 10:30] VITALS: BP 128/76; PULSE 74; RESP 18; TEMP 36.8; O2SAT 100
== END 2024-12-03 10:35 | disposition home or self-care (01) ==
LOC: INF 10:11
PROVIDERS: PCP Internal Medicine; Visit Provider Internal Medicine
DX: N39.0 Urinary tract infection, site not specified (principal)
CPT/HCPCS: 96372; J0696

== ENCOUNTER 2024-12-04 10:00 | Outpatient (CLI) | payer MEDICARE, MEDICAID, SELFPAY ==
[2024-12-04 10:12] VITALS: BP 126/89; PULSE 88; RESP 18; TEMP 36.4; O2SAT 98
[2024-12-04] MEDS: cefTRIAXone 1GM VIAL 1 GM IM (10:12)
== END 2024-12-04 10:27 | disposition home or self-care (01) ==
LOC: INF 10:00
PROVIDERS: PCP Internal Medicine; Visit Provider Internal Medicine
DX: N39.0 Urinary tract infection, site not specified (principal)
CPT/HCPCS: 96372; J0696

== ENCOUNTER 2024-12-14 11:25 | Outpatient (CLI) | payer MEDICARE, MEDICAID, SELFPAY ==
[2024-12-14] VITALS (8 sets, daily range): BP systolic 108–143; BP diastolic 67–108; PULSE 70–80; RESP 17–18; O2SAT 95–97; BMI 64.3
[2024-12-14] MEDS: METOPROLOL TARTRATE 50MG TABLET PO ×2 (12:10→13:03)
[2024-12-14] MEDS: IVABRADINE HCL 7.5MG TABLET PO (12:10)
[2024-12-14 12:20] LABS: Chloride 105 mmol/L (98-107); Potassium 4.8 mmoL/L (3.5-5.1); Sodium 138 mmol/L (136-145)
[2024-12-14 12:23] LABS: Anion Gap 10.8 mEq/L (5-15); Blood Urea Nitrogen 25 mg/dl (7-17); Calcium 9.4 mg/dl (8.4-10.2); Carbon Dioxide 27 mmol/L (22.0-30.0); Creatinine Clearance Estimated 48 mL/min (50-200); Estimated Glomerular Filt Rate 63 ml/min (>60); GFR (African American) 76 ML/MIN (>60); Glucose 88 mg/dl (74-100)
--- NOTE | 2024-12-14 13:00 | CT_ITS ---
APPROVED REPORT Food And Beverage Assistant: CLINICAL INDICATION Chest Pain TECHNIQUE Image Acquisition: A 128 slice MDCT scanner ([employer] TVa View) was used for data acquisition. A noncontrast coronary calcium scan was performed. A CT attenuation threshold of 130 Hounsfield units (HU) was used for the detection of calcium in contiguous voxels of 1 sq mm in area to be counted as individual lesions. Bolus tracking in the ascending aorta with a threshold of 180 HU was performed. Immediately afterwards, ECG synchronized cardiac CT was then performed from the cardiac base to apex using retrospective gating with ECG tube current modulation. A total of 85 mL of Isovue 370 mg/mL contrast medium was administered at 5 mL/sec followed by a saline flush using a biphasic injection protocol. A tube voltage of 120 KVp was used. The patient received the following medications prior to the cardiac CT. 125 mg of oral metoprolol 20 mg of intravenous metoprolol 15 mg of oral ivabradine 0.8 mg of sublingual nitroglycerin The average heart rate at the time of acquisition was 96 bpm and regular. Image Reconstruction Transaxial images were reconstructed at 0.67 mm slide thickness. Data was reviewed interactively on an advanced workstation capable of 2 and 3-dimensional displays in all conventional reconstruction formats, including multiplanar reformations, maximum intensity projections, curved multiplanar reformations, and volume rendered reconstructions. When applicable, selected routine images describing the relevant coronary anatomy and pathology were saved and sent to PACS. Complications None Technical Quality Overall image quality was nondiagnostic due to significantly elevated HR despite HR-controlling medications. Coronary artery opacification was suboptimal. Total DLP (Dose-Length Product) is 2888.3 mGy-cm. The reported value represents the total of one or more individual components during the CT acquisition of this date and at this time, and as such, the same value may appear in more than one CT report depending on the interpreting/reporting physicians. COMPARISON None FINDINGS CT Coronary Calcium Scoring LMA (Left Main Artery) = 0 LAD (Left Anterior Descending) = 0 LCX (Left Coronary Circumflex) = 0 RCA (Right Coronary Artery) = 0 Total Calcium Score = 0 using the AJ-130 method. The interpretation of the calcium heart score is based on the following continuum*: 0 = no calcified plaque detected (risk of coronary artery disease is very low ??? less than 5%) 1-10 = calcium detected in extremely minimal levels (risk of coronary diseases is still low ??? less than 10%) 11-100 = mild levels of plaque detected with certainty (mild or minimal narrowing of heart arteries is likely) 101-400 = definite,at least moderate levels of plaque detected (relatively high risk of a heart attack within 3-5 years) >401-999 = extensive levels of plaque detected (high risk of heart attack, high levels of vascular disease are present, high likelihood of at least one significant coronary narrowing) *The calcium heart score quantifies the burden of coronary calcification/plaque in the coronary arteries. The calcium heart score is not able to evaluate the presence or burden of non-calcified (i.e. soft) plaque. There is no identifiable calcification in the aortic valve, mitral annulus or mitral valve, pericardium, or myocardium. Coronary CT Angiography The coronary arterial system is right dominant. Quantitative Stenosis Grading: Left Main (LM): The left main originates normally from the left sinus of Valsalva. The LM bifurcates into the left anterior descending artery and left circumflex artery. The LM is patent with no evidence of atherosclerosis. Left Anterior Descending (LAD) and Diagonal Branches: The LAD gives off 3 diagonal branch(es). Grossly, the LAD and its branches are patent with no evidence of atherosclerosis in the visualized segments. There is no evidence of LAD-myocardial bridge. Left Circumflex (LCX) and Obtuse Marginals (OM): The LCX gives off 1 Obtuse Marginal (OM) branch(es). Grossly, the LCX and its branches are patent with no evidence of atherosclerosis in the visualized segments. Right Coronary Artery (RCA): The RCA originates normally from the right sinus of Valsalva. The RCA gives off a posterior descending artery (PDA) and posterolateral (PL) branches. Grossly, the RCA and its branches are patent with no evidence of atherosclerosis in the visualized segments. Non-Coronary Cardiac Findings: Analysis of the left ventricular (LV) structure and function was performed after 3-D reconstruction of the LV from axial images, with user-corrected automatic contouring for assessment of LV volumes and user-defined reconstruction from oblique planes for measurement of 3-D cardiac structure and function. -The left ventricle systolic function is indeterminate. -There is no left atrial appendage filling defect. Two right pulmonary veins and two left pulmonary veins drain normally into the left atrium. -No pericardial thickening or calcification. -Central and branch pulmonary arteries in the [id number] are unremarkable. -Thoracic aorta within the visualized thoracic aortic-branches in the [id number] is unremarkable. Extracardiac Structures No significant extra-cardiac findings. Note, however, that this study is focused on the cardiac findings. IMPRESSION -Overall, nondiagnostic study in the setting of suboptimal images due to elevated HR despite HR-controlling medications. Suboptimal IV contrast opacification. -Absence of coronary calcification with an Agatston score = 0 using the AJ-130 method. - Grossly, no evidence of significant flow-limiting atherosclerosis of the coronary arteries in the visualized segments. -CAD-RADS indeterminate. Management recommendations per ACC/AHA guidelines*, as clinically appropriate. - If clinically indicated and/or feasible, alternative testing is suggested for evaluation of ischemia in the setting of technically difficult and nondiagnostic CCTA. *Recommendations: CAD RADS 0: Reassurance. Consider non-atherosclerotic causes of chest pain. CAD RADS 1: Consider non-atherosclerotic causes of chest pain. Consider preventive therapy and risk factor modification. CAD RADS 2: Consider non-atherosclerotic causes of chest pain. Consider preventive therapy and risk factor modification, particularly for patients with nonobstructive plaque in multiple segments. CAD RADS 3: Consider further functional testing. Consider symptom-guided anti-ischemic and preventive pharmacotherapy as well as risk factor modification per published guideline statements. CAD RADS 4A: Consider further functional testing or invasive coronary angiography with revascularization per published guideline statements. Consider symptom-guided anti-ischemic and preventive pharmacotherapy as well as risk factor modification per published guideline statements. CAD RADS 4B: Invasive coronary angiography recommended with revascularization per published guideline statements. Consider symptom-guided anti-ischemic and preventive pharmacotherapy as well as risk factor modification per published guideline statements. CAD RADS 5: Consider invasive angiography and/or viability assessment with revascularization per published guideline statements. Consider symptom-guided anti-ischemic and preventive pharmacotherapy as well as risk factor modification per published guideline statements. CRITICAL RESULT None COMMUNICATION Per this written report The coronary and cardiac findings of this CCTA were reviewed, reported, and signed by Praveen Shah MD ([employer] Team Member) Conclusion Electronically signed by : Supriya Shah MD 12/16/2024 12:41:14
[2024-12-14] MEDS: METOPROLOL TARTRATE 5MG/5ML VIAL 5 MG IV ×3 (13:50→14:03)
== END 2024-12-14 14:45 | disposition home or self-care (01) ==
PROVIDERS: PCP Internal Medicine; Visit Provider Physician Assistant
DX: I25.10 Atherosclerotic heart disease of native coronary artery without angina pectoris (principal); R94.31 Abnormal electrocardiogram [ECG] [EKG]; I10 Essential (primary) hypertension; R53.83 Other fatigue; Z86.79 Personal history of other diseases of the circulatory system
CPT/HCPCS: 75574; 80048

== ENCOUNTER 2024-12-17 10:21 | Outpatient (POV) | payer MEDICARE, MEDICAID, SELFPAY ==
[2024-12-17 10:39] VITALS: BP 126/81; PULSE 88; RESP 14; O2SAT 91; BMI 64.8
--- NOTE | 2024-12-17 10:45 | EXP.PAIN.SOA ---
[facility] Disclaimer: The information contained in this section may have been updated after the patient was seen, as this information can be updated by other users. Medical History History of orthopnea Paroxysmal A-fib Abnormal electrocardiogram [ECG] [EKG] Cryptic tonsil Enlarged tonsils Tinnitus Bilateral hearing loss Gout CAD (coronary artery disease) Osteoporosis HTN (hypertension), benign GERD (gastroesophageal reflux disease) Surgical History History of gastric bypass History of History of hysterectomy Family History Other Coronary artery disease Depression Diabetes YUMIKO (obstructive sleep apnea) Obesity (BMI 30.0-34.9) Social History Smoking Status: Never smoker alcohol intake: never substance use type: denies use current occupational status: other Travel in the last 8 weeks?: None household members: none housing: apartment caffeine: Yes PM Subjective & Objective Subjective Subjective:: Patient is a pleasant 54-year-old female who presents today for 1 month follow-up and medication refill. She rates her pain today as 6 out of 10. She does state that she is still having the same issues that we discussed at her last visit with feeling like her hip is going in and out of place. Patient did end up trying to get into see the [facility] However was then told that her insurance is not taken at this location. Patient does state that she has had a lot of issues with her [facility] and is planning on calling them later today. Patient does also make mention that she has been to see cardiology and they did give her the allCLEAR for surgery. Patient is currently managed from our office with [employer] 10 mg 4 times a day and baclofen 10 mg 3 times a day. She denies any side effects. Her [place] has been reviewed and is appropriate. Review of Systems: General: No recent weight changes, no fever, no sleep disturbances Respiratory: No cough, no shortness of air, no recurring pulmonary infections Cardiovascular/peripheral vascular: No chest pain, no palpitations, no edema, no shortness of breath Gastrointestinal: No new onset incontinence, normal bowel movements reported Genitourinary: No new onset incontinence Musculoskeletal: Right hip pain, bilateral knee pain Psychiatric: [Normal mood/affect] Neurological: [Denies weakness in extremities], [denies balance issues] Pain at rest (0-10 scale): 8 Objective Objective:: Physical Exam: General: Alert and oriented x3, no acute distress, pleasant and cooperative Lungs: Respirations even and unlabored, symmetrical chest expansion Eyes: PERRL Musculoskeletal: Flexion and extension of lumbar [spine] somewhat guarded secondary to pain, [antalgic gait noted] Neurological: Speech clear, no gross sensory deficit Has patient had previous pain injection?: No Conservative treatment options previously tried: Prescription medications Length of treatment: Longer than 12 weeks Meds Home Medications and Allergies Home Medications ?Medication ?Instructions ?Recorded ?Confirmed ?Type lidocaine 5 % topical ointment 35 g topical TIDP PRN JOINT PAIN 11/24/20 12/17/24 History mecobalamin (vitamin B12) 1,000 1,000 mcg PO DAILY Supplement 11/24/20 12/17/24 History mcg chewable tablet multivitamin 1 each PO DAILY Supplement 11/24/20 12/17/24 History mirabegron 50 mg tablet,extended 50 mg PO DAILY #30 tabs 10/07/23 12/17/24 Rx release 24 hr thiamine HCl (vitamin B1) 250 mg 250 mg PO DAILY SUPPLEMEMT 02/27/24 12/17/24 History tablet ropinirole 1 mg tablet See Rx Instructions .Route 04/01/24 12/17/24 Rx .COMPLEX #90 tabs esomeprazole magnesium 40 mg See Rx Instructions .Route 04/15/24 12/17/24 Rx capsule,delayed release .COMPLEX #90 caps trospium 60 mg capsule,extended 60 mg PO DAILY . 06/22/24 12/17/24 History release 24 hr colchicine 0.6 mg tablet 0.6 mg PO DAILY GOUT #90 tabs 09/29/24 12/17/24 Rx spironolactone 25 mg tablet See Rx Instructions .Route 10/12/24 12/17/24 Rx .COMPLEX #90 tabs cholecalciferol (vitamin D3) 50 2,000 unit PO DAILY #90 caps 10/20/24 12/17/24 Rx mcg (2,000 unit) capsule hydrocodone 10 mg-acetaminophen 1 tab PO QID #120 tabs 11/18/24 12/17/24 Rx 325 mg tablet semaglutide (weight loss) 2.4 2.4 mg (0.75 mL) SQ WEEKLY #3 mL 11/18/24 12/17/24 Rx mg/0.75 mL subcutaneous pen injector (Wegovy) furosemide 40 mg tablet 40 mg PO DAILY 3 days #3 tabs 11/25/24 12/17/24 Rx metoprolol succinate 100 mg 50 mg PO DAILY BLOOD PRESSURE 11/25/24 12/17/24 History tablet,extended release 24 hr apixaban 5 mg tablet (Eliquis) 5 mg PO BID #60 tabs 12/14/24 12/17/24 Rx furosemide 20 mg tablet See Rx Instructions .Route 12/14/24 12/17/24 Rx .COMPLEX #90 tabs potassium chloride 20 mEq See Rx Instructions .Route 12/14/24 12/17/24 Rx tablet,extended release(part/cryst) .COMPLEX #120 tabs New Prescriptions to Start Prescriptions: Allergies Allergy/AdvReac Type Severity Reaction Status Date / Time sulfamethoxazole (From Allergy Intermediate kidney Verified 12/04/24 10:26 Bactrim) failure trimethoprim (From Bactrim) Allergy Intermediate kidney Verified 12/04/24 10:26 failure ciprofloxacin (From CIPRO) Allergy Unknown HEART RACES Verified 12/04/24 10:26 Penicillins (PENICILLINS) Allergy Unknown YEAST Verified 12/04/24 10:26 INFECTION ampicillin Allergy Rash Verified 12/14/24 11:44 Assessment and Plan *Assessment and plan (1) Right knee DJD: Status: Chronic Category: Medical Code(s): M17.11 - Unilateral primary osteoarthritis, right knee (2) Left knee DJD: Status: Chronic Category: Medical Code(s): M17.12 - Unilateral primary osteoarthritis, left knee (3) Degenerative joint disease of right hip: Status: Chronic Category: Medical Code(s): M16.11 - Unilateral primary osteoarthritis, right hip Plan I will refill the patient's [employer] and baclofen but sure she does have a 1 month supply of these medications. We will continue to follow-up with her regarding the possibility of orthopedic surgery for her hip coming up. Patient will return to clinic in 1 month. Risks and benefits of the medication have been explained in detail to the patient. The patient does understand the risk of dependence on the medication when given over a prolonged period. Patient has been advised of risks of oversedation with the prescribed medication. Narcan has been offered to the paitent in the event of oversedation. Patient has been advised that a family member should also be educated regarding administration of Narcan. The patient has been advised to consult with his/her primary care provider and pharmacist regarding drug-drug interaction of medications currently prescribed. Patient has been prescribed a controlled substance after being counseled on the medication, medication safety, and possible side effects. Opioid contract was reviewed and signed by the patient, and that they have agreed to all of the terms set forth by our compliance program. A UDS is needed to verify patient's compliance with our office pain contract. This is ordered based off specific treatments related to chronic pain with the potential to abuse certain medications. Patient has been instructed to contact the clinic with any concerns before the next appointment. Dr. Newton has reviewed this note and agrees with this plan of care. This note was dictated using voice recognition software and make contain errors or omissions.
== END 2024-12-17 23:59 | disposition home or self-care (01) ==
PROVIDERS: PCP Internal Medicine; Visit Provider Nurse Practitioner Family
DX: M17.0 Bilateral primary osteoarthritis of knee (principal); M16.11 Unilateral primary osteoarthritis, right hip; Z79.899 Other long term (current) drug therapy
CPT/HCPCS: 99212; G0463

== ENCOUNTER 2025-02-03 11:11 | Outpatient (POV) | payer MEDICARE, MEDICAID, SELFPAY ==
--- OUTSIDE RECORDS SUMMARY | 2025-02-03 11:14 | XMS_ITS | Clinical Summary ---
Author Organization [facility] [place] Address [address] [place] [address] Phone Care Team Providers Care Fleet Coordinator Name Role Phone Unavailable Primary Care Provider Unavailabl e Allergies Active Allergy Reactions Criticality Noted Date Comments Aspirin Can't take d/t gastric bypass surgery-per pt. Ciprofloxacin Other (See Comments) 09/27/2014 Makes heart race per patient Corticosteroids (Glucocorticoids) Can't take d/t gastric bypass surgery Medications potassium chloride SA (K-DUR;KLOR-CON) 20 mEq Oral Tab Sust.Rel. Particle/Crystal Take 40 mEq by mouth 2 times daily. Active hydrochlorothiaz alexander (MICROZIDE) 12.5 mg Oral Capsule Take 12.5 mg by mouth daily. Active Telmisartan-Amlo dipine 80-5 mg Oral Tablet Take 1 Tab by mouth daily. Active fUROsemide (LASIX) 40 mg Oral Tablet Take 80 mg by mouth daily. Active roPINIRole (REQUIP) 1 mg Oral Tablet Take 1 mg by mouth nightly. Active HYDROcodone-acet aminophen (NORCO) 5-325 mg Oral Tablet Take 1 Tab by mouth every 8 hours as needed for Pain. Active estradiol (ESTRACE) 2 mg Oral Tablet Take 2 mg by mouth daily. Active ALPRAZolam (XANAX) 0.25 mg Oral Tablet Take 0.25 mg by mouth daily as needed for Anxiety. Active esomeprazole (NEXIUM) 40 mg Oral Capsule, Delayed Release(E.C.) Take 40 mg by mouth daily. Active multivitamin (THERAGRAN) Oral Tablet Take 2 Tabs by mouth daily. Active ascorbic acid (VITAMIN C) 1,000 mg Oral Tablet Take 1,000 mg by mouth daily. Active THIAMINE HCL (VITAMIN B-1 ORAL) Take 500 mg by mouth daily. Active CYANOCOBALAMIN, VITAMIN B-12, (VITAMIN B-12 ORAL) Take 2,500 mg by mouth daily. Active vitamin E 1,000 unit Oral Capsule Take 1,000 Units by mouth daily. Active Cholecalciferol, Vitamin D3, (VITAMIN D3) 5,000 unit Oral Tablet Take 1 Cap by mouth daily. Active ferrous sulfate 325 mg (65 mg iron) Oral Tablet Take 325 mg by mouth 3 times daily. , , Saturday-per pt Active Calcium-Vitamin D3-Vitamin K 500-500-40 mg-unit-mcg Oral Tablet, Chewable Take 1 Tab by mouth daily. Active Active Problems Problem Noted Date Diagnosed Date SVT (supraventricular tachycardia) 10/31/2014 HTN (hypertension) Palpitations GERD (gastroesophageal reflux disease) Arthritis Anxiety Depression Surgical History Surgery Date Site/Laterality Comments DILATION AND CURETTAGE OF UTERUS SECTION GASTRIC BYPASS SURGERY CYST REMOVAL MARY ANNE AND BSO CARDIAC CATHETERIZATION 2008 COLONOSCOPY 2013 Medical History Medical History Date Comments Anxiety Arthritis GERD (gastroesophageal reflux disease) HTN (hypertension) Palpitations Depression Family History Medical History Relation Name Comments Cancer Other Coronary Art Dis Other Diabetes Other Hypertension Other Relation Name Status Comments Other Social History Tobacco Use Types Packs/Day Years Used Date Smoking Tobacco: Never Smokeless Tobacco: Never Tobacco Cessation:Counseling Given: Yes Alcohol Use Standard Drinks/Week Comments No 0 (1 standard drink = 0.6 oz pur e alcohol) Comments Unknown Sex and Gender Information Value Date Recorded Sex Assigned at Not on file Legal Sex Female 9:48 AM EST Gender Identity Not on file Sexual Orientation Not on file Obstetrics History Last Filed Vital Signs Vital Sign Reading Time Taken Comments Blood Pressure 130/82 10/27/2014 2:34 PM EDT lef t arm Pulse 72 10/27/2014 2:34 PM EDT Temperature - - Respiratory Rate - - Oxygen Saturation 95% 10/27/2014 2:34 PM EDT Inhaled Oxygen Concentration - - Weight 149.7 kg (330 lb) 10/27/2014 2:34 PM EDT Height 162.6 cm (5' 4 ) 10/27/2014 2:34 PM EDT Body Mass Index 56.64 10/27/2014 2:34 PM EDT Plan of Treatment Health Maintenance Due Date Last Done Comments Wellness Exam Medicare 1963 Hepatitis C Screening 1977 DTaP/TDaP/Td (1 - Tdap) 1978 Cologuard 2004 FIT 2004 Sigmoidoscopy 2004 Virtual Colonography 2004 Pneumococcal Vaccine 50+ (1 of 1 - PCV) 2009 Zoster (1 of 2) 2009 Breast Cancer Screening 10/27/2016 10/28/19 15 (Not Entered) COVID-19 Vaccine (1 - 2023-2 5 season) 2024 Bone Density Screening 2024 Colon Cancer Screening 10/27/2024 Colonoscopy 10/27/2024 10/27/2014 (Not Entered) Influenza Vaccine (#1) 2025 Hepatitis B Vaccine Aged Out No longe r eligible based on patient's age to complete this topic Meningococcal B Vaccine Aged Out No l onger eligible based on patient's age to complete this topic Insurance MEDICARE [place] PART A AND B [facility] [id number] [facility]
--- OUTSIDE RECORDS SUMMARY | 2025-02-03 11:14 | XMS_ITS | Encounter Summary ---
Author Organization [facility] Address [address] [place] [address] Care Team Providers Care Black Puller Name Role Phone Dejan Vee MD Primary Care Provider [phone] Camille Mcdaniel MD Unavailable [phone] Vadim Gee MD Primary Care Provider [phone] Encounter Details Date Type Department Care Team (Late st Contact Info) Description 02/09/2023 [facility] [address] [place] [address] Joe Guerra PA [address] [place] [phone] Unilateral primary osteoarthritis, right hip (Primary Dx) [...] on file documented as of this encounter Visit Diagnoses Diagnosis Unilateral primary osteoarthritis, right hip- Primary documented in this encounter Additional Health Concerns Assessment Noted Time A Body Mass Index follow-up plan has been documented for the patient 09/17/2022 12:08 PM EST documented as of this encounter Care Teams Black Puller Relationship Specialty Start Date End Date Dejan Vee MD [address] [place] [address] PCP - General 11/15/21 03/16/24 Vadim Gee MD [address] [place] [address] PCP - General 03/17/24 Camille Mcdaniel MD [address] [place] [address] [address] [place] [address] Referring Physician 11/15/21 documented as of this encounter
--- OUTSIDE RECORDS SUMMARY | 2025-02-03 11:14 | XMS_ITS | Referral Summary ---
Author Organization [facility] ([place], [place], [place], [place]) Address [address] [place] [address] Care Team Providers Care Community Cultural Development Officer Name Role Phone Unavailable Primary Care Provider [...]
--- OUTSIDE RECORDS SUMMARY | 2025-02-03 11:14 | XMS_ITS | Clinical Summary ---
Author Organization [facility] Address [address] [place] [address] Care Team Providers Care Fish Hatchery Worker Name Role Phone McdanielCamille MD Unavailable [phone] Vadim Gee MD Primary Care Provider [phone] Allergies Active Allergy Reactions Criticality Noted Date [...] 06/04/2023 Medications Multiple Vitamin (MULTI-VITAMIN DAILY PO) 11/30/19 21 Active cyanocobalamin (Vitamin B-12) 1000 MCG tablet 11/30/19 21 Active esomeprazole (NexIUM) [address] capsule TAKE 1 CAPSULE ONCE DAILY. 11/30/19 21 Active furosemide (Lasix) 40 MG tablet TAKE 1-2 TABLETS DAILY DIRECTED. 11/30/19 21 Active HYDROcodone-acetam inophen ([place]) 7.5-325 MG tablet Take 10 mg of hydrocodone by mouth. 11/30/19 21 Active lactulose (Chronulac) 10 GM/15ML solution 11/30/19 21 Active Lidocaine (Anorectal) 5 % cream cream 11/30/19 Active potassium chloride CR (Klor-Con M20) 20 MEQ ER tablet TAKE 2 TABLETS TWICE DAILY 11/30/19 Active rOPINIRole (Requip) 1 MG tablet 11/30/19 Active spironolactone (Aldactone) 25 MG tablet TAKE 1 TABLET DAILY. 11/30/19 Active thiamine (Vitamin B-1) 500 MG tablet TAKE 1 TABLET DAILY. 11/30/19 Active cyclobenzaprine (Flexeril) 10 MG tablet 11/30/19 Active colchicine 0.6 MG tablet TAKE 1 TABLET TWICE DAILY DIRECTED. 11/30/19 Active metoprolol succinate XL (Toprol-XL) 100 MG 24 hr tablet Take 1.5 tablets (150 mg) by mouth 1 (one) time each day. 08/26/19 24 Active diclofenac (Voltaren) 1 % topical gelIndications:Eliana vesta osteoarthritis of both knees Place on the skin 4 (four) times a day if needed (knee pain). Apply as directed to anterior knee 150 g 3 02/06/20 24 Active Eliquis 5 MG tablet 04/29/20 24 Active cholecalciferol (Vitamin D-3) 50 MCG (2000 UT) capsule Take 1 capsule (2,000 Units) by mouth 1 (one) time each day. 04/15/20 24 Active Semaglutide-Weight Management 1 MG/0.5ML solution auto-injector Inject 1 mg under the skin 1 (one) time per week. 2 mL 2 05/01/20 24 Active Trospium Chloride ER 60 MG capsule sustained-release 24 hrIndications:Urge incontinence of urine Take 1 capsule (60 mg) by mouth 1 (one) time each day. 30 capsule 11 05/25/20 24 025 Active mirabegron ER (Myrbetriq) 50 MG tabletIndications: Incontinence,Urgen cy incontinence Take 1 tablet (50 mg) by mouth daily. 90 tablet 3 10/10/19 25 026 Active Hospital, Clinic, or Other Facility Administered Medication [...] 11/01/2021 GERD (gastroesophageal reflux disease) Hyperlipidemia 11/01/2021 YUIMKO (obstructive sleep apnea) 11/01/2021 CKD (chronic kidney disease) stage 3, GFR 30-59 ml/min 11/29/2020 SVT (supraventricular tachycardia) 10/31/2014 Resolved Problems Problem Noted Date Diagnosed Date Resolved Date Type 2 diabetes mellitus 11/06/2021 Hypertension 11/29/2020 11/06/2021 Encounters Date Type Department Care Team Description 11/06/2024 Telephone [facility] [address] [place] [address] Vesta Rosa, FOOD SALES CLERK, DNP [facility] Clinical Concern/Question from Last 3 Months Immunizations Immunization Administration Dates Next Due Influenza, seasonal, injectable 06/13/2010 Family History Medical History Relation Name Comments Cancer Brother Nani Swetha Jr. Asthma Father Nani Davisson Sr. Coronary artery disease Father Nani Posada Sr. Diabetes Father Nani Posada Sr. Heart disease Father aNni Davisson Sr. Hypertension Father Nani Posada Sr. Obesity [...] 84 05/25/2024 2:56 PM EDT Temperature 36.6 C (97.9 F) 05/31/2023 8:35 AM EDT Respiratory Rate 18 09/30/2023 12:28 PM EST Oxygen Saturation 96% 03/26/2024 9:51 AM EDT Inhaled Oxygen Concentration - - Weight 176 kg (388 lb 0.2 oz) 05/01/2024 1:23 PM EDT Height 162.6 cm (5' 4 ) 05/01/2024 1:23 PM EDT Body Mass Index 66.6 05/01/2024 1:23 PM EDT Plan of Treatment Health Maintenance Due Date Last Done Comments [facility]-Bone Density Scan 1959 [facility]-Hepatitis C Screening 1959 [facility]-Medicare Annual Wellness (AWV) 1959 [facility]-Infant/Child/Adol SDOH Screenings 1959 [facility]- SDOH Screenings 1977 [facility]-Adult SDOH Screenings 1977 [facility]-DTaP,Tdap,and Td Vaccines (1 - Tdap) 1978 CT Colonography 2004 Colonoscopy 2004 FIT-DNA 2004 FIT 2004 FOBT 2004 Sigmoidoscopy 2004 [facility]-Colorectal Cancer Screening 2004 [facility]-Breast Cancer Screening 2009 [facility]-Pneumococcal Vaccine: 50+ Years (1 of 1 - PCV) 2009 [facility]-Zoster Vaccines (1 of 2) 2009 [facility]-RSV Vaccine: 60+ Years or (1 - Risk 60-74 years 1-dose series) 2019 [id number] Vaccine (1 - 2023-25 season) 2024 [facility]-Depression Screening 03/26/2025 03/26/2024 [facility]-Influenza Vaccine (#1) 2025 06/13/2010 [facility]-Obesity Intervention Completed 024, 05/01/2024, 03/26/2024, Additional history exists HPV Vaccines Aged Out No longer eligi ble based on patient's age to complete this topic [facility]-HIB Vaccines Aged Out No longer e [...] patient's age to complete this topic Insurance [employer] MEDICAID WELL[employer] MEDICARE Care Teams Fish Hatchery Worker Relationship Specialty Start Date End Date Vadim Gee MD [address] [place] [address] PCP - General 03/17/24 Camille Mcdaniel MD [address] [place] [address] [place] [address] Referring Physician 11/15/21
--- OUTSIDE RECORDS SUMMARY | 2025-02-03 11:14 | XMS_ITS | Clinical Summary ---
Author Organization [facility] ([place], [place], [place] Address [address] [place] [address] Care Team Providers Care Risk Analyst Name Role Phone Unavailable Primary Care Provider [...]
--- NOTE | 2025-02-03 11:43 | A.OFFVIS_ITS ---
[facility] Disclaimer: The information contained in this section may have been updated after the patient was seen, as this information can be updated by other users. Medical History History of orthopnea Paroxysmal A-fib Abnormal electrocardiogram [ECG] [EKG] Cryptic tonsil Enlarged tonsils Tinnitus Bilateral hearing loss Gout CAD (coronary artery disease) Osteoporosis HTN (hypertension), benign GERD (gastroesophageal reflux disease) Surgical History History of gastric bypass History of History of hysterectomy Family History Other Coronary artery disease Depression Diabetes YUMIOK (obstructive sleep apnea) Obesity (BMI 30.0-34.9) Social History Smoking Status: Never smoker alcohol intake: never substance use type: denies use current occupational status: other Travel in the last 8 weeks?: None household members: none housing: apartment caffeine: Yes PM Subjective & Objective Subjective Subjective:: Patient is a pleasant 64-year-old female who presents today for her monthly medication refill. She rates her pain today an 8 out of 10. She does state that she has been having more knee and hip pain. She states that her mechanical tire actually broke down and she has been having to rely on using her walker and other assistive devices at home. She states her home has a lot of ramps and that she is actually had to go up them and that did cause increased pain. She states that she did eventually get the device repaired however it took longer than a month. Patient states that she is still waiting on the cable for this d evice. Patient denies any other updates regarding any orthopedic providers who may be interested in proceeding forward with hip replacement or knee replacement. Patient is currently managed with [place] 10 mg 4 times a day and baclofen 10 mg 3 times a day from our office. She denies any side effects. Her Maxwell has been reviewed and is appropriate. Review of Systems: General: No recent weight changes, no fever, no sleep disturbances Respiratory: No cough, no shortness of air, no recurring pulmonary infections Cardiovascular/peripheral vascular: No chest pain, no palpitations, no edema, no shortness of breath Gastrointestinal: No new onset incontinence, normal bowel movements reported Genitourinary: No new onset incontinence Musculoskeletal: Chronic knee pain, hip pain Psychiatric: [Normal mood/affect] Neurological: [Denies weakness in extremities], [denies balance issues] Pain at rest (0-10 scale): 8 Objective Objective:: Physical Exam: General: Alert and oriented x3, no acute distress, pleasant and cooperative Lungs: Respirations even and unlabored, symmetrical chest expansion Eyes: PERRL Musculoskeletal: Flexion and extension of bilateral knees somewhat guarded secondary to pain, [antalgic gait noted] Neurological: Speech clear, no gross sensory deficit Has patient had previous pain injection?: No Conservative treatment options previously tried: Prescription medications Length of treatment: Longer than 12 weeks Meds Home Medications and Allergies Home Medications ?Medication ?Instructions ?Recorded ?Confirmed ?Type lidocaine 5 % topical ointment 35 g topical TIDP PRN J OINT PAIN 11/24/20 12/17/24 History mecobalamin (vitamin B12) 1,000 1,000 mcg PO DAILY Sup plement 11/24/20 12/17/24 History mcg chewable tablet multivitamin 1 each PO DAILY Supplement 0 11/24/20 12/17/24 History mirabegron 50 mg tablet,extended 50 mg PO DAILY #30 ta bs 10/07/23 12/17/24 Rx release 24 hr thiamine HCl (vitamin B1) 250 mg 250 mg PO DAILY SUPPL EMEMT 02/27/24 12/17/24 History tablet esomeprazole magnesium 40 mg See Rx Instructions .Rout e 04/15/24 12/17/24 Rx capsule,delayed release .COMPLEX #90 caps trospium 60 mg capsule,extended 60 mg PO DAILY . 06/2212/17/24 History release 24 hr colchicine 0.6 mg tablet 0.6 mg PO DAILY GOUT #90 tab s 09/29/24 12/17/24 Rx spironolactone 25 mg tablet See Rx Instructions .Route 10/12/24 12/17/24 Rx .COMPLEX #90 tabs cholecalciferol (vitamin D3) 50 2,000 unit PO DAILY #9 0 caps 10/20/24 12/17/24 Rx mcg (2,000 unit) capsule semaglutide (weight loss) 2.4 2.4 mg (0.75 mL) SQ WEEK LY #3 mL 11/18/24 12/17/24 Rx mg/0.75 mL subcutaneous pen injector (Wegovy) furosemide 40 mg tablet 40 mg PO DAILY 3 days #3 tab s 11/25/24 12/17/24 Rx metoprolol succinate 100 mg 50 mg PO DAILY BLOOD PRESS URE 11/25/24 12/17/24 History tablet,extended release 24 hr apixaban 5 mg tablet (Eliquis) 5 mg PO BID #60 tabs 12/17/24 Rx furosemide 20 mg tablet See Rx Instructions .Route 0 12/14/24 12/17/24 Rx .COMPLEX #90 tabs potassium chloride 20 mEq See Rx Instructions .Route 0 12/14/24 12/17/24 Rx tablet,extended release(part/cryst) .COMPLEX #120 tabs baclofen 10 mg tablet 10 mg PO TID #90 tabs 12/17/24 Rx nitrofurantoin 100 mg PO BID #14 caps 12/24 Rx monohydrate/macrocrystals 100 mg capsule (Macrobid) ropinirole 1 mg tablet See Rx Instructions .Route 0 01/11/25 Rx .COMPLEX #90 tabs hydrocodone 10 mg-acetaminophen 1 tab PO QID #40 tabs 01/20/25 Rx 325 mg tablet baclofen 10 mg tablet 10 mg PO TID #90 tabs Rx hydrocodone 10 mg-acetaminophen 1 tab PO QID #120 tabs 02/03/25 Rx 325 mg tablet New Prescriptions to Start Prescriptions: baclofen Darcy Carrero hydrocodone-acetaminophen Darcy Carrero Allergies Allergy/AdvReac Type Severity Reaction Status Date / Time sulfamethoxazole (From Allergy Intermediate kidney Verified 12/17/24 13:25 Bactrim) failure trimethoprim (From Bactrim) Allergy Intermediate kidney Verified 12/17/24 13:25 failure ciprofloxacin (From CIPRO) Allergy Unknown HEART RACES Verified 12/17/24 13:25 Penicillins (PENICILLINS) Allergy Unknown YEAST Verified 12/17/24 13:25 INFECTION ampicillin Allergy Rash Verified 12/17/24 13:25 Assessment and Plan *Assessment and plan (1) Bilateral chronic knee pain: Status: Chronic Category: Medical Code(s): M25.561 - Pain in right knee; M25.562 - Pain in left knee; G89.29 - Other chronic pain (2) Right knee DJD: Status: Chronic Category: Medical Code(s): M17.11 - Unilateral primary osteoarthritis, right knee (3) Left knee DJD: Status: Chronic Category: Medical Code(s): M17.12 - Unilateral primary osteoarthritis, left knee (4) Degenerative joint disease of right hip: Status: Chronic Category: Medical Code(s): M16.11 - Unilateral primary osteoarthritis, right hip Plan I will refill her [place] and baclofen and provide a 1 month supply of these medications. Patient will return to clinic in 1 month for reevaluation of symptoms and plan of care. Risks and benefits of the medication have been explained in detail to the patient. The patient does understand the risk of dependence on the medication when given over a prolonged period. Patient has been advised of risks of oversedation with the prescribed medication. Narcan has been offered to the paitent in the event of oversedation . Patient has been advised that a family member should also be educated regarding administration of Narcan. The patient has been advised to consult with his/her primary care provider and pharmacist regarding drug-drug interaction of medications currently prescribed. Patient has been prescribed a controlled substance after being counseled on the medication, medication safety, and possible side effects. Opioid contract was reviewed and signed by the patient, and that they have agreed to all of the terms set forth by our compliance program. A UDS is needed to verify patient's compliance with our office pain contract. This is ordered based off specific treatments related to chronic pain with the potential to abuse certain medications. Patient has been instructed to contact the clinic with any concerns before the next appointment. Dr. Newton has reviewed this note and agrees with this plan of care. This note was dictated using voice recognition software and make contain errors or omissions.
[2025-02-03 12:42] VITALS: BP 116/85; PULSE 88; RESP 14; O2SAT 97; BMI 64.3
== END 2025-02-03 23:59 | disposition home or self-care (01) ==
PROVIDERS: PCP Internal Medicine; Visit Provider Nurse Practitioner Family
DX: M17.0 Bilateral primary osteoarthritis of knee (principal); Z79.891 Long term (current) use of opiate analgesic; Z79.899 Other long term (current) drug therapy
CPT/HCPCS: 99212; G0463

== ENCOUNTER 2025-03-03 13:10 | Outpatient (POV) | payer MEDICARE, MEDICAID, SELFPAY ==
--- NOTE | 2025-03-03 13:12 | EXP.PAIN.SOA ---
[facility] Disclaimer: The information contained in this section may have been updated after the patient was seen, as this information can be updated by other users. Medical History History of orthopnea Paroxysmal A-fib Abnormal electrocardiogram [ECG] [EKG] Cryptic tonsil Enlarged tonsils Tinnitus Bilateral hearing loss Gout CAD (coronary artery disease) Osteoporosis HTN (hypertension), benign GERD (gastroesophageal reflux disease) Surgical History History of gastric bypass History of History of hysterectomy Family History Other Coronary artery disease Depression Diabetes YUMIKO (obstructive sleep apnea) Obesity (BMI 30.0-34.9) Social History Smoking Status: Never smoker alcohol intake: never substance use type: denies use current occupational status: other Travel in the last 8 weeks?: None household members: none housing: apartment caffeine: Yes Have you lived/traveled outside US in past 30 days?: No Contact w/someone who lives/traveled outside US past 30 days?: No Exposure to someone with infectious disease in past 14 days?: No Do you have a fever (greater than 100.4 F or 38 C)?: No Have you tested positive for COVID-19?: No Exposed to someone with COVID-19 in past 14 days?: No Do you have a sore throat?: No Do you have a cough?: No Do you have any weakness?: No Do you have any diarrhea?: No Are you experiencing any unusual bleeding?: No Do you have any muscle aches/pain?: No Do you have any abdominal pain?: No Are you experiencing loss of taste or smell?: No PM Subjective & Objective Subjective Subjective:: Patient is a pleasant 64-year-old female who presents today for her 1 month follow-up and medication refill. Patient denies any new falls or injuries. She does state that she is still arguing with insurance about getting her chair fixed completely. She states that they are saying that it is not a medical necessity. Patient is currently managed with [place] 10 mg 4 times a day and baclofen 10 mg 3 times a day. She denies any side effects or changes to her pharmacy. Her Maxwell has been reviewed and is appropriate. Review of Systems: General: No recent weight changes, no fever, no sleep disturbances Respiratory: No cough, no shortness of air, no recurring pulmonary infections Cardiovascular/peripheral vascular: No chest pain, no palpitations, no edema, no shortness of breath Gastrointestinal: No new onset incontinence, normal bowel movements reported Genitourinary: No new onset incontinence Musculoskeletal: Chronic hip and knee pain Psychiatric: [Normal mood/affect] Neurological: [Denies weakness in extremities], [denies balance issues] Pain at rest (0-10 scale): 6 Objective Objective:: Physical Exam: General: Alert and oriented x3, no acute distress, pleasant and cooperative Lungs: Respirations even and unlabored, symmetrical chest expansion Eyes: PERRL Musculoskeletal: Flexion and extension of lumbar [spine] somewhat guarded secondary to pain, [antalgic gait noted] Neurological: Speech clear, no gross sensory deficit Has patient had previous pain injection?: No Conservative treatment options previously tried: Prescription medications Length of treatment: Longer than 12 weeks Meds Home Medications and Allergies Home Medications ?Medication ?Instructions ?Recorded ?Confirmed ?Type lidocaine 5 % topical ointment 35 g topical TIDP PRN JOINT PAIN 11/24/20 02/03/25 History mecobalamin (vitamin B12) 1,000 1,000 mcg PO DAILY Supplement 11/24/20 02/03/25 History mcg chewable tablet multivitamin 1 each PO DAILY Supplement 11/24/20 02/03/25 History mirabegron 50 mg tablet,extended 50 mg PO DAILY #30 tabs 10/07/23 02/03/25 Rx release 24 hr thiamine HCl (vitamin B1) 250 mg 250 mg PO DAILY SUPPLEMEMT 02/27/24 02/03/25 History tablet esomeprazole magnesium 40 mg See Rx Instructions .Route 04/15/24 02/03/25 Rx capsule,delayed release .COMPLEX #90 caps trospium 60 mg capsule,extended 60 mg PO DAILY . 06/22/24 02/03/25 History release 24 hr colchicine 0.6 mg tablet 0.6 mg PO DAILY GOUT #90 tabs 09/29/24 02/03/25 Rx spironolactone 25 mg tablet See Rx Instructions .Route 10/12/24 02/03/25 Rx .COMPLEX #90 tabs cholecalciferol (vitamin D3) 50 2,000 unit PO DAILY #90 caps 10/20/24 02/03/25 Rx mcg (2,000 unit) capsule furosemide 40 mg tablet 40 mg PO DAILY 3 days #3 tabs 11/25/24 02/03/25 Rx metoprolol succinate 100 mg 50 mg PO DAILY BLOOD PRESSURE 11/25/24 02/03/25 History tablet,extended release 24 hr apixaban 5 mg tablet (Eliquis) 5 mg PO BID #60 tabs 12/14/24 02/03/25 Rx furosemide 20 mg tablet See Rx Instructions .Route 12/14/24 02/03/25 Rx .COMPLEX #90 tabs potassium chloride 20 mEq See Rx Instructions .Route 12/14/24 02/03/25 Rx tablet,extended release(part/cryst) .COMPLEX #120 tabs baclofen 10 mg tablet 10 mg PO TID #90 tabs 12/17/24 02/03/25 Rx nitrofurantoin 100 mg PO BID #14 caps 12/24/24 02/03/25 Rx monohydrate/macrocrystals 100 mg capsule (Macrobid) ropinirole 1 mg tablet See Rx Instructions .Route 01/11/25 02/03/25 Rx .COMPLEX #90 tabs hydrocodone 10 mg-acetaminophen 1 tab PO QID #40 tabs 01/20/25 02/03/25 Rx 325 mg tablet baclofen 10 mg tablet 10 mg PO TID #90 tabs 02/03/25 Rx hydrocodone 10 mg-acetaminophen 1 tab PO QID #120 tabs 02/03/25 Rx 325 mg tablet semaglutide (weight loss) 2.4 See Rx Instructions .Route 02/10/25 Rx mg/0.75 mL subcutaneous pen .COMPLEX #3 mL injector (XatorilenTapastreet) New Prescriptions to Start Prescriptions: Allergies Allergy/AdvReac Type Severity Reaction Status Date / Time sulfamethoxazole (From Allergy Intermediate kidney Verified 12/17/24 13:25 Bactrim) failure trimethoprim (From Bactrim) Allergy Intermediate kidney Verified 12/17/24 13:25 failure ciprofloxacin (From CIPRO) Allergy Unknown HEART RACES Verified 12/17/24 13:25 Penicillins (PENICILLINS) Allergy Unknown YEAST Verified 12/17/24 13:25 INFECTION ampicillin Allergy Rash Verified 12/17/24 13:25 Assessment and Plan *Assessment and plan (1) Right knee DJD: Status: Chronic Category: Medical Code(s): M17.11 - Unilateral primary osteoarthritis, right knee (2) Left knee DJD: Status: Chronic Category: Medical Code(s): M17.12 - Unilateral primary osteoarthritis, left knee (3) Hip pain: Status: Acute Qualifiers: Laterality: bilateral Qualified Code(s): M25.551 - Pain in right hip; M25.552 - Pain in left hip Category: Medical Code(s): M25.559 - Pain in unspecified hip Plan I will refill the patient's [place] and baclofen provide a 1 month supply of these medications. Patient will return to clinic in 1 month. Risks and benefits of the medication have been explained in detail to the patient. The patient does understand the risk of dependence on the medication when given over a prolonged period. Patient has been advised of risks of oversedation with the prescribed medication. Narcan has been offered to the paitent in the event of oversedation. Patient has been advised that a family member should also be educated regarding administration of Narcan. The patient has been advised to consult with his/her primary care provider and pharmacist regarding drug-drug interaction of medications currently prescribed. Patient has been prescribed a controlled substance after being counseled on the medication, medication safety, and possible side effects. Opioid contract was reviewed and signed by the patient, and that they have agreed to all of the terms set forth by our compliance program. A UDS is needed to verify patient's compliance with our office pain contract. This is ordered based off specific treatments related to chronic pain with the potential to abuse certain medications. Patient has been instructed to contact the clinic with any concerns before the next appointment. Dr. Newton has reviewed this note and agrees with this plan of care. This note was dictated using voice recognition software and make contain errors or omissions.
--- OUTSIDE RECORDS SUMMARY | 2025-03-03 13:14 | XMS_ITS | Clinical Summary ---
Author Organization [facility] Address [address] [place] [address] Care Team Providers Care Airport Ramp Attendant Name Role Phone McdanielCamille MD Unavailable [phone] Vadim Gee MD Primary Care Provider [phone] Allergies Active Allergy Reactions Criticality Noted Date [...] DAILY DIRECTED. 11/30/19 21 Active HYDROcodone-acetam inophen ([place]) 7.5-325 MG tablet Take 10 mg of [...] 2 diabetes mellitus 11/06/2021 Hypertension 11/29/2020 11/06/2021 Immunizations Immunization Administration Dates Next Due Influenza, seasonal, injectable 06/13/2010 Family History Medical History Relation Name Comments Cancer Brother Nani Posada Jr. Asthma Father Nani Davisson Sr. Coronary [...] Comments Brother Nani Posada Jr. Father Nani Davisson Sr. Maternal Grandmother Priscilla Pablo Mother Geni [...] Health Maintenance Due [facility] Last Done Comments [facility] 1960 [facility]atitis C Screening [facility]Med[facility] Annual Wellness (AWV) 1959 [facility]-/Child/Adol SDOH Screenings 1959 [id number] Vaccine (#1) 1964 [facility]- SDOH Screenings 1977 [facility]-Adult SDOH Screenings 1977 [facility]-DTaP,Tdap,and Td Vaccines (1 - Tdap) 1978 CT Colonography 2004 Colonoscopy 2004 FIT-DNA 2004 FIT 2004 FOBT 2004 Sigmoidoscopy 2004 [facility]-Colorectal Cancer Screening 2004 [facility]-Breast Cancer Screening 2009 [facility]-Pneumococcal Vaccine: 50+ Years (1 of 1 - PCV) 2009 [facility]-Zoster Vaccines (1 of 2) 2009 [facility]-RSV Vaccine: 60+ Years or (1 - Risk 60-74 years 1-dose series) 2019 [facility]-Depression Screening 03/26/2025 03/26/2024 [facility]-Influenza Vaccine (#1) [...] patient's age to complete this topic Insurance MEDICAID WELLCARE MEDICARE Care Teams Airport Ramp Attendant Relationship Specialty Start Date End Date Vadim Gee MD [address] [facility] [address] [place] [address] PCP - General 03/17/24 Camille Mcdaniel MD [address] [place] [address] [place] [address] Referring Physician 11/15/21
--- OUTSIDE RECORDS SUMMARY | 2025-03-03 13:14 | XMS_ITS | Clinical Summary ---
Author Organization [facility] ([place], [place], [place], [place]) Address [address] [place] [address] Care Team Providers Care Tax Agent Name Role Phone Unavailable Primary Care [...]
--- OUTSIDE RECORDS SUMMARY | 2025-03-03 13:14 | XMS_ITS | Referral Summary ---
Author Organization [facility] ([place], [place], [place], [place]) Address [address] [place] [address] Care Team Providers Care Training And Development Officer Name Role Phone Unavailable Primary [...]
--- OUTSIDE RECORDS SUMMARY | 2025-03-03 13:14 | XMS_ITS | Encounter Summary ---
Author Organization [facility] Address [address] [place] [address] Care Team Providers Care Fish Hatchery Worker Name Role Phone Dejan Vee MD Primary Care Provider + [phone] Camille Mcdaniel MD Unavailable [phone] Vadim Gee MD Primary Care Provider [phone] Encounter Details Date Type Department Care Team (Late st Contact Info) Description 02/09/2023 [facility] [address] [place] [address] Joe Guerra PA [address] [place] [phone] Unilateral primary osteoarthritis, right hip (Primary Dx) [...] documented as of this encounter Care Teams Fish Hatchery Worker Relationship Specialty Start Date End Date Dejan Vee MD [address] [place] [address] PCP - General 11/15/21 03/16/24 Vadim Gee MD [address] [place] [address] PCP - General 03/17/24 Camille Mcdaniel MD [address] [place] [address] [address] [place] [address] Referring Physician 11/15/21 documented as of this encounter
--- OUTSIDE RECORDS SUMMARY | 2025-03-03 13:14 | XMS_ITS | Clinical Summary ---
Author Organization [facility] Address [address] [facility] [address] [place] [address] Phone Care Team Providers Care Ota Name Role Phone Unavailable Primary Care Provider [...] by mouth 2 times daily. Active hydrochlorothiaz alexanedr (MICROZIDE) 12.5 mg Oral Capsule Take 12.5 [...] Insurance MEDICARE [place] PART A AND B [facility] [id number] [facility]
[2025-03-03 13:22] VITALS: BP 104/78; PULSE 89; RESP 14; O2SAT 98; BMI 63.5
== END 2025-03-03 23:59 | disposition home or self-care (01) ==
PROVIDERS: PCP Internal Medicine; Visit Provider Nurse Practitioner Family
DX: M17.0 Bilateral primary osteoarthritis of knee (principal); M25.551 Pain in right hip; M25.552 Pain in left hip; Z79.891 Long term (current) use of opiate analgesic; Z79.899 Other long term (current) drug therapy
CPT/HCPCS: 99212; G0463

== ENCOUNTER 2025-04-05 11:16 | Outpatient (CLI) | payer MEDICARE, MEDICAID, SELFPAY ==
--- OUTSIDE RECORDS SUMMARY | 2025-04-05 11:21 | XMS_ITS | Clinical Summary ---
Author Organization [facility] [place] Address [address] [facility] [address] [place] [address] Phone Care Team Providers Care Tree Climber Name Role Phone Unavailable Primary Care Provider [...] Cancer Screening 10/27/2016 10/28/19 15 (Not Entered) Bone Density Screening 2024 Colon Cancer Screening 10/27/2024 Colonoscopy 10/27/2024 10/27/2014 (Not Entered) COVID-19 Vaccine (1 - 2023-2 5 season) 2025 Influenza Vaccine (#1) 2025 Hepatitis B Vaccine Aged Out No longe r eligible based on patient's age to complete this topic Meningococcal B Vaccine Aged Out No l onger eligible based on patient's age to complete this topic Insurance MEDICARE [place] PART A AND B [facility] [id number] [facility]
--- OUTSIDE RECORDS SUMMARY | 2025-04-05 11:21 | XMS_ITS | Clinical Summary ---
Author Organization [facility] Address [address] [place] [address] Care Team Providers Care Mold Designer Name Role Phone McdanielCamille MD Unavailable [phone] Vadim Gee MD Primary Care Provider Allergies Active Allergy Reactions Criticality Noted Date [...] DAILY DIRECTED. 11/30/19 21 Active HYDROcodone-acetam inophen ([place]) 7.5-325 MG tablet Take 10 mg of [...] Health Maintenance Due Date Last Done Comments [facility]-Bone Density Scan 1959 [facility]-Hepatitis C Screening 1959 [facility]-Medicare Annual Wellness (AWV) 1959 [facility]-/Child/Adol SDOH Screenings 1959 [id number] Vaccine (#1) 1964 [facility]- SDOH Screenings 1977 [...] topic Insurance MEDICAID [employer] MEDICARE Care Teams Mold Designer Relationship Specialty Start Date End Date Vadim Gee MD [address] [facility] [address] [place] [address] PCP - General 03/17/24 Camille Mcdaniel MD [address] [place] [address] [place] [address] Referring Physician 11/15/21
--- OUTSIDE RECORDS SUMMARY | 2025-04-05 11:21 | XMS_ITS | Encounter Summary ---
Author Organization [facility] Address [address] [place] [address] Care Team Providers Care Cafeteria Team Leader Name Role Phone Dejan Vee MD Primary Care Provider + [phone] Camille Mcdaniel MD Unavailable [phone] Vadim Gee MD Primary Care Provider [phone] Encounter Details Date Type Department Care Team (Late st Contact Info) Description 02/09/2023 [facility] [address] [place] [address] Joe Guerra PA [address] [place] [phone] Unilateral primary osteoarthritis, right hip (Primary Dx) [...] documented as of this encounter Care Teams Cafeteria Team Leader Relationship Specialty Start Date End Date Dejan Vee MD [address] [place] [address] PCP - General 11/15/21 03/16/24 Vadim Gee MD [address] [place] [address] PCP - General 03/17/24 Camille Mcdaniel MD [address] [place] [address] [address] [place] [address] Referring Physician 11/15/21 documented as of this encounter
== END 2025-04-05 23:59 | disposition home or self-care (01) ==
LOC: LAB 11:17
PROVIDERS: PCP Internal Medicine; Visit Provider Nurse Practitioner Family
DX: Z51.81 Encounter for therapeutic drug level monitoring (principal); Z79.891 Long term (current) use of opiate analgesic
CPT/HCPCS: 36415